=== PATIENT | female | born 1970 | race African-American/Black ===

== ENCOUNTER 2016-09-13 12:28 | Emergency (ER) | payer BC ==
[2016-09-13] MEDS ORDERED: ASPIRIN 81 MG TABLET, CHEWABLE PO ONE (12:34)
--- NOTE | 2016-09-13 12:34 | ER Document Report ---
ED Medical Screen (RME) - General Stated Complaint: NUMBNESS/CHEST PAIN Notes: 45 yo female c/o intermittant numbness both upper extremities x 3 days. hands feel cold. Also c/o sharp intermittant left sided chest pain x 2 days. pain under left breast. nonradiating. nonreproducable. no shortness of breath. hx/o TIA, HTN, fibromyalgia, migraines, asthma. nonsmoker. TRAVEL OUTSIDE OF THE [place] IN LAST 30 DAYS: No - Related Data Allergies/Adverse Reactions: prochlorperazine edisylate [From Compazine] Allergy (Severe, Verified 09/13/16 12:36) PANIC ATTACK doxycycline [Doxycycline] Allergy (Mild, Verified 09/13/16 12:36) RASH Past Medical History - Past Medical History Cardiac Medical History: Reports: Hx Hypertension Pulmonary Medical History: Reports: Hx Asthma Denies: Hx Tuberculosis Neurological Medical History: Reports: Hx Cerebrovascular Accident - TIA, Hx Migraine, Hx Seizures - x1 Musculoskeltal Medical History: Reports Hx Arthritis, Reports Hx Fibromyalgia, Reports Hx Musculoskeletal Trauma Past Surgical History: Reports: Hx Cholecystectomy, Hx Hysterectomy, Hx Orthopedic Surgery - left foot - Immunizations Immunizations up to date: No Hx Diphtheria, Pertussis, Tetanus Vaccination: No
[2016-09-13 13:22] LABS: ABSOLUTE BASOPHILS # (AUTO) 0.1 10^3/uL (0.0-0.2); ABSOLUTE EOSINOPHILS # (AUTO) 0.2 10^3/uL (0.0-0.6); ABSOLUTE LYMPHOCYTES (AUTO) 2.2 10^3/uL (0.5-4.7); ABSOLUTE MONOCYTES (AUTO) 0.3 10^3/uL (0.1-1.4); ABSOLUTE NEUT (AUTO) 3.3 10^3/uL (1.7-8.2); BASOPHILS % (AUTO) 0.8 % (0-2); EOSINOPHILS % (AUTO) 3.7 % (0-6); HEMATOCRIT 35.5 % (36.0-47.0); HEMOGLOBIN 12.1 g/dL (12.0-15.5); HGB HCT DIFFERENCE 0.8; LYMPHOCYTES % (AUTO) 35.9 % (13-45); MEAN CORPUSCULAR HEMOGLOBIN 27.3 pg (27.0-33.4); MEAN CORPUSCULAR HGB CONC 34.1 g/dL (32.0-36.0); MEAN CORPUSCULAR VOLUME 80 fl (80-97); MONOCYTES % (AUTO) 5.6 % (3-13); RED BLOOD COUNT 4.44 10^6/uL (3.72-5.28); RED CELL DISTRIBUTION WIDTH 14.8 % (11.5-14.0); WHITE BLOOD COUNT 6.2 10^3/uL (4.0-10.5)
[2016-09-13 13:30] LABS: APPEARANCE,URINE CLOUDY; BILIRUBIN,URINE NEGATIVE (NEGATIVE); GLUCOSE, URINE NEGATIVE (NEGATIVE); KETONES,URINE TRACE mg/dL (NEGATIVE); LEUKOCYTE ESTERASE,URINE NEGATIVE (NEGATIVE); NITRITE,URINE NEGATIVE (NEGATIVE); PROTEIN,URINE 30 mg/dL (NEGATIVE); URINE SPECIFIC GRAVITY 1.026
--- NOTE | 2016-09-13 13:38 | EKG REPORT ---
SEVERITY:- ABNORMAL ECG - SINUS RHYTHM LEFT VENTRICULAR HYPERTROPHY : Confirmed by: Ping Hester MD 13-Sep-2016 13:37:42
[2016-09-13 13:45] LABS: ALANINE AMINOTRANSFERASE 32 U/L (9-52); ALBUMIN 4.1 g/dL (3.5-5.0); ALKALINE PHOSPHATASE 71 U/L (38-126); ANION GAP 17 (5-19); ASPARTATE AMINO TRANSFERASE 39 U/L (14-36); BILIRUBIN,TOTAL 0.8 mg/dL (0.2-1.3); BLOOD UREA NITROGEN 15 mg/dL (7-20); CALCIUM 9.6 mg/dL (8.4-10.2); CARBON DIOXIDE 29 mmol/L (22-30); CHLORIDE 98 mmol/L (98-107); CREATINE KINASE 880 U/L (30-135); CREATININE RESULT 0.88 mg/dL (0.52-1.25); GLUCOSE 127 mg/dL (75-110); SODIUM 144.2 mmol/L (137-145); TOTAL PROTEIN 8.1 g/dL (6.3-8.2)
[2016-09-13 13:58] LABS: CREATINE KINASE MB 2.01 ng/mL (<4.55); POTASSIUM 2.8 mmol/L (3.6-5.0); TROPONIN I < 0.012 ng/mL
[2016-09-13] MEDS ORDERED: NORMAL SALINE 1000 ML 1,000 ML IV ONE (14:22)
[2016-09-13] MEDS ORDERED: POTASSI CL 20 MEQ/50 ML RIDER 50 ML IV ONE (14:23)
[2016-09-13] MEDS ORDERED: POTASSIUM CHLORIDE 10 MEQ TABLET.SA PO ONE (14:23)
[2016-09-13] MEDS: MAGNESIUM SULFATE/D5W 100 ML IV SCH ×2 (16:00→17:45)
--- NOTE | 2016-09-13 17:57 | ER Document Report ---
ED General - General Chief Complaint: Chest Pain Stated Complaint: NUMBNESS/CHEST PAIN Notes: Patient is a 45-year-old female with past medical history of chronic hypokalemia , morbid obesity, hypertension who presents with multiple complaints including chest pain, lightheadedness, and bilateral upper and lower extremities paresthesias. States these symptoms have been intermittent over the last 3 days. States the chest pain as a dull, sharp pain in the center of her chest. Nothing improves or worsens the pain. No associated nausea, shortness of breath or diaphoresis. States this feels very similar prior episodes of chest pain that she's had all with unremarkable workup. States she has similar feelings of paresthesias in the past that she's had hypokalemia. She is not seen her primary care physician regarding today's concerns. Nothing improves or worsens or paresthesias. Denies any headache, neck pain, fever, or altered mental status. No focal weakness or numbness. TRAVEL OUTSIDE OF THE [place] IN LAST 30 DAYS: No - Related Data Allergies/Adverse Reactions: prochlorperazine edisylate [From Compazine] Allergy (Severe, Verified 09/13/16 12:36) PANIC ATTACK doxycycline [Doxycycline] Allergy (Mild, Verified 09/13/16 12:36) RASH Past Medical History - General Information source: Patient - Social History Smoking Status: Never Smoker Frequency of alcohol use: None Drug Abuse: None Lives with: Spouse/Significant other Family History: Reviewed & Not Pertinent, DM Patient has suicidal ideation: No Patient has homicidal ideation: No - Past Medical History Cardiac Medical History: Reports: Hx Hypertension Pulmonary Medical History: Reports: Hx Asthma Denies: Hx Tuberculosis Neurological Medical History: Reports: Hx Cerebrovascular Accident - TIA, Hx Migraine, Hx Seizures - x1 Musculoskeltal Medical History: Reports Hx Arthritis, Reports Hx Fibromyalgia, Reports Hx Musculoskeletal Trauma Past Surgical History: Reports: Hx Cholecystectomy, Hx Hysterectomy, Hx Orthopedic Surgery - left foot - Immunizations Immunizations up to date: No Hx Diphtheria, Pertussis, Tetanus Vaccination: No Hx Pneumococcal Vaccination: 09/03/00 Review of Systems - Review of Systems Notes: Constitutional: Negative for fever. HENT: Negative for sore throat. Eyes: Negative for visual changes. Cardiovascular: Positive for chest pain. Respiratory: Negative for shortness of breath. Gastrointestinal: Negative for abdominal pain, vomiting or diarrhea. Genitourinary: Negative for dysuria. Musculoskeletal: Negative for back pain. Skin: Negative for rash. Neurological: Negative for headaches, weakness or numbness. Positive for bilateral upper and lower extremity paresthesias 10 point ROS negative except as marked above and in HPI. Physical Exam - Vital signs Vitals: Temp Pulse Resp BP Pulse Ox 97.3 F 62 16 139/80 H 99 09/13/16 12:39 09/13/16 12:39 09/13/16 12:39 09/13/16 12:39 09/13/16 12:39 Interpretation: Normal Notes: PHYSICAL EXAMINATION: GENERAL: Well-appearing, well-nourished and in no acute distress. HEAD: Atraumatic, normocephalic. EYES: Pupils equal round and reactive to light, extraocular movements intact, sclera anicteric, conjunctiva are normal. ENT: nares patent, oropharynx clear without exudates. Moist mucous membranes. NECK: Normal range of motion, supple without lymphadenopathy LUNGS: Breath sounds clear to auscultation bilaterally and equal. No wheezes rales or rhonchi. HEART: Regular rate and rhythm without murmurs ABDOMEN: Soft, nontender, normoactive bowel sounds. No guarding, no rebound. No masses appreciated. EXTREMITIES: Normal range of motion, no pitting or edema. No cyanosis. NEUROLOGICAL: Face symmetric. Tongue protrudes midline. Extraocular motions intact. Pupils are 2 mm and equally reactive. Normal speech, normal gait. 5 out of 5 strength in both the distal and proximal upper and lower extremities bilaterally. Sensation is grossly intact throughout. Finger to nose testing normal. Pronator drift normal. PSYCH: Normal mood, normal affect. SKIN: Warm, Dry, normal turgor, no rashes or lesions noted. Course - Re-evaluation Re-evalutation: 09/13/16 23:11 Presentation of chest pain in an otherwise well appearing patient. Low clinical suspicion for ACS given clinical history, exam, EKG without ST elevations or depressions, and negative initial troponin. HEART score less than or equal to 3. PE also seems unlikely given clinical history, absence of tachycardia or dyspnea. Patient is PERC criteria negative CXR without evidence of pneumothorax or pneumonia. No widened mediastinum. Aortic dissection also seems unlikely given history, symmetric pulses, CXR, and vitals. Regarding patient's complaints of upper show any paresthesias: Suspect this is likely related to her hypokalemia she has had similar symptoms in the past when she's had hypokalemia. Her potassium was repleted here both IV and with oral dosing in conjunction with IV magnesium replacement. I contacted patient's primary care physician Dr. Little to relate the findings from today's labs and the need for close outpatient follow-up.At this time will discharge with return precautions and follow-up recommendations. Verbal discharge instructions given a the bedside and opportunity for questions given. Medication warnings reviewed. Patient is in agreement with this plan and has verbalized understanding of return precautions and the need for primary care follow-up in the next 24-72 hours. - Vital Signs Vital signs: Temp Pulse Resp BP Pulse Ox 98.0 F 63 17 112/78 99 09/13/16 18:11 09/13/16 18:11 09/13/16 18:11 09/13/16 18:11 09/13/16 18:11 - Laboratory Result Diagrams: 09/13/16 12:50 09/13/16 12:50 Laboratory results interpreted by me: 09/13/16 09/13/16 09/13/16 12:50 12:50 12:50 Hct 35.5 L RDW 14.8 H Potassium 2.8 L* Glucose 127 H AST 39 H Creatine Kinase 880 H Urine Protein 30 H Urine Ketones TRACE H Urine Urobilinogen 2.0 H - Diagnostic Test Radiology reviewed: Image reviewed, Reports reviewed Radiology results interpreted by me: 09/13/16 23:11 Chest x-ray: No acute infiltrate or pneumothorax - EKG Interpretation by Me Additional EKG results interpreted by me: 09/13/16 23:11 Normal sinus rhythm. Rate 67.Elevations or depressions. QTC 465 Discharge - Discharge Clinical Impression: Hypokalemia, Paresthesias Chest pain Qualifiers: Chest pain type: unspecified Qualified Code(s): R07.9 - Chest pain, unspecified Condition: Good Disposition: HOME, SELF-CARE Additional Instructions: You were seen today for chest pain. The exact cause of your pain is unclear. However, based on your cardiac enzyme testing, chest x-ray, and EKG it does not appear that it is from an immediately life-threatening cause at this time. Although your testing here is normal is critical that you follow-up with your primary care physician for continued evaluation of this chest pain. Your labs also show that you had a low potassium which has been replaced here in the emergency department. You need to follow-up with your primary care doctor either tomorrow or the following day for recheck of this lab to ensure that your symptoms are improving. Please return to emergency department immediately if you have worsening of your chest pain, shortness of breath, vomiting, become unable to exert yourself due to pain or difficulty breathing, you pass out, or have any pain that radiates into your arms, jaw, or back. Please also return if you have any additional symptoms that are concerning to you. Referrals: JONAH LITTLE MD [Primary Care Provider] - Follow up tomorrow
[2016-09-13 18:09] VITALS: BP 112/78
== END 2016-09-13 18:05 | disposition home or self-care (01) ==
LOC: ER 12:28
DX: R07.9 Chest pain, unspecified (principal); E87.6 Hypokalemia; R20.0 Anesthesia of skin; E66.01 Morbid (severe) obesity due to excess calories; Z68.41 Body mass index [BMI] 40.0-44.9, adult; R42 Dizziness and giddiness; I10 Essential (primary) hypertension; J45.909 Unspecified asthma, uncomplicated; Z86.73 Personal history of transient ischemic attack (TIA), and cerebral infarction without residual deficits; Z88.8 Allergy status to other drugs, medicaments and biological substances; Z88.1 Allergy status to other antibiotic agents
CPT/HCPCS: 93005; 99285; 96365; 96368; 96366; 36415; 82553; 82550; 83690; 85025; 80053; 81001; 84484; 71020; 93010; J3475; J3480; J7030

== ENCOUNTER 2016-09-17 21:41 | Emergency (ER) | payer BC ==
[2016-09-17 22:54] LABS: ABSOLUTE BASOPHILS # (AUTO) 0.1 10^3/uL (0.0-0.2); ABSOLUTE EOSINOPHILS # (AUTO) 0.3 10^3/uL (0.0-0.6); ABSOLUTE LYMPHOCYTES (AUTO) 2.8 10^3/uL (0.5-4.7); ABSOLUTE MONOCYTES (AUTO) 0.7 10^3/uL (0.1-1.4); ABSOLUTE NEUT (AUTO) 5.2 10^3/uL (1.7-8.2); BASOPHILS % (AUTO) 1.3 % (0-2); EOSINOPHILS % (AUTO) 3.8 % (0-6); HEMATOCRIT 35.2 % (36.0-47.0); HEMOGLOBIN 11.8 g/dL (12.0-15.5); HGB HCT DIFFERENCE 0.2; LYMPHOCYTES % (AUTO) 30.7 % (13-45); MEAN CORPUSCULAR HEMOGLOBIN 27.1 pg (27.0-33.4); MEAN CORPUSCULAR HGB CONC 33.4 g/dL (32.0-36.0); MEAN CORPUSCULAR VOLUME 81 fl (80-97); MONOCYTES % (AUTO) 7.9 % (3-13); RED BLOOD COUNT 4.34 10^6/uL (3.72-5.28); RED CELL DISTRIBUTION WIDTH 14.3 % (11.5-14.0); SEGMENTED NEUTROPHILS % (AUTO) 56.3 % (42-78); WHITE BLOOD COUNT 9.2 10^3/uL (4.0-10.5)
--- NOTE | 2016-09-17 23:01 | ER Document Report ---
ED Cardiac - General Chief Complaint: Chest Pain Stated Complaint: CHEST PAIN Time seen by provider: 23:01 Mode of Arrival: Ambulatory Information source: Patient TRAVEL OUTSIDE OF THE [place] IN LAST 30 DAYS: No - HPI Patient complains to provider of: Chest pain Was the onset of pain: Sudden Is the pain a: New problem Chest pain location: Substernal Quality of pain: Sharp, Stabbing Severity now: None Chest pain precipitating factors: At Rest Cardiac risk factors: Hypertension Positive cardiac history: No Associated symptoms: Other - Tingling to distal extremities Exacerbated by: Denies Relieved by: Nothing Similar symptoms previously: Yes Recently seen / treated by doctor: Yes Notes: Patient is a 45-year-old female who presents to the emergency room complaining of sharp stabbing chest pain with tingling sensation to her toes and fingers it' s been going on for the past 2 days, in fact she's been having it intermittently throughout the week, she was seen in this emergency room on 09/13 and diagnosed with hypokalemia, she was given oral and IV potassium in the emergency room and discharged, she followed up with her primary care provider who did not change her medications are put her on any additional potassium wanted to order additional tests, she states this evening her symptoms got bad enough warranting her to come back to the emergency room for evaluation, she denies any shortness of breath, no cough, cold or congestion, no nausea, vomiting or diarrhea - Related Data Allergies/Adverse Reactions: prochlorperazine edisylate [From Compazine] Allergy (Severe, Verified 09/13/16 12:36) PANIC ATTACK doxycycline [Doxycycline] Allergy (Mild, Verified 09/13/16 12:36) RASH Past Medical History - General Information source: Patient - Social History Smoking Status: Never Smoker Family History: Reviewed & Not Pertinent, DM - Past Medical History Cardiac Medical History: Reports: Hx Hypertension Pulmonary Medical History: Reports: Hx Asthma Denies: Hx Tuberculosis Neurological Medical History: Reports: Hx Cerebrovascular Accident - TIA, Hx Migraine, Hx Seizures - x1 Musculoskeltal Medical History: Reports Hx Arthritis, Reports Hx Fibromyalgia, Reports Hx Musculoskeletal Trauma Past Surgical History: Reports: Hx Cholecystectomy, Hx Hysterectomy, Hx Orthopedic Surgery - left foot - Immunizations Immunizations up to date: No Hx Diphtheria, Pertussis, Tetanus Vaccination: No Hx Pneumococcal Vaccination: 09/03/00 Review of Systems - Review of Systems Constitutional: No symptoms reported EENT: No symptoms reported Cardiovascular: Chest pain Respiratory: No symptoms reported Gastrointestinal: No symptoms reported Genitourinary: No symptoms reported Female Genitourinary: No symptoms reported Musculoskeletal: No symptoms reported Skin: No symptoms reported Hematologic/Lymphatic: No symptoms reported Neurological/Psychological: Tingling -: Yes All other systems reviewed and negative Physical Exam - Vital signs Vitals: Temp Pulse Resp BP Pulse Ox 98.1 F 72 18 127/76 H 100 09/17/16 21:46 09/17/16 21:46 09/17/16 21:46 09/17/16 21:46 09/17/16 21:46 Interpretation: Normal - General General appearance: Appears well, Alert - HEENT Head: Normocephalic, Atraumatic Eyes: Normal Pupils: PERRL - Respiratory Respiratory status: No respiratory distress Chest status: Nontender Breath sounds: Normal Chest palpation: Normal - Cardiovascular Rhythm: Regular Heart sounds: Normal auscultation Murmur: No - Abdominal Inspection: Normal Distension: No distension Bowel sounds: Normal Tenderness: Nontender Organomegaly: No organomegaly - Back Back: Normal, Nontender - Extremities General upper extremity: Normal inspection, Nontender, Normal color, Normal ROM , Normal temperature General lower extremity: Normal inspection, Nontender, Normal color, Normal ROM , Normal temperature, Normal weight bearing. No: Maryanne's sign - Neurological Neuro grossly intact: Yes Cognition: Normal Orientation: AAOx4 [place] Coma Scale Eye Opening: Spontaneous [place] Coma Scale Verbal: Oriented [place] Coma Scale Motor: Obeys Commands [place] Coma Scale Total: 15 Speech: Normal Motor strength normal: LUE, RUE, LLE, RLE Sensory: Normal - Psychological Associated symptoms: Normal affect, Normal mood - Skin Skin Temperature: Warm Skin Moisture: Dry Skin Color: Normal Course - Re-evaluation Re-evalutation: 09/18/16 01:38 Patient's potassium noted to be 2.9, oral and IV potassium will be replaced and patient will be reevaluated 09/18/16 03:07 Patient has had oral potassium and one IV K rider, she reports that her symptoms are already feeling much better, second care provider is being hung at the present time, anticipate patient to be discharged with instructions to follow-up with her primary care provider in the next 2-3 days or return if symptoms worsen, patient acknowledges understanding and agreement with this plan - Vital Signs Vital signs: Temp Pulse Resp BP Pulse Ox 98.1 F 72 15 104/60 96 09/17/16 21:46 09/17/16 21:46 09/18/16 01:28 09/18/16 01:28 09/18/16 01:28 - Laboratory Result Diagrams: 09/17/16 22:33 09/17/16 23:50 Laboratory results interpreted by me: 09/17/16 09/17/16 09/17/16 22:33 22:50 23:50 Hgb 11.8 L Hct 35.2 L RDW 14.3 H Potassium 2.9 L* Chloride 97 L Glucose 114 H Creatine Kinase 363 H Urine Urobilinogen 2.0 H - Diagnostic Test Radiology reviewed: Image reviewed, Reports reviewed - EKG Interpretation by Me EKG shows normal: Sinus rhythm Rate: Normal Rhythm: NSR [place]/QRS: IVCD When compared to previous EKG there are: No significant change Discharge - Discharge Clinical Impression: Hypokalemia, Paresthesias Chest pain Qualifiers: Chest pain type: unspecified Qualified Code(s): R07.9 - Chest pain, unspecified Condition: Stable Disposition: HOME, SELF-CARE Instructions: Chest Pain of Unclear Cause ([facility]), Potassium ([facility]), Numbness or Paresthesia ([facility]) Additional Instructions: Follow up with your primary care provider in one to 2 days. Return to the emergency room immediately if symptoms worsen or any additional concerns. Prescriptions: Potassium Chloride 40 meq PO DAILY #10 [email or web address]
[2016-09-17 23:28] LABS: APPEARANCE,URINE CLEAR; BILIRUBIN,URINE NEGATIVE (NEGATIVE); GLUCOSE, URINE NEGATIVE (NEGATIVE); KETONES,URINE NEGATIVE (NEGATIVE); LEUKOCYTE ESTERASE,URINE NEGATIVE (NEGATIVE); NITRITE,URINE NEGATIVE (NEGATIVE); PROTEIN,URINE NEGATIVE (NEGATIVE); URINE SPECIFIC GRAVITY 1.021
[2016-09-17 23:42] LABS: URINE BARBITURATES SCREEN NEGATIVE; URINE METHADONE SCREEN NEGATIVE; URINE PHENCYCLIDINE SCREEN NEGATIVE
[2016-09-18 00:34] LABS: ALANINE AMINOTRANSFERASE 28 U/L (9-52); ALBUMIN 3.9 g/dL (3.5-5.0); ALKALINE PHOSPHATASE 70 U/L (38-126); ANION GAP 14 (5-19); ASPARTATE AMINO TRANSFERASE 24 U/L (14-36); BILIRUBIN,TOTAL 0.6 mg/dL (0.2-1.3); BLOOD UREA NITROGEN 16 mg/dL (7-20); CALCIUM 9.3 mg/dL (8.4-10.2); CARBON DIOXIDE 30 mmol/L (22-30); CHLORIDE 97 mmol/L (98-107); CREATINE KINASE 363 U/L (30-135); CREATININE RESULT 0.86 mg/dL (0.52-1.25); GLUCOSE 114 mg/dL (75-110); SODIUM 140.8 mmol/L (137-145); TOTAL PROTEIN 7.6 g/dL (6.3-8.2)
[2016-09-18 00:52] LABS: TROPONIN I < 0.012 ng/mL
[2016-09-18] MEDS ORDERED: POTASSIUM CHLORIDE 10 MEQ TABLET.SA PO ONE (00:56)
[2016-09-18 00:57] LABS: POTASSIUM 2.9 mmol/L (3.6-5.0)
[2016-09-18] MEDS ORDERED: POTASSI CL 20 MEQ/50 ML RIDER 50 ML IV SCH (01:00)
[2016-09-18 05:00] VITALS: BP 102/56
--- NOTE | 2016-09-18 08:20 | EKG REPORT ---
SEVERITY:- ABNORMAL ECG - SINUS RHYTHM NONSPECIFIC INTRAVENTRICULAR CONDUCTION DELAY LEFT VENTRICULAR HYPERTROPHY ANTERIOR Q WAVES, POSSIBLY DUE TO LVH : Confirmed by: Diego Woods MD 18-Sep-2016 08:19:00
== END 2016-09-18 05:13 | disposition home or self-care (01) ==
LOC: ER 21:41
DX: E87.6 Hypokalemia (principal); R20.9 Unspecified disturbances of skin sensation; R07.9 Chest pain, unspecified; I10 Essential (primary) hypertension; J45.909 Unspecified asthma, uncomplicated; Z90.49 Acquired absence of other specified parts of digestive tract; Z90.710 Acquired absence of both cervix and uterus; Z86.73 Personal history of transient ischemic attack (TIA), and cerebral infarction without residual deficits
CPT/HCPCS: 93005; 36415; 82553; 82550; 83735; 85025; 80053; 81001; 84484; 80307; 71020; 93010; J3480

== ENCOUNTER 2016-09-19 16:51 | Emergency (ER) | payer BC ==
[2016-09-19] MEDS ORDERED: ASPIRIN 81 MG TABLET, CHEWABLE PO ONE (17:20)
--- NOTE | 2016-09-19 17:23 | ER Document Report ---
ED Medical Screen (RME) - General Stated Complaint: CHEST PAIN Mode of Arrival: Ambulatory Information source: Patient Notes: Patient complains of left-sided chest pain that started yesterday around 7 PM. Patient reports being evaluated emergency department twice in the past week for hypokalemia. Patient states that she called her doctor who advised her to come here for concern about continued hypokalemia. Patient denies any shortness of breath. Patient denies any nausea vomiting hx: Fibromyalgia, hypertension, sleep apnea, migraines, TIA I have greeted and performed a rapid initial assessment of this patient. A comprehensive ED assessment and evaluation of the patient, analysis of test results and completion of the medical decision making process will be conducted by additional ED providers. TRAVEL OUTSIDE OF THE [place] IN LAST 30 DAYS: No - Related Data Allergies/Adverse Reactions: prochlorperazine edisylate [From Compazine] Allergy (Severe, Verified 09/19/16 17:20) PANIC ATTACK doxycycline [Doxycycline] Allergy (Mild, Verified 09/19/16 17:20) RASH Past Medical History - Past Medical History Cardiac Medical History: Reports: Hx Hypertension Pulmonary Medical History: Reports: Hx Asthma Denies: Hx Tuberculosis Neurological Medical History: Reports: Hx Cerebrovascular Accident - TIA, Hx Migraine, Hx Seizures - x1 Musculoskeltal Medical History: Reports Hx Arthritis, Reports Hx Fibromyalgia, Reports Hx Musculoskeletal Trauma Past Surgical History: Reports: Hx Cholecystectomy, Hx Hysterectomy, Hx Orthopedic Surgery - left foot - Immunizations Immunizations up to date: No Hx Diphtheria, Pertussis, Tetanus Vaccination: No Physical Exam - Vital signs Vitals: Temp Pulse Resp BP 98.3 F 71 20 115/65 09/19/16 17:13 09/19/16 17:13 09/19/16 17:13 09/19/16 17:13 - General General appearance: Appears well, Alert In distress: None - Respiratory Respiratory status: No respiratory distress Course - Vital Signs Vital signs: Temp Pulse Resp BP Pulse Ox 98.3 F 71 20 115/65 09/19/16 17:13 09/19/16 17:13 09/19/16 17:13 09/19/16 17:13
[2016-09-19 18:14] LABS: APPEARANCE,URINE CLEAR; BILIRUBIN,URINE NEGATIVE (NEGATIVE); GLUCOSE, URINE NEGATIVE (NEGATIVE); KETONES,URINE NEGATIVE (NEGATIVE); LEUKOCYTE ESTERASE,URINE NEGATIVE (NEGATIVE); NITRITE,URINE NEGATIVE (NEGATIVE); PROTEIN,URINE NEGATIVE (NEGATIVE); URINE SPECIFIC GRAVITY 1.014; UROBILINOGEN,URINE NEGATIVE mg/dL (<2.0)
[2016-09-19 18:25] LABS: ABSOLUTE BASOPHILS # (AUTO) 0.1 10^3/uL (0.0-0.2); ABSOLUTE EOSINOPHILS # (AUTO) 0.2 10^3/uL (0.0-0.6); ABSOLUTE LYMPHOCYTES (AUTO) 2.6 10^3/uL (0.5-4.7); ABSOLUTE MONOCYTES (AUTO) 0.6 10^3/uL (0.1-1.4); ABSOLUTE NEUT (AUTO) 4.6 10^3/uL (1.7-8.2); BASOPHILS % (AUTO) 0.6 % (0-2); EOSINOPHILS % (AUTO) 2.3 % (0-6); HEMATOCRIT 35.8 % (36.0-47.0); HEMOGLOBIN 11.6 g/dL (12.0-15.5); LYMPHOCYTES % (AUTO) 32.1 % (13-45); MEAN CORPUSCULAR HEMOGLOBIN 26.8 pg (27.0-33.4); MEAN CORPUSCULAR HGB CONC 32.3 g/dL (32.0-36.0); MEAN CORPUSCULAR VOLUME 83 fl (80-97); MONOCYTES % (AUTO) 7.6 % (3-13); RED BLOOD COUNT 4.31 10^6/uL (3.72-5.28); RED CELL DISTRIBUTION WIDTH 14.5 % (11.5-14.0); SEGMENTED NEUTROPHILS % (AUTO) 57.4 % (42-78)
--- NOTE | 2016-09-19 18:37 | EKG REPORT ---
SEVERITY:- ABNORMAL ECG - SINUS RHYTHM LEFT VENTRICULAR HYPERTROPHY : Confirmed by: Diego Woods MD 19-Sep-2016 18:36:55
[2016-09-19 18:47] LABS: ALANINE AMINOTRANSFERASE 24 U/L (9-52); ALBUMIN 3.8 g/dL (3.5-5.0); ALKALINE PHOSPHATASE 65 U/L (38-126); ANION GAP 13 (5-19); ASPARTATE AMINO TRANSFERASE 22 U/L (14-36); BILIRUBIN,TOTAL 0.3 mg/dL (0.2-1.3); BLOOD UREA NITROGEN 11 mg/dL (7-20); CALCIUM 9.3 mg/dL (8.4-10.2); CARBON DIOXIDE 30 mmol/L (22-30); CHLORIDE 98 mmol/L (98-107); CREATINE KINASE 317 U/L (30-135); CREATININE RESULT 0.93 mg/dL (0.52-1.25); GLUCOSE 85 mg/dL (75-110); LIPASE 113.8 U/L (23-300); MAGNESIUM 1.9 mg/dL (1.6-2.3); POTASSIUM 3.2 mmol/L (3.6-5.0); SODIUM 140.6 mmol/L (137-145); TOTAL PROTEIN 7.6 g/dL (6.3-8.2)
[2016-09-19 18:55] LABS: CREATINE KINASE MB 1.36 ng/mL (<4.55)
[2016-09-19 19:01] LABS: TROPONIN I < 0.012 ng/mL
[2016-09-19] MEDS ORDERED: POTASSIUM CHLORIDE 10 MEQ TABLET.SA PO ONE (19:19)
--- NOTE | 2016-09-19 19:22 | ER Document Report ---
ED General - General Chief Complaint: Chest Pain Stated Complaint: CHEST PAIN Time seen by provider: 19:21 Mode of Arrival: Ambulatory Notes: Is a 45-year-old female that comes emergency department for chief complaint of tingling in her hands and feet, tiredness, and intermittent sharp and heaviness discomforts in her chest mainly on the left side. Symptoms started yesterday at 7 PM. Patient has been to the emergency department twice this week for concerns of hyperkalemia, he states she has had problems with this in the past, she just began a potassium supplement. Patient denies any shortness of breath, nausea or vomiting, diarrhea, fevers, cough. Patient with no cardiovascular disease history, has had negative stress test in the past. TRAVEL OUTSIDE OF THE [place] IN LAST 30 DAYS: No - Related Data Allergies/Adverse Reactions: prochlorperazine edisylate [From Compazine] Allergy (Severe, Verified 09/19/16 17:20) PANIC ATTACK doxycycline [Doxycycline] Allergy (Mild, Verified 09/19/16 17:20) RASH Past Medical History - General Information source: Patient - Social History Smoking Status: Never Smoker Chew tobacco use (# tins/day): No Frequency of alcohol use: None Drug Abuse: None Lives with: Family Family History: Reviewed & Not Pertinent, DM Patient has suicidal ideation: No Patient has homicidal ideation: No - Past Medical History Cardiac Medical History: Reports: Hx Hypertension Pulmonary Medical History: Reports: Hx Asthma Denies: Hx Tuberculosis Neurological Medical History: Reports: Hx Cerebrovascular Accident - TIA, Hx Migraine, Hx Seizures - x1 Renal/ Medical History: Denies: Hx Peritoneal Dialysis Musculoskeltal Medical History: Reports Hx Arthritis, Reports Hx Fibromyalgia, Reports Hx Musculoskeletal Trauma Past Surgical History: Reports: Hx Section, Hx Cholecystectomy, Hx Hysterectomy, Hx Orthopedic Surgery - left foot - Immunizations Immunizations up to date: No Hx Diphtheria, Pertussis, Tetanus Vaccination: No Hx Pneumococcal Vaccination: 09/03/00 Review of Systems - Review of Systems Constitutional: No symptoms reported EENT: No symptoms reported Cardiovascular: See HPI Respiratory: No symptoms reported Gastrointestinal: No symptoms reported Genitourinary: No symptoms reported Female Genitourinary: No symptoms reported Musculoskeletal: See HPI Skin: No symptoms reported Hematologic/Lymphatic: No symptoms reported Neurological/Psychological: See HPI Physical Exam - Vital signs Vitals: Temp Pulse Resp BP 98.3 F 71 20 115/65 09/19/16 17:13 09/19/16 17:13 09/19/16 17:13 09/19/16 17:13 Interpretation: Normal - General General appearance: Appears well, Alert In distress: None - HEENT Head: Normocephalic, Atraumatic Eyes: Normal Conjunctiva: Normal Extraocular movements intact: Yes Eyelashes: Normal Pupils: PERRL Sinus: Normal Nasal: Normal Mouth/Lips: Normal Mucous membranes: Normal Pharynx: Normal Neck: Normal - Respiratory Respiratory status: No respiratory distress Chest status: Nontender Breath sounds: Normal. No: Decreased air movement, Wheezing Chest palpation: Normal - Cardiovascular Rhythm: Regular. No: Tachycardia Heart sounds: Normal auscultation, S1 appreciated, S2 appreciated Murmur: No - Abdominal Inspection: Normal Distension: No distension Bowel sounds: Normal Tenderness: Nontender. No: Tender, Guarding Organomegaly: No organomegaly - Back Back: Normal, Nontender - Extremities General upper extremity: Normal inspection, Nontender, Normal color, Normal ROM , Normal temperature General lower extremity: Normal inspection, Nontender, Normal color, Normal ROM , Normal temperature, Normal weight bearing. No: Maryanne's sign - Neurological Neuro grossly intact: Yes Cognition: Normal Orientation: AAOx4 [place] Coma Scale Eye Opening: Spontaneous [place] Coma Scale Verbal: Oriented [place] Coma Scale Motor: Obeys Commands [place] Coma Scale Total: 15 Speech: Normal Motor strength normal: LUE, RUE, LLE, RLE Sensory: Normal - Psychological Associated symptoms: Normal affect, Normal mood - Skin Skin Temperature: Warm Skin Moisture: Dry Skin Color: Normal Course - Re-evaluation Re-evalutation: Patient calm, relaxed, talkative, well-appearing. On initial evaluation patient is asymptomatic. Magnesium normal, potassium slightly low at 3.2 but significantly improved from prior. EKG shows normal sinus rhythm with left axis deviation, no ischemic T- wave inversions or ST segment changes. No other abnormalities noted. Chest x- ray unremarkable. Mild normocytic anemia. CK mildly elevated. Patient's reported chest pain is atypical, has been intermittent for over a week now, very low suspicion of acute cardiac abnormality. No shortness of breath, tachycardia, or concerning history suggesting pulmonary embolism. Called and discussed with patient's primary care provider who had referred her to the emergency department, Dr. Little. He states he does not want to change blood pressure medication at this time (includes HCTZ) and patient also does not want to change because her blood pressures have been so good and it is difficult to control her blood pressure. He recommends single dose of potassium now, continue daily supplement of potassium, and close follow-up within the next several days at his clinic. Discussed this with patient, patient states understanding and agreement with plan. - Vital Signs Vital signs: Temp Pulse Resp BP Pulse Ox 98.3 F 72 16 116/79 99 09/19/16 17:13 09/19/16 19:04 09/19/16 20:01 09/19/16 20:01 09/19/16 20:01 - Laboratory Result Diagrams: 09/19/16 18:13 09/19/16 18:13 Laboratory results interpreted by me: 09/19/16 09/19/16 18:13 18:13 Hgb 11.6 L Hct 35.8 L MCH 26.8 L RDW 14.5 H Potassium 3.2 L Creatine Kinase 317 H Discharge - Discharge Clinical Impression: Hypokalemia, Paresthesias Chest pain Qualifiers: Chest pain type: unspecified Qualified Code(s): R07.9 - Chest pain, unspecified Condition: Stable Disposition: HOME, SELF-CARE Additional Instructions: You have been given an extra potassium supplement tonight, continue a daily potassium supplement, follow-up with her primary care provider for additional management of your potassium and blood pressure medications within the next several days (i.e. Sunday). Please return to the emergency department for any concerning or worsening symptoms. Referrals: JONAH LITTLE MD [Primary Care Provider] - 09/22/16
[2016-09-19 20:05] VITALS: BP 116/79
== END 2016-09-19 20:05 | disposition home or self-care (01) ==
LOC: ER 16:51
DX: R07.9 Chest pain, unspecified (principal); R20.0 Anesthesia of skin
CPT/HCPCS: 36415; 71020; 80053; 81001; 82550; 82553; 83690; 83735; 84484; 85025; 93005; 93010; 99285

== ENCOUNTER 2016-10-02 07:29 | Emergency (ER) | payer BC ==
--- NOTE | 2016-10-02 08:28 | EKG REPORT ---
SEVERITY:- ABNORMAL ECG - SINUS RHYTHM LEFT VENTRICULAR HYPERTROPHY : Confirmed by: Catherine Turner 02-Oct-2016 08:27:36
[2016-10-02 08:42] LABS: ABSOLUTE EOSINOPHILS # (AUTO) 0.2 10^3/uL (0.0-0.6); ABSOLUTE LYMPHOCYTES (AUTO) 2.5 10^3/uL (0.5-4.7); ABSOLUTE MONOCYTES (AUTO) 0.6 10^3/uL (0.1-1.4); ABSOLUTE NEUT (AUTO) 4.7 10^3/uL (1.7-8.2); BASOPHILS % (AUTO) 0.4 % (0-2); EOSINOPHILS % (AUTO) 2.9 % (0-6); HEMATOCRIT 34.2 % (36.0-47.0); HEMOGLOBIN 11.8 g/dL (12.0-15.5); HGB HCT DIFFERENCE 1.2; LYMPHOCYTES % (AUTO) 31.3 % (13-45); MEAN CORPUSCULAR HEMOGLOBIN 27.7 pg (27.0-33.4); MEAN CORPUSCULAR HGB CONC 34.4 g/dL (32.0-36.0); MEAN CORPUSCULAR VOLUME 81 fl (80-97); MONOCYTES % (AUTO) 7.1 % (3-13); RED BLOOD COUNT 4.24 10^6/uL (3.72-5.28); RED CELL DISTRIBUTION WIDTH 14.2 % (11.5-14.0); SEGMENTED NEUTROPHILS % (AUTO) 58.3 % (42-78)
[2016-10-02 08:56] LABS: ALANINE AMINOTRANSFERASE 29 U/L (9-52); ALBUMIN 3.9 g/dL (3.5-5.0); ALKALINE PHOSPHATASE 83 U/L (38-126); ANION GAP 15 (5-19); ASPARTATE AMINO TRANSFERASE 21 U/L (14-36); BILIRUBIN,TOTAL 0.7 mg/dL (0.2-1.3); BLOOD UREA NITROGEN 14 mg/dL (7-20); CALCIUM 9.6 mg/dL (8.4-10.2); CARBON DIOXIDE 29 mmol/L (22-30); CHLORIDE 98 mmol/L (98-107); CREATINE KINASE 342 U/L (30-135); CREATININE RESULT 1.01 mg/dL (0.52-1.25); GLUCOSE 110 mg/dL (75-110); MAGNESIUM 2.1 mg/dL (1.6-2.3); POTASSIUM 3.3 mmol/L (3.6-5.0); SODIUM 141.5 mmol/L (137-145); TOTAL PROTEIN 8.4 g/dL (6.3-8.2)
[2016-10-02 09:08] LABS: CREATINE KINASE MB 1.23 ng/mL (<4.55); TROPONIN I < 0.012 ng/mL
[2016-10-02] MEDS ORDERED: NORMAL SALINE 1000 ML 500 ML IV ONE (09:32)
[2016-10-02] MEDS ORDERED: POTASSIUM CHLORIDE 10 MEQ TABLET.SA PO ONE (10:43)
[2016-10-02 11:42] VITALS: BP 91/55
--- NOTE | 2016-10-02 11:45 | ER Document Report ---
ED General - General Chief Complaint: Chest Pain Stated Complaint: FOOT PAIN TRAVEL OUTSIDE OF THE [place] IN LAST 30 DAYS: No - HPI Patient complains to provider of: chest wall pain myalgias lower extremity pain Notes: Patient coming in for evaluation chest wall pain generalized weakness generalized myalgias lower extremity cramping. Patient has had multiple visits to the ER recently due to fill her symptoms. Patient states no change her symptoms today. Patient states she is also followed up with her primary care physician due to thymus for symptoms are related to her chronic hypokalemia. Patient states she has been compliant with her medications including her potassium replacement. Denies any recent nausea vomiting diarrhea fevers chills. Patient upon evaluation other than diffuse myalgias has no other complaints - Related Data Allergies/Adverse Reactions: prochlorperazine edisylate [From Compazine] Allergy (Severe, Verified 10/02/16 07:42) PANIC ATTACK doxycycline [Doxycycline] Allergy (Mild, Verified 10/02/16 07:42) RASH Past Medical History - Social History Smoking Status: Never Smoker Chew tobacco use (# tins/day): No Frequency of alcohol use: None Drug Abuse: None Family History: Reviewed & Not Pertinent, DM Patient has suicidal ideation: No Patient has homicidal ideation: No - Past Medical History Cardiac Medical History: Reports: Hx Hypertension Pulmonary Medical History: Reports: Hx Asthma Denies: Hx Tuberculosis Neurological Medical History: Reports: Hx Cerebrovascular Accident - TIA, Hx Migraine, Hx Seizures - x1 Renal/ Medical History: Denies: Hx Peritoneal Dialysis Musculoskeltal Medical History: Reports Hx Arthritis, Reports Hx Fibromyalgia, Reports Hx Musculoskeletal Trauma Past Surgical History: Reports: Hx Section, Hx Cholecystectomy, Hx Hysterectomy, Hx Orthopedic Surgery - left foot - Immunizations Immunizations up to date: No Hx Diphtheria, Pertussis, Tetanus Vaccination: No Hx Pneumococcal Vaccination: 09/03/00 Review of Systems - Review of Systems Constitutional: No symptoms reported EENT: No symptoms reported Cardiovascular: Chest pain - Chest wall pain Respiratory: No symptoms reported Gastrointestinal: No symptoms reported Genitourinary: No symptoms reported Female Genitourinary: No symptoms reported Musculoskeletal: Muscle pain - Muscle cramps Skin: No symptoms reported Hematologic/Lymphatic: No symptoms reported Neurological/Psychological: No symptoms reported Physical Exam - Vital signs Vitals: Temp Pulse Resp BP Pulse Ox 97.2 F 62 18 122/77 99 10/02/16 07:45 10/02/16 07:45 10/02/16 07:45 10/02/16 07:45 10/02/16 07:45 Interpretation: Normal - General General appearance: Appears well, Alert - HEENT Head: Normocephalic, Atraumatic Eyes: Normal Pupils: PERRL - Respiratory Respiratory status: No respiratory distress Chest status: Tender - Tender to palpation reproduces patient's pain Breath sounds: Normal Chest palpation: Normal - Cardiovascular Rhythm: Regular Heart sounds: Normal auscultation Murmur: No - Abdominal Inspection: Normal Distension: No distension Bowel sounds: Normal Tenderness: Nontender Organomegaly: No organomegaly - Back Back: Normal, Nontender - Extremities General upper extremity: Normal inspection, Nontender, Normal color, Normal ROM , Normal temperature General lower extremity: Normal inspection, Nontender, Normal color, Normal ROM , Normal temperature, Normal weight bearing. No: Maryanne's sign - Neurological Neuro grossly intact: Yes Cognition: Normal Orientation: AAOx4 [place] Coma Scale Eye Opening: Spontaneous [place] Coma Scale Verbal: Oriented [place] Coma Scale Motor: Obeys Commands [place] Coma Scale Total: 15 Speech: Normal Motor strength normal: LUE, RUE, LLE, RLE Sensory: Normal - Psychological Associated symptoms: Normal affect, Normal mood - Skin Skin Temperature: Warm Skin Moisture: Dry Skin Color: Normal Course - Re-evaluation Re-evalutation: 10/02/16 14:42 Patient's lab work again shows hyperkalemia and magnesium within normal limits. Patient was replaced orally. Discussed with patient's PCP. Patient will be discharged home to follow-up with PCP. Patient agrees with this plan. - Vital Signs Vital signs: Temp Pulse Resp BP Pulse Ox 97.2 F 62 17 91/55 L 98 10/02/16 07:45 10/02/16 07:45 10/02/16 11:03 10/02/16 11:03 10/02/16 11:00 - Laboratory Result Diagrams: 10/02/16 08:30 10/02/16 08:30 Laboratory results interpreted by me: 10/02/16 10/02/16 08:30 08:30 Hgb 11.8 L Hct 34.2 L RDW 14.2 H Potassium 3.3 L Est GFR (Non-Af Amer) 59 L Creatine Kinase 342 H Total Protein 8.4 H Discharge - Discharge Clinical Impression: Hypokalemia, Myalgia Condition: Good Disposition: HOME, SELF-CARE Instructions: Hypokalemia ([facility]), Myalagia (Muscle Pain) ([facility]) Additional Instructions: Please continue your medications as PCP prescribed. Please follow-up with your primary care physician. Referrals: JONAH LITTLE MD [Primary Care Provider] - Follow up in 1 week
== END 2016-10-02 12:26 | disposition home or self-care (01) ==
LOC: ER 07:29
DX: E87.6 Hypokalemia (principal); M79.1 Myalgia; R07.9 Chest pain, unspecified; M79.606 Pain in leg, unspecified; I10 Essential (primary) hypertension; Z86.73 Personal history of transient ischemic attack (TIA), and cerebral infarction without residual deficits; Z90.49 Acquired absence of other specified parts of digestive tract; Z90.710 Acquired absence of both cervix and uterus
CPT/HCPCS: 93005; 99285; 96360; 36415; 82553; 82550; 83690; 83735; 85025; 80053; 84484; 71010; 93010; J7030

== ENCOUNTER 2016-11-23 08:53 | Emergency (ER) | payer BC ==
--- NOTE | 2016-11-23 12:08 | ER Document Report ---
ED Cardiac - General Chief Complaint: Chest Pain > 30 Stated Complaint: CHEST PAIN Notes: She is a 46 her old female, past medical history hypokalemia, presents with 5 days of nausea, vomiting and body aches. Today she started noticing right- sided chest pain that is constant now. She is also having a dry cough and intermittent paresthesias of all 4 extremities, which is chronic for her. She did not get her flu shot this year. She was seen in a [facility] emergency room 5 days ago and given Zofran for her nausea. Denies abdominal pain, diarrhea, fevers, shortness of breath, rash, weakness, headache, neck stiffness or blurry vision. TRAVEL OUTSIDE OF THE [place] IN LAST 30 DAYS: No - Related Data Allergies/Adverse Reactions: prochlorperazine edisylate [From Compazine] Allergy (Severe, Verified 10/02/16 07:42) PANIC ATTACK doxycycline [Doxycycline] Allergy (Mild, Verified 10/02/16 07:42) RASH Past Medical History - General Information source: Patient - Social History Smoking Status: Never Smoker Chew tobacco use (# tins/day): No Frequency of alcohol use: None Drug Abuse: None Family History: Reviewed & Not Pertinent, DM Patient has suicidal ideation: No Patient has homicidal ideation: No - Past Medical History Cardiac Medical History: Reports: Hx Hypertension Pulmonary Medical History: Reports: Hx Asthma Denies: Hx Tuberculosis Neurological Medical History: Reports: Hx Cerebrovascular Accident - TIA, Hx Migraine, Hx Seizures - x1 Renal/ Medical History: Denies: Hx Peritoneal Dialysis Musculoskeltal Medical History: Reports Hx Arthritis, Reports Hx Fibromyalgia, Reports Hx Musculoskeletal Trauma Past Surgical History: Reports: Hx Section, Hx Cholecystectomy, Hx Hysterectomy, Hx Orthopedic Surgery - left foot - Immunizations Immunizations up to date: No Hx Diphtheria, Pertussis, Tetanus Vaccination: No Hx Pneumococcal Vaccination: 09/03/00 Review of Systems - Review of Systems Notes: REVIEW OF SYSTEMS: CONSTITUTIONAL: -fevers, -chills EENT: -eye pain, -difficulty swallowing, -nasal congestion CARDIOVASCULAR: +chest pain, -syncope. RESPIRATORY: +cough, -SOB GASTROINTESTINAL: -abdominal pain, +nausea, -vomiting, -diarrhea GENITOURINARY: -dysuria, -hematuria MUSCULOSKELETAL: -back pain, -neck pain SKIN: -rash or skin lesions. HEMATOLOGIC: -easy bruising or bleeding. LYMPHATIC: -swollen, enlarged glands. NEUROLOGICAL: -altered mental status or loss of consciousness, -headache, - neurologic symptoms PSYCHIATRIC: -anxiety, -depression. ALL OTHER SYSTEMS REVIEWED AND NEGATIVE. Physical Exam - Vital signs Vitals: Temp Pulse Resp BP Pulse Ox 98.8 F 77 14 118/73 97 11/23/16 08:58 11/23/16 08:58 11/23/16 08:58 11/23/16 08:58 11/23/16 08:58 - Notes Notes: PHYSICAL EXAMINATION: GENERAL: Well-appearing, well-nourished and in no acute distress. HEAD: Atraumatic, normocephalic. EYES: Pupils equal round and reactive to light, extraocular movements intact, sclera anicteric, conjunctiva are normal. ENT: nares patent, oropharynx clear without exudates. Moist mucous membranes. NECK: Normal range of motion, supple without lymphadenopathy LUNGS: Breath sounds clear to auscultation bilaterally and equal. No wheezes rales or rhonchi. HEART: Regular rate and rhythm without murmurs ABDOMEN: Soft, nontender, normoactive bowel sounds. No guarding, no rebound. No masses appreciated. EXTREMITIES: Normal range of motion, no pitting or edema. No cyanosis. NEUROLOGICAL: Cranial nerves grossly intact. Normal speech, normal gait. Normal sensory, motor, and reflex exams. PSYCH: Normal mood, normal affect. SKIN: Warm, Dry, normal turgor, no rashes or lesions noted. Course - Re-evaluation Re-evalutation: Patient's HEART score is 2. EKG and troponin do not show any signs of active ischemia or ACS at this time. Considered aortic dissection and PE, but unlikely at this time. Labs are unremarkable, other than slight hypokalemia, which is common for her. Gave her 40 mEq KCl. Patient appears well and she is tolerating fluids. She has Zofran at home. Instructed her to continue stay hydrated follow-up at her primary care physician. Given strict return precautions and she understands. - Vital Signs Vital signs: Temp Pulse Resp BP Pulse Ox 98.2 F 77 19 93/59 L 96 11/23/16 15:44 11/23/16 08:58 11/23/16 15:01 11/23/16 15:02 11/23/16 15:02 - Laboratory Result Diagrams: 11/23/16 10:20 11/23/16 10:20 Laboratory results interpreted by me: 11/23/16 11/23/16 10:20 10:20 Hgb 11.3 L Hct 34.0 L MCH 26.7 L Potassium 3.3 L Est GFR (Non-Af Amer) 51 L Creatine Kinase 336 H Discharge - Discharge Clinical Impression: Body aches, Hypokalemia, Nausea Chest pain Qualifiers: Chest pain type: unspecified Qualified Code(s): R07.9 - Chest pain, unspecified Condition: Good Disposition: HOME, SELF-CARE Additional Instructions: CHEST PAIN OF UNCLEAR CAUSE: The exact cause of your chest pain isn't clear. Fortunately, there is no evidence of a dangerous medical condition. Further testing may be required to find the source of the pain. Most often, we find that this pain is coming from the chest wall -- the muscles or rib joints in the chest. But chest pain can come from the lung and lung lining, the esophagus, the heart valves or heart lining, and even the stomach or gallbladder. Rest. Eat lightly until the pain is gone. We may prescribe medicine for pain and inflammation. You should call the physician immediately if the pain radiates to the shoulder, jaw or arms; if you start to run a fever or develop a cough; or if you develop shortness of breath, or other new or alarming symptoms. NORMAL EXAM AND WORKUP: At this time, your examination and workup show no significant abnormality. No significant abnormal physical findings were noted. All laboratory, EKG, and imaging (x-ray, CT scans, ultrasound) studies that were ordered show no significant abnormality. Although your examination and all studies that were ordered showed no significant abnormal finding, there are no examinations and no studies that are 100% accurate. There is always the possibility that some abnormality could exist and not be detected with physical examination or within the limits and capabilities of laboratory and other studies. You should return or follow up as you were instructed on your visit today for further evaluation if your symptoms do not resolve. CHEST WALL PAIN: Your chest pain may be coming from the chest wall. This is often caused by straining the muscles or joints in the chest during physical activity, direct trauma, coughing, or vigorous vomiting. Persons with arthritis are especially prone to this type of pain, due to inflammation of the cartilage joints near the breast bone. Occasionally, no cause can be found. Rest from strenuous physical activity. This kind of chest pain is usually made worse by movement of the chest. Depending on the symptoms, we may prescribe medicine for pain, muscle relaxation, and antiinflammatory effects. If the pain is new, and seems to be due to muscle strain, cold packs can help. Otherwise, apply gentle warmth to the painful area for 15 minutes every hour or two. You should call contact the doctor immediately if things change. Further evaluation is needed if you develop a fever or cough, if the nature of the pain changes, or if you become short of breath. ANGINA EPISODE: Your physician has diagnosed the pain you experienced as an episode of angina. Angina occurs when a portion of the heart muscle temporarily lacks oxygen. It does not cause any permanent heart damage, but serves as a warning. Hospitalization is not necessary now. Evaluation of your cardiac condition , and medical therapy for angina will be necessary. It's important you be sure to keep all appointments and take medication exactly as prescribed. Angina is usually treated with a type of "nitrate" medication. This is available as ointment, pills, or sublingual (under the tongue) tablets. Depending on your clinical situation, other medications may be added to help control angina. These may include beta blockers or calcium blockers. If episodes of angina are occurring with increased frequency, or if chest pain lasts longer than 15 minutes or does not respond to nitroglycerin, you must seek emergency medical care immediately. ACID REFLUX DISEASE (GERD): Gastro-Esophageal Reflux Disease (GERD) is caused by stomach acid refluxing back up into the esophagus. The valve at the end of the esophagus may be weak. This is common in persons with a hiatal hernia. GERD symptoms can include indigestion, chest pain, heartburn, or food "sticking." Certain foods, alcohol, and aspirin can make GERD worse. Treatment depends on the severity. Usually, antacids or acid-suppressing medicines are used. When the esophagus is acutely inflamed, the physician will often prescribe membrane-protective drugs such as Carafate. Some patients benefit from medication such as Reglan that tightens the valve at the top of the stomach. Avoid those foods that bring on your symptoms. For many people, these foods are coffee, chocolate, onions, garlic, and carbonated drinks. Don't use alcohol, aspirin, caffeine, or tobacco. Don't eat late at night -- within 4 hours of bedtime. Don't over-eat. If necessary, elevate the head of your bed about 4 inches so that stomach acid will not roll up into your esophagus. Call the doctor if you develop severe chest pain, inability to swallow fluids, fever, or worsening symptoms. ASPIRIN: Aspirin has been shown to have a beneficial effect on blood circulation by reducing the clotting effect of platelets in the blood. These beneficial effects can be achieved by taking just a single baby (81 mg) aspirin a day. It is recommended that any person over the age of forty take a single baby aspirin every day for heart and brain circulation, unless you are allergic to aspirin or have some significant bleeding disorder. It is strongly recommended that people who have proven cardiac or blood circulation disturbances should take a baby aspirin every day. NITRATES: Nitroglycerin and related longer-acting nitrate medications are used to prevent or treat attacks of angina. These medicines dilate blood vessels, decreasing the work of the heart, and improving its supply of oxygen. Many different forms are available, including sublingual tablets (used under the tongue), sprays, skin patches, and long-acting pills. If the particular form of medication you have been given is not working well for you, contact your doctor. Long-acting forms: Take exactly as prescribed. Sudden stopping of medication can provoke increased attacks. Sublingual tabs or spray: A headache will usually occur with use. Sit or lie while waiting for the pain to go away. If angina doesn't respond to three doses (five minutes apart), call for emergency assistance. ANTACID THERAPY: You have been instructed to start antacid therapy. Antacids directly neutralize stomach acid. This is useful for acid irritation of the esophagus, gastritis, and ulcers. You should take two tablespoons of antacid one hour after each meal and three hours after each meal. If you are not eating, take the antacid every two hours. If you are using a concentrate (such as Maalox TC), use only one tablespoon. Many antacids affect the bowels. The most common problem is diarrhea. In this case, a pure aluminum hydroxide antacid (such as AlternaGel) can be substituted for some or all doses. If the problem is constipation, add a teaspoon of Milk of Magnesia to each dose. Call the doctor if you experience continued diarrhea or constipation, or if you develop lightheadedness, bloody stool or vomitus, severe abdominal pain, or black stool. PRILOSEC (ACID PUMP INHIBITOR): Prilosec (omeprazole) is an acid-pump inhibitor. It blocks the secretion of hydrogen ions in the acid-producing cells of the stomach. Prilosec keeps your stomach from making acid. Take all medication as prescribed, even after the pain is gone. Regular antacids may be added as needed if you have symptoms while taking this medicine. There are usually no side effects from this medication. Contact your doctor if there is fever, rash, yellow skin color, increasing abdominal pain, weakness, or unusual bruising. Return at once if you develop lightheadedness, black or bloody stool, or bloody vomitus. FOLLOW-UP CARE: If you have been referred to a physician for follow-up care, call the physician s office for an appointment as you were instructed or within the next two days. If you experience worsening or a significant change in your symptoms, notify the physician immediately or return to the Emergency Department at any time for re-evaluation. INFLUENZA: The physician feels that you have influenza -- the "flu". Influenza is an infection caused by a virus. Symptoms include generalized aching, fever, headache, dry cough, and fatigue. Some patients with the flu also have nausea, vomiting, and diarrhea. The fever and aches usually last two to four days, with the cough persisting another one to two weeks. Treatment of the flu, for the most part, is simply treatment of symptoms. Rest, drink plenty of fluids, and use acetaminophen for fever and aches. Do not take aspirin. There is an anti-viral medication, called Tamiflu, which may help in "type A" flu, but it's not helpful in every case of flu, and only works if started within the first 24 - 48 hours of the start of symptoms. The physician will determine whether this medication can help you. To prevent spread of the virus, use good handwashing. Shared toys should be cleaned with disinfectant. Clean the toilets, sinks, and counter surfaces in bathrooms. Launder clothing in hot water. What are conditions that should receive medical attention? The development of difficulty breathing. Lip color changes to blue or purple. Persistent vomiting and unable to keep liquids down with signs of dehydration such as: dizziness when standing, unable to urinate, or if child/ is crying no tears are noticed. Is less responsive than normal or becomes confused. How do I decrease the spread of flu in my home? Taking care of the sick patient at home: Keep the sick person in a room separate from the common areas of the house. Keep the "sickroom" door closed. If the person with the flu needs to leave the home, they should cover their nose/mouth when coughing or sneezing and wear a disposable (surgical) mask if available. These masks may be available at your local pharmacy, medical supply and hardware store. If the sick person is in common areas of the house, have them wear a surgical mask. If possible, have the sick person use a separate bathroom that should be cleaned daily with a household disinfectant. If you are the caregiver: Avoid being face to face with the sick adult person as much as possible. Try to stay at least 6 feet away and wear a disposable surgical mask when possible. When holding small children who are sick, place their chin on your shoulder so that they will not cough in your face. Wash your hands after you touch the sick person or handle their tissues and laundry. Wear a mask if you leave home, as you may be infected from taking care of someone and not know it yet. Watch yourself and others in the home for flu symptoms and contact your doctor if symptoms occur. NOTE: Antiviral medication used to reduce the symptoms of the flu works only if taken within 48 hours, and best within 24 hours of symptom onset. Household Cleaning, laundry and waste disposal: Tissues and other disposable items used by the sick person should be thrown away in the trash. Wash your hands after touching these used items. No special waste disposal is required. Keep surfaces (especially bedside tables, bathroom surfaces, and toys for children) clean by wiping them down with a safe household disinfectant according to the directions on the product label. Per Center for Disease Control advice, most people will not receive testing to confirm flu. Also based on the person's health history and onset of symptoms, not all patients will receive prescriptions for antiviral medications. If you have questions related to this, please ask your healthcare provider. For more information, you can call the Centers for Disease Control and Prevention (CDC) Hotline at 1-319-PFR-INFO This line is available in [place]i and Kiswahili, 24 hours a day, 7 days a week. Or www.[employer] or www.cdc.gov Flu-Like Illness Home Instructions: The influenza virus infection can cause a wide rage of symptoms, including: Fever, cough, sore throat, body aches, headaches, chills, fatigue, with some patients reporting diarrhea and vomiting Like seasonal influenza A, H1N1 ("swine flu")in humans can vary in severity from mild to severe Severe illness with pneumonia, respiratory failure and even is possible Certain groups might be more likely to develop a severe illness from H1N1 infection. Sometimes bacterial infections may occur at the same time as or after infection with influenza viruses and lead to pneumonias, ear infections, or sinus infections. How Flu Spreads The main way that influenza viruses spread is through respiratory droplets of coughs and sneezes. This can happen when someone with the infection coughs or sneezes and the particles fly through the air and land on other people and surfaces. If the person covers their mouth and nose with their hand but does not wash their hands immediately, then these germs are passed onto the next object that they touch. People with Influenza A or suspected H1N1 (swine flu) who are cared for at home should: Check with their doctor about any special care that they might need if they are or have a health condition such as diabetes, heart disease, asthma or emphysema. Also, limit caregiver to one (if possible). women or those with chronic health conditions should not take care of the flu patient unless necessary. Check with their doctor about whether or not medications are needed that may lessen the symptoms of the flu. Stay at home until 24 hours fever free without the use of fever reducing medication. Get plenty of rest and avoid other healthy people in your home. Drink plenty of clear liquids to keep from getting dehydrated. Take medications like Tylenol (Acetaminophen), Advil/Motrin/Nuprin ( Ibuprofen) or Aleve (Naproxen) for fevers and aches. All children under the age of 18 years of age should not take aspirin or products containing aspirin (e.g. Pepto Bismol), as this can cause a rare serious illness called Yesy Syndrome. Over the counter medications for flu and colds may help, but it is very important to follow the package directions. Remember that the medicine may help the symptoms, but it will not help prevent others from getting sick if they are around you. Cover coughs and sneezes using your bent arm. Clean hands with soap and water or an alcohol-based hand rub often, especially after using tissues to cough or sneeze. Encourage hand washing frequently for all people living in the home! The sick person should not have visitors other than caregivers. Encourage concerned loved ones to call instead of visit. Avoid close contact with others-do not go to work or school while sick. USE OF ACETAMINOPHEN (Tylenol): Acetaminophen may be taken for pain relief or fever control. It's much safer than aspirin, offering a wider range of "safe" dosages. It is safe during . Some brand names are Tylenol, Panadol, Datril, Anacin 3, Tempra, and Liquiprin. Acetaminophen can be repeated every four hours. The following are maximum recommended dosages: WEIGHT Dose Drops Elixir Chewable( 80mg) (LBS.) drprs=droppers tsp=teaspoon 6 40 mg 0.4 ml (1/2) 6-11 80 mg 0.8 ml (full) tsp 1 tab 12-16 120 mg 1 1/2 drprs 3/4 tsp 1 1/2 tabs 17-23 160 mg 2 drprs 1 tsp 2 tabs 24-30 240 mg 3 drprs 1 1/2 tsp 3 tabs 30-35 320 mg 2 tsp 4 tabs 36-41 360 mg 2 1/4 tsp 4 1/2 tabs 42-47 400 mg 2 1/2 tsp 5 tabs 48-53 480 mg 3 tsp 6 tabs 54-59 520 mg 3 1/4 tsp 6 1/2 tabs 60-64 560 mg 3 1/2 tsp 7 tabs 65-70 600 mg 3 3/4 tsp 7 1/2 tabs 71-76 640 mg 4 tsp 8 tabs 77-82 720 mg 4 1/2 tsp 9 tabs 83-88 800 mg 5 tsp 10 tabs >89 pounds or adults 650 mg to 900 mg Acetaminophen can be repeated every four hours. Maximum dose not to exceed 4000 mg a day. These maximum recommended dosages are slightly higher than the dosages written on the product container, but these dosages are very safe and below the toxic dosage for acetaminophen. ORAL NARCOTIC MEDICATION: You have been given a prescription for pain control. This medication is a narcotic. It's best taken with food, as nausea can result if taken on an empty stomach. Don't operate machinery or drive within six hours of taking this medication. Do not combine this medicine with alcohol, or with any medication which can cause sedation (such as cold tablets or sleeping pills) unless you get permission from the physician. Narcotics tend to cause constipation. If possible, drink plenty of fluids and eat a diet high in fiber and fruits. Please be aware that prescription narcotics also have the potential for abuse. People become addicted to these medications because of the general sense of wellbeing that they induce. This feeling along with a significant reduction in tension, anxiety, and aggression provides a stimulating seductive quality to these drugs. Once your pain is under control, we encourage you to discard your unused narcotics. FOLLOW-UP CARE: If you have been referred to a physician for follow-up care, call the physician s office for an appointment as you were instructed or within the next two days. If you experience worsening or a significant change in your symptoms, notify the physician immediately or return to the Emergency Department at any time for re-evaluation. Prescriptions: Metoclopramide HCl [Reglan 10 mg Tablet] 1 - 2 tab PO ASDIR PRN #12 tablet PRN Reason: Referrals: JONAH LITTLE MD [Primary Care Provider] - Follow up as needed
[2016-11-23] MEDS ORDERED: IBUPROFEN 600 MG TABLET PO ONE (12:14)
[2016-11-23] MEDS ORDERED: NORMAL SALINE 1000 ML 1,000 ML IV ONE (12:14)
[2016-11-23 12:19] LABS: ABSOLUTE EOSINOPHILS # (AUTO) 0.2 10^3/uL (0.0-0.6); ABSOLUTE LYMPHOCYTES (AUTO) 0.9 10^3/uL (0.5-4.7); ABSOLUTE MONOCYTES (AUTO) 0.6 10^3/uL (0.1-1.4); ABSOLUTE NEUT (AUTO) 4.8 10^3/uL (1.7-8.2); BASOPHILS % (AUTO) 0.6 % (0-2); EOSINOPHILS % (AUTO) 2.8 % (0-6); HEMOGLOBIN 11.3 g/dL (12.0-15.5); HGB HCT DIFFERENCE -0.1; LYMPHOCYTES % (AUTO) 13.8 % (13-45); MEAN CORPUSCULAR HEMOGLOBIN 26.7 pg (27.0-33.4); MEAN CORPUSCULAR HGB CONC 33.1 g/dL (32.0-36.0); MEAN CORPUSCULAR VOLUME 81 fl (80-97); MONOCYTES % (AUTO) 9.7 % (3-13); RED BLOOD COUNT 4.21 10^6/uL (3.72-5.28); RED CELL DISTRIBUTION WIDTH 13.8 % (11.5-14.0); SEGMENTED NEUTROPHILS % (AUTO) 73.1 % (42-78); WHITE BLOOD COUNT 6.5 10^3/uL (4.0-10.5)
[2016-11-23 12:24] LABS: ANION GAP 13 (5-19); BLOOD UREA NITROGEN 10 mg/dL (7-20); CALCIUM 9.6 mg/dL (8.4-10.2); CARBON DIOXIDE 27 mmol/L (22-30); CHLORIDE 102 mmol/L (98-107); CREATINE KINASE 336 U/L (30-135); CREATININE RESULT 1.15 mg/dL (0.52-1.25); GLUCOSE 99 mg/dL (75-110); POTASSIUM 3.3 mmol/L (3.6-5.0); SODIUM 141.5 mmol/L (137-145)
[2016-11-23] MEDS ORDERED: POTASSIUM CHLORIDE 10 MEQ TABLET.SA PO ONE (12:55)
--- NOTE | 2016-11-23 13:14 | EKG REPORT ---
SEVERITY:- ABNORMAL ECG - SINUS RHYTHM LEFT VENTRICULAR HYPERTROPHY : Confirmed by: Diego Woods MD 23-Nov-2016 13:13:45
[2016-11-23 15:44] VITALS: BP 93/59
== END 2016-11-23 15:44 | disposition home or self-care (01) ==
LOC: ER 08:53
DX: R07.9 Chest pain, unspecified (principal); E87.6 Hypokalemia; R11.2 Nausea with vomiting, unspecified; R05 Cough; R20.2 Paresthesia of skin; J45.909 Unspecified asthma, uncomplicated; I10 Essential (primary) hypertension; Z88.1 Allergy status to other antibiotic agents; Z88.8 Allergy status to other drugs, medicaments and biological substances; Z86.73 Personal history of transient ischemic attack (TIA), and cerebral infarction without residual deficits
CPT/HCPCS: 93005; 99285; 96360; 36415; 82550; 85025; 80048; 84484; 71020; 93010; J7030

== ENCOUNTER 2016-11-29 14:32 | Emergency (ER) | payer BC ==
--- NOTE | 2016-11-29 14:50 | ER Document Report ---
ED Medical Screen (RME) - General TRAVEL OUTSIDE OF THE [place] IN LAST 30 DAYS: No <CINDI NEELY - Last Filed: 11/29/16 14:50> <KRISTOPHER MILES - Last Filed: 12/01/16 05:42> - General Stated Complaint: DIZZY/NAUSEA Notes: 46 yo female c/o n/v/d, dizziness x 2 weeks. not tolerating po. feels very weak pt was seen in ED 11/23 for chest pain, discharged home. pt is hypotensive 84/54 charge nurse notified (CINID NEELY) - Related Data Allergies/Adverse Reactions: prochlorperazine edisylate [From Compazine] Allergy (Severe, Verified 11/29/16 14:48) PANIC ATTACK doxycycline [Doxycycline] Allergy (Mild, Verified 11/29/16 14:48) RASH Past Medical History - Past Medical History Cardiac Medical History: Reports: Hx Hypertension Pulmonary Medical History: Reports: Hx Asthma Denies: Hx Tuberculosis Neurological Medical History: Reports: Hx Cerebrovascular Accident - TIA, Hx Migraine, Hx Seizures - x1 Renal/ Medical History: Denies: Hx Peritoneal Dialysis Musculoskeltal Medical History: Reports Hx Arthritis, Reports Hx Fibromyalgia, Reports Hx Musculoskeletal Trauma Past Surgical History: Reports: Hx Section, Hx Cholecystectomy, Hx Hysterectomy, Hx Orthopedic Surgery - left foot - Immunizations Immunizations up to date: No Hx Diphtheria, Pertussis, Tetanus Vaccination: No <CINDI NEELY - Last Filed: 11/29/16 14:50> Course - Laboratory Result Diagrams: 11/29/16 14:55 11/29/16 14:55 <KRISTOPHER MILES - Last Filed: 12/01/16 05:42> - Vital Signs Vital signs: Temp Pulse Resp BP Pulse Ox 97.4 F 56 L 9 L 101/77 99 11/29/16 22:01 11/29/16 14:45 11/30/16 03:01 11/30/16 03:01 11/30/16 03:01 - Laboratory Laboratory results interpreted by me: 11/29/16 11/29/16 11/30/16 14:55 14:55 00:30 MCH 26.7 L Potassium 3.1 L Creatinine 1.38 H Est GFR ( Amer) 50 L Est GFR (Non-Af Amer) 41 L Glucose 127 H Creatine Kinase 494 H Total Protein 8.6 H Urine Urobilinogen 4.0 H Doctor's Discharge <CINDI NEELY - Last Filed: 11/29/16 14:50> <KRISTOPHER MILES - Last Filed: 12/01/16 05:42> - Discharge Clinical Impression: Nausea, vomiting and diarrhea, Abdominal cramps, Hypokalemia, hypotension resolved Condition: Stable Disposition: HOME, SELF-CARE Additional Instructions: Vomiting Vomiting can be part of many illnesses. Most cases of vomiting are due to gastroenteritis, usually a viral infection in the intestinal tract. There is no specific treatment. The disease will end by itself. For now, the main danger to your child is dehydration. During the first few hours of the illness, give clear liquids, such as Pedialyte. Try to give small quantities frequently, such as a teaspoon of liquid every minute or about an ounce of fluids every five to ten minutes. Medications may be prescribed by the physician for special cases. After an hour or two of fluids without vomiting, add rice cereal, toast, applesauce, or bananas and other more solid foods to the clear liquids. Call the physician or go to the hospital if vomiting increases or blood appears in the bowel movement or vomitus; if your child fails to improve, or if signs of dehydration occur (no wet diapers for eight to twelve hours, tongue and mouth become dry, not acting as alert as usual).Dehydration Dehydration can result from vomiting or diarrhea, fever, or decreased intake of fluids. If severe, hospitalization and intravenous fluids may be required. Most cases are treated at home with fluids by mouth. For the next 24 hours, drink lots of clear fluids. In mild cases, this can be soda pop or sports drinks. For more severe dehydration, the doctor may recommend special fluids such as Pedialyte or Lytren. Try to get three liters ( 3 quarts) of fluid per day. If vomiting occurs, continue to drink the fluids frequently (every 15 to 20 minutes), but in small amounts (one or two ounces). Depending on the type of dehydration, the doctor may prescribe antinausea medicine or potassium replacements. Call the doctor or return for re-examination if you become progressively weak, vomit repeatedly, or have other new symptoms. Hypokalemia You have an abnormally decreased level of serum potassium. Hypokalemia may cause weakness, fatigue, or heart rhythm abnormalities. Sometimes there are no symptoms at all. Usually, low serum potassium is due to taking diuretics ( water pills). It can also be due to excessive vomiting or diarrhea. If no obvious cause is evident, further evaluation will be necessary. Treatment is usually oral potassium supplements. Take these exactly as prescribed. You may also want to select foods which are naturally high in potassium -- fruits (such as bananas, cantaloupe, grapes, oranges, prunes, tomatoes), fresh vegetables (potatoes, spinach, beans, peas), orange or tomato juice, tomato pasta sauce, milk, fish (halibut, tuna, salmon, selwyn) A follow-up blood test is usually performed to assure that the potassium is returning to normal. Call the physician if you suffer severe weakness, muscle twitching or cramping, palpitations (pounding or irregular heartbeat), or any other new or alarming symptoms. Diarrhea Diarrhea means frequent, watery stools. There are many causes. Any problem that keeps the intestinal tract from absorbing water from the stool can lead to diarrhea. A sudden new diarrhea problem is usually caused by a virus, food sensitivity, toxic bacteria, or drugs. In this case, we expect the problem to go away soon. Testing is done only if you seem seriously ill from the diarrhea. If you have chronic diarrhea, or diarrhea that keeps coming back, we need to find out why. Chronic diarrhea can be due to inflammation of the bowels such as Crohn's disease or ulcerative colitis, food sensitivity such as intolerance to lactose or wheat protein, irritable bowel syndrome, and other problems. If your diarrhea is a significant problem but it's not clear why you have it, we' ll refer you to a specialist for further testing. During an episode of diarrhea, drink small amounts (two to six ounces) of clear liquids (soft drinks, sport drinks, herb teas, broth, etc). Take fluids frequently to prevent dehydration. It's usually not a problem to take mild anti- diarrhea medication such as Kaopectate or Pepto-Bismol. As the diarrhea eases, advance to small amounts of bland food (mashed potato, toast) for 24 hours. Call the physician if blood appears in your vomit or stool, if vomiting lasts longer than 24 hours, if the abdominal pain worsens or becomes localized to one area, if you develop high fever, or if you become lightheaded and weak. Prescriptions: Metoclopramide HCl [Reglan 10 mg Tablet] 1 - 2 tab PO ASDIR PRN #12 tablet PRN Reason: Ondansetron [Zofran Odt 4 mg Tablet] 1 - 2 tab PO Q4H PRN #15 tab.rapdis PRN Reason: For Nausea/Vomiting Potassium Bicarbonate/Cit AC [Potassium 25 Meq Tab Eff] 25 meq PO DAILY #7 tablet.eff Referrals: JONAH LITTLE MD [Primary Care Provider] - Follow up in 3-5 days (In 2-3 days return for increasing worsening or new symptoms)
--- NOTE | 2016-11-29 15:06 | EKG REPORT ---
SEVERITY:- ABNORMAL ECG - SINUS RHYTHM LEFT VENTRICULAR HYPERTROPHY : Confirmed by: Catherine Turner 29-Nov-2016 15:05:35
[2016-11-29 15:23] LABS: ABSOLUTE MONOCYTES (AUTO) 0.4 10^3/uL (0.1-1.4); ABSOLUTE NEUT (AUTO) 3.6 10^3/uL (1.7-8.2); BASOPHILS % (AUTO) 0.3 % (0-2); EOSINOPHILS % (AUTO) 0.3 % (0-6); HEMATOCRIT 36.6 % (36.0-47.0); HEMOGLOBIN 12.3 g/dL (12.0-15.5); HGB HCT DIFFERENCE 0.3; LYMPHOCYTES % (AUTO) 42.1 % (13-45); MEAN CORPUSCULAR HEMOGLOBIN 26.7 pg (27.0-33.4); MEAN CORPUSCULAR HGB CONC 33.6 g/dL (32.0-36.0); MEAN CORPUSCULAR VOLUME 80 fl (80-97); MONOCYTES % (AUTO) 6.1 % (3-13); RED CELL DISTRIBUTION WIDTH 13.5 % (11.5-14.0); SEGMENTED NEUTROPHILS % (AUTO) 51.2 % (42-78)
--- NOTE | 2016-11-29 15:23 | ER Document Report ---
ED General - General Mode of Arrival: Ambulatory Information source: Patient TRAVEL OUTSIDE OF THE [place] IN LAST 30 DAYS: No - HPI Patient complains to provider of: Diarrhea Onset: This afternoon Onset/Duration: Sudden, Persistent Quality of pain: Cramping Associated symptoms: Diarrhea, Nausea, Sweating. denies: Vomiting <AMY HODGSON - Last Filed: 11/29/16 15:31> <CALOS GONCALVES - Last Filed: 11/29/16 23:50> <KRISTOPHER MILES - Last Filed: 11/30/16 02:46> - General Chief Complaint: Diarrhea Stated Complaint: DIZZY/NAUSEA Notes: Patient is a 46-year-old female presenting to the emergency department chief complaint diarrhea onset at noon today. Patient states that she has felt sweaty , dizzy, confused, lightheaded, nauseous, and has been experiencing some cramping. Patient denies any vomiting. Patient states, "I and having all of the diarrhea." Patient initially stated that she was taking some pills for her cramping, and then subsequently denied taking any medication for the cramping after family member began searching for the medication. Patient has a history of hypokalemia, and her primary care physician is Dr. Little. (AMY HODGSON) - Related Data Allergies/Adverse Reactions: prochlorperazine edisylate [From Compazine] Allergy (Severe, Verified 11/29/16 14:48) PANIC ATTACK doxycycline [Doxycycline] Allergy (Mild, Verified 11/29/16 14:48) RASH Past Medical History - General Information source: Patient - Social History Smoking Status: Unknown if Ever Smoked Chew tobacco use (# tins/day): No Frequency of alcohol use: None Drug Abuse: None Family History: Reviewed & Not Pertinent, DM Patient has suicidal ideation: No Patient has homicidal ideation: No - Past Medical History Cardiac Medical History: Reports: Hx Hypercholesterolemia, Hx Hypertension, Other - Hypokalemia Pulmonary Medical History: Reports: Hx Asthma Denies: Hx Tuberculosis Neurological Medical History: Reports: Hx Cerebrovascular Accident - TIA, Hx Migraine, Hx Seizures - x1 Renal/ Medical History: Denies: Hx Peritoneal Dialysis Musculoskeltal Medical History: Reports Hx Arthritis, Reports Hx Fibromyalgia, Reports Hx Musculoskeletal Trauma Past Surgical History: Reports: Hx Section, Hx Cholecystectomy, Hx Hysterectomy, Hx Orthopedic Surgery - left foot - Immunizations Immunizations up to date: No Hx Diphtheria, Pertussis, Tetanus Vaccination: No Hx Pneumococcal Vaccination: 09/03/00 <AMY HODGSON - Last Filed: 11/29/16 15:31> Review of Systems - Review of Systems Constitutional: See HPI, Diaphoresis EENT: No symptoms reported Cardiovascular: See HPI, Dizziness, Lightheaded Respiratory: No symptoms reported Gastrointestinal: See HPI, Abdominal pain - Cramping, Diarrhea, Nausea. denies : Vomiting Genitourinary: No symptoms reported Female Genitourinary: No symptoms reported Musculoskeletal: No symptoms reported Skin: No symptoms reported Hematologic/Lymphatic: No symptoms reported Neurological/Psychological: See HPI, Confusion <JOSE HODGSONICA - Last Filed: 11/29/16 15:31> Physical Exam - General General appearance: Alert, Anxious - dramatic - HEENT Head: Normocephalic, Atraumatic Eyes: Normal Pupils: PERRL - Respiratory Respiratory status: No respiratory distress Chest status: Nontender Breath sounds: Normal Chest palpation: Normal - Cardiovascular Rhythm: Regular Heart sounds: Normal auscultation Murmur: No - Abdominal Inspection: Obese Distension: No distension Bowel sounds: Normal Tenderness: Nontender - Soft - Back Back: Normal, Nontender - Extremities General upper extremity: Normal inspection, Nontender General lower extremity: Normal inspection, Nontender - Neurological Neuro grossly intact: Yes Cognition: Normal [place] Coma Scale Eye Opening: Spontaneous [place] Coma Scale Verbal: Oriented [place] Coma Scale Motor: Obeys Commands [place] Coma Scale Total: 15 - Psychological Associated symptoms: Normal affect, Normal mood - Skin Skin Temperature: Warm Skin Moisture: Dry Skin Color: Normal <GOKULAMY - Last Filed: 11/29/16 15:31> Course - Laboratory Result Diagrams: 11/29/16 14:55 11/29/16 14:55 <GOKULAMY - Last Filed: 11/29/16 15:31> - Laboratory Result Diagrams: 11/29/16 14:55 11/29/16 14:55 - EKG Interpretation by Ne EKG shows normal: Sinus rhythm, [place], Intervals, ST-T Waves. abnormal: QRS Complexes Rate: Normal - 53 Rhythm: NSR Voltage: Consistant with LVH When compared to previous EKG there are: No significant change - Transfer of Care Care transferred to following provider: Dr. Miles <CALOS GONCALVES - Last Filed: 11/29/16 23:50> - Laboratory Result Diagrams: 11/29/16 14:55 11/29/16 14:55 <KRISTOPHER MILES - Last Filed: 11/30/16 02:46> - Re-evaluation Re-evalutation: 11/29/16 23:50 The patient is resting comfortably at this time. She was awakened for repeat exam. She reports the Reglan and Benadryl worked much better for her nausea than the Zofran did. She is now receiving her third liter of IV fluid. She has not the need to urinate yet. I informed her that we were going to keep her on IV fluids until she was hydrated well enough to need to urinate on her own. She has not had any diarrhea since arriving here over 11 hours ago. (CALOS GONCALVES) - Vital Signs Vital signs: Temp Pulse Resp BP Pulse Ox 97.4 F 56 L 10 L 113/74 96 11/29/16 22:01 11/29/16 14:45 11/29/16 22:01 11/29/16 22:01 11/29/16 22:01 - Laboratory Laboratory results interpreted by me: 11/29/16 11/29/16 11/30/16 14:55 14:55 00:30 MCH 26.7 L Potassium 3.1 L Creatinine 1.38 H Est GFR ( Amer) 50 L Est GFR (Non-Af Amer) 41 L Glucose 127 H Creatine Kinase 494 H Total Protein 8.6 H Urine Urobilinogen 4.0 H - Transfer of Care Notes: 11/29/16 23:53 The patient will continue on IV fluids until she has hydrated well enough to start making urine. At that time it would be reasonable to let her try oral fluids, and if tolerated , discharge with Reglan and Benadryl for nausea. (CALOS GONCALVES) Discharge <AMY HODGSON - Last Filed: 11/29/16 15:31> <CALOS GONCALVES - Last Filed: 11/29/16 23:50> <KRISTOPHER MILES - Last Filed: 11/30/16 02:46> - Discharge Clinical Impression: Nausea, vomiting and diarrhea, Abdominal cramps, Hypokalemia, hypotension resolved Condition: Stable Disposition: HOME, SELF-CARE Additional Instructions: Vomiting Vomiting can be part of many illnesses. Most cases of vomiting are due to gastroenteritis, usually a viral infection in the intestinal tract. There is no specific treatment. The disease will end by itself. For now, the main danger to your child is dehydration. During the first few hours of the illness, give clear liquids, such as Pedialyte. Try to give small quantities frequently, such as a teaspoon of liquid every minute or about an ounce of fluids every five to ten minutes. Medications may be prescribed by the physician for special cases. After an hour or two of fluids without vomiting, add rice cereal, toast, applesauce, or bananas and other more solid foods to the clear liquids. Call the physician or go to the hospital if vomiting increases or blood appears in the bowel movement or vomitus; if your child fails to improve, or if signs of dehydration occur (no wet diapers for eight to twelve hours, tongue and mouth become dry, not acting as alert as usual).Dehydration Dehydration can result from vomiting or diarrhea, fever, or decreased intake of fluids. If severe, hospitalization and intravenous fluids may be required. Most cases are treated at home with fluids by mouth. For the next 24 hours, drink lots of clear fluids. In mild cases, this can be soda pop or sports drinks. For more severe dehydration, the doctor may recommend special fluids such as Pedialyte or Lytren. Try to get three liters ( 3 quarts) of fluid per day. If vomiting occurs, continue to drink the fluids frequently (every 15 to 20 minutes), but in small amounts (one or two ounces). Depending on the type of dehydration, the doctor may prescribe antinausea medicine or potassium replacements. Call the doctor or return for re-examination if you become progressively weak, vomit repeatedly, or have other new symptoms. Hypokalemia You have an abnormally decreased level of serum potassium. Hypokalemia may cause weakness, fatigue, or heart rhythm abnormalities. Sometimes there are no symptoms at all. Usually, low serum potassium is due to taking diuretics ( water pills). It can also be due to excessive vomiting or diarrhea. If no obvious cause is evident, further evaluation will be necessary. Treatment is usually oral potassium supplements. Take these exactly as prescribed. You may also want to select foods which are naturally high in potassium -- fruits (such as bananas, cantaloupe, grapes, oranges, prunes, tomatoes), fresh vegetables (potatoes, spinach, beans, peas), orange or tomato juice, tomato pasta sauce, milk, fish (halibut, tuna, salmon, selwyn) A follow-up blood test is usually performed to assure that the potassium is returning to normal. Call the physician if you suffer severe weakness, muscle twitching or cramping, palpitations (pounding or irregular heartbeat), or any other new or alarming symptoms. Diarrhea Diarrhea means frequent, watery stools. There are many causes. Any problem that keeps the intestinal tract from absorbing water from the stool can lead to diarrhea. A sudden new diarrhea problem is usually caused by a virus, food sensitivity, toxic bacteria, or drugs. In this case, we expect the problem to go away soon. Testing is done only if you seem seriously ill from the diarrhea. If you have chronic diarrhea, or diarrhea that keeps coming back, we need to find out why. Chronic diarrhea can be due to inflammation of the bowels such as Crohn's disease or ulcerative colitis, food sensitivity such as intolerance to lactose or wheat protein, irritable bowel syndrome, and other problems. If your diarrhea is a significant problem but it's not clear why you have it, we' ll refer you to a specialist for further testing. During an episode of diarrhea, drink small amounts (two to six ounces) of clear liquids (soft drinks, sport drinks, herb teas, broth, etc). Take fluids frequently to prevent dehydration. It's usually not a problem to take mild anti- diarrhea medication such as Kaopectate or Pepto-Bismol. As the diarrhea eases, advance to small amounts of bland food (mashed potato, toast) for 24 hours. Call the physician if blood appears in your vomit or stool, if vomiting lasts longer than 24 hours, if the abdominal pain worsens or becomes localized to one area, if you develop high fever, or if you become lightheaded and weak. Prescriptions: Metoclopramide HCl [Reglan 10 mg Tablet] 1 - 2 tab PO ASDIR PRN #12 tablet PRN Reason: Ondansetron [Zofran Odt 4 mg Tablet] 1 - 2 tab PO Q4H PRN #15 tab.rapdis PRN Reason: For Nausea/Vomiting Potassium Bicarbonate/Cit AC [Potassium 25 Meq Tab Eff] 25 meq PO DAILY #7 tablet.eff Referrals: JONAH LITTLE MD [Primary Care Provider] - Follow up in 3-5 days (In 2-3 days return for increasing worsening or new symptoms) Scribe Documentation - Scribe Written by Scribe:: Amy Hodgson 11/29/2016 1523 acting as scribe for :: Kenyatta <AMY HODGSON - Last Filed: 11/29/16 15:31>
[2016-11-29] MEDS ORDERED: RINGERS SOLUTION,LACTATED 1,000 ML IV ONE (15:32)
[2016-11-29 15:38] LABS: ALANINE AMINOTRANSFERASE 30 U/L (9-52); ALBUMIN 4.4 g/dL (3.5-5.0); ALKALINE PHOSPHATASE 82 U/L (38-126); ANION GAP 19 (5-19); ASPARTATE AMINO TRANSFERASE 34 U/L (14-36); BILIRUBIN,DIRECT 0.3 mg/dL (0.0-0.4); BILIRUBIN,TOTAL 0.8 mg/dL (0.2-1.3); BLOOD UREA NITROGEN 16 mg/dL (7-20); CALCIUM 9.5 mg/dL (8.4-10.2); CARBON DIOXIDE 25 mmol/L (22-30); CHLORIDE 99 mmol/L (98-107); CREATINE KINASE 494 U/L (30-135); CREATININE RESULT 1.38 mg/dL (0.52-1.25); GLUCOSE 127 mg/dL (75-110); LIPASE 94.3 U/L (23-300); POTASSIUM 3.1 mmol/L (3.6-5.0); SODIUM 142.8 mmol/L (137-145); TOTAL PROTEIN 8.6 g/dL (6.3-8.2)
[2016-11-29 15:52] LABS: CREATINE KINASE MB 1.18 ng/mL (<4.55)
[2016-11-29 15:53] LABS: TROPONIN I < 0.012 ng/mL
[2016-11-29] MEDS ORDERED: NORMAL SALINE 1000 ML 1,000 ML IV ONE (16:13)
[2016-11-29] MEDS ORDERED: POTASSI CL 20 MEQ/50 ML RIDER 50 ML IV ONE (16:13)
[2016-11-29] MEDS ORDERED: ONDANSETRON HCL INJ/PF 4 MG/2 ML SDV IV ONE ×2 (17:36→19:08)
[2016-11-29] MEDS ORDERED: MORPHINE SULFATE 10 MG/ML INJ IV ONE ×2 (17:36→19:08)
[2016-11-29] MEDS ORDERED: METOCLOPRAMIDE HCL INJ/PF 10 MG/2 ML SDV IV ONE (21:27)
[2016-11-29] MEDS ORDERED: DIPHENHYDRAMINE HCL 50 MG/ML VIAL IV ONE (21:27)
[2016-11-29] MEDS ORDERED: DEXTROSE 5%-LACTATED RINGERS 1,000 ML IV ONE (22:32)
[2016-11-30] MEDS ORDERED: DEXTROSE 5%-LACTATED RINGERS 1,000 ML IV ONE (00:06)
[2016-11-30 01:32] LABS: APPEARANCE,URINE CLEAR; BILIRUBIN,URINE NEGATIVE (NEGATIVE); GLUCOSE, URINE NEGATIVE (NEGATIVE); KETONES,URINE NEGATIVE (NEGATIVE); LEUKOCYTE ESTERASE,URINE NEGATIVE (NEGATIVE); NITRITE,URINE NEGATIVE (NEGATIVE); PROTEIN,URINE NEGATIVE (NEGATIVE); URINE SPECIFIC GRAVITY 1.018
[2016-11-30 03:42] VITALS: BP 101/77
== END 2016-11-30 03:46 | disposition home or self-care (01) ==
LOC: ER 14:32
DX: R19.7 Diarrhea, unspecified (principal); E87.6 Hypokalemia; I95.9 Hypotension, unspecified; R11.0 Nausea; R61 Generalized hyperhidrosis; R42 Dizziness and giddiness; R41.0 Disorientation, unspecified; R10.9 Unspecified abdominal pain; I10 Essential (primary) hypertension; J45.909 Unspecified asthma, uncomplicated; Z86.73 Personal history of transient ischemic attack (TIA), and cerebral infarction without residual deficits; Z88.8 Allergy status to other drugs, medicaments and biological substances; Z88.1 Allergy status to other antibiotic agents
CPT/HCPCS: 93005; 96376; 99284; 96361; 96375; 96365; 96366; 96367; 36415; 82553; 82550; 83690; 85025; 80053; 81001; 84484; 71020; 93010; J1200; J2765; J2270; J2405; J3480; J7030; J7120

== ENCOUNTER 2016-12-06 23:31 | Emergency (ER) | payer BC ==
[2016-12-06] MEDS ORDERED: ASPIRIN 81 MG TABLET, CHEWABLE PO ONE (23:34)
[2016-12-07 03:04] LABS: ABSOLUTE BASOPHILS # (AUTO) 0.1 10^3/uL (0.0-0.2); ABSOLUTE EOSINOPHILS # (AUTO) 0.2 10^3/uL (0.0-0.6); ABSOLUTE LYMPHOCYTES (AUTO) 3.2 10^3/uL (0.5-4.7); ABSOLUTE MONOCYTES (AUTO) 0.8 10^3/uL (0.1-1.4); ABSOLUTE NEUT (AUTO) 3.2 10^3/uL (1.7-8.2); BASOPHILS % (AUTO) 1.3 % (0-2); EOSINOPHILS % (AUTO) 2.5 % (0-6); HEMATOCRIT 32.8 % (36.0-47.0); HGB HCT DIFFERENCE 0.2; LYMPHOCYTES % (AUTO) 42.8 % (13-45); MEAN CORPUSCULAR HEMOGLOBIN 26.8 pg (27.0-33.4); MEAN CORPUSCULAR HGB CONC 33.4 g/dL (32.0-36.0); MEAN CORPUSCULAR VOLUME 80 fl (80-97); MONOCYTES % (AUTO) 10.5 % (3-13); RED CELL DISTRIBUTION WIDTH 13.6 % (11.5-14.0); SEGMENTED NEUTROPHILS % (AUTO) 42.9 % (42-78); WHITE BLOOD COUNT 7.5 10^3/uL (4.0-10.5)
[2016-12-07 03:19] LABS: ALANINE AMINOTRANSFERASE 32 U/L (9-52); ALBUMIN 4.2 g/dL (3.5-5.0); ALKALINE PHOSPHATASE 74 U/L (38-126); ANION GAP 16 (5-19); ASPARTATE AMINO TRANSFERASE 32 U/L (14-36); BILIRUBIN,DIRECT 0.3 mg/dL (0.0-0.4); BILIRUBIN,TOTAL 0.8 mg/dL (0.2-1.3); BLOOD UREA NITROGEN 14 mg/dL (7-20); CALCIUM 9.3 mg/dL (8.4-10.2); CARBON DIOXIDE 28 mmol/L (22-30); CHLORIDE 100 mmol/L (98-107); CREATINE KINASE 634 U/L (30-135); CREATININE RESULT 0.98 mg/dL (0.52-1.25); GLUCOSE 99 mg/dL (75-110); POTASSIUM 3.1 mmol/L (3.6-5.0); SODIUM 143.7 mmol/L (137-145); TOTAL PROTEIN 8.1 g/dL (6.3-8.2)
[2016-12-07 03:29] LABS: CREATINE KINASE MB 1.61 ng/mL (<4.55)
[2016-12-07 03:37] LABS: TROPONIN I < 0.012 ng/mL
[2016-12-07] MEDS ORDERED: ONDANSETRON HCL INJ/PF 4 MG/2 ML SDV IV ONE (05:30)
[2016-12-07] MEDS ORDERED: POTASSIUM CHLORIDE 10 MEQ TABLET.SA PO ONE (06:25)
[2016-12-07] MEDS ORDERED: METOCLOPRAMIDE HCL 10 MG TABLET PO ONE (06:26)
[2016-12-07 06:27] VITALS: BP 117/84
--- NOTE | 2016-12-07 06:28 | ER Document Report ---
ED General - General Chief Complaint: Chest Pain Stated Complaint: CHEST PAIN,ITCHING,CONFUSION Mode of Arrival: Ambulatory Information source: Patient Notes: 36-year-old female history of hypokalemia presents with complaints of nausea vomiting diarrhea over the past 2 weeks. Patient notes diarrhea which resolved yesterday. Patient notes a history of hypokalemia, was told by her primary care physician that her potassium was 2.8, she took her on oral potassium at home yesterday and presented today with concerns for low potassium. Patient notes when she has low potassium she gets itchy feels that she is confused has generalized body aches and chest pain. Patient notes however since her arrival all these symptoms have since resolved once she found that her potassium was actually 3.1 TRAVEL OUTSIDE OF THE [place] IN LAST 30 DAYS: No - HPI Onset: Just prior to arrival Onset/Duration: Sudden Quality of pain: No pain Severity: Mild Pain Level: 1 Associated symptoms: Chest pain, Weakness, Other Exacerbated by: Denies Relieved by: Denies Similar symptoms previously: Yes Recently seen / treated by doctor: Yes - Related Data Allergies/Adverse Reactions: prochlorperazine edisylate [From Compazine] Allergy (Severe, Verified 12/07/16 00:07) PANIC ATTACK doxycycline [Doxycycline] Allergy (Mild, Verified 12/07/16 00:07) RASH Past Medical History - Social History Smoking Status: Never Smoker Cigarette use (# per day): No Chew tobacco use (# tins/day): No Smoking Education Provided: No Frequency of alcohol use: None Drug Abuse: None Family History: Reviewed & Not Pertinent, DM Patient has suicidal ideation: No Patient has homicidal ideation: No - Past Medical History Cardiac Medical History: Reports: Hx Hypercholesterolemia, Hx Hypertension Pulmonary Medical History: Reports: Hx Asthma Denies: Hx Tuberculosis Neurological Medical History: Reports: Hx Cerebrovascular Accident - TIA, Hx Migraine, Hx Seizures - x1 Renal/ Medical History: Denies: Hx Peritoneal Dialysis Musculoskeltal Medical History: Reports Hx Arthritis, Reports Hx Fibromyalgia, Reports Hx Musculoskeletal Trauma Past Surgical History: Reports: Hx Section, Hx Cholecystectomy, Hx Hysterectomy, Hx Orthopedic Surgery - left foot - Immunizations Immunizations up to date: No Hx Diphtheria, Pertussis, Tetanus Vaccination: No Hx Pneumococcal Vaccination: 09/03/00 Review of Systems - Review of Systems Notes: REVIEW OF SYSTEMS: CONSTITUTIONAL : Denies fever, chills, or sweats. Denies recent illness. EENT: Denies eye, ear, throat, or mouth pain or symptoms. Denies nasal or sinus congestion or discharge. Denies throat, tongue, or mouth swelling or difficulty swallowing. CARDIOVASCULAR: Admits to chest pain RESPIRATORY: Denies cough, cold, or chest congestion. Denies shortness of breath, difficulty breathing, or wheezing. GASTROINTESTINAL: Admits to diarrhea GENITOURINARY: Denies difficulty urinating, painful urination, burning, frequency, blood in urine, or discharge. FEMALE GENITOURINARY: Denies vaginal bleeding, heavy or abnormal periods, irregular periods. Denies vaginal discharge or odor. MUSCULOSKELETAL: Denies back or neck pain or stiffness. Denies joint pain or swelling. SKIN: Denies rash, lesions or sores. HEMATOLOGIC : Denies easy bruising or bleeding. LYMPHATIC: Denies swollen, enlarged glands. NEUROLOGICAL: Admits confusion PSYCHIATRIC: Denies anxiety or stress. Denies depression, suicidal ideation, or homicidal ideation. ALL OTHER SYSTEMS REVIEWED AND NEGATIVE. Dictation was performed using [employer] voice recognition software PHYSICAL EXAMINATION: GENERAL: Well-appearing, well-nourished and in no acute distress. HEAD: Atraumatic, normocephalic. EYES: Pupils equal round and reactive to light, extraocular movements intact, conjunctiva are normal. ENT: Nares patent, oropharynx clear without exudates. Moist mucous membranes. NECK: Normal range of motion, supple without lymphadenopathy LUNGS: Breath sounds clear to auscultation bilaterally and equal. No wheezes rales or rhonchi. HEART: Regular rate and rhythm without murmurs ABDOMEN: Soft, nontender, nondistended abdomen. No guarding, no rebound. No masses appreciated. Female : deferred Musculoskeletal: Normal range of motion, no pitting or edema. No cyanosis. NEUROLOGICAL: Cranial nerves grossly intact. Normal speech, normal gait. Normal sensory, motor exams PSYCH: Normal mood, normal affect. SKIN: Warm, Dry, normal turgor, no rashes or lesions noted. Physical Exam - Vital signs Vitals: Temp Pulse Resp BP Pulse Ox 98.1 F 68 18 119/70 98 12/07/16 00:07 12/07/16 00:07 12/07/16 00:07 12/07/16 00:07 12/07/16 00:07 Course - Re-evaluation Re-evalutation: 12/07/16 08:55 On my arrival patient admits that every time her potassium is low she feels this way, once her potassium goes up her symptoms resolved. I do not believe this is chest pain that is cardiac in nature. Patient looks well lab work was negative, potassium was noted to be 3.1. Patient was given potassium and encouraged to take oral potassium at home. Patient has follow-up with her primary care physician Patient notes the diarrhea has since resolved and I do not expect any further issues 12/07/16 08:56 After performing a Medical Screening Examination, I estimate there is LOW risk for RUPTURED ESOPHAGUS, PNEUMOTHORAX, PULMONARY EMBOLISM, ACUTE CORONARY SYNDROME, OR THORACIC AORTIC DISSECTION, thus I consider the discharge disposition reasonable. The patient and I have discussed the diagnosis and risks , and we agree with discharging home with close follow-up. We also discussed returning to the Emergency Department immediately if new or worsening symptoms occur. We have discussed the symptoms which are most concerning (e.g., bloody sputum, worsening pain or shortness of breath) that necessitate immediate return. - Vital Signs Vital signs: Temp Pulse Resp BP Pulse Ox 98.1 F 68 18 117/84 100 12/07/16 00:07 12/07/16 00:07 12/07/16 00:07 12/07/16 06:01 12/07/16 06:01 - Laboratory Result Diagrams: 12/07/16 02:50 12/07/16 02:50 Laboratory results interpreted by me: 12/07/16 12/07/16 02:50 02:50 Hgb 11.0 L Hct 32.8 L MCH 26.8 L Potassium 3.1 L Creatine Kinase 634 H - Diagnostic Test Radiology reviewed: Image reviewed, Reports reviewed - EKG Interpretation by Ga EKG shows normal: Sinus rhythm, [place], Intervals, QRS Complexes Discharge - Discharge Clinical Impression: Abdominal cramps, Hypokalemia, Nausea, vomiting and diarrhea Condition: Stable Disposition: HOME, SELF-CARE Instructions: Chest Pain of Unclear Cause ([facility]) Prescriptions: Metoclopramide HCl [Reglan 10 mg Tablet] 1 - 2 tab PO ASDIR PRN #25 tablet PRN Reason: Referrals: JONAH LITTLE MD [Primary Care Provider] - Follow up tomorrow
--- NOTE | 2016-12-07 15:33 | EKG REPORT ---
SEVERITY:- ABNORMAL ECG - SINUS RHYTHM LEFT VENTRICULAR HYPERTROPHY ANTERIOR Q WAVES, POSSIBLY DUE TO LVH BORDERLINE T ABNORMALITIES, INFERIOR LEADS : Confirmed by: Ping Hester MD 07-Dec-2016 15:32:45
== END 2016-12-07 06:40 | disposition home or self-care (01) ==
LOC: ER 23:31
DX: R10.84 Generalized abdominal pain (principal); E87.6 Hypokalemia; R11.2 Nausea with vomiting, unspecified; R19.7 Diarrhea, unspecified; E78.00 Pure hypercholesterolemia, unspecified; I10 Essential (primary) hypertension; Z86.73 Personal history of transient ischemic attack (TIA), and cerebral infarction without residual deficits; Z90.49 Acquired absence of other specified parts of digestive tract; Z90.710 Acquired absence of both cervix and uterus
CPT/HCPCS: 93005; 99285; 96374; 36415; 82553; 82550; 85025; 80053; 84484; 71010; 93010; J2405

== ENCOUNTER 2016-12-22 19:58 | Emergency (ER) | payer BC ==
[2016-12-22 20:49] VITALS: BP 121/74
[2016-12-22] MEDS ORDERED: ASPIRIN 81 MG TABLET, CHEWABLE PO ONE (20:50)
--- NOTE | 2016-12-22 21:49 | EKG REPORT ---
SEVERITY:- ABNORMAL ECG - SINUS RHYTHM ABNRM R PROG, CONSIDER ASMI OR LEAD PLACEMENT : Confirmed by: Ping Hester MD 22-Dec-2016 21:48:18
[2016-12-22 21:54] LABS: ABSOLUTE EOSINOPHILS # (AUTO) 0.3 10^3/uL (0.0-0.6); ABSOLUTE LYMPHOCYTES (AUTO) 2.7 10^3/uL (0.5-4.7); ABSOLUTE MONOCYTES (AUTO) 0.6 10^3/uL (0.1-1.4); ABSOLUTE NEUT (AUTO) 5.9 10^3/uL (1.7-8.2); BASOPHILS % (AUTO) 0.5 % (0-2); EOSINOPHILS % (AUTO) 3.1 % (0-6); HEMATOCRIT 32.8 % (36.0-47.0); HGB HCT DIFFERENCE 0.2; LYMPHOCYTES % (AUTO) 28.3 % (13-45); MEAN CORPUSCULAR HEMOGLOBIN 27.2 pg (27.0-33.4); MEAN CORPUSCULAR HGB CONC 33.6 g/dL (32.0-36.0); MEAN CORPUSCULAR VOLUME 81 fl (80-97); MONOCYTES % (AUTO) 6.4 % (3-13); RED BLOOD COUNT 4.07 10^6/uL (3.72-5.28); RED CELL DISTRIBUTION WIDTH 14.3 % (11.5-14.0); SEGMENTED NEUTROPHILS % (AUTO) 61.7 % (42-78); WHITE BLOOD COUNT 9.6 10^3/uL (4.0-10.5)
[2016-12-22 22:11] LABS: ALANINE AMINOTRANSFERASE 28 U/L (9-52); ALBUMIN 4.1 g/dL (3.5-5.0); ALKALINE PHOSPHATASE 70 U/L (38-126); ANION GAP 13 (5-19); ASPARTATE AMINO TRANSFERASE 26 U/L (14-36); BILIRUBIN,DIRECT 0.1 mg/dL (0.0-0.4); BILIRUBIN,TOTAL 0.4 mg/dL (0.2-1.3); BLOOD UREA NITROGEN 13 mg/dL (7-20); CALCIUM 9.5 mg/dL (8.4-10.2); CARBON DIOXIDE 27 mmol/L (22-30); CHLORIDE 102 mmol/L (98-107); CREATINE KINASE 524 U/L (30-135); CREATININE RESULT 0.96 mg/dL (0.52-1.25); GLUCOSE 107 mg/dL (75-110); POTASSIUM 3.1 mmol/L (3.6-5.0); SODIUM 142.4 mmol/L (137-145); TOTAL PROTEIN 7.3 g/dL (6.3-8.2)
[2016-12-22 22:29] LABS: CREATINE KINASE MB 1.85 ng/mL (<4.55)
[2016-12-22 22:33] LABS: TROPONIN I < 0.012 ng/mL
== END 2016-12-23 02:20 | disposition left against medical advice (07) ==
LOC: ER 19:58
DX: Z53.21 Procedure and treatment not carried out due to patient leaving prior to being seen by health care provider (principal)
CPT/HCPCS: 36415; 71010; 80053; 82550; 82553; 84484; 85025; 93005; 93010

== ENCOUNTER 2016-12-25 08:31 | Emergency (ER) | payer BC ==
[2016-12-25] MEDS ORDERED: ASPIRIN 81 MG TABLET, CHEWABLE PO ONE (09:36)
--- NOTE | 2016-12-25 09:44 | ER Document Report ---
ED Medical Screen (RME) - General Chief Complaint: chest sharp pain Stated Complaint: HEADACHE/CHEST PAIN Mode of Arrival: Medic Information source: Patient Notes: 46-year-old female history of low potassium presents with complaints of generalized body aches chest pain abdominal pain nausea and decreased appetite. Patient denies any fevers chills, symptoms have been ongoing for over [address]Ojeboubo Sanches have greeted and performed a rapid initial assessment of this patient. A comprehensive ED assessment and evaluation of the patient, analysis of test results and completion of the medical decision making process will be conducted by additional ED providers. PHYSICAL EXAMINATION: GENERAL: Well-appearing, well-nourished and in no acute distress. HEAD: Atraumatic, normocephalic. EYES: Pupils equal round extraocular movements intact, conjunctiva are normal. ENT: Nares patent NECK: Normal range of motion LUNGS: No respiratory distress Musculoskeletal: Normal range of motion NEUROLOGICAL: Normal speech, normal gait. PSYCH: Normal mood, normal affect. SKIN: Warm, Dry, normal turgor, no rashes or lesions noted. TRAVEL OUTSIDE OF THE [place] IN LAST 30 DAYS: No - Related Data Allergies/Adverse Reactions: prochlorperazine edisylate [From Compazine] Allergy (Severe, Verified 12/07/16 00:07) PANIC ATTACK doxycycline [Doxycycline] Allergy (Mild, Verified 12/07/16 00:07) RASH Past Medical History - Past Medical History Cardiac Medical History: Reports: Hx Hypercholesterolemia, Hx Hypertension Pulmonary Medical History: Reports: Hx Asthma Denies: Hx Tuberculosis Neurological Medical History: Reports: Hx Cerebrovascular Accident - TIA, Hx Migraine, Hx Seizures - x1 Renal/ Medical History: Denies: Hx Peritoneal Dialysis Musculoskeltal Medical History: Reports Hx Arthritis, Reports Hx Fibromyalgia, Reports Hx Musculoskeletal Trauma Past Surgical History: Reports: Hx Section, Hx Cholecystectomy, Hx Hysterectomy, Hx Orthopedic Surgery - left foot - Immunizations Immunizations up to date: No Hx Diphtheria, Pertussis, Tetanus Vaccination: No
--- NOTE | 2016-12-25 09:56 | ER Document Report ---
ED General - General Mode of Arrival: Medic Information source: Patient TRAVEL OUTSIDE OF THE [place] IN LAST 30 DAYS: No - HPI Patient complains to provider of: Possible Low Potassium Onset: Other - 2 months ago Onset/Duration: Gradual, Persistent Associated symptoms: Body/muscle aches, Chest pain, Nausea, Sweating. denies: Chills, Fever Recently seen / treated by doctor: Yes - [facility] ED <AMY HODGSON - Last Filed: 12/25/16 09:51> <CALOS GONCALVES - Last Filed: 12/25/16 10:58> - General Chief Complaint: chest sharp pain Stated Complaint: HEADACHE/CHEST PAIN Notes: Patient is a 46-year-old female, with history of low potassium, presenting to the emergency department with complaints of body aches, chest pain, abdominal pain, nausea, decreased appetite, and diaphoresis. Patient states she has been experiencing these symptoms for the past 2 months. Patient called her primary care physician, Dr. Little, 3 days ago who told her to come to the emergency department to get her potassium levels checked. Patient states she came, but left because she was waiting for 8 hours. Patient denies any fever, chills, or any other symptoms at this time. Patient states she takes 20 mg of potassium supplement per day. This is the patient's fifth ED visit in the past month. (AMY HODGSON) - Related Data Allergies/Adverse Reactions: prochlorperazine edisylate [From Compazine] Allergy (Severe, Verified 12/07/16 00:07) PANIC ATTACK doxycycline [Doxycycline] Allergy (Mild, Verified 12/07/16 00:07) RASH Past Medical History - General Information source: Patient, [facility] Records - Social History Smoking Status: Unknown if Ever Smoked Family History: Reviewed & Not Pertinent, DM Patient has suicidal ideation: No Patient has homicidal ideation: No - Past Medical History Cardiac Medical History: Reports: Hx Hypercholesterolemia, Hx Hypertension Pulmonary Medical History: Reports: Hx Asthma Neurological Medical History: Reports: Hx Cerebrovascular Accident - TIA, Hx Migraine, Hx Seizures - x1 Musculoskeltal Medical History: Reports Hx Arthritis, Reports Hx Fibromyalgia, Reports Hx Musculoskeletal Trauma Past Surgical History: Reports: Hx Section, Hx Cholecystectomy, Hx Hysterectomy, Hx Orthopedic Surgery - left foot - Immunizations Immunizations up to date: No Hx Diphtheria, Pertussis, Tetanus Vaccination: No Hx Pneumococcal Vaccination: 09/03/00 <JOSE HODGSONICA - Last Filed: 12/25/16 09:51> Review of Systems - Review of Systems Constitutional: See HPI, Diaphoresis, Other - Body aches. denies: Chills, Fever EENT: No symptoms reported Cardiovascular: No symptoms reported Respiratory: No symptoms reported Gastrointestinal: See HPI, Abdominal pain, Nausea, Poor appetite Genitourinary: No symptoms reported Female Genitourinary: No symptoms reported Musculoskeletal: No symptoms reported Skin: No symptoms reported Hematologic/Lymphatic: No symptoms reported Neurological/Psychological: No symptoms reported -: Yes All other systems reviewed and negative <GOKULAMY - Last Filed: 12/25/16 09:51> Physical Exam - General General appearance: Appears well, Alert - HEENT Head: Normocephalic, Atraumatic Eyes: Normal Pupils: PERRL - Respiratory Respiratory status: No respiratory distress Chest status: Nontender Breath sounds: Normal Chest palpation: Normal - Cardiovascular Rhythm: Regular Heart sounds: Normal auscultation Murmur: No - Abdominal Inspection: Obese Tenderness: Nontender - Back Back: Normal, Nontender - Extremities General upper extremity: Normal inspection, Nontender General lower extremity: Normal inspection, Nontender - Neurological Neuro grossly intact: Yes Cognition: Normal Orientation: AAOx4 Kingsley Coma Scale Eye Opening: Spontaneous [place] Coma Scale Verbal: Oriented Kings[place] Coma Scale Motor: Obeys Commands [place] Coma Scale Total: 15 Speech: Normal - Psychological Associated symptoms: Normal affect, Normal mood - Skin Skin Temperature: Warm Skin Moisture: Dry Skin Color: Normal <AMY HODGSON - Last Filed: 12/25/16 09:51> Course - Laboratory Result Diagrams: 12/25/16 09:40 12/25/16 09:40 <GOKULAMY - Last Filed: 12/25/16 09:51> - Laboratory Result Diagrams: 12/25/16 09:40 12/25/16 09:40 - EKG Interpretation by Ct EKG shows normal: Sinus rhythm, [place], Intervals, ST-T Waves. abnormal: QRS Complexes - Abnormal R progression Rate: Normal - 61 Rhythm: NSR When compared to previous EKG there are: No significant change <CALOS GONCALVES - Last Filed: 12/25/16 10:58> - Vital Signs Vital signs: Temp Pulse Resp BP Pulse Ox 98.3 F 14 100 12/25/16 09:33 12/25/16 09:33 12/25/16 10:00 - Laboratory Laboratory results interpreted by me: 12/25/16 12/25/16 09:40 09:40 Hgb 11.3 L Hct 33.1 L RDW 14.6 H Sodium 145.5 H Potassium 2.9 L* Glucose 116 H Creatine Kinase 301 H Discharge <AMY HODGSON - Last Filed: 12/25/16 09:51> <CALOS GONCALVES - Last Filed: 12/25/16 10:58> - Discharge Clinical Impression: Hypokalemia Condition: Stable Disposition: HOME, SELF-CARE Additional Instructions: Increase your potassium intake to 20 mEq twice daily. Follow-up with Dr. Little tomorrow in the office to discuss your new potassium dosage. RETURN TO THE EMERGENCY ROOM IF ANY NEW OR WORSENING SYMPTOMS. Referrals: JONAH LITTLE MD [Primary Care Provider] - Follow up tomorrow Scribe Attestation: 12/25/16 10:57 I personally performed the services described in the documentation, reviewed and edited the documentation which was dictated to the scribe in my presence, and it accurately records my words and actions. (CALOS GONCALVES) Scribe Documentation - Scribe Written by Scribe:: Amy Hodgson 12/25/2016 [id number] acting as scribe for :: Kenyatta <AMY HODGSON - Last Filed: 12/25/16 09:51>
[2016-12-25 10:03] LABS: ABSOLUTE BASOPHILS # (AUTO) 0.1 10^3/uL (0.0-0.2); ABSOLUTE EOSINOPHILS # (AUTO) 0.1 10^3/uL (0.0-0.6); ABSOLUTE MONOCYTES (AUTO) 0.5 10^3/uL (0.1-1.4); ABSOLUTE NEUT (AUTO) 4.7 10^3/uL (1.7-8.2); BASOPHILS % (AUTO) 0.8 % (0-2); HEMATOCRIT 33.1 % (36.0-47.0); HEMOGLOBIN 11.3 g/dL (12.0-15.5); HGB HCT DIFFERENCE 0.8; LYMPHOCYTES % (AUTO) 26.8 % (13-45); MEAN CORPUSCULAR HEMOGLOBIN 27.5 pg (27.0-33.4); MEAN CORPUSCULAR HGB CONC 34.2 g/dL (32.0-36.0); MEAN CORPUSCULAR VOLUME 80 fl (80-97); MONOCYTES % (AUTO) 6.4 % (3-13); RED BLOOD COUNT 4.12 10^6/uL (3.72-5.28); RED CELL DISTRIBUTION WIDTH 14.6 % (11.5-14.0); WHITE BLOOD COUNT 7.4 10^3/uL (4.0-10.5)
[2016-12-25 10:19] LABS: ALANINE AMINOTRANSFERASE 25 U/L (9-52); ALBUMIN 4.1 g/dL (3.5-5.0); ALKALINE PHOSPHATASE 75 U/L (38-126); ANION GAP 17 (5-19); ASPARTATE AMINO TRANSFERASE 27 U/L (14-36); BILIRUBIN,DIRECT 0.3 mg/dL (0.0-0.4); BILIRUBIN,TOTAL 0.8 mg/dL (0.2-1.3); BLOOD UREA NITROGEN 10 mg/dL (7-20); CALCIUM 9.3 mg/dL (8.4-10.2); CARBON DIOXIDE 26 mmol/L (22-30); CHLORIDE 103 mmol/L (98-107); CREATINE KINASE 301 U/L (30-135); GLUCOSE 116 mg/dL (75-110); SODIUM 145.5 mmol/L (137-145); TOTAL PROTEIN 7.9 g/dL (6.3-8.2)
[2016-12-25 10:21] LABS: POTASSIUM 2.9 mmol/L (3.6-5.0)
--- NOTE | 2016-12-25 10:23 | EKG REPORT ---
SEVERITY:- ABNORMAL ECG - SINUS RHYTHM ABNRM R PROG, CONSIDER ASMI OR LEAD PLACEMENT : Confirmed by: Catherine Turner 25-Dec-2016 10:22:57
[2016-12-25] MEDS ORDERED: POTASSIUM CHLORIDE 10 MEQ TABLET.SA PO ONE (10:28)
[2016-12-25 10:32] LABS: CREATINE KINASE MB 1.17 ng/mL (<4.55)
[2016-12-25 10:33] LABS: TROPONIN I < 0.012 ng/mL
[2016-12-25 11:05] VITALS: BP 102/56
== END 2016-12-25 11:22 | disposition home or self-care (01) ==
LOC: ER 08:31
DX: E87.6 Hypokalemia (principal); R07.9 Chest pain, unspecified; R51 Headache; R52 Pain, unspecified; R11.0 Nausea; R10.9 Unspecified abdominal pain; R63.0 Anorexia
CPT/HCPCS: 36415; 71010; 80053; 82550; 82553; 83735; 84484; 85025; 93005; 93010; 99285

== ENCOUNTER 2017-01-07 03:56 | Emergency (ER) | payer BC ==
--- NOTE | 2017-01-07 05:12 | ER Document Report ---
ED Medical Screen (RME) - General Chief Complaint: Dizziness Stated Complaint: DIZZY NAUSEA HEADACHE Mode of Arrival: Ambulatory Information source: Patient Notes: pt presents with multiple c/o of dizzy,jenkins, cramps,nausea, reports hx of low potassium since September. TRAVEL OUTSIDE OF THE [place] IN LAST 30 DAYS: No - Related Data Allergies/Adverse Reactions: prochlorperazine edisylate [From Compazine] Allergy (Severe, Verified 01/07/17 03:58) PANIC ATTACK doxycycline [Doxycycline] Allergy (Mild, Verified 01/07/17 03:58) RASH Past Medical History - Past Medical History Cardiac Medical History: Reports: Hx Hypercholesterolemia, Hx Hypertension Pulmonary Medical History: Reports: Hx Asthma Denies: Hx Tuberculosis Neurological Medical History: Reports: Hx Cerebrovascular Accident - TIA, Hx Migraine, Hx Seizures - x1 Renal/ Medical History: Denies: Hx Peritoneal Dialysis Musculoskeltal Medical History: Reports Hx Arthritis, Reports Hx Fibromyalgia, Reports Hx Musculoskeletal Trauma Past Surgical History: Reports: Hx Section, Hx Cholecystectomy, Hx Hysterectomy, Hx Orthopedic Surgery - left foot - Immunizations Immunizations up to date: No Hx Diphtheria, Pertussis, Tetanus Vaccination: No Physical Exam - Vital signs Vitals: Temp Pulse Resp BP Pulse Ox 97.3 F 61 16 104/62 98 01/07/17 03:58 01/07/17 03:58 01/07/17 03:58 01/07/17 03:58 01/07/17 03:58 Course - Vital Signs Vital signs: Temp Pulse Resp BP Pulse Ox 97.3 F 61 16 104/62 98 01/07/17 03:58 01/07/17 03:58 01/07/17 03:58 01/07/17 03:58 01/07/17 03:58
[2017-01-07 06:05] LABS: APPEARANCE,URINE CLEAR; BILIRUBIN,URINE NEGATIVE (NEGATIVE); GLUCOSE, URINE NEGATIVE (NEGATIVE); KETONES,URINE NEGATIVE (NEGATIVE); LEUKOCYTE ESTERASE,URINE NEGATIVE (NEGATIVE); NITRITE,URINE NEGATIVE (NEGATIVE); PROTEIN,URINE NEGATIVE (NEGATIVE); URINE SPECIFIC GRAVITY 1.016; UROBILINOGEN,URINE NEGATIVE mg/dL (<2.0)
[2017-01-07 08:09] LABS: ABSOLUTE EOSINOPHILS # (AUTO) 0.1 10^3/uL (0.0-0.6); ABSOLUTE LYMPHOCYTES (AUTO) 2.6 10^3/uL (0.5-4.7); ABSOLUTE MONOCYTES (AUTO) 0.5 10^3/uL (0.1-1.4); ABSOLUTE NEUT (AUTO) 4.2 10^3/uL (1.7-8.2); BASOPHILS % (AUTO) 0.2 % (0-2); EOSINOPHILS % (AUTO) 1.2 % (0-6); HEMATOCRIT 32.6 % (36.0-47.0); HEMOGLOBIN 10.9 g/dL (12.0-15.5); HGB HCT DIFFERENCE 0.1; LYMPHOCYTES % (AUTO) 34.7 % (13-45); MEAN CORPUSCULAR HEMOGLOBIN 27.1 pg (27.0-33.4); MEAN CORPUSCULAR HGB CONC 33.5 g/dL (32.0-36.0); MEAN CORPUSCULAR VOLUME 81 fl (80-97); RED BLOOD COUNT 4.02 10^6/uL (3.72-5.28); RED CELL DISTRIBUTION WIDTH 14.5 % (11.5-14.0); SEGMENTED NEUTROPHILS % (AUTO) 56.9 % (42-78); WHITE BLOOD COUNT 7.5 10^3/uL (4.0-10.5)
[2017-01-07 08:32] LABS: ALANINE AMINOTRANSFERASE 27 U/L (9-52); ALBUMIN 3.9 g/dL (3.5-5.0); ALKALINE PHOSPHATASE 83 U/L (38-126); ANION GAP 13 (5-19); ASPARTATE AMINO TRANSFERASE 25 U/L (14-36); BILIRUBIN,DIRECT 0.4 mg/dL (0.0-0.4); BILIRUBIN,TOTAL 0.8 mg/dL (0.2-1.3); BLOOD UREA NITROGEN 16 mg/dL (7-20); CALCIUM 9.5 mg/dL (8.4-10.2); CARBON DIOXIDE 27 mmol/L (22-30); CHLORIDE 99 mmol/L (98-107); CREATININE RESULT 0.91 mg/dL (0.52-1.25); GLUCOSE 107 mg/dL (75-110); POTASSIUM 3.2 mmol/L (3.6-5.0); SODIUM 139.1 mmol/L (137-145); TOTAL PROTEIN 7.8 g/dL (6.3-8.2)
[2017-01-07] MEDS ORDERED: POTASSIUM CHLORIDE 10 MEQ TABLET.SA PO ONE (08:35)
--- NOTE | 2017-01-07 08:42 | ER Document Report ---
ED Dizziness/Weakness - General Chief Complaint: Dizziness Stated Complaint: DIZZY NAUSEA HEADACHE Mode of Arrival: Ambulatory Notes: Patient is a 46-year-old female who presents emergency Department complaining of itching, headache, dizziness, cramps and nausea. She states that the symptoms have always been consistent with her hypokalemia which she was recently diagnosed with September. Aches whenever she has the symptoms comes emergency department to have her labs checked. Most recently she was here December 25 and had a potassium of 2.9 treated with by mouth potassium and was sent to follow up with her primary care physician Dr. Little. She is currently taking 20 Meq's by mouth daily. She has been discouraged from doubling up her doses and she has the symptoms at home due to the risk for hyperkalemia. Otherwise she has a history of fibromyalgia, hypertension, migraines. TRAVEL OUTSIDE OF THE [place] IN LAST 30 DAYS: No - Related Data Allergies/Adverse Reactions: prochlorperazine edisylate [From Compazine] Allergy (Severe, Verified 01/07/17 03:58) PANIC ATTACK doxycycline [Doxycycline] Allergy (Mild, Verified 01/07/17 03:58) RASH Past Medical History - General Information source: Patient - Social History Smoking Status: Unknown if Ever Smoked Frequency of alcohol use: None Drug Abuse: None Family History: Reviewed & Not Pertinent, DM - Past Medical History Cardiac Medical History: Reports: Hx Hypercholesterolemia, Hx Hypertension Pulmonary Medical History: Reports: Hx Asthma Denies: Hx Tuberculosis Neurological Medical History: Reports: Hx Cerebrovascular Accident - TIA, Hx Migraine, Hx Seizures - x1 Renal/ Medical History: Denies: Hx Peritoneal Dialysis Musculoskeltal Medical History: Reports Hx Arthritis, Reports Hx Fibromyalgia, Reports Hx Musculoskeletal Trauma Past Surgical History: Reports: Hx Section, Hx Cholecystectomy, Hx Hysterectomy, Hx Orthopedic Surgery - left foot - Immunizations Immunizations up to date: No Hx Diphtheria, Pertussis, Tetanus Vaccination: No Hx Pneumococcal Vaccination: 09/03/00 Review of Systems - Review of Systems Constitutional: See HPI EENT: No symptoms reported Cardiovascular: No symptoms reported Respiratory: No symptoms reported Gastrointestinal: See HPI -: Yes All other systems reviewed and negative Physical Exam - Vital signs Vitals: Temp Pulse Resp BP Pulse Ox 97.3 F 61 16 104/62 98 01/07/17 03:58 01/07/17 03:58 01/07/17 03:58 01/07/17 03:58 01/07/17 03:58 - Notes Notes: PHYSICAL EXAM GENERAL: Alert, interacts well. HEAD: Normocephalic, atraumatic. EYES: Pupils equal, round, and reactive to light. Extraocular movements intact. ENT: Oral mucosa moist, tongue midline. NECK: Full range of motion. Supple. Trachea midline. LUNGS: Clear to auscultation bilaterally, no wheezes, rales, or rhonchi. No respiratory distress. HEART: Regular rate and rhythm. No murmurs, gallops, or rubs. ABDOMEN: Soft, nondistended, nontender. No guarding, rebound, or rigidity.. Bowel sounds present in all 4 quadrants. EXTREMITIES: Moves all 4 extremities spontaneously. No edema, radial and dorsalis pedis pulses 2/4 bilaterally. No cyanosis. NEUROLOGICAL: Alert and oriented x4. Normal speech. PSYCH: Normal affect, normal mood. SKIN: Warm, dry, normal turgor. No rashes or lesions noted. Course - Re-evaluation Re-evalutation: 01/07/17 10:41 Patient is a 46 old female who is hemodynamically stable, no acute distress and afebrile. Serum potassium was 3.2. Given 40 meq by mouth and told her to follow up with Dr. Little this week. - Vital Signs Vital signs: Temp Pulse Resp BP Pulse Ox 97.5 F 61 18 101/79 100 01/07/17 08:46 01/07/17 03:58 01/07/17 08:46 01/07/17 08:46 01/07/17 08:46 - Laboratory Result Diagrams: 01/07/17 07:50 01/07/17 07:50 Laboratory results interpreted by me: 01/07/17 01/07/17 07:50 07:50 Hgb 10.9 L Hct 32.6 L RDW 14.5 H Potassium 3.2 L - EKG Interpretation by Tn EKG shows normal: Sinus rhythm Rate: Normal Rhythm: NSR, Other - Abnormal R-wave progression consistent with patient's previous EKGs When compared to previous EKG there are: No significant change Discharge - Discharge Clinical Impression: Hypokalemia Condition: Good Disposition: HOME, SELF-CARE Instructions: Hypokalemia ([facility]) Additional Instructions: Please continue taking your medications as prescribed. Follow-up with Dr. Little on Sunday. Referrals: JONAH LITTLE MD [Primary Care Provider] - Follow up tomorrow
[2017-01-07 08:52] VITALS: BP 101/79
--- NOTE | 2017-01-07 09:00 | EKG REPORT ---
SEVERITY:- ABNORMAL ECG - SINUS RHYTHM LEFT VENTRICULAR HYPERTROPHY ANTERIOR Q WAVES, POSSIBLY DUE TO LVH : Confirmed by: Diego Woods MD 07-Jan-2017 08:59:43
== END 2017-01-07 08:52 | disposition home or self-care (01) ==
LOC: ER 03:56
DX: E87.6 Hypokalemia (principal); R94.31 Abnormal electrocardiogram [ECG] [EKG]; R51 Headache; R42 Dizziness and giddiness; R11.0 Nausea; R25.2 Cramp and spasm; L29.9 Pruritus, unspecified; I10 Essential (primary) hypertension; J45.909 Unspecified asthma, uncomplicated; Z79.899 Other long term (current) drug therapy; Z88.8 Allergy status to other drugs, medicaments and biological substances; Z88.1 Allergy status to other antibiotic agents; Z86.73 Personal history of transient ischemic attack (TIA), and cerebral infarction without residual deficits
CPT/HCPCS: 36415; 80053; 81001; 83735; 85025; 93005; 93010; 99284

== ENCOUNTER → 2017-03-08 | Outpatient (CLI) | payer BC ==
[2017-03-08 11:23] LABS: ABSOLUTE EOSINOPHILS # (AUTO) 0.1 10^3/uL (0.0-0.6); ABSOLUTE LYMPHOCYTES (AUTO) 2.3 10^3/uL (0.5-4.7); ABSOLUTE MONOCYTES (AUTO) 0.6 10^3/uL (0.1-1.4); ABSOLUTE NEUT (AUTO) 4.5 10^3/uL (1.7-8.2); BASOPHILS % (AUTO) 0.3 % (0-2); EOSINOPHILS % (AUTO) 1.5 % (0-6); HEMATOCRIT 34.6 % (36.0-47.0); HEMOGLOBIN 11.2 g/dL (12.0-15.5); LYMPHOCYTES % (AUTO) 30.9 % (13-45); MEAN CORPUSCULAR HEMOGLOBIN 26.6 pg (27.0-33.4); MEAN CORPUSCULAR HGB CONC 32.4 g/dL (32.0-36.0); MEAN CORPUSCULAR VOLUME 82 fl (80-97); MONOCYTES % (AUTO) 7.8 % (3-13); RED BLOOD COUNT 4.22 10^6/uL (3.72-5.28); RED CELL DISTRIBUTION WIDTH 14.3 % (11.5-14.0); SEGMENTED NEUTROPHILS % (AUTO) 59.5 % (42-78); WHITE BLOOD COUNT 7.6 10^3/uL (4.0-10.5)
[2017-03-08 11:32] LABS: APPEARANCE,URINE CLEAR; BILIRUBIN,URINE NEGATIVE (NEGATIVE); GLUCOSE, URINE NEGATIVE (NEGATIVE); KETONES,URINE NEGATIVE (NEGATIVE); LEUKOCYTE ESTERASE,URINE NEGATIVE (NEGATIVE); NITRITE,URINE NEGATIVE (NEGATIVE); PROTEIN,URINE 30 mg/dL (NEGATIVE)
[2017-03-08 11:33] LABS: URINE SPECIFIC GRAVITY 1.021
[2017-03-08 11:53] LABS: ANION GAP 13 (5-19); BLOOD UREA NITROGEN 12 mg/dL (7-20); CALCIUM 9.2 mg/dL (8.4-10.2); CARBON DIOXIDE 27 mmol/L (22-30)
[2017-03-08 12:39] LABS: CHLORIDE 101 mmol/L (98-107); CREATININE RESULT 0.81 mg/dL (0.52-1.25); GLUCOSE 103 mg/dL (75-110); SODIUM 140.7 mmol/L (137-145)
--- NOTE | 2017-03-08 12:54 | EKG REPORT ---
SEVERITY:- ABNORMAL ECG - SINUS RHYTHM LEFT VENTRICULAR HYPERTROPHY : Confirmed by: Diego Woods MD 08-Mar-2017 12:53:23
--- NOTE | 2017-03-08 14:03 | RADIOLOGY REPORT (SQ) ---
EXAM DESCRIPTION: CHEST PA/LATERAL COMPLETED DATE/TIME: 03/08/2017 11:20 am REASON FOR STUDY: PRE OP COMPARISON: 12/25/2016, 11/29/2016 chest films EXAM PARAMETERS: NUMBER OF VIEWS: two views TECHNIQUE: Digital Frontal and Lateral radiographic views of the chest acquired. RADIATION DOSE: NA LIMITATIONS: none FINDINGS: LUNGS AND PLEURA: No opacities, masses or pneumothorax. No pleural effusion. MEDIASTINUM AND HILAR STRUCTURES: No masses or contour abnormalities. HEART AND VASCULAR STRUCTURES: Heart normal size. No evidence for failure. BONES: No acute findings. HARDWARE: None in the chest. OTHER: No other significant finding. IMPRESSION: NO SIGNIFICANT RADIOGRAPHIC FINDING IN THE CHEST. TECHNICAL DOCUMENTATION: JOB ID: [id number] [employer]- All Rights Reserved
== END ==
LOC: OD 10:28
PROVIDERS: ATTEND Orthopaedic Surgery
DX: Z01.810 Encounter for preprocedural cardiovascular examination (principal); Z01.812 Encounter for preprocedural laboratory examination; Z01.818 Encounter for other preprocedural examination
CPT/HCPCS: 36415; 71020; 80048; 81001; 85025; 93005; 93010

== ENCOUNTER 2017-03-28 06:57 | Inpatient (IN) | payer BC ==
[~2017-03-28 06:57] MED LIST: BUPIVACAINE INJ/PF LIPOSOME/PF 266 MG/20 ML SDV INJ PRN; CEFAZOLIN INJ 1 GM VIAL IV PRN; IBUPROFEN 800 MG in NORMAL SALINE 250 ML IV PRN; LACTATED RINGERS 1000 ML IV PRN; LANSOPRAZOLE 15 MG TAB.RAP.DR PO PRN; LIDOCAINE 0.5% INJ-PF (5 MG/ML) 50 ML SDV SUBCUT PRN; LORAZEPAM INJ 2 MG/1 ML VIAL IV PRN; OXYCODONE HCL SR 10 MG TABLET PO PRN; VANCOMYCIN HCL 1,000 MG in DEXTROSE 5%-WATER 250 ML IV PRN
[2017-03-28] MEDS ORDERED: FENTANYL CITRATE INJ/PF 100 MCG/2 ML AMPUL ONE (07:16)
[2017-03-28] MEDS ORDERED: MIDAZOLAM 2 MG/2 ML INJ ONE (07:16)
[2017-03-28] MEDS ORDERED: TRANEXAMIC ACID INJ/PF 1,000 MG/10 ML SDV IV ONE (07:16)
[2017-03-28] MEDS ORDERED: PROPOFOL INJ 200 MG/20 ML VIAL IV ONE (07:16)
[2017-03-28] MEDS ORDERED: MORPHINE SULFATE 10 MG/ML INJ ONE (07:17)
[2017-03-28] MEDS ORDERED: THROMBIN (BOVINE) TOPICAL 20000 UNIT VIAL ONE (07:18)
[2017-03-28] MEDS ORDERED: THROMBIN (BOVINE) 5000 UNIT EPITAXIS KIT ONE (07:18)
[2017-03-28] MEDS ORDERED: BUPIVACAINE INJ/PF LIPOSOME/PF 266 MG/20 ML SDV ONE (07:18)
[2017-03-28] MEDS ORDERED: FENTANYL CITRATE INJ/PF 100 MCG/2 ML AMPUL IV PRN ×3 (09:30)
[2017-03-28] MEDS ORDERED: DIPHENHYDRAMINE HCL 50 MG/ML VIAL IV PRN (09:30)
[2017-03-28] MEDS ORDERED: MEPERIDINE HCL/PF INJ 25 MG/1 ML DISP.SYRIN IV PRN (09:30)
[2017-03-28] MEDS ORDERED: MORPHINE SULFATE 10 MG/ML INJ IV PRN ×3 (09:30→10:05)
[2017-03-28] MEDS ORDERED: MAG HYDROX/AL HYDROX/SIMETH SUSP 30 ML UDCUP PO PRN (10:05)
[2017-03-28] MEDS ORDERED: MORPHINE SULFATE 10 MG/ML INJ IM PRN (10:05)
[2017-03-28] MEDS ORDERED: OXYCODONE HCL IR 5 MG TABLET PO PRN (10:05)
[2017-03-28] MEDS ORDERED: ONDANSETRON 4 MG TAB.RAPDIS PO PRN (10:05)
[2017-03-28] MEDS ORDERED: ACETAMINOPHEN 325 MG TABLET PO PRN (10:05)
[2017-03-28] MEDS ORDERED: RINGERS SOLUTION,LACTATED 1,000 ML IV PRN (10:05)
--- NOTE | 2017-03-28 10:10 | Operative Report ---
Operative Report DATE OF SURGERY: 03/28/17 PREOPERATIVE DIAGNOSIS: Right knee arthritis OPERATION: Right knee arthroplasty SURGEON: MK MAHER ANESTHESIA: Spinal TISSUE REMOVED OR ALTERED: Bone to pathology ESTIMATED BLOOD LOSS: 100 PROCEDURE: Implants used: Femur: Triathlon #6 CR femur Tibia: #5 tibia Tibial liner: 9 mm CS insert Patella: 35 mm oval patella Procedure with the patient supine on the operating table the right the limb is prepped and draped in a sterile fashion. The limb was elevated for exsanguination and the tourniquet inflated to 280 torr. A standard midline median parapatellar approach the knee is taken. Access is gained to the femoral canal through the intercondylar notch. Intramedullary alignment instrumentation used to resect 10 mm of distal femur in 5 of valgus. Sizing guide indicated a size 6 femur. Appropriate cutting jig is then used to fashion anterior posterior and chamfer cuts. A trial reduction femurs performed and this is judged to be adequate. Attention was next turned to the tibia. Using an extra medullary alignment system 9 millimeters was resected off the lateral tibial plateau. This is sized to a size 5 tibia. A trial reduction was now performed with a 6 femur and a 5 tibia using a 9 millimeters spacer. It is full extension and central patellofemoral tracking. The articular surface the patella was next resected using an oscillating saw. All trial implants were removed. Polymethylmethacrylate is mixed and used to cement the above implants in place. On adequate curing the cement excess cement was removed the tourniquet was deflated hemostasis obtained the wound is then closed in layers using interrupted Vicryl followed by aris. A sterile compressive dressing was applied and the patient returned to recovery room in satisfactory condition.
[2017-03-28] MEDS ORDERED: (PENDING PHARMACY ID) (Olmesartan/Amlodipin/Hcthiazid [Tribenzor 40-10-25 Mg Tablet] 1 EAC PO SCH (10:15)
--- NOTE | 2017-03-28 10:53 | RADIOLOGY REPORT (SQ) ---
EXAM DESCRIPTION: KNEE RIGHT 2 VIEWS COMPLETED DATE/TIME: 03/28/2017 10:34 am REASON FOR STUDY: Post OP -Long Cassette in PACU M17.11 UNILATERAL PRIMARY OSTEOARTHRITIS, RIGHT KN EE COMPARISON: 05/22/2015. NUMBER OF VIEWS: Two view(s). TECHNIQUE: Digital radiographic images of the right knee post-procedure. LIMITATIONS: None. FINDINGS: BONES: No worrisome or unexpected findings post-procedure. DEVICE: Total knee arthroplasty SOFT TISSUES: No worrisome findings. Expected postoperative soft tissue changes. IMPRESSION: SATISFACTORY POSTOPERATIVE RIGHT KNEE. TECHNICAL DOCUMENTATION: JOB ID: [id number] [employer]- All Rights Reserved
[2017-03-28] MEDS ORDERED: PHENYLEPHRINE HCL INJ/PF 10 MG/1 ML SDV ONE (11:50)
[2017-03-28] MEDS ORDERED: ONDANSETRON HCL INJ/PF 4 MG/2 ML SDV ONE (11:50)
[2017-03-28] MEDS ORDERED: DEXAMETHASONE SOD PHOSPHATE INJ 4 MG/1 ML VIAL ONE (11:50)
[2017-03-28] MEDS: GABAPENTIN 300 MG CAPSULE PO SCH ×2 (13:39→14:31)
[2017-03-28] MEDS: IBUPROFEN 800 MG in NORMAL SALINE 250 ML IV SCH (18:16)
[2017-03-28] MEDS: PREGABALIN 75 MG CAPSULE PO SCH (18:35)
[2017-03-28] MEDS: SENNOSIDES/DOCUSATE 8.6-50 MG 1 EACH TABLET PO SCH (18:35)
[2017-03-28] MEDS: ONDANSETRON HCL INJ/PF 4 MG/2 ML SDV IV PRN (18:35)
[2017-03-28] MEDS: MORPHINE SULFATE 10 MG/ML INJ IV PRN (20:57)
[2017-03-28] MEDS ORDERED: VANCOMYCIN HCL 1,000 MG in DEXTROSE 5%-WATER 250 ML IV ONE (22:05)
[2017-03-28] MEDS: OXYCODONE HCL SR 10 MG TABLET PO SCH (22:36)
[2017-03-28] MEDS: LABETALOL HCL 200 MG TABLET PO SCH (22:36)
[2017-03-28] MEDS: ZOLPIDEM TARTRATE 5 MG TABLET PO PRN ×2 (22:37→22:52)
[2017-03-28] MEDS: ATORVASTATIN CALCIUM 40 MG TABLET PO SCH (22:51)
[2017-03-28] MEDS: RIVAROXABAN 10 MG TABLET PO SCH (22:52)
[2017-03-28] MEDS: BUDESONIDE/FORMOTEROL 160-4.5 MCG 60 PUFF/6 GM MDI IH SCH (22:53)
[2017-03-28] MEDS ORDERED: METOCLOPRAMIDE HCL 10 MG TABLET PO ONE (23:45)
[2017-03-28] MEDS: DIPHENHYDRAMINE HCL 50 MG/ML VIAL IV PRN (23:56)
[2017-03-29] MEDS: IBUPROFEN 800 MG in NORMAL SALINE 250 ML IV SCH ×3 (02:33→17:47)
[2017-03-29] MEDS: MORPHINE SULFATE 10 MG/ML INJ IV PRN (02:33)
[2017-03-29] MEDS: ONDANSETRON HCL INJ/PF 4 MG/2 ML SDV IV PRN (02:40)
[2017-03-29 04:54] LABS: HEMATOCRIT 27.6 % (36.0-47.0); HEMOGLOBIN 9.5 g/dL (12.0-15.5); HGB HCT DIFFERENCE 0.9; MEAN CORPUSCULAR HEMOGLOBIN 27.8 pg (27.0-33.4); MEAN CORPUSCULAR HGB CONC 34.5 g/dL (32.0-36.0); MEAN CORPUSCULAR VOLUME 81 fl (80-97); RED BLOOD COUNT 3.42 10^6/uL (3.72-5.28); RED CELL DISTRIBUTION WIDTH 14.1 % (11.5-14.0); WHITE BLOOD COUNT 12.7 10^3/uL (4.0-10.5)
[2017-03-29 05:11] LABS: ANION GAP 11 (5-19); BLOOD UREA NITROGEN 16 mg/dL (7-20); CALCIUM 8.6 mg/dL (8.4-10.2); CARBON DIOXIDE 25 mmol/L (22-30); CHLORIDE 102 mmol/L (98-107); CREATININE RESULT 1.12 mg/dL (0.52-1.25); GLUCOSE 150 mg/dL (75-110); POTASSIUM 3.3 mmol/L (3.6-5.0); SODIUM 137.8 mmol/L (137-145)
[2017-03-29] MEDS: GABAPENTIN 300 MG CAPSULE PO SCH ×3 (06:25→21:51)
[2017-03-29] MEDS: LANSOPRAZOLE 30 MG TAB.RAP.DR PO SCH (06:25)
[2017-03-29] MEDS ORDERED: TOPIRAMATE 150 MG PO SCH (10:00)
[2017-03-29] MEDS ORDERED: POTASSIUM BICARBONATE PO SCH (10:00)
[2017-03-29] MEDS ORDERED: CIT AC PO SCH (10:00)
[2017-03-29] MEDS: PRENATAL VITAMIN W-O CA NO5/FE FUMARATE/FA CAPSULE PO SCH (10:03)
[2017-03-29] MEDS: CETIRIZINE 10 MG TABLET PO SCH (10:03)
[2017-03-29] MEDS: POTASSIUM CHLORIDE 10 MEQ TABLET.SA PO SCH (10:04)
[2017-03-29] MEDS: SENNOSIDES/DOCUSATE 8.6-50 MG 1 EACH TABLET PO SCH ×2 (10:05→17:42)
[2017-03-29] MEDS: FLUTICASONE NASAL SPRAY 50 MCG/SPRY 120 SPRAY/16 GM NASL SCH (10:08)
[2017-03-29] MEDS: LABETALOL HCL 200 MG TABLET PO SCH ×2 (10:09→21:51)
[2017-03-29] MEDS: LOSARTAN POTASSIUM 50 MG TABLET PO SCH (10:09)
[2017-03-29] MEDS: HYDROCHLOROTHIAZIDE 25 MG TABLET PO SCH (10:09)
[2017-03-29] MEDS: BUDESONIDE/FORMOTEROL 160-4.5 MCG 60 PUFF/6 GM MDI IH SCH ×2 (10:09→21:51)
[2017-03-29] MEDS: AMLODIPINE BESYLATE 10 MG TABLET PO SCH (10:09)
[2017-03-29] MEDS ORDERED: ZOLPIDEM TARTRATE 5 MG TABLET PO PRN (10:43)
[2017-03-29] MEDS ORDERED: MAG HYDROX/AL HYDROX/SIMETH SUSP 30 ML UDCUP PO PRN (10:45)
[2017-03-29] MEDS ORDERED: MORPHINE SULFATE 10 MG/ML INJ IM PRN (10:47)
[2017-03-29] MEDS ORDERED: ONDANSETRON HCL INJ/PF 4 MG/2 ML SDV IV PRN (10:48)
[2017-03-29] MEDS ORDERED: ONDANSETRON 4 MG TAB.RAPDIS PO PRN (10:48)
[2017-03-29] MEDS: OXYCODONE HCL SR 10 MG TABLET PO SCH ×2 (13:07→21:51)
[2017-03-29] MEDS: PREGABALIN 75 MG CAPSULE PO SCH ×2 (13:07→17:43)
[2017-03-29] MEDS: DIPHENHYDRAMINE HCL 50 MG/ML VIAL IV PRN (21:51)
[2017-03-29] MEDS: METOCLOPRAMIDE HCL 10 MG TABLET PO SCH (21:51)
[2017-03-29] MEDS: ATORVASTATIN CALCIUM 40 MG TABLET PO SCH (21:51)
[2017-03-29] MEDS: RIVAROXABAN 10 MG TABLET PO SCH (21:51)
[2017-03-30] MEDS: MORPHINE SULFATE 10 MG/ML INJ IV PRN ×4 (00:13→22:16)
[2017-03-30] MEDS: IBUPROFEN 800 MG in NORMAL SALINE 250 ML IV SCH ×2 (03:14→10:27)
[2017-03-30 04:39] LABS: HEMATOCRIT 24.3 % (36.0-47.0); HEMOGLOBIN 8.3 g/dL (12.0-15.5); HGB HCT DIFFERENCE 0.6; MEAN CORPUSCULAR HEMOGLOBIN 27.7 pg (27.0-33.4); MEAN CORPUSCULAR VOLUME 82 fl (80-97); RED BLOOD COUNT 2.98 10^6/uL (3.72-5.28); RED CELL DISTRIBUTION WIDTH 14.1 % (11.5-14.0); WHITE BLOOD COUNT 9.2 10^3/uL (4.0-10.5)
[2017-03-30] MEDS: LANSOPRAZOLE 30 MG TAB.RAP.DR PO SCH (06:35)
[2017-03-30] MEDS: OXYCODONE HCL IR 5 MG TABLET PO PRN ×2 (06:35→23:05)
[2017-03-30] MEDS: GABAPENTIN 300 MG CAPSULE PO SCH ×3 (06:37→22:05)
--- NOTE | 2017-03-30 07:25 | PDOC PROGRESS REPORT ---
Subjective Progress Note for:: 03/30/17 Subjective:: Complains of ongoing unrelenting pain Physical Exam Vital Signs: Temp Pulse Resp BP Pulse Ox 37.0 C 81 18 116/57 L 100 03/30/17 03:43 03/30/17 03:43 03/30/17 03:43 03/30/17 03:43 03/30/17 03:43 Intake & Output 03/29/17 03/30/17 03/31/17 06:59 06:59 06:59 Intake Total 5300 1860 Output Total 1900 1600 Balance 3400 260 Weight 77 kg 77 kg General appearance: PRESENT: mild distress, obese Head exam: PRESENT: normocephalic Eye exam: PRESENT: EOMI Respiratory exam: PRESENT: unlabored Cardiovascular exam: PRESENT: RRR Pulses: PRESENT: +1 pedal pulses bilateral Vascular exam: PRESENT: normal capillary refill GI/Abdominal exam: PRESENT: soft Rectal exam: PRESENT: deferred Extremities exam: PRESENT: other - Right lower extremity wrapped removed. The underlying picot dressing has considerable amount of drainage. The picot dressing is changed. The wound is well approximated with out erythema. Is a mild amount of pedal edema. Distal neurovascular examination is intact. Neurological exam: PRESENT: alert, awake, oriented to person, oriented to place , oriented to time, oriented to situation. ABSENT: motor sensory deficit Psychiatric exam: PRESENT: appropriate affect, normal mood. ABSENT: homicidal ideation, suicidal ideation Skin exam: PRESENT: dry, intact, warm. ABSENT: cyanosis, rash Results Laboratory Results: 03/30/17 04:13 03/29/17 04:44 03/30/17 04:13 WBC 9.2 RBC 2.98 L Hgb 8.3 L Hct 24.3 L MCV 82 MCH 27.7 MCHC 34.0 RDW 14.1 H Plt Count 233 Impressions: Knee X-Ray 03/28/17 10:06 IMPRESSION: SATISFACTORY POSTOPERATIVE RIGHT KNEE. Status: Imported from PACS Assessment & Plan - Diagnosis (1) Arthritis of knee, right Is this a current diagnosis for this admission?: YesPlan: 46-year-old black female status post right knee arthroplasty postop day 2 with an acceptable postop course. Hematocrit has dipped to 24.3%. Patient is angling 40 feet with physical therapy. Anticipate discharge home tomorrow with home health nursing, home health physical therapy. - Time Time Spent with patient: 15-24 minutes Anticipated discharge: Home with Homehealth Within: within 24 hours
[2017-03-30] MEDS: OXYCODONE HCL SR 10 MG TABLET PO SCH (10:12)
[2017-03-30] MEDS: AMLODIPINE BESYLATE 10 MG TABLET PO SCH (10:13)
[2017-03-30] MEDS: SENNOSIDES/DOCUSATE 8.6-50 MG 1 EACH TABLET PO SCH ×2 (10:13→18:06)
[2017-03-30] MEDS: PRENATAL VITAMIN W-O CA NO5/FE FUMARATE/FA CAPSULE PO SCH (10:13)
[2017-03-30] MEDS: CETIRIZINE 10 MG TABLET PO SCH (10:13)
[2017-03-30] MEDS: LOSARTAN POTASSIUM 50 MG TABLET PO SCH (10:14)
[2017-03-30] MEDS: HYDROCHLOROTHIAZIDE 25 MG TABLET PO SCH (10:15)
[2017-03-30] MEDS: POTASSIUM CHLORIDE 10 MEQ TABLET.SA PO SCH (10:15)
[2017-03-30] MEDS: LABETALOL HCL 200 MG TABLET PO SCH ×2 (10:15→22:05)
[2017-03-30] MEDS: PREGABALIN 75 MG CAPSULE PO SCH ×2 (10:16→18:06)
[2017-03-30] MEDS: FLUTICASONE NASAL SPRAY 50 MCG/SPRY 120 SPRAY/16 GM NASL SCH (10:26)
[2017-03-30] MEDS: BUDESONIDE/FORMOTEROL 160-4.5 MCG 60 PUFF/6 GM MDI IH SCH ×2 (10:26→22:05)
[2017-03-30] MEDS: RIVAROXABAN 10 MG TABLET PO SCH (22:05)
[2017-03-30] MEDS: DIPHENHYDRAMINE HCL 50 MG/ML VIAL IV PRN (22:05)
[2017-03-30] MEDS: METOCLOPRAMIDE HCL 10 MG TABLET PO SCH (22:05)
[2017-03-30] MEDS: ATORVASTATIN CALCIUM 40 MG TABLET PO SCH (22:05)
[2017-03-31] MEDS: MORPHINE SULFATE 10 MG/ML INJ IV PRN ×3 (04:11→09:54)
[2017-03-31 05:16] LABS: HEMATOCRIT 24.6 % (36.0-47.0); HEMOGLOBIN 8.4 g/dL (12.0-15.5); HGB HCT DIFFERENCE 0.6; MEAN CORPUSCULAR HEMOGLOBIN 27.6 pg (27.0-33.4); MEAN CORPUSCULAR VOLUME 81 fl (80-97); RED BLOOD COUNT 3.03 10^6/uL (3.72-5.28); RED CELL DISTRIBUTION WIDTH 14.1 % (11.5-14.0); WHITE BLOOD COUNT 11.4 10^3/uL (4.0-10.5)
[2017-03-31] MEDS: LANSOPRAZOLE 30 MG TAB.RAP.DR PO SCH (05:25)
[2017-03-31] MEDS: GABAPENTIN 300 MG CAPSULE PO SCH (05:25)
--- NOTE | 2017-03-31 06:53 | PDOC DISCHARGE SUMMARY ---
General - Admit/Disc Date/PCP Admission Date/Primary Care Provider: 03/28/17 06:57 JONAH LITTLE MD Discharge Date: 03/31/17 - Discharge Diagnosis (1) Arthritis of knee, right Is this a current diagnosis for this admission?: Yes - Additional Information Resuscitation Status: Full Code Discharge Diet: As Tolerated, Regular Discharge Activity: Balance Activity w/Rest, No Driving, No tub bath Home Medications: Aspirin [Aspirin 81 mg Chewable Tablet] 81 mg PO DAILY 08/17/11 Gabapentin 600 mg PO TID 08/11/13 Budesonide/Formoterol Fumarate [Symbicort HFA 160-4.5 mcg Inhaler 6 gm] 2 puff IH BID 06/14/14 Butalb/Acetaminophen/Caffeine [Fioricet (50-325-40 mg) Tablet] 1 tab PO Q4HP PRN 06/14/14 Cetirizine HCl [Allergy] 10 mg PO DAILY 06/14/14 Diclofenac Sodium [Voltaren] 100 gm TOP PRN PRN 06/14/14 Fluticasone Propionate [Flonase Nasal [place] 50 Mcg/[place] 16 gm] 1 spr NASL DAILY 06/14/14 Labetalol HCl [Trandate] 200 mg PO BID 11/15/15 Atorvastatin Calcium [Lipitor 40 mg Tablet] 40 mg PO QHS #30 tablet 11/18/15 Cyclobenzaprine HCl [Flexeril 10 mg Tablet] 10 mg PO TID PRN 12/02/15 Olmesartan/Amlodipin/Hcthiazid [Tribenzor 40-10-25 mg Tablet] 1 each PO DAILYP 01/02/16 Metoclopramide HCl [Reglan 10 mg Tablet] 1 - 2 tab PO ASDIR PRN #12 tablet 11/23 Ondansetron [Zofran Odt 4 mg Tablet] 1 - 2 tab PO Q4H PRN #15 tab.rapdis Potassium Bicarbonate/Cit AC [Potassium 25 Meq Tab Eff] 25 meq PO DAILY #7 tablet.eff 11/30/16 Topiramate [Qudexy Xr] 150 mg PO DAILY 03/28/17 Oxycodone HCl [Oxy-Ir 5 mg Tablet] 5 mg PO Q6HP PRN #0 tablet 03/31/17 Rivaroxaban [Xarelto 10 mg Tablet] 10 mg PO QHS #0 tablet 03/31/17 History of Present Illness History of Present Illness: SARAVANAN ESCALANTE is a 46 year old female progressive bilateral knee pain and functional disability secondary to osteoarthritis. The patient is admitted for elective right knee arthroplasty. Hospital Course Hospital Course: Admitted through the operating where she undergoes an uncomplicated right knee arthroplasty. She is returned to the floor in satisfactory condition seen by physical therapist begin weightbearing as tolerated with her program. Postoperative. Is notable for difficulty with appropriate analgesia. Reassured that the analgesic medication is not meant to take away all the pain but really to make it bearable. Changed on postop day 2. Wound remains clean dry and intact. Subsequently for discharge to home with home health nursing, home health physical therapy, wheeled walker, bedside commode. Physical Exam Vital Signs: Temp Pulse Resp BP Pulse Ox 36.9 C 71 17 120/62 100 03/30/17 20:34 03/30/17 20:34 03/30/17 20:34 03/30/17 20:34 03/30/17 20:34 Intake & Output 03/29/17 03/30/17 03/31/17 06:59 06:59 06:59 Intake Total 5300 1860 2391 Output Total 1900 1600 1850 Balance 3400 260 541 Weight 77 kg 77 kg 77.4 kg General appearance: PRESENT: mild distress, obese Head exam: PRESENT: normocephalic Eye exam: PRESENT: EOMI Respiratory exam: PRESENT: unlabored Cardiovascular exam: PRESENT: RRR Pulses: PRESENT: +1 pedal pulses bilateral Vascular exam: PRESENT: normal capillary refill GI/Abdominal exam: PRESENT: soft Rectal exam: PRESENT: deferred Extremities exam: PRESENT: other - Lower extremity picot dressing is clean dry and intact. There is minor pedal edema. Distal neurovascular examination is intact. Neurological exam: PRESENT: alert, awake, oriented to person, oriented to place , oriented to time, oriented to situation. ABSENT: motor sensory deficit Psychiatric exam: PRESENT: appropriate affect, normal mood. ABSENT: homicidal ideation, suicidal ideation Skin exam: PRESENT: dry, intact, warm. ABSENT: cyanosis, rash Results Laboratory Results: 03/31/17 04:52 03/29/17 04:44 03/31/17 04:52 WBC 11.4 H RBC 3.03 L Hgb 8.4 L Hct 24.6 L MCV 81 MCH 27.6 MCHC 34.0 RDW 14.1 H Plt Count 242 Impressions: Knee X-Ray 03/28/17 10:06 IMPRESSION: SATISFACTORY POSTOPERATIVE RIGHT KNEE. Status: Imported from PACS Plan Discharge Plan: Discharge home with home health nursing, home health physical therapy, wheeled walker, bedside commode. Visiting nurse service to change the right knee picot dressing on postop day #7 and replaced with an OpSite. Follow-up will be with Dr. Champion in the [facility] for surgery for staple removal in 2 weeks.
[2017-03-31 07:41] VITALS: BP 119/64
[2017-03-31] MEDS: SENNOSIDES/DOCUSATE 8.6-50 MG 1 EACH TABLET PO SCH (09:54)
[2017-03-31] MEDS: LABETALOL HCL 200 MG TABLET PO SCH (09:54)
[2017-03-31] MEDS: HYDROCHLOROTHIAZIDE 25 MG TABLET PO SCH (09:54)
[2017-03-31] MEDS: CETIRIZINE 10 MG TABLET PO SCH (09:54)
[2017-03-31] MEDS: PREGABALIN 75 MG CAPSULE PO SCH (09:54)
[2017-03-31] MEDS: AMLODIPINE BESYLATE 10 MG TABLET PO SCH (09:54)
[2017-03-31] MEDS: POTASSIUM CHLORIDE 10 MEQ TABLET.SA PO SCH (09:54)
[2017-03-31] MEDS: LOSARTAN POTASSIUM 50 MG TABLET PO SCH (09:55)
[2017-03-31] MEDS: FLUTICASONE NASAL SPRAY 50 MCG/SPRY 120 SPRAY/16 GM NASL SCH (10:00)
[2017-03-31] MEDS: PRENATAL VITAMIN W-O CA NO5/FE FUMARATE/FA CAPSULE PO SCH (10:00)
[2017-03-31] MEDS: BUDESONIDE/FORMOTEROL 160-4.5 MCG 60 PUFF/6 GM MDI IH SCH (10:00)
== END 2017-03-31 11:42 | disposition home health service (06) | DRG 470 ==
LOC: INOR 06:57 → 4S 11:46
PROVIDERS: ADMIT Orthopaedic Surgery; ATTEND Orthopaedic Surgery
PROC: 0SRC0J9 Replacement of Right Knee Joint with Synthetic Substitute, Cemented, Open Approach (ICD-10-PCS; principal; 2017-03-28 09:00)
DX: M17.11 Unilateral primary osteoarthritis, right knee (principal); Z90.49 Acquired absence of other specified parts of digestive tract
CPT/HCPCS: 01402; 36415; 80048; 84132; 85027; 88305; 94799; C1877; C2625; C9290; J0690; J1100; J1200; J1741; J2060; J2250; J2270; J2370; J2405; J2704; J3010; J3370; J3490; J7050; J7060

== ENCOUNTER 2017-09-30 18:00 | Emergency (ER) | payer BC ==
[2017-09-30] MEDS ORDERED: IPRATROPIUM/ALBUTEROL 0.5-2.5 MG/3 ML AMPUL NEB ONE ×2 (18:32→18:33)
[2017-09-30] MEDS ORDERED: PREDNISONE 20 MG TABLET PO ONE (18:33)
--- NOTE | 2017-09-30 18:33 | ER Document Report ---
ED General - General Chief Complaint: Breathing Difficulty Stated Complaint: DIFFICULTY BREATHING,WEAKNESS Time Seen by Provider: 09/30/17 18:25 Mode of Arrival: Ambulatory Information source: Patient Notes: 46-year-old female presents with complaints of continued cough nonproductive with body aches and chills. Patient denies any fevers. She was seen by her primary care physician who placed her on 5 mg of prednisone for 21 days. TRAVEL OUTSIDE OF THE [place] IN LAST 30 DAYS: No - HPI Onset: Last week Onset/Duration: Persistent Quality of pain: Achy Severity: Mild Pain Level: 1 Associated symptoms: Nonproductive cough Exacerbated by: Denies Relieved by: Denies Similar symptoms previously: Yes Recently seen / treated by doctor: Yes - Related Data Allergies/Adverse Reactions: prochlorperazine edisylate [From Compazine] Allergy (Severe, Verified 09/30/17 18:01) PANIC ATTACK doxycycline [Doxycycline] Allergy (Mild, Verified 09/30/17 18:01) RASH hydrocodone [From Vicodin] Allergy (Verified 09/30/17 18:01) Nausea, Vomiting oxycodone [From Percocet] Allergy (Verified 09/30/17 18:01) Nausea, Vomiting Past Medical History - Social History Smoking Status: Never Smoker Cigarette use (# per day): No Chew tobacco use (# tins/day): No Smoking Education Provided: No Frequency of alcohol use: None Drug Abuse: None Family History: Reviewed & Not Pertinent, DM Patient has suicidal ideation: No Patient has homicidal ideation: No - Past Medical History Cardiac Medical History: Reports: Hx Hypercholesterolemia, Hx Hypertension Denies: Hx Atrial Fibrillation, Hx Congestive Heart Failure, Hx Coronary Artery Disease, Hx Heart Attack, Hx Peripheral Vascular Disease, Hx Pulmonary Embolism, Hx Heart Murmur Pulmonary Medical History: Reports: Hx Asthma Denies: Hx Bronchitis, Hx COPD, Hx Pneumonia, Hx Respiratory Failure, Hx Sleep Apnea, Hx Tuberculosis Neurological Medical History: Reports: Hx Migraine, Hx Seizures - x1. Denies: Hx Cerebrovascular Accident Renal/ Medical History: Denies: Hx Ovarian Cysts, Hx Peritoneal Dialysis, Hx Pelvic Inflammatory Disease Malignancy Medical History: Denies: Hx Breast Cancer, Hx Cervical Cancer, Hx Leukemia, Hx Lung Cancer, Hx Ovarian Cancer Musculoskeltal Medical History: Reports Hx Arthritis, Reports Hx Fibromyalgia, Denies Hx Multiple Sclerosis, Denies Hx Muscular Dystrophy, Reports Hx Musculoskeletal Trauma Psychiatric Medical History: Denies: Hx Dementia Traumatic Medical History: Denies: Hx Fractures Infectious Medical History: Denies: Hx HIV Past Surgical History: Reports: Hx Section, Hx Cholecystectomy, Hx Hysterectomy, Hx Orthopedic Surgery - RTK replacement. Denies: Hx Appendectomy , Hx Bowel Surgery, Hx Coronary Artery Bypass Graft, Hx Gastric Bypass Surgery, Hx Herniorrhaphy, Hx Mastectomy, Hx Pacemaker, Hx Tonsillectomy, Hx Tubal Ligation - Immunizations Immunizations up to date: No Hx Diphtheria, Pertussis, Tetanus Vaccination: No Hx Pneumococcal Vaccination: 09/03/00 Review of Systems - Review of Systems Notes: REVIEW OF SYSTEMS: CONSTITUTIONAL : Denies fever, chills, or sweats. Denies recent illness. EENT: Denies eye, ear, throat, or mouth pain or symptoms. Denies nasal or sinus congestion or discharge. Denies throat, tongue, or mouth swelling or difficulty swallowing. CARDIOVASCULAR: Denies chest pain. Denies palpitations or racing or irregular heart beat. Denies ankle edema. RESPIRATORY: Admits to cough shortness of breath GASTROINTESTINAL: Denies abdominal pain or distention. Denies nausea, vomiting , or diarrhea. Denies blood in vomitus, stools, or per rectum. Denies black, tarry stools. Denies constipation. GENITOURINARY: Denies difficulty urinating, painful urination, burning, frequency, blood in urine, or discharge. FEMALE GENITOURINARY: Denies vaginal bleeding, heavy or abnormal periods, irregular periods. Denies vaginal discharge or odor. MUSCULOSKELETAL: Denies back or neck pain or stiffness. Denies joint pain or swelling. SKIN: Denies rash, lesions or sores. HEMATOLOGIC : Denies easy bruising or bleeding. LYMPHATIC: Denies swollen, enlarged glands. NEUROLOGICAL: Denies confusion or altered mental status. Denies passing out or loss of consciousness. Denies dizziness or lightheadedness. Denies headache. Denies weakness or paralysis or loss of use of either side. Denies problems with gait or speech. Denies sensory loss, numbness, or tingling. Denies seizures. PSYCHIATRIC: Denies anxiety or stress. Denies depression, suicidal ideation, or homicidal ideation. ALL OTHER SYSTEMS REVIEWED AND NEGATIVE. PHYSICAL EXAMINATION: GENERAL: Well-appearing, well-nourished and in no acute distress. HEAD: Atraumatic, normocephalic. EYES: Pupils equal round and reactive to light, extraocular movements intact, conjunctiva are normal. ENT: Nares patent, oropharynx clear without exudates. Moist mucous membranes. NECK: Normal range of motion, supple without lymphadenopathy LUNGS: Coarse breath sounds all throughout HEART: Regular rate and rhythm without murmurs ABDOMEN: Soft, nontender, nondistended abdomen. No guarding, no rebound. No masses appreciated. Female : deferred Musculoskeletal: Normal range of motion, no pitting or edema. No cyanosis. NEUROLOGICAL: Cranial nerves grossly intact. Normal speech, normal gait. Normal sensory, motor exams PSYCH: Normal mood, normal affect. SKIN: Warm, Dry, normal turgor, no rashes or lesions noted. Dictation was performed using [employer] voice recognition software Physical Exam - Vital signs Vitals: Temp Pulse Resp BP Pulse Ox 97.8 F 75 20 139/82 H 99 09/30/17 18:06 09/30/17 18:06 09/30/17 18:06 09/30/17 18:06 09/30/17 18:06 Course - Re-evaluation Re-evalutation: 09/30/17 19:13 Patient was given breathing treatments, continues to cough but after ambulation O2 sat was still 100% 09/30/17 19:44 Patient notes significant improvement after breathing treatments, x-ray was negative influenza was negative as well After performing a Medical Screening Examination, I estimate there is LOW risk for ACUTE CORONARY SYNDROME, PULMONARY EMBOLI, RESPIRATORY FAILURE, SEPSIS OR MENINGITIS, thus I consider the discharge disposition reasonable. I have reevaluated this patient multiple times and no significant life threatening changes are noted. The patient and I have discussed the diagnosis and risks, and we agree with discharging home with close follow-up. We also discussed returning to the Emergency Department immediately if new or worsening symptoms occur. We have discussed the symptoms which are most concerning (e.g., changing or worsening pain, trouble swallowing or breathing, neck stiffness, fever) that necessitate immediate return. - Vital Signs Vital signs: Temp Pulse Resp BP Pulse Ox 97.8 F 75 20 139/82 H 99 09/30/17 18:06 09/30/17 18:06 09/30/17 18:06 09/30/17 18:06 09/30/17 18:06 - Diagnostic Test Radiology reviewed: Image reviewed, Reports reviewed Discharge - Discharge Clinical Impression: Bronchitis, SOB (shortness of breath) Condition: Stable Disposition: HOME, SELF-CARE Instructions: Bronchitis With Bronchospasm (Wheezing) ([facility]) Additional Instructions: Follow up with your physician tomorrow for further care or return to the ED IMMEDIATELY if symptoms worsen or new concerns occur. If you cannot afford to follow up with your primary care physician a list of low cost clinics have been provided at the end of your discharge papers as well. Prescriptions: Benzonatate [Tessalon Perles 100 mg Capsule] 100 mg PO ASDIR PRN #40 capsule PRN Reason: Prednisone [Deltasone 20 mg Tablet] 3 tab PO DAILY 5 Days tablet
[2017-09-30] MEDS ORDERED: BENZONATATE 100 MG CAPSULE PO ONE (19:08)
[2017-09-30 19:32] LABS: A TYPE INFLUENZA AG NEGATIVE (NEGATIVE)
[2017-09-30 19:33] LABS: B INFLUENZA AG NEGATIVE (NEGATIVE)
--- NOTE | 2017-09-30 19:40 | RADIOLOGY REPORT (SQ) ---
EXAM DESCRIPTION: CHEST PA/LAT COMPLETED DATE/TIME: 09/30/2017 7:13 pm REASON FOR STUDY: cough congestion COMPARISON: 2017. TECHNIQUE: Frontal and lateral radiographic views of the chest acquired. NUMBER OF VIEWS: Two view. LIMITATIONS: None. FINDINGS: LUNGS AND PLEURA: No opacities, masses or pneumothorax. No pleural effusion. MEDIASTINUM AND HILAR STRUCTURES: No masses or contour abnormalities. HEART AND VASCULAR STRUCTURES: Heart normal size. No evidence for failure. BONES: No acute findings. HARDWARE: None in the chest. OTHER: No other significant finding. IMPRESSION: NO SIGNIFICANT RADIOGRAPHIC FINDING IN THE CHEST. TECHNICAL DOCUMENTATION: JOB ID: [id number] [employer]- All Rights Reserved
[2017-09-30 19:53] VITALS: BP 117/65
== END 2017-09-30 19:51 | disposition home or self-care (01) ==
LOC: ER 18:00
DX: J40 Bronchitis, not specified as acute or chronic (principal); R06.02 Shortness of breath; R07.9 Chest pain, unspecified; R53.1 Weakness; M79.1 Myalgia; Z88.6 Allergy status to analgesic agent
CPT/HCPCS: 94640; 99284; 87804; 71046; J7512; J7620

== ENCOUNTER 2017-10-09 16:25 | Observation (INO) | payer BC ==
--- NOTE | 2017-10-09 17:07 | ER Document Report ---
ED Medical Screen (RME) - General Chief Complaint: Chest Pain Stated Complaint: DIZZINESS Time Seen by Provider: 10/09/17 17:05 Mode of Arrival: Wheelchair Information source: Patient TRAVEL OUTSIDE OF THE [place] IN LAST 30 DAYS: No - HPI Patient complains to provider of: cp Onset: Other - pt with 3 day h/o CP and dizziness and body aches -- was checked here for flu recently and found to be neg. Took ASA today - Related Data Allergies/Adverse Reactions: prochlorperazine edisylate [From Compazine] Allergy (Severe, Verified 10/09/17 16:25) PANIC ATTACK doxycycline [Doxycycline] Allergy (Mild, Verified 10/09/17 16:25) RASH hydrocodone [From Vicodin] Allergy (Verified 10/09/17 16:25) Nausea, Vomiting oxycodone [From Percocet] Allergy (Verified 10/09/17 16:25) Nausea, Vomiting Past Medical History - Past Medical History Cardiac Medical History: Reports: Hx Hypercholesterolemia, Hx Hypertension Denies: Hx Atrial Fibrillation, Hx Congestive Heart Failure, Hx Coronary Artery Disease, Hx Heart Attack, Hx Peripheral Vascular Disease, Hx Pulmonary Embolism, Hx Heart Murmur Pulmonary Medical History: Reports: Hx Asthma Denies: Hx Bronchitis, Hx COPD, Hx Pneumonia, Hx Respiratory Failure, Hx Sleep Apnea, Hx Tuberculosis Neurological Medical History: Reports: Hx Migraine, Hx Seizures - x1. Denies: Hx Cerebrovascular Accident Renal/ Medical History: Denies: Hx Ovarian Cysts, Hx Peritoneal Dialysis, Hx Pelvic Inflammatory Disease Malignancy Medical History: Denies: Hx Breast Cancer, Hx Cervical Cancer, Hx Leukemia, Hx Lung Cancer, Hx Ovarian Cancer Musculoskeltal Medical History: Reports Hx Arthritis, Reports Hx Fibromyalgia, Denies Hx Multiple Sclerosis, Denies Hx Muscular Dystrophy, Reports Hx Musculoskeletal Trauma Psychiatric Medical History: Denies: Hx Dementia Traumatic Medical History: Denies: Hx Fractures Infectious Medical History: Denies: Hx HIV Past Surgical History: Reports: Hx Section, Hx Cholecystectomy, Hx Hysterectomy, Hx Orthopedic Surgery - RTK replacement. Denies: Hx Appendectomy , Hx Bowel Surgery, Hx Coronary Artery Bypass Graft, Hx Gastric Bypass Surgery, Hx Herniorrhaphy, Hx Mastectomy, Hx Pacemaker, Hx Tonsillectomy, Hx Tubal Ligation - Immunizations Immunizations up to date: No Hx Diphtheria, Pertussis, Tetanus Vaccination: No Physical Exam - Vital signs Vitals: Temp Pulse Resp BP Pulse Ox 98.6 F 60 16 115/72 97 10/09/17 17:01 10/09/17 17:01 10/09/17 17:01 10/09/17 17:01 10/09/17 17:01 Course - Vital Signs Vital signs: Temp Pulse Resp BP Pulse Ox 98.6 F 60 16 115/72 97 10/09/17 17:01 10/09/17 17:01 10/09/17 17:01 10/09/17 17:01 10/09/17 17:01
--- NOTE | 2017-10-09 17:26 | RADIOLOGY REPORT (SQ) ---
EXAM DESCRIPTION: CHEST PA/LAT COMPLETED DATE/TIME: 10/09/2017 5:18 pm REASON FOR STUDY: cp COMPARISON: 09/30/2017 EXAM PARAMETERS: NUMBER OF VIEWS: two views TECHNIQUE: Digital Frontal and Lateral radiographic views of the chest acquired. RADIATION DOSE: NA LIMITATIONS: none FINDINGS: LUNGS AND PLEURA: No opacities, masses or pneumothorax. No pleural effusion. MEDIASTINUM AND HILAR STRUCTURES: No masses or contour abnormalities. HEART AND VASCULAR STRUCTURES: Heart normal size. No evidence for failure. BONES: No acute findings. HARDWARE: None in the chest. OTHER: No other significant finding. IMPRESSION: NO SIGNIFICANT RADIOGRAPHIC FINDING IN THE CHEST. TECHNICAL DOCUMENTATION: JOB ID: [id number] [employer]- All Rights Reserved
[2017-10-09 17:55] LABS: ABSOLUTE BASOPHILS # (AUTO) 0.1 10^3/uL (0.0-0.2); ABSOLUTE EOSINOPHILS # (AUTO) 0.4 10^3/uL (0.0-0.6); ABSOLUTE LYMPHOCYTES (AUTO) 2.7 10^3/uL (0.5-4.7); ABSOLUTE MONOCYTES (AUTO) 0.8 10^3/uL (0.1-1.4); ABSOLUTE NEUT (AUTO) 4.4 10^3/uL (1.7-8.2); BASOPHILS % (AUTO) 0.8 % (0-2); EOSINOPHILS % (AUTO) 4.3 % (0-6); HEMATOCRIT 36.5 % (36.0-47.0); HEMOGLOBIN 12.3 g/dL (12.0-15.5); LYMPHOCYTES % (AUTO) 32.8 % (13-45); MEAN CORPUSCULAR HEMOGLOBIN 28.6 pg (27.0-33.4); MEAN CORPUSCULAR HGB CONC 33.7 g/dL (32.0-36.0); MEAN CORPUSCULAR VOLUME 85 fl (80-97); MONOCYTES % (AUTO) 9.2 % (3-13); PLATELET COUNT 356 10^3/uL (150-450); RED BLOOD COUNT 4.31 10^6/uL (3.72-5.28); RED CELL DISTRIBUTION WIDTH 13.8 % (11.5-14.0); SEGMENTED NEUTROPHILS % (AUTO) 52.9 % (42-78); TOTAL CELLS COUNTED % (AUTO) 100 %; WHITE BLOOD COUNT 8.3 10^3/uL (4.0-10.5)
[2017-10-09 18:20] LABS: ALANINE AMINOTRANSFERASE 29 U/L (9-52); ALBUMIN 4.2 g/dL (3.5-5.0); ALKALINE PHOSPHATASE 58 U/L (38-126); ANION GAP 10 (5-19); ASPARTATE AMINO TRANSFERASE 25 U/L (14-36); BILIRUBIN,DIRECT 0.4 mg/dL (0.0-0.4); BILIRUBIN,TOTAL 0.5 mg/dL (0.2-1.3); BLOOD UREA NITROGEN 17 mg/dL (7-20); CALCIUM 9.8 mg/dL (8.4-10.2); CARBON DIOXIDE 35 mmol/L (22-30); CHLORIDE 95 mmol/L (98-107); CREATINE KINASE 392 U/L (30-135); GLUCOSE 79 mg/dL (75-110); SODIUM 139.5 mmol/L (137-145); TOTAL PROTEIN 7.8 g/dL (6.3-8.2)
[2017-10-09 18:31] LABS: CREATINE KINASE MB 0.93 ng/mL (<4.55)
[2017-10-09 18:32] LABS: TROPONIN I < 0.012 ng/mL
[2017-10-09 18:47] LABS: POTASSIUM 2.8 mmol/L (3.6-5.0)
[2017-10-09] MEDS ORDERED: POTASSIUM CHLORIDE 10 MEQ TABLET.SA PO ONE (18:49)
--- NOTE | 2017-10-09 19:28 | ER Document Report ---
ED General - General Chief Complaint: Chest Pain Stated Complaint: DIZZINESS Time Seen by Provider: 10/09/17 17:05 Mode of Arrival: Wheelchair TRAVEL OUTSIDE OF THE [place] IN LAST 30 DAYS: No - Related Data Allergies/Adverse Reactions: prochlorperazine edisylate [From Compazine] Allergy (Severe, Verified 10/09/17 16:25) PANIC ATTACK doxycycline [Doxycycline] Allergy (Mild, Verified 10/09/17 16:25) RASH hydrocodone [From Vicodin] Allergy (Verified 10/09/17 16:25) Nausea, Vomiting oxycodone [From Percocet] Allergy (Verified 10/09/17 16:25) Nausea, Vomiting Past Medical History - General Information source: Patient - Social History Smoking Status: Never Smoker Chew tobacco use (# tins/day): No Frequency of alcohol use: None Drug Abuse: None Family History: Reviewed & Not Pertinent, DM Patient has suicidal ideation: No Patient has homicidal ideation: No - Past Medical History Cardiac Medical History: Reports: Hx Hypercholesterolemia, Hx Hypertension Denies: Hx Atrial Fibrillation, Hx Congestive Heart Failure, Hx Coronary Artery Disease, Hx Heart Attack, Hx Peripheral Vascular Disease, Hx Pulmonary Embolism, Hx Heart Murmur Pulmonary Medical History: Reports: Hx Asthma Denies: Hx Bronchitis, Hx COPD, Hx Pneumonia, Hx Respiratory Failure, Hx Sleep Apnea, Hx Tuberculosis Neurological Medical History: Reports: Hx Migraine, Hx Seizures - x1. Denies: Hx Cerebrovascular Accident Renal/ Medical History: Denies: Hx Ovarian Cysts, Hx Peritoneal Dialysis, Hx Pelvic Inflammatory Disease Malignancy Medical History: Denies: Hx Breast Cancer, Hx Cervical Cancer, Hx Leukemia, Hx Lung Cancer, Hx Ovarian Cancer Musculoskeltal Medical History: Reports Hx Arthritis, Reports Hx Fibromyalgia, Denies Hx Multiple Sclerosis, Denies Hx Muscular Dystrophy, Reports Hx Musculoskeletal Trauma Psychiatric Medical History: Denies: Hx Dementia Traumatic Medical History: Denies: Hx Fractures Infectious Medical History: Denies: Hx HIV Past Surgical History: Reports: Hx Section, Hx Cholecystectomy, Hx Hysterectomy, Hx Orthopedic Surgery - RTK replacement. Denies: Hx Appendectomy , Hx Bowel Surgery, Hx Coronary Artery Bypass Graft, Hx Gastric Bypass Surgery, Hx Herniorrhaphy, Hx Mastectomy, Hx Pacemaker, Hx Tonsillectomy, Hx Tubal Ligation - Immunizations Immunizations up to date: No Hx Diphtheria, Pertussis, Tetanus Vaccination: No Hx Pneumococcal Vaccination: 09/03/00 Physical Exam - Vital signs Vitals: Temp Pulse Resp BP Pulse Ox 98.6 F 60 16 115/72 97 10/09/17 17:01 10/09/17 17:01 10/09/17 17:01 10/09/17 17:01 10/09/17 17:01 Course - Re-evaluation Re-evalutation: 10/09/17 19:44 Presents with respiratory symptoms body aches and cramping with a history of hypokalemia. She also has chest pressure for 3 days. Multiple risk factors for coronary artery disease and no stress test for more than 5 or 6 years, not available in the system. EKG shows nonspecific T-wave changes in V2 V3 which could be due to her hypokalemia to 2.8 but also could be ischemic in nature. We will treat her aggressively orally and IV including IV magnesium supplementation. 10/09/17 20:24 Chago with a [facility] who will admit. Will monitor carefully for EKG or monitor changes. - Vital Signs Vital signs: Temp Pulse Resp BP Pulse Ox 98.6 F 60 17 115/79 99 10/09/17 17:01 10/09/17 17:01 10/09/17 19:16 10/09/17 19:15 10/09/17 19:16 - Laboratory Result Diagrams: 10/09/17 17:30 10/09/17 17:30 Laboratory results interpreted by me: 10/09/17 17:30 Potassium 2.8 L* Chloride 95 L Carbon Dioxide 35 H Creatine Kinase 392 H - Diagnostic Test Radiology reviewed: Image reviewed, Reports reviewed - EKG Interpretation by Me Rate: Normal Rhythm: NSR When compared to previous EKG there are: Changes noted Additional EKG results interpreted by me: 10/09/17 19:28 New upright T waves in V2 and V3 when they were biphasic/inverted prior Critical Care Note - Critical Care Note Total time excluding time spent on procedures (mins): 32 Comments: The above patient is critically ill. Not including procedures, but including direct re-evaluations, speaking with patient and/or consultants, interpreting results, and documenting, I spent the total amount of minute listed listed above on critical care time Discharge - Discharge Clinical Impression: Hypokalemia Condition: Critical Disposition: ADMITTED INPATIENT Admitting Provider: [facility] Unit Admitted: Telemetry
[2017-10-09] MEDS ORDERED: MAGNESIUM SULFATE/D5W 1 GM/100 ML RTUPB IV ONE (19:31)
[2017-10-09] MEDS: POTASSI CL 20 MEQ/50 ML RIDER 20 MEQ/50 ML RTUPB IV SCH ×2 (20:43→23:15)
[2017-10-09] MEDS ORDERED: ALBUTEROL SULFATE HFA (90 MCG/PUFF) 200 PUFF/8.5 GM MDI IH PRN (21:19)
[2017-10-09] MEDS ORDERED: ALBUTEROL SULFATE 0.042% NEB (1.25 MG/3 ML) AMPUL NEB PRN (21:19)
[2017-10-09] MEDS ORDERED: TOPIRAMATE 150 MG PO SCH (21:30)
[2017-10-09] MEDS ORDERED: (PENDING PHARMACY ID) (Potassium Chloride [Klor-Con M20] 20 MEQ) PO SCH (21:30)
[2017-10-09] MEDS ORDERED: (PENDING PHARMACY ID) (Acetaminophen [Tylenol Extra Strength 500 Mg Tablet] 500 MG) PO SCH (21:30)
[2017-10-09] MEDS: ATORVASTATIN CALCIUM 40 MG TABLET PO SCH (21:48)
[2017-10-09] MEDS: LABETALOL HCL 200 MG TABLET PO SCH (21:48)
[2017-10-09] MEDS: GABAPENTIN 300 MG CAPSULE PO SCH (21:49)
[2017-10-09] MEDS: ACETAMINOPHEN 325 MG TABLET PO SCH (21:50)
--- NOTE | 2017-10-09 22:34 | EKG REPORT ---
SEVERITY:- ABNORMAL ECG - SINUS RHYTHM PROBABLE LEFT VENTRICULAR HYPERTROPHY : Confirmed by: Catherine Turner 09-Oct-2017 22:34:37
[2017-10-09 22:59] LABS: URINE CREATININE 115.8 mg/dL (15-278); URINE POTASSIUM 11.1 mmol/L (22-164); URINE PROTEIN 11.4 mg/dL (<12)
[2017-10-09] MEDS: BUDESONIDE/FORMOTEROL 160-4.5 MCG 60 PUFF/6 GM MDI IH SCH (23:12)
[2017-10-10 02:00] LABS: CREATINE KINASE MB 0.75 ng/mL (<4.55)
[2017-10-10 02:01] LABS: TROPONIN I < 0.012 ng/mL
[2017-10-10] MEDS: ACETAMINOPHEN 325 MG TABLET PO SCH ×3 (07:36→22:36)
[2017-10-10] MEDS: GABAPENTIN 300 MG CAPSULE PO SCH ×3 (07:37→22:36)
[2017-10-10 11:54] LABS: ALANINE AMINOTRANSFERASE 20 U/L (9-52); ALBUMIN 3.6 g/dL (3.5-5.0); ALKALINE PHOSPHATASE 56 U/L (38-126); ANION GAP 10 (5-19); ASPARTATE AMINO TRANSFERASE 19 U/L (14-36); BILIRUBIN,TOTAL 0.6 mg/dL (0.2-1.3); BLOOD UREA NITROGEN 15 mg/dL (7-20); CALCIUM 9.3 mg/dL (8.4-10.2); CARBON DIOXIDE 29 mmol/L (22-30); CHLORIDE 101 mmol/L (98-107); GLUCOSE 133 mg/dL (75-110); SODIUM 140.4 mmol/L (137-145); TOTAL PROTEIN 6.5 g/dL (6.3-8.2)
[2017-10-10 12:04] LABS: CREATINE KINASE MB 0.91 ng/mL (<4.55)
[2017-10-10 12:12] LABS: TROPONIN I < 0.012 ng/mL
[2017-10-10] MEDS: ASPIRIN 81 MG TABLET, ENT COATED PO SCH (12:14)
[2017-10-10] MEDS: POTASSIUM CHLORIDE 10 MEQ TABLET.SA PO SCH (12:14)
[2017-10-10] MEDS: LABETALOL HCL 200 MG TABLET PO SCH ×2 (12:15→23:46)
[2017-10-10] MEDS: BENZONATATE 100 MG CAPSULE PO SCH ×3 (12:15→18:15)
[2017-10-10] MEDS: BUDESONIDE/FORMOTEROL 160-4.5 MCG 60 PUFF/6 GM MDI IH SCH ×2 (12:16→22:38)
--- NOTE | 2017-10-10 13:57 | Physician Advisory Note ---
Physician Advisor ProgressNote .: Pursuant to the plan for [facility], I have reviewed the medical record for this patient. Physician Advisor Statement: Please consider documenting, if you agree: 1. "CP, suspect due to " Thanks! CK
[2017-10-10] MEDS: POTASSI CL 20 MEQ/50 ML RIDER 20 MEQ/50 ML RTUPB IV SCH ×2 (15:15→20:25)
--- NOTE | 2017-10-10 18:49 | PDOC H&P ---
History of Present Illness Admission Date/PCP: 10/09/17 19:56 History of Present Illness: SARAVANAN ESCALANTE is a 46 year old female she has history of hypertension, she came to the emergency room for evaluation of unspecified chest pain and dizziness, she was found to have hypokalemia on evaluation. She admitted to history of diarrhea, most likely the cause of the hypokalemia. The chest pain she described is atypical in character, the chest pain is not provoked by exertion nor relieved by rest. She has risk factors for ischemic heart disease, hypertension, sedentary lifestyle, the EKG showed nonspecific T-wave changes probably due to the hypokalemia, she is admitted to rule out acute coronary syndrome and probably get a cardiac stress test before discharge. Past Medical History Cardiac Medical History: Reports: Hyperlipidema, Hypertension Pulmonary Medical History: Reports: Asthma Neurological Medical History: Reports: Migraine, Seizures - x1 Musculoskeltal Medical History: Reports: Arthritis, Fibromyalgia Hematology: Reports: Anemia Past Surgical History Past Surgical History: Reports: Section, Cholecystectomy, Hysterectomy , Orthopedic Surgery - RTK replacement Social History Smoking Status: Never Smoker Frequency of Alcohol Use: None Hx Recreational Drug Use: No Drugs: None Hx Prescription Drug Abuse: No - Advance Directive Resuscitation Status: Full Code Family History Family History: Reviewed & Not Pertinent, DM Parental Family History Reviewed: Yes Children Family History Reviewed: Yes Sibling(s) Family History Reviewed.: Yes Medication/Allergy Home Medications: Acetaminophen [Tylenol Extra Strength 500 mg Tablet] 500 mg PO TID 10/09/17 Albuterol Sulfate [Proair Hfa Inhalation Aerosol 8.5 gm Mdi] 2 puff IH TIDP PRN 10/09/17 Albuterol Sulfate [Ventolin 0.042% Neb 1.25 mg/3 ml Ampul] 1 vial NEB Q6HP PRN 10/09/17 Aspirin [Ecotrin 81 mg EC Tablet] 81 mg PO DAILY 10/09/17 Atorvastatin Calcium [Lipitor 40 mg Tablet] 40 mg PO QHS 10/09/17 Benzonatate [Tessalon Perles 100 mg Capsule] 100 mg PO TID 10/09/17 Budesonide/Formoterol Fumarate [Symbicort HFA 160-4.5 mcg Inhaler 6 gm] 2 puff IH BID 10/09/17 Diphenhydramine HCl [Benadryl] 25 mg PO QHS 10/09/17 Gabapentin [Neurontin] 600 mg PO TID 10/09/17 Ibuprofen [Motrin 800 mg Tablet] 800 mg PO TID 10/09/17 Labetalol HCl [Trandate] 200 mg PO BID 10/09/17 Metoclopramide HCl [Reglan 10 mg Tablet] 10 mg PO QHS 10/09/17 Potassium Chloride [Klor-Con M20] 20 meq PO DAILY 10/09/17 Topiramate [Qudexy Xr] 150 mg PO DAILY 10/09/17 Allergies/Adverse Reactions: prochlorperazine edisylate [From Compazine] Allergy (Severe, Verified 10/09/17 16:25) PANIC ATTACK doxycycline [Doxycycline] Allergy (Mild, Verified 10/09/17 16:25) RASH hydrocodone [From Vicodin] Allergy (Verified 10/09/17 16:25) Nausea, Vomiting oxycodone [From Percocet] Allergy (Verified 10/09/17 16:25) Nausea, Vomiting Review of Systems Constitutional: ABSENT: chills, fever(s), headache(s), weight gain, weight loss Eyes: ABSENT: visual disturbances Ears: ABSENT: hearing changes Cardiovascular: PRESENT: chest pain Respiratory: ABSENT: cough, hemoptysis Gastrointestinal: ABSENT: abdominal pain, constipation, diarrhea, hematemesis, hematochezia, nausea, vomiting Genitourinary: ABSENT: dysuria, hematuria Musculoskeletal: ABSENT: joint swelling Integumentary: ABSENT: rash, wounds Neurological: ABSENT: abnormal gait, abnormal speech, confusion, dizziness, focal weakness, syncope Psychiatric: ABSENT: anxiety, depression, homidical ideation, suicidal ideation Endocrine: ABSENT: cold intolerance, heat intolerance, menstrual abnormalities, polydipsia, polyuria Hematologic/Lymphatic: ABSENT: easy bleeding, easy bruising, lymphadenopathy Physical Exam Vital Signs: Temp Pulse Resp BP Pulse Ox 98.3 F 63 18 109/70 98 10/10/17 14:45 10/10/17 14:45 10/10/17 14:45 10/10/17 14:45 10/10/17 14:45 Intake & Output 10/09/17 10/10/17 10/11/17 06:59 06:59 06:59 Weight 118.1 kg General appearance: PRESENT: no acute distress, well-developed, well-nourished Head exam: PRESENT: atraumatic, normocephalic Eye exam: PRESENT: conjunctiva pink, EOMI, PERRLA Ear exam: PRESENT: normal external ear exam Mouth exam: PRESENT: moist, tongue midline Neck exam: PRESENT: full ROM Respiratory exam: PRESENT: clear to auscultation mini Cardiovascular exam: PRESENT: RRR, +S1, +S2 Pulses: PRESENT: normal dorsalis pedis pul, +2 pedal pulses bilateral Vascular exam: PRESENT: normal capillary refill GI/Abdominal exam: PRESENT: normal bowel sounds, soft Rectal exam: PRESENT: deferred Neurological exam: PRESENT: alert, awake, oriented to person, oriented to place , oriented to time, oriented to situation, CN II-XII grossly intact Psychiatric exam: PRESENT: appropriate affect, normal mood Skin exam: PRESENT: dry, intact, warm Results Laboratory Results: 10/10/17 11:20 10/10/17 11:20 Sodium 140.4 Potassium 3.0 L* Chloride 101 Carbon Dioxide 29 Anion Gap 10 BUN 15 Creatinine 0.92 Est GFR ( Amer) > 60 Est GFR (Non-Af Amer) > 60 Glucose 133 H Calcium 9.3 Total Bilirubin 0.6 AST 19 ALT 20 Alkaline Phosphatase 56 Total Protein 6.5 Albumin 3.6 10/10/17 10/10/17 10/10/17 01:15 01:15 11:20 Creatine Kinase 295 H 291 H CK-MB (CK-2) 0.75 Troponin I < 0.012 10/10/17 11:20 Creatine Kinase CK-MB (CK-2) 0.91 Troponin I < 0.012 Impressions: Chest X-Ray 10/09/17 17:05 IMPRESSION: NO SIGNIFICANT RADIOGRAPHIC FINDING IN THE CHEST. Assessment & Plan - Diagnosis (1) Chest pain Qualifiers: Chest pain type: unspecified Qualified Code(s): R07.9 - Chest pain, unspecified Is this a current diagnosis for this admission?: Yes Plan: Chest pain is atypical probably a noncardiac chest pain (2) Hypokalemia Is this a current diagnosis for this admission?: Yes Plan: The urine K is low suggesting nonrenal loss of potassium.
[2017-10-10] MEDS ORDERED: ENOXAPARIN SODIUM INJ 40 MG/0.4 ML DISP.SYRIN SUBCUT ONE ×2 (19:30→23:15)
[2017-10-10 20:11] LABS: CREATINE KINASE MB 0.98 ng/mL (<4.55)
[2017-10-10 20:12] LABS: TROPONIN I < 0.012 ng/mL
[2017-10-10] MEDS: ATORVASTATIN CALCIUM 40 MG TABLET PO SCH (22:36)
[2017-10-10 22:57] LABS: ALANINE AMINOTRANSFERASE 18 U/L (9-52); ALBUMIN 3.8 g/dL (3.5-5.0); ALKALINE PHOSPHATASE 58 U/L (38-126); ANION GAP 8 (5-19); ASPARTATE AMINO TRANSFERASE 17 U/L (14-36); BILIRUBIN,DIRECT 0.1 mg/dL (0.0-0.4); BILIRUBIN,TOTAL 0.3 mg/dL (0.2-1.3); BLOOD UREA NITROGEN 14 mg/dL (7-20); CALCIUM 9.1 mg/dL (8.4-10.2); CARBON DIOXIDE 28 mmol/L (22-30); CHLORIDE 104 mmol/L (98-107); GLUCOSE 115 mg/dL (75-110); POTASSIUM 3.5 mmol/L (3.6-5.0); SODIUM 139.8 mmol/L (137-145); TOTAL PROTEIN 6.6 g/dL (6.3-8.2)
[2017-10-10] MEDS: ALBUTEROL SULFATE 0.042% NEB (1.25 MG/3 ML) AMPUL NEB PRN (23:22)
[2017-10-11 05:53] LABS: ABSOLUTE BASOPHILS # (AUTO) 0.1 10^3/uL (0.0-0.2); ABSOLUTE EOSINOPHILS # (AUTO) 0.2 10^3/uL (0.0-0.6); ABSOLUTE LYMPHOCYTES (AUTO) 2.7 10^3/uL (0.5-4.7); ABSOLUTE MONOCYTES (AUTO) 0.7 10^3/uL (0.1-1.4); ABSOLUTE NEUT (AUTO) 7.1 10^3/uL (1.7-8.2); BASOPHILS % (AUTO) 0.5 % (0-2); EOSINOPHILS % (AUTO) 1.9 % (0-6); HEMATOCRIT 31.7 % (36.0-47.0); HEMOGLOBIN 10.7 g/dL (12.0-15.5); LYMPHOCYTES % (AUTO) 25.2 % (13-45); MEAN CORPUSCULAR HEMOGLOBIN 28.5 pg (27.0-33.4); MEAN CORPUSCULAR HGB CONC 33.6 g/dL (32.0-36.0); MEAN CORPUSCULAR VOLUME 85 fl (80-97); MONOCYTES % (AUTO) 6.3 % (3-13); PLATELET COUNT 276 10^3/uL (150-450); RED BLOOD COUNT 3.73 10^6/uL (3.72-5.28); RED CELL DISTRIBUTION WIDTH 13.7 % (11.5-14.0); SEGMENTED NEUTROPHILS % (AUTO) 66.1 % (42-78); TOTAL CELLS COUNTED % (AUTO) 100 %; WHITE BLOOD COUNT 10.7 10^3/uL (4.0-10.5)
[2017-10-11 06:08] LABS: ANION GAP 8 (5-19); BLOOD UREA NITROGEN 15 mg/dL (7-20); CALCIUM 8.9 mg/dL (8.4-10.2); CARBON DIOXIDE 25 mmol/L (22-30); CHLORIDE 108 mmol/L (98-107); CHOLESTEROL 134.13 mg/dL (0-200); GLUCOSE 112 mg/dL (75-110); POTASSIUM 3.5 mmol/L (3.6-5.0); SODIUM 141.2 mmol/L (137-145); TRIGLYCERIDES 111 mg/dL (<150)
[2017-10-11 06:19] LABS: DIRECT LDL 51 mg/dL (<100)
[2017-10-11] MEDS: GABAPENTIN 300 MG CAPSULE PO SCH ×3 (06:47→21:22)
[2017-10-11] MEDS: ACETAMINOPHEN 325 MG TABLET PO SCH ×3 (06:47→21:22)
[2017-10-11] MEDS ORDERED: ENOXAPARIN SODIUM INJ 40 MG/0.4 ML DISP.SYRIN SUBCUT SCH (10:00)
[2017-10-11] MEDS: ASPIRIN 81 MG TABLET, ENT COATED PO SCH (10:09)
[2017-10-11] MEDS: POTASSIUM CHLORIDE 10 MEQ TABLET.SA PO SCH (10:09)
[2017-10-11] MEDS: BUDESONIDE/FORMOTEROL 160-4.5 MCG 60 PUFF/6 GM MDI IH SCH ×2 (10:10→21:22)
[2017-10-11] MEDS: BENZONATATE 100 MG CAPSULE PO SCH ×3 (10:10→17:00)
[2017-10-11] MEDS: LABETALOL HCL 200 MG TABLET PO SCH ×2 (10:10→21:22)
--- NOTE | 2017-10-11 12:18 | DRAGON STRESS TEST REPORT ---
INTRAVENOUS LEXISCAN CARDIOLITE STRESS TEST USING SINGLE PHOTON EMMISION COMPUTERIZED TOMOGRAPHIC. DATE OF PROCEDURE: October 11, 2017, INDICATION : Chest pain CARDIAC RISK FACTORS: Hypertension, dyslipidemia RESTING EKG: Sinus rhythm, minor nonspecific ST-T wave changes noted STRESS EKG: No significant changes noted with LexiScan bolus REASON FOR TERMINATION: Protocol. PROCEDURE REPORT: Baseline heart rate 69 beats per minute with blood pressure of 124/84. Patient had no significant complaints. Heart rate at 2 minutes post bolus 93 with a blood pressure of 129/73. 3 minutes post bolus heart rate 78 with blood pressure of 124/74. No significant EKG changes were noted. Patient had no significant complaints during the procedure or postprocedure. Patient injected with Aminophyllin 75 mg at 3 minutes or later after Lexiscan bolus. CONCLUSIONS: Normal EKG and hemodynamic response to IV LexiScan. NUCLEAR DATA: At rest the patient was given 16.07 millicuries of technetium 99 sestamibi injected intravenously. As per protocol rest gated SPECT images were obtained. On day of stress test, the patient was given intravenous LexiScan at a dose of 0.4 mg in 5 mL intravenously, followed by flush with normal saline. Subsequently the stress dose of 48.0 millicuries of technetium 99 sestamibi was injected intravenously. As per protocol stress gated images were obtained. NUCLEAR INTERPRETATION: Both raw and processed data were used for interpretation. Visual, qualitative, computer-generated quantitative data was used. There was good myocardial uptake of technetium compound. Motion artifact and soft tissue attenuations were noted. Increased visceral uptake was noted. Significant breast attenuation was noted in this patient. This caused some difficulty with perfusion determination of the anterior wall. Decreased uptake was noted in the mid and basal anterior wall but is felt to be related to attenuation artifact. No corresponding wall motion abnormalities were noted. Mild ischemia however cannot be entirely ruled out. No definitive areas of transient perfusion defect noted, No definitive areas of fixed perfusion defect or scars noted. EKG gated imaging showed LV EF at 57 %, rest and stress gated EF similar visually. T. I D. ratio was 1.03. Lung heart ratio noted to be within normal limits 0.27. No significant extracardiac and abnormal radiotracer activities were noted. RV free wall uptake was noted to be increased.. IMPRESSION: Also refer to comments under nuclear interpretation. Also test results needs to be interpreted in the context of pretest probability. 1. No definitive areas of transient perfusion defect noted. Please also refer to comments under nuclear interpretation. May consider a stress echo/stress MRI if patient continues with significant symptoms. 2. There is no definitive scintigraphic evidence of myocardial infarction/scar. 3. EKG gated imaging shows left ventricular ejection fraction of approx. 57 %. 4. RV free wall uptake noted to be increased consistent with possible RVH 5. Clinical correlation requested as occasionally single vessel disease or balanced ischemia could be missed. In approximately 10% of the cases Lexiscan may not cause adequate vasodilatory stress. RECOMMENDATIONS: Aggressive risk factor modification and medical management. Further evaluation may be needed if continued symptoms or other high risk indicators are noted on clinical evaluation. Close cardiology follow-up is also recommended. Clinical correlation with echocardiogram derived ejection fraction. Inability to exercise by itself can lead to increased cardiovascular event risks. Consider cardiology consultation and or follow-up if clinically indicated. I am available for cardiology evaluation and consultation if requested by the meal attendant, unless patient already has a health/safety job titles. LUBNA
[2017-10-11] MEDS ORDERED: REGADENOSON INJ 0.4 MG/5 ML DISP.SYRIN IV ONE (14:33)
[2017-10-11] MEDS ORDERED: AMINOPHYLLINE INJ/PF 250 MG/10 ML SDV IV ONE (14:33)
[2017-10-11] MEDS: ATORVASTATIN CALCIUM 40 MG TABLET PO SCH (21:22)
--- NOTE | 2017-10-11 22:05 | PDOC PROGRESS REPORT ---
Subjective Progress Note for:: 10/11/17 Subjective:: She had a stress test today it was negative for any reversibility to suggest acute ischemia still have a low potassium Reason For Visit: CHEST PAIN,HYPOKALEMIA Physical Exam Vital Signs: Temp Pulse Resp BP Pulse Ox 98.4 F 61 20 121/65 99 10/11/17 19:13 10/11/17 19:13 10/11/17 19:13 10/11/17 19:13 10/11/17 19:13 Intake & Output 10/10/17 10/11/17 10/12/17 06:59 06:59 06:59 Intake Total 470 720 Output Total 900 360 Balance -430 360 Weight 127.5 kg General appearance: PRESENT: no acute distress, well-developed, well-nourished Head exam: PRESENT: atraumatic, normocephalic Eye exam: PRESENT: conjunctiva pink, EOMI, PERRLA Ear exam: PRESENT: normal external ear exam Mouth exam: PRESENT: moist, tongue midline Neck exam: PRESENT: full ROM. ABSENT: carotid bruit, JVD, lymphadenopathy, thyromegaly Respiratory exam: PRESENT: clear to auscultation mini Cardiovascular exam: PRESENT: RRR, +S1, +S2 Pulses: PRESENT: normal dorsalis pedis pul, +2 pedal pulses bilateral Vascular exam: PRESENT: normal capillary refill GI/Abdominal exam: PRESENT: normal bowel sounds, soft Rectal exam: PRESENT: deferred Neurological exam: PRESENT: alert, awake, oriented to person, oriented to place , oriented to time, oriented to situation, CN II-XII grossly intact. ABSENT: motor sensory deficit Psychiatric exam: PRESENT: appropriate affect, normal mood Skin exam: PRESENT: dry, intact, warm Results Laboratory Results: 10/11/17 05:07 10/11/17 05:07 10/10/17 10/11/17 10/11/17 22:11 05:07 05:07 WBC 10.7 H RBC 3.73 Hgb 10.7 L Hct 31.7 L MCV 85 MCH 28.5 MCHC 33.6 RDW 13.7 Plt Count 276 Seg Neutrophils % 66.1 Lymphocytes % 25.2 Monocytes % 6.3 Eosinophils % 1.9 Basophils % 0.5 Absolute Neutrophils 7.1 Absolute Lymphocytes 2.7 Absolute Monocytes 0.7 Absolute Eosinophils 0.2 Absolute Basophils 0.1 Sodium 139.8 141.2 Potassium 3.5 L 3.5 L Chloride 104 108 H Carbon Dioxide 28 25 Anion Gap 8 8 BUN 14 15 Creatinine 0.86 0.82 Est GFR ( Amer) > 60 > 60 Est GFR (Non-Af Amer) > 60 > 60 Glucose 115 H 112 H Calcium 9.1 8.9 Total Bilirubin 0.3 AST 17 ALT 18 Alkaline Phosphatase 58 Total Protein 6.6 Albumin 3.8 Triglycerides 111 Cholesterol 134.13 LDL Cholesterol Direct 51 VLDL Cholesterol 22.0 HDL Cholesterol 54 10/10/17 10/10/17 10/10/17 01:15 01:15 11:20 Creatine Kinase 295 H 291 H CK-MB (CK-2) 0.75 Troponin I < 0.012 10/10/17 10/10/17 10/10/17 11:20 19:18 19:18 Creatine Kinase 260 H CK-MB (CK-2) 0.91 0.98 Troponin I < 0.012 < 0.012 Impressions: Chest X-Ray 10/09/17 17:05 IMPRESSION: NO SIGNIFICANT RADIOGRAPHIC FINDING IN THE CHEST. Assessment & Plan - Diagnosis (1) Chest pain Qualifiers: Chest pain type: unspecified Qualified Code(s): R07.9 - Chest pain, unspecified Is this a current diagnosis for this admission?: Yes (2) Hypokalemia Is this a current diagnosis for this admission?: Yes Plan: Replace potassium
[2017-10-11] MEDS: POTASSIUM CHLORIDE 20 MEQ/50 ML RTU IV SCH ×2 (22:59→23:31)
[2017-10-12] MEDS: ACETAMINOPHEN 325 MG TABLET PO SCH (05:38)
[2017-10-12] MEDS: GABAPENTIN 300 MG CAPSULE PO SCH (05:38)
[2017-10-12 05:49] LABS: ABSOLUTE EOSINOPHILS # (AUTO) 0.2 10^3/uL (0.0-0.6); ABSOLUTE LYMPHOCYTES (AUTO) 2.5 10^3/uL (0.5-4.7); ABSOLUTE MONOCYTES (AUTO) 0.6 10^3/uL (0.1-1.4); ABSOLUTE NEUT (AUTO) 3.9 10^3/uL (1.7-8.2); BASOPHILS % (AUTO) 0.5 % (0-2); HEMATOCRIT 30.7 % (36.0-47.0); HEMOGLOBIN 10.3 g/dL (12.0-15.5); LYMPHOCYTES % (AUTO) 34.2 % (13-45); MEAN CORPUSCULAR HEMOGLOBIN 28.8 pg (27.0-33.4); MEAN CORPUSCULAR HGB CONC 33.5 g/dL (32.0-36.0); MEAN CORPUSCULAR VOLUME 86 fl (80-97); MONOCYTES % (AUTO) 8.4 % (3-13); PLATELET COUNT 278 10^3/uL (150-450); RED BLOOD COUNT 3.58 10^6/uL (3.72-5.28); RED CELL DISTRIBUTION WIDTH 13.8 % (11.5-14.0); SEGMENTED NEUTROPHILS % (AUTO) 53.9 % (42-78); TOTAL CELLS COUNTED % (AUTO) 100 %; WHITE BLOOD COUNT 7.2 10^3/uL (4.0-10.5)
[2017-10-12] MEDS: ALBUTEROL SULFATE 0.042% NEB (1.25 MG/3 ML) AMPUL NEB PRN (05:55)
[2017-10-12 05:56] LABS: ANION GAP 6 (5-19); BLOOD UREA NITROGEN 19 mg/dL (7-20); CALCIUM 8.9 mg/dL (8.4-10.2); CARBON DIOXIDE 25 mmol/L (22-30); CHLORIDE 113 mmol/L (98-107); GLUCOSE 114 mg/dL (75-110); SODIUM 143.6 mmol/L (137-145)
[2017-10-12 08:41] VITALS: BP 116/71
--- NOTE | 2017-10-12 21:29 | PDOC DISCHARGE SUMMARY ---
General - Admit/Disc Date/PCP Admission Date/Primary Care Provider: 10/09/17 19:56 Discharge Date: 10/12/17 - Discharge Diagnosis (1) Chest pain Is this a current diagnosis for this admission?: Yes (2) Hypokalemia Is this a current diagnosis for this admission?: Yes (3) Essential (primary) hypertension Is this a current diagnosis for this admission?: Yes - Additional Information Resuscitation Status: Full Code Discharge Diet: Cardiac Discharge Activity: Activity As Tolerated Home Medications: Acetaminophen [Tylenol Extra Strength 500 mg Tablet] 500 mg PO TID 10/09/17 Albuterol Sulfate [Proair HFA Inhalation Aerosol 8.5 gm MDI] 2 puff IH TIDP PRN 10/09/17 Albuterol Sulfate [Ventolin 0.042% Neb 1.25 mg/3 mL Ampul] 1 vial NEB Q6HP PRN 10/09/17 Aspirin [Ecotrin 81 mg EC Tablet] 81 mg PO DAILY 10/09/17 Atorvastatin Calcium [Lipitor 40 mg Tablet] 40 mg PO QHS 10/09/17 Benzonatate [Tessalon Perles 100 mg Capsule] 100 mg PO TID 10/09/17 Budesonide/Formoterol Fumarate [Symbicort HFA 160-4.5 mcg Inhaler 6 gm] 2 puff IH BID 10/09/17 Gabapentin [Neurontin] 600 mg PO TID 10/09/17 Labetalol HCl [Trandate] 200 mg PO BID 10/09/17 Potassium Chloride [Klor-Con M20] 20 meq PO DAILY 10/09/17 Topiramate [Qudexy Xr] 150 mg PO DAILY 10/09/17 History of Present Illness History of Present Illness: SARAVANAN ESCALANTE is a 46 year old female she has history of hypertension, she came to the emergency room for evaluation of unspecified chest pain and dizziness, she was found to have hypokalemia on evaluation. She admitted to history of diarrhea, most likely the cause of the hypokalemia. The chest pain she described is atypical in character, the chest pain is not provoked by exertion nor relieved by rest. She has risk factors for ischemic heart disease, hypertension, sedentary lifestyle, the EKG showed nonspecific T-wave changes probably due to the hypokalemia, she is admitted to rule out acute coronary syndrome and probably get a cardiac stress test before discharge. Hospital Course Hospital Course: She was admitted for the management of chest pain hypokalemia secondary to GI losses. She underwent a Cardiolite Lexiscan stress test that was negative for any acute reversibility to suggest acute ischemia. The potassium was replaced with IV treatment Physical Exam Vital Signs: Temp Pulse Resp BP Pulse Ox 98.2 F 58 L 16 109/70 98 10/12/17 08:04 10/12/17 08:04 10/12/17 08:04 10/12/17 08:04 10/12/17 08:04 Intake & Output 10/11/17 10/12/17 10/13/17 06:59 06:59 06:59 Intake Total 470 2420 Output Total 900 860 Balance -430 1560 Weight 127.5 kg 128.2 kg General appearance: PRESENT: no acute distress, well-developed, well-nourished Head exam: PRESENT: atraumatic, normocephalic Eye exam: PRESENT: conjunctiva pink, EOMI, PERRLA Ear exam: PRESENT: normal external ear exam Mouth exam: PRESENT: moist, tongue midline Neck exam: PRESENT: full ROM. ABSENT: carotid bruit, JVD, lymphadenopathy, thyromegaly Respiratory exam: PRESENT: clear to auscultation mini Cardiovascular exam: PRESENT: RRR, +S1, +S2 Pulses: PRESENT: normal dorsalis pedis pul, +2 pedal pulses bilateral Vascular exam: PRESENT: normal capillary refill GI/Abdominal exam: PRESENT: normal bowel sounds, soft Rectal exam: PRESENT: deferred Neurological exam: PRESENT: alert, awake, oriented to person, oriented to place , oriented to time, oriented to situation, CN II-XII grossly intact. ABSENT: motor sensory deficit Psychiatric exam: PRESENT: appropriate affect, normal mood Skin exam: PRESENT: dry, intact, warm Results Laboratory Results: 10/12/17 05:21 10/12/17 05:21 10/12/17 10/12/17 05:21 05:21 WBC 7.2 RBC 3.58 L Hgb 10.3 L Hct 30.7 L MCV 86 MCH 28.8 MCHC 33.5 RDW 13.8 Plt Count 278 Seg Neutrophils % 53.9 Lymphocytes % 34.2 Monocytes % 8.4 Eosinophils % 3.0 Basophils % 0.5 Absolute Neutrophils 3.9 Absolute Lymphocytes 2.5 Absolute Monocytes 0.6 Absolute Eosinophils 0.2 Absolute Basophils 0.0 Sodium 143.6 Potassium 4.0 Chloride 113 H Carbon Dioxide 25 Anion Gap 6 BUN 19 Creatinine 0.85 Est GFR ( Amer) > 60 Est GFR (Non-Af Amer) > 60 Glucose 114 H Calcium 8.9 10/10/17 10/10/17 10/10/17 01:15 01:15 11:20 Creatine Kinase 295 H 291 H CK-MB (CK-2) 0.75 Troponin I < 0.012 10/10/17 10/10/17 10/10/17 11:20 19:18 19:18 Creatine Kinase 260 H CK-MB (CK-2) 0.91 0.98 Troponin I < 0.012 < 0.012 Impressions: Chest X-Ray 10/09/17 17:05 IMPRESSION: NO SIGNIFICANT RADIOGRAPHIC FINDING IN THE CHEST.
== END 2017-10-12 09:55 | disposition home or self-care (01) ==
LOC: ER 16:25 → INTOOBSV 19:56 → EH 19:56 → 4W 10-10 14:38
PROVIDERS: ADMIT Internal Medicine; ATTEND Internal Medicine
DX: R07.89 Other chest pain (principal); E87.6 Hypokalemia; I10 Essential (primary) hypertension; R42 Dizziness and giddiness; E78.5 Hyperlipidemia, unspecified; J45.909 Unspecified asthma, uncomplicated; M79.7 Fibromyalgia; M19.90 Unspecified osteoarthritis, unspecified site; Z79.899 Other long term (current) drug therapy; Z79.82 Long term (current) use of aspirin; Z90.49 Acquired absence of other specified parts of digestive tract; Z96.651 Presence of right artificial knee joint; Z90.710 Acquired absence of both cervix and uterus
CPT/HCPCS: 93005; 99291; 36415 ×4; 82553 ×2; 82550 ×2; 84156; 82570; 84133; 84300; 85025 ×3; 80048 ×2; 80053 ×2; 84484 ×2; 83036; 80061; 93017; 71046; 78452; 93010; 94640 ×2; A9500; J2785; J3490 ×3; J3475; J3480 ×3; J0280; Q9969

== ENCOUNTER 2018-01-06 15:34 | Emergency (ER) | payer BC ==
--- NOTE | 2018-01-06 16:00 | ER Document Report ---
ED Medical Screen (RME) - General TRAVEL OUTSIDE OF THE [place] IN LAST 30 DAYS: No <CALOS GONCALVES - Last Filed: 01/06/18 15:59> <YAZAN NELSON - Last Filed: 01/06/18 18:40> - General Chief Complaint: Dizziness Stated Complaint: DIZZINESS Time Seen by Provider: 01/06/18 15:52 Notes: 47-year-old female patient reports a history of multiple TIAs, hypokalemia reports onset 01/01/2018 of developed again dizziness, confusion, mild headache, driving home from work. She was unable to concentrate, trouble driving, states before honking horns at her. Since then she has been having difficulty following conversations, states she cannot sleep and feeling anxious. I have greeted and performed a rapid initial assessment of this patient. A comprehensive ED assessment and evaluation of the patient, analysis of test results and completion of the medical decision making process will be conducted by additional ED providers. (CALOS GONCALVES) - Related Data Allergies/Adverse Reactions: prochlorperazine edisylate [From Compazine] Allergy (Severe, Verified 01/06/18 15:37) PANIC ATTACK doxycycline [Doxycycline] Allergy (Mild, Verified 01/06/18 15:37) RASH hydrocodone [From Vicodin] Allergy (Verified 01/06/18 15:37) Nausea, Vomiting oxycodone [From Percocet] Allergy (Verified 01/06/18 15:37) Nausea, Vomiting Past Medical History - Social History Frequency of alcohol use: None Drug Abuse: None - Past Medical History Cardiac Medical History: Reports: Hx Hypercholesterolemia, Hx Hypertension Denies: Hx Atrial Fibrillation, Hx Congestive Heart Failure, Hx Coronary Artery Disease, Hx Heart Attack, Hx Peripheral Vascular Disease, Hx Pulmonary Embolism, Hx Heart Murmur Pulmonary Medical History: Reports: Hx Asthma Denies: Hx Bronchitis, Hx COPD, Hx Pneumonia, Hx Respiratory Failure, Hx Sleep Apnea, Hx Tuberculosis Neurological Medical History: Reports: Hx Migraine, Hx Seizures - x1. Denies: Hx Cerebrovascular Accident Renal/ Medical History: Denies: Hx Ovarian Cysts, Hx Peritoneal Dialysis, Hx Pelvic Inflammatory Disease Malignancy Medical History: Denies: Hx Breast Cancer, Hx Cervical Cancer, Hx Leukemia, Hx Lung Cancer, Hx Ovarian Cancer Musculoskeltal Medical History: Reports Hx Arthritis, Reports Hx Fibromyalgia, Denies Hx Multiple Sclerosis, Denies Hx Muscular Dystrophy, Reports Hx Musculoskeletal Trauma Psychiatric Medical History: Denies: Hx Dementia Traumatic Medical History: Denies: Hx Fractures Infectious Medical History: Denies: Hx HIV Past Surgical History: Reports: Hx Section, Hx Cholecystectomy, Hx Hysterectomy, Hx Orthopedic Surgery - RTK replacement. Denies: Hx Appendectomy , Hx Bowel Surgery, Hx Coronary Artery Bypass Graft, Hx Gastric Bypass Surgery, Hx Herniorrhaphy, Hx Mastectomy, Hx Pacemaker, Hx Tonsillectomy, Hx Tubal Ligation - Immunizations Immunizations up to date: No Hx Diphtheria, Pertussis, Tetanus Vaccination: No History of Influenza Vaccine for 06/2017 - 11/2017 Season: Refused <CALOS GONCALVES - Last Filed: 01/06/18 15:59> - Vital signs Vitals: Temp Pulse Resp BP Pulse Ox 98.7 F 63 18 130/72 H 98 01/06/18 15:44 01/06/18 15:44 01/06/18 15:44 01/06/18 15:44 01/06/18 15:44 Course - Laboratory Result Diagrams: 01/06/18 16:44 01/06/18 17:35 <YAZAN NELSON - Last Filed: 01/06/18 18:40> - Vital Signs Vital signs: Temp Pulse Resp BP Pulse Ox 98.7 F 63 18 130/72 H 98 01/06/18 15:44 01/06/18 15:44 01/06/18 15:44 01/06/18 15:44 01/06/18 15:44 - Laboratory Laboratory results interpreted by me: 01/06/18 01/06/18 16:44 17:35 Hct 34.7 L Potassium 2.9 L* Chloride 97 L Carbon Dioxide 34 H Glucose 128 H Doctor's Discharge <CALOS GONCALVES - Last Filed: 01/06/18 15:59> <YAZAN NELSON - Last Filed: 01/06/18 18:40> - Discharge Clinical Impression: Hypokalemia Condition: Stable Disposition: HOME, SELF-CARE Additional Instructions: Hypokalemia You have an abnormally decreased level of serum potassium. Hypokalemia may cause weakness, fatigue, or heart rhythm abnormalities. Sometimes there are no symptoms at all. Usually, low serum potassium is due to taking diuretics ( water pills). It can also be due to excessive vomiting or diarrhea. If no obvious cause is evident, further evaluation will be necessary. Treatment is usually oral potassium supplements. Take these exactly as prescribed. You may also want to select foods which are naturally high in potassium -- fruits (such as bananas, cantaloupe, grapes, oranges, prunes, tomatoes), fresh vegetables (potatoes, spinach, beans, peas), orange or tomato juice, tomato pasta sauce, milk, fish (halibut, tuna, salmon, selwyn) A follow-up blood test is usually performed to assure that the potassium is returning to normal. Call the physician if you suffer severe weakness, muscle twitching or cramping, palpitations (pounding or irregular heartbeat), or any other new or alarming symptoms. Take your own potassium pills, one at bedtime tonight and another in the morning. Call Dr. Little's office tomorrow to let them know you were here and seen in the emergency department and for him to follow-up with your care. Referrals: JONAH LITTLE MD [ACTIVE STAFF] - Follow up tomorrow
--- NOTE | 2018-01-06 17:04 | RADIOLOGY REPORT (SQ) ---
EXAM DESCRIPTION: CT HEAD WITHOUT COMPLETED DATE/TIME: 01/06/2018 4:53 pm REASON FOR STUDY: Dizzy, confused, difficulty concentrating 6 days COMPARISON: 01/02/2016 TECHNIQUE: Axial images acquired through the brain without intravenous contrast. Images reviewed wi th bone, brain and subdural windows. Additional sagittal and coronal reconstructions were generated. Images stored on PACS. All CT scanners at this facility use dose modulation, iterative reconstruction, and/or weight based d osing when appropriate to reduce radiation dose to as low as reasonably achievable (ALARA). [facility]: Dose Right [facility]: CareDose [facility]: Dose Right [facility]: Teradose 4D [facility]: Smart tenXer RADIATION DOSE: CT Rad equipment meets quality standard of care and radiation dose reduction techniq ues were employed. CTDIvol: 53.2 mGy. DLP: 1017 mGy-cm. mGy. LIMITATIONS: None. FINDINGS: VENTRICLES: Normal size and contour. CEREBRUM: No masses. No hemorrhage. No midline shift. No evidence for acute infarction. Normal gra y/white matter differentiation. No areas of low density in the white matter. CEREBELLUM: No masses. No hemorrhage. No alteration of density. No evidence for acute infarction. EXTRAAXIAL SPACES: No fluid collections. No masses. ORBITS AND GLOBE: No intra- or extraconal masses. Normal contour of globe without masses. CALVARIUM: No fracture. PARANASAL SINUSES: No fluid or mucosal thickening. SOFT TISSUES: No mass or hematoma. OTHER: No other significant finding. IMPRESSION: NORMAL BRAIN CT WITHOUT CONTRAST. EVIDENCE OF ACUTE STROKE: NO. COMMENT: Quality ID # [id number]: Final reports with documentation of one or more dose reduction techniques (e.g., Automated exposure control, adjustment of the mA and/or kV according to patient size, use of iterative reconstruction technique) TECHNICAL DOCUMENTATION: JOB ID: [id number] [employer]- All Rights Reserved Reading location - IP/workstation name: [email or web address]
[2018-01-06 17:10] LABS: ABSOLUTE BASOPHILS # (AUTO) 0.1 10^3/uL (0.0-0.2); ABSOLUTE EOSINOPHILS # (AUTO) 0.2 10^3/uL (0.0-0.6); ABSOLUTE LYMPHOCYTES (AUTO) 2.8 10^3/uL (0.5-4.7); ABSOLUTE MONOCYTES (AUTO) 0.6 10^3/uL (0.1-1.4); ABSOLUTE NEUT (AUTO) 4.1 10^3/uL (1.7-8.2); BASOPHILS % (AUTO) 1.1 % (0-2); EOSINOPHILS % (AUTO) 2.1 % (0-6); HEMATOCRIT 34.7 % (36.0-47.0); HEMOGLOBIN 12.1 g/dL (12.0-15.5); LYMPHOCYTES % (AUTO) 35.9 % (13-45); MEAN CORPUSCULAR HEMOGLOBIN 28.9 pg (27.0-33.4); MEAN CORPUSCULAR HGB CONC 34.8 g/dL (32.0-36.0); MEAN CORPUSCULAR VOLUME 83 fl (80-97); MONOCYTES % (AUTO) 8.2 % (3-13); PLATELET COUNT 368 10^3/uL (150-450); RED BLOOD COUNT 4.18 10^6/uL (3.72-5.28); RED CELL DISTRIBUTION WIDTH 13.9 % (11.5-14.0); SEGMENTED NEUTROPHILS % (AUTO) 52.7 % (42-78); TOTAL CELLS COUNTED % (AUTO) 100 %; WHITE BLOOD COUNT 7.8 10^3/uL (4.0-10.5)
[2018-01-06 18:15] LABS: ALANINE AMINOTRANSFERASE 30 U/L (9-52); ALBUMIN 4.1 g/dL (3.5-5.0); ALKALINE PHOSPHATASE 62 U/L (38-126); ANION GAP 13 (5-19); ASPARTATE AMINO TRANSFERASE 25 U/L (14-36); BILIRUBIN,DIRECT 0.3 mg/dL (0.0-0.4); BILIRUBIN,TOTAL 0.4 mg/dL (0.2-1.3); BLOOD UREA NITROGEN 16 mg/dL (7-20); CALCIUM 9.4 mg/dL (8.4-10.2); CARBON DIOXIDE 34 mmol/L (22-30); CHLORIDE 97 mmol/L (98-107); GLUCOSE 128 mg/dL (75-110); SODIUM 144.4 mmol/L (137-145); TOTAL PROTEIN 8.1 g/dL (6.3-8.2)
[2018-01-06 18:21] LABS: POTASSIUM 2.9 mmol/L (3.6-5.0)
[2018-01-06] MEDS ORDERED: POTASSIUM CHLORIDE 10 MEQ TABLET.SA PO ONE (18:24)
[2018-01-06 19:04] VITALS: BP 124/85
--- NOTE | 2018-01-06 20:07 | ER Document Report ---
ED General - General Chief Complaint: Dizziness Stated Complaint: DIZZINESS Time Seen by Provider: 01/06/18 15:52 Notes: Patient says that she has been experiencing dizziness and confusion off and on for the past couple of days. Unable to sleep at night. Says that she started this episode around Sunday while driving her car. She has not lost consciousness and has not had any change in her vision. Has been nauseated but not vomiting. Eating normally. Has had a slight headache. Patient has a history of a couple of TIAs and says this feels somewhat similar to that. Takes a baby aspirin every day. PMH: Hypertension, migraine headaches, fibromyalgia. TRAVEL OUTSIDE OF THE [place] IN LAST 30 DAYS: No - Related Data Allergies/Adverse Reactions: prochlorperazine edisylate [From Compazine] Allergy (Severe, Verified 01/06/18 15:37) PANIC ATTACK doxycycline [Doxycycline] Allergy (Mild, Verified 01/06/18 15:37) RASH hydrocodone [From Vicodin] Allergy (Verified 01/06/18 15:37) Nausea, Vomiting oxycodone [From Percocet] Allergy (Verified 01/06/18 15:37) Nausea, Vomiting Past Medical History - Social History Smoking Status: Never Smoker Frequency of alcohol use: None Drug Abuse: None Family History: Reviewed & Not Pertinent, DM Patient has suicidal ideation: No Patient has homicidal ideation: No - Past Medical History Cardiac Medical History: Reports: Hx Hypercholesterolemia, Hx Hypertension Pulmonary Medical History: Reports: Hx Asthma Neurological Medical History: Reports: Hx Migraine, Hx Seizures - x1, Other - TIAs, at least 2 previous Endocrine Medical History: Denies: Hx Diabetes Mellitus Type 1, Hx Diabetes Mellitus Type 2 Musculoskeltal Medical History: Reports Hx Arthritis, Reports Hx Fibromyalgia, Reports Hx Musculoskeletal Trauma Past Surgical History: Reports: Hx Section, Hx Cholecystectomy, Hx Hysterectomy, Hx Orthopedic Surgery - RTK replacement - Immunizations Immunizations up to date: No Hx Diphtheria, Pertussis, Tetanus Vaccination: No Hx Pneumococcal Vaccination: 09/03/00 Review of Systems - Review of Systems Notes: REVIEW OF SYSTEMS: CONSTITUTIONAL : Denies fever. Vital signs are all essentially normal. EENT: Denies eye, ear, nose or mouth or throat pain or other symptoms. CARDIOVASCULAR: Denies chest pain. RESPIRATORY: Denies cough, chest congestion, or shortness of breath. GASTROINTESTINAL: Denies abdominal pain or nausea, vomiting, or diarrhea. GENITOURINARY: Denies difficulty or painful urinating, urinary frequency, blood in urine. MUSCULOSKELETAL: Denies back or neck pain. Denies joint pain or swelling. SKIN: Denies rash or skin lesions. NEUROLOGICAL: Denies LOC but confused with altered mental status. Slight headache. Denies sensory loss or motor deficits. ALL OTHER SYSTEMS REVIEWED AND NEGATIVE. Physical Exam - Vital signs Vitals: Temp Pulse Resp BP Pulse Ox 98.7 F 63 18 130/72 H 98 01/06/18 15:44 01/06/18 15:44 01/06/18 15:44 01/06/18 15:44 01/06/18 15:44 Interpretation: Normal - Notes Notes: PHYSICAL EXAMINATION: GENERAL: Well-appearing, in no acute distress. Vital signs essentially normal. HEAD: Atraumatic, normocephalic. EYES: Pupils equal round and reactive to light, extraocular movements intact. ENT: oropharynx clear without exudates. Moist mucous membranes. NECK: Normal range of motion, supple. No carotid bruits heard. LUNGS: Breath sounds clear and equal bilaterally. HEART: Regular rate and rhythm without murmurs. ABDOMEN: Soft, nontender. No guarding or rebound. No masses. BACK: No tenderness throughout entire back. EXTREMITIES: Normal range of motion without pain. NEUROLOGICAL: Normal speech, normal gait. Normal sensory, motor, and reflex exams. Awake, alert, and oriented x3. Cranial nerves normal. SKIN: Warm, dry, no rashes. Course - Re-evaluation Re-evalutation: 01/06/18 20:07 Patient's potassium was 2.9. She was given 40 mEq to take p.o. She is on potassium at home so this is not a new problem. Does not remember for sure whether her pills are 10 or 20 mEq, but she supposed to take 1 a day. I advised her to take another one when she gets home at bedtime tonight and then another one tomorrow morning and contact Dr. Acevedo for further care. - Vital Signs Vital signs: Temp Pulse Resp BP Pulse Ox 98 F 65 18 124/85 100 01/06/18 19:02 01/06/18 19:02 01/06/18 19:02 01/06/18 19:02 01/06/18 19:02 - Laboratory Result Diagrams: 01/06/18 16:44 01/06/18 17:35 Laboratory results interpreted by me: 01/06/18 01/06/18 16:44 17:35 Hct 34.7 L Potassium 2.9 L* Chloride 97 L Carbon Dioxide 34 H Glucose 128 H Discharge - Discharge Clinical Impression: Hypokalemia Condition: Stable Disposition: HOME, SELF-CARE Additional Instructions: Hypokalemia You have an abnormally decreased level of serum potassium. Hypokalemia may cause weakness, fatigue, or heart rhythm abnormalities. Sometimes there are no symptoms at all. Usually, low serum potassium is due to taking diuretics ( water pills). It can also be due to excessive vomiting or diarrhea. If no obvious cause is evident, further evaluation will be necessary. Treatment is usually oral potassium supplements. Take these exactly as prescribed. You may also want to select foods which are naturally high in potassium -- fruits (such as bananas, cantaloupe, grapes, oranges, prunes, tomatoes), fresh vegetables (potatoes, spinach, beans, peas), orange or tomato juice, tomato pasta sauce, milk, fish (halibut, tuna, salmon, selwyn) A follow-up blood test is usually performed to assure that the potassium is returning to normal. Call the physician if you suffer severe weakness, muscle twitching or cramping, palpitations (pounding or irregular heartbeat), or any other new or alarming symptoms. Take your own potassium pills, one at bedtime tonight and another in the morning. Call Dr. Mckeon's office tomorrow to let them know you were here and seen in the emergency department and for him to follow-up with your care. Referrals: JONAH MCKEON MD [Primary Care Provider] - Follow up tomorrow
== END 2018-01-06 19:02 | disposition home or self-care (01) ==
LOC: ER 15:34
DX: E87.6 Hypokalemia (principal); R42 Dizziness and giddiness; R41.0 Disorientation, unspecified; E78.00 Pure hypercholesterolemia, unspecified; I10 Essential (primary) hypertension; Z90.49 Acquired absence of other specified parts of digestive tract; Z90.710 Acquired absence of both cervix and uterus; Z96.651 Presence of right artificial knee joint
CPT/HCPCS: 36415; 70450; 80053; 83735; 84443; 85025; 99284

== ENCOUNTER 2018-01-11 18:07 | Observation (INO) | payer BC ==
[2018-01-11] MEDS ORDERED: RIFAXIMIN 550 MG TABLET PO ONE (19:15)
[2018-01-11 19:54] LABS: ANION GAP 13 (5-19); BLOOD UREA NITROGEN 19 mg/dL (7-20); CALCIUM 9.6 mg/dL (8.4-10.2); CARBON DIOXIDE 32 mmol/L (22-30); CHLORIDE 97 mmol/L (98-107); GLUCOSE 113 mg/dL (75-110); SODIUM 141.5 mmol/L (137-145)
[2018-01-11 19:58] LABS: POTASSIUM 2.8 mmol/L (3.6-5.0)
--- NOTE | 2018-01-11 20:39 | PDOC H&P ---
History of Present Illness Admission Date/PCP: 01/11/18 18:07 JONAH LITTLE MD History of Present Illness: SARAVANAN ESCALANTE is a 47 year old female, She has a history of irritable bowel syndrome with diarrhea predominance this is associated with persistent hypokalemia, symptomatic with myalgia, fatigue and other manifestation of hypokalemia, she has had multiple ED visits for hypokalemia related conditions, she is also on p.o. potassium with multiple oral replacement therapy despite all these she remained hypokalemic because of the persistent diarrhea. She could not take viberzi a medication recommended for IBS -D because she has no gallbladder. She was also prescribed Xifaxan but the insurance did not cover the medication and she cannot afford it. I was just able to get some samples for her, she was admitted essentially for IV potassium replacement and then discharge home she was brought in for observation Past Medical History Cardiac Medical History: Reports: Hyperlipidema, Hypertension Pulmonary Medical History: Reports: Asthma Neurological Medical History: Reports: Migraine, Seizures - x1 Musculoskeltal Medical History: Reports: Arthritis, Fibromyalgia Hematology: Reports: Anemia Past Surgical History Past Surgical History: Reports: Section, Cholecystectomy, Hysterectomy , Orthopedic Surgery - RTK replacement Social History Smoking Status: Never Smoker Frequency of Alcohol Use: None Hx Recreational Drug Use: No Drugs: None Hx Prescription Drug Abuse: No Family History Family History: Reviewed & Not Pertinent, DM Parental Family History Reviewed: Yes Children Family History Reviewed: Yes Sibling(s) Family History Reviewed.: Yes Medication/Allergy Home Medications: Albuterol Sulfate [Proair HFA Inhalation Aerosol 8.5 gm MDI] 2 puff IH TIDP PRN 10/09/17 Albuterol Sulfate [Ventolin 0.042% Neb 1.25 mg/3 mL Ampul] 1 vial NEB Q6HP PRN 10/09/17 Aspirin [Ecotrin 81 mg EC Tablet] 81 mg PO DAILY 10/09/17 Atorvastatin Calcium [Lipitor 40 mg Tablet] 40 mg PO QHS 10/09/17 Budesonide/Formoterol Fumarate [Symbicort HFA 160-4.5 mcg Inhaler 6 gm] 2 puff IH BID 10/09/17 Labetalol HCl [Trandate] 200 mg PO DAILY 10/09/17 Potassium Chloride [Klor-Con M20] 40 meq PO DAILY 10/09/17 Topiramate [Qudexy Xr] 150 mg PO DAILY 10/09/17 Gabapentin [Neurontin] 600 mg PO TID 01/11/18 Ibuprofen [Motrin 800 mg Tablet] 800 mg PO PRN PRN 01/11/18 Olmesartan/Amlodipin/Hcthiazid [Tribenzor 40-10-25 mg Tablet] 1 tab PO DAILY 07/21 Omeprazole Magnesium [Prilosec Otc] 20 mg PO DAILY 01/11/18 Rifaximin [Xifaxan 550 Mg Tablet] 550 mg PO TID 01/11/18 Allergies/Adverse Reactions: prochlorperazine edisylate [From Compazine] Allergy (Severe, Verified 01/06/18 15:37) PANIC ATTACK doxycycline [Doxycycline] Allergy (Mild, Verified 01/06/18 15:37) RASH hydrocodone [From Vicodin] Allergy (Verified 01/06/18 15:37) Nausea, Vomiting oxycodone [From Percocet] Allergy (Verified 01/06/18 15:37) Nausea, Vomiting prochlorperazine [From Compazine] Allergy (Verified 01/11/18 18:35) Anxiety Review of Systems Constitutional: PRESENT: weakness Eyes: ABSENT: visual disturbances Ears: ABSENT: hearing changes Cardiovascular: ABSENT: chest pain, dyspnea on exertion, edema, orthropnea, palpitations Respiratory: ABSENT: cough, hemoptysis Gastrointestinal: PRESENT: diarrhea. ABSENT: abdominal pain, constipation, hematemesis, hematochezia, nausea, vomiting Genitourinary: ABSENT: dysuria, hematuria Musculoskeletal: ABSENT: joint swelling Integumentary: ABSENT: rash, wounds Neurological: ABSENT: abnormal gait, abnormal speech, confusion, dizziness, focal weakness, syncope Psychiatric: ABSENT: anxiety, depression, homidical ideation, suicidal ideation Endocrine: ABSENT: cold intolerance, heat intolerance, menstrual abnormalities, polydipsia, polyuria Hematologic/Lymphatic: ABSENT: easy bleeding, easy bruising, lymphadenopathy Physical Exam Vital Signs: Temp Pulse Resp BP Pulse Ox 98.7 F 67 20 100 01/11/18 18:26 01/11/18 18:26 01/11/18 18:26 01/11/18 18:26 Intake & Output 05/10/18 05/11/18 05/12/18 06:59 06:59 06:59 Weight 124.2 kg General appearance: PRESENT: no acute distress, well-developed, well-nourished Head exam: PRESENT: atraumatic, normocephalic Eye exam: PRESENT: conjunctiva pink, EOMI, PERRLA Ear exam: PRESENT: normal external ear exam Mouth exam: PRESENT: moist, tongue midline Neck exam: PRESENT: full ROM Respiratory exam: PRESENT: clear to auscultation mini Cardiovascular exam: PRESENT: RRR, +S1, +S2 Pulses: PRESENT: normal dorsalis pedis pul, +2 pedal pulses bilateral Vascular exam: PRESENT: normal capillary refill GI/Abdominal exam: PRESENT: normal bowel sounds, soft Rectal exam: PRESENT: deferred Neurological exam: PRESENT: alert, awake, oriented to person, oriented to place , oriented to time, oriented to situation, CN II-XII grossly intact Psychiatric exam: PRESENT: appropriate affect, normal mood Skin exam: PRESENT: dry, intact, warm Results Laboratory Results: 01/11/18 19:20 01/11/18 19:20 Sodium 141.5 Potassium 2.8 L* Chloride 97 L Carbon Dioxide 32 H Anion Gap 13 BUN 19 Creatinine 0.92 Est GFR ( Amer) > 60 Est GFR (Non-Af Amer) > 60 Glucose 113 H Calcium 9.6 Assessment & Plan - Diagnosis (1) Hypokalemia Is this a current diagnosis for this admission?: Yes Plan: She is admitted for potassium replacement therapy because she failed outpatient p.o. replacement therapy (2) Irritable bowel syndrome with diarrhea Is this a current diagnosis for this admission?: Yes
[2018-01-11] MEDS ORDERED: ALBUTEROL SULFATE HFA (90 MCG/PUFF) 200 PUFF/8.5 GM MDI IH PRN (20:40)
[2018-01-11] MEDS ORDERED: ALBUTEROL SULFATE 0.042% NEB (1.25 MG/3 ML) AMPUL NEB PRN (20:40)
[2018-01-11] MEDS ORDERED: RIFAXIMIN 550 MG TABLET PO SCH (20:45)
[2018-01-11] MEDS ORDERED: AMLODIPIN PO SCH (20:45)
[2018-01-11] MEDS ORDERED: (PENDING PHARMACY ID) (Potassium Chloride [Klor-Con M20] 40 MEQ) PO SCH (20:45)
[2018-01-11] MEDS ORDERED: HCTHIAZID PO SCH (20:45)
[2018-01-11] MEDS ORDERED: TOPIRAMATE 150 MG PO SCH (20:45)
[2018-01-11] MEDS ORDERED: OLMESARTAN PO SCH (20:45)
[2018-01-11] MEDS ORDERED: [UNRECOGNIZED DRUG - OTHER] PO SCH (20:45)
[2018-01-11] MEDS ORDERED: ENOXAPARIN SODIUM INJ 40 MG/0.4 ML DISP.SYRIN SUBCUT ONE (21:00)
[2018-01-11] MEDS ORDERED: LANSOPRAZOLE 15 MG TAB.RAP.DR PO ONE (21:15)
[2018-01-11] MEDS ORDERED: POTASSIUM CHLORIDE 10 MEQ TABLET.SA PO ONE (21:15)
[2018-01-11] MEDS ORDERED: LOSARTAN POTASSIUM 50 MG TABLET PO ONE (22:00)
[2018-01-11] MEDS ORDERED: ATORVASTATIN CALCIUM 40 MG TABLET PO SCH (22:00)
[2018-01-11] MEDS ORDERED: LABETALOL HCL 200 MG TABLET PO SCH (22:00)
[2018-01-11] MEDS ORDERED: AMLODIPINE BESYLATE 10 MG TABLET PO ONE (22:00)
[2018-01-11] MEDS ORDERED: LOSARTAN POTASSIUM 25 MG TABLET PO ONE (22:00)
[2018-01-11] MEDS ORDERED: HYDROCHLOROTHIAZIDE 25 MG TABLET PO ONE (22:00)
[2018-01-11] MEDS: POTASSI CL 40 MEQ/D5-1/2NS 1L 1000 ML IV PRN (22:12)
[2018-01-11] MEDS: GABAPENTIN 300 MG CAPSULE PO SCH (22:30)
[2018-01-11] MEDS: RIFAXIMIN 550 MG TABLET PO SCH (22:37)
[2018-01-11] MEDS: BUDESONIDE/FORMOTEROL 160-4.5 MCG 60 PUFF/6 GM MDI IH SCH (22:42)
[2018-01-12] MEDS: RIFAXIMIN 550 MG TABLET PO SCH ×2 (05:20→13:13)
[2018-01-12] MEDS: GABAPENTIN 300 MG CAPSULE PO SCH ×2 (05:20→13:13)
[2018-01-12] MEDS ORDERED: LANSOPRAZOLE 15 MG TAB.RAP.DR PO SCH (06:00)
[2018-01-12] MEDS: POTASSI CL 40 MEQ/D5-1/2NS 1L 1000 ML IV PRN (08:11)
[2018-01-12 08:35] LABS: ANION GAP 10 (5-19); BLOOD UREA NITROGEN 15 mg/dL (7-20); CALCIUM 9.2 mg/dL (8.4-10.2); CARBON DIOXIDE 32 mmol/L (22-30); CHLORIDE 99 mmol/L (98-107); GLUCOSE 132 mg/dL (75-110); POTASSIUM 3.1 mmol/L (3.6-5.0)
[2018-01-12] MEDS ORDERED: LOSARTAN POTASSIUM 50 MG TABLET PO SCH (10:00)
[2018-01-12] MEDS ORDERED: POTASSIUM CHLORIDE 10 MEQ TABLET.SA PO SCH ×2 (10:00→14:00)
[2018-01-12] MEDS ORDERED: LOSARTAN POTASSIUM 25 MG TABLET PO SCH ×2 (10:00)
[2018-01-12] MEDS ORDERED: POTASSIUM CHLORIDE 10 MEQ TABLET.SA PO ONE (10:00)
[2018-01-12] MEDS ORDERED: HYDROCHLOROTHIAZIDE 25 MG TABLET PO SCH ×2 (10:00)
[2018-01-12] MEDS ORDERED: AMLODIPINE BESYLATE 10 MG TABLET PO SCH (10:00)
[2018-01-12] MEDS ORDERED: ENOXAPARIN SODIUM INJ 40 MG/0.4 ML DISP.SYRIN SUBCUT SCH (10:00)
[2018-01-12] MEDS: BUDESONIDE/FORMOTEROL 160-4.5 MCG 60 PUFF/6 GM MDI IH SCH (10:21)
[2018-01-12 10:47] LABS: HEMATOCRIT 31.4 % (36.0-47.0); HEMOGLOBIN 10.6 g/dL (12.0-15.5); MEAN CORPUSCULAR HEMOGLOBIN 28.2 pg (27.0-33.4); MEAN CORPUSCULAR HGB CONC 33.9 g/dL (32.0-36.0); MEAN CORPUSCULAR VOLUME 83 fl (80-97); PLATELET COUNT 311 10^3/uL (150-450); RED BLOOD COUNT 3.78 10^6/uL (3.72-5.28); RED CELL DISTRIBUTION WIDTH 13.5 % (11.5-14.0); WHITE BLOOD COUNT 7.5 10^3/uL (4.0-10.5)
--- NOTE | 2018-01-12 16:27 | PDOC DISCHARGE SUMMARY ---
General - Admit/Disc Date/PCP Admission Date/Primary Care Provider: 01/11/18 18:07 JONAH LITTLE MD Discharge Date: 01/12/18 - Discharge Diagnosis (1) Hypokalemia Is this a current diagnosis for this admission?: Yes (2) Irritable bowel syndrome with diarrhea Is this a current diagnosis for this admission?: Yes - Additional Information Home Medications: Albuterol Sulfate [Proair HFA Inhalation Aerosol 8.5 gm MDI] 2 puff IH TIDP PRN 10/09/17 Albuterol Sulfate [Ventolin 0.042% Neb 1.25 mg/3 mL Ampul] 1 vial NEB Q6HP PRN 10/09/17 Atorvastatin Calcium [Lipitor 40 mg Tablet] 40 mg PO QHS 10/09/17 Budesonide/Formoterol Fumarate [Symbicort HFA 160-4.5 mcg Inhaler 6 gm] 2 puff IH BID 10/09/17 Labetalol HCl [Trandate] 200 mg PO DAILY 10/09/17 Potassium Chloride [Klor-Con M20] 40 meq PO DAILY 10/09/17 Topiramate [Qudexy Xr] 150 mg PO DAILY 10/09/17 Gabapentin [Neurontin] 600 mg PO TID 01/11/18 Olmesartan/Amlodipin/Hcthiazid [Tribenzor 40-10-25 mg Tablet] 1 tab PO DAILY 07/21 Omeprazole Magnesium [Prilosec Otc] 20 mg PO DAILY 01/11/18 Rifaximin [Xifaxan 550 mg Tablet] 550 mg PO TID 01/11/18 History of Present Illness History of Present Illness: SARAVANAN ESCALANTE is a 47 year old female, She has a history of irritable bowel syndrome with diarrhea predominance this is associated with persistent hypokalemia, symptomatic with myalgia, fatigue and other manifestation of hypokalemia, she has had multiple ED visits for hypokalemia related conditions, she is also on p.o. potassium with multiple oral replacement therapy despite all these she remained hypokalemic because of the persistent diarrhea. She could not take viberzi a medication recommended for IBS -D because she has no gallbladder. She was also prescribed Xifaxan but the insurance did not cover the medication and she cannot afford it. I was just able to get some samples for her, she was admitted essentially for IV potassium replacement and then discharge home she was brought in for observation Hospital Course Hospital Course: Patient was admitted for observation for potassium replenishment intravenously. She has persistent hypokalemia due to diarrhea from irritable bowel syndrome. She received oral potassium replacement therapy outpatient without success she was brought to the hospital to be treated intravenously with potassium chloride Physical Exam Vital Signs: Temp Pulse Resp BP Pulse Ox 98.6 F 62 18 113/70 99 01/12/18 15:50 01/12/18 15:50 01/12/18 15:50 01/12/18 15:50 01/12/18 15:50 Intake & Output 01/11/18 01/12/18 01/13/18 06:59 06:59 06:59 Intake Total 266 Balance 266 Weight 125.1 kg General appearance: PRESENT: no acute distress, well-developed, well-nourished Head exam: PRESENT: atraumatic, normocephalic Eye exam: PRESENT: conjunctiva pink, EOMI, PERRLA Ear exam: PRESENT: normal external ear exam Mouth exam: PRESENT: moist, tongue midline Neck exam: PRESENT: full ROM Respiratory exam: PRESENT: clear to auscultation mini Cardiovascular exam: PRESENT: RRR, +S1, +S2 Pulses: PRESENT: normal dorsalis pedis pul, +2 pedal pulses bilateral Vascular exam: PRESENT: normal capillary refill GI/Abdominal exam: PRESENT: normal bowel sounds, soft Rectal exam: PRESENT: deferred Neurological exam: PRESENT: alert, awake, oriented to person, oriented to place , oriented to time, oriented to situation, CN II-XII grossly intact Psychiatric exam: PRESENT: appropriate affect, normal mood Skin exam: PRESENT: dry, intact, warm Results Laboratory Results: 01/12/18 08:06 01/11/18 01/12/18 01/12/18 19:20 08:06 08:06 WBC 7.5 RBC 3.78 Hgb 10.6 L Hct 31.4 L MCV 83 MCH 28.2 MCHC 33.9 RDW 13.5 Plt Count 311 Sodium 141.5 141.0 Potassium 2.8 L* 3.1 L Chloride 97 L 99 Carbon Dioxide 32 H 32 H Anion Gap 13 10 BUN 19 15 Creatinine 0.92 0.88 Est GFR ( Amer) > 60 > 60 Est GFR (Non-Af Amer) > 60 > 60 Glucose 113 H 132 H Calcium 9.6 9.2 Qualifiers - * PATIENT BEING DISCHARGED WITH ANY OF THE FOLLOWING DIAGNOSIS: No VTE patient discharged on overlapping Therapy?: Yes
[2018-01-12 16:51] LABS: ANION GAP 12 (5-19); BLOOD UREA NITROGEN 14 mg/dL (7-20); CALCIUM 9.2 mg/dL (8.4-10.2); CARBON DIOXIDE 29 mmol/L (22-30); CHLORIDE 102 mmol/L (98-107); GLUCOSE 140 mg/dL (75-110); POTASSIUM 3.5 mmol/L (3.6-5.0)
[2018-01-12 17:01] VITALS: BP 101/60
== END 2018-01-12 17:45 | disposition home or self-care (01) ==
LOC: 4N 18:07
PROVIDERS: ADMIT Internal Medicine; ATTEND Internal Medicine
DX: E87.6 Hypokalemia (principal); K58.0 Irritable bowel syndrome with diarrhea; M19.90 Unspecified osteoarthritis, unspecified site; I10 Essential (primary) hypertension; E78.5 Hyperlipidemia, unspecified; Z79.899 Other long term (current) drug therapy; Z90.49 Acquired absence of other specified parts of digestive tract; Z59.8 Other problems related to housing and economic circumstances; Z96.651 Presence of right artificial knee joint; Z79.82 Long term (current) use of aspirin
CPT/HCPCS: 36415 ×2; 85027; 80048 ×2; G0378 ×2; J3480 ×2; J3490 ×2; J1650; A9270 ×2

== ENCOUNTER 2018-04-05 06:46 | Emergency (ER) | payer BC ==
--- NOTE | 2018-04-05 07:27 | ER Document Report ---
ED General - General Chief Complaint: Dizziness Stated Complaint: DIZZINESS Time Seen by Provider: 04/05/18 07:08 TRAVEL OUTSIDE OF THE [place] IN LAST 30 DAYS: No - HPI Patient complains to provider of: Cramping and some fatigue Onset: Last week - This 47-year-old female presents for evaluation of weakness and fatigue over the last several days which she associates with previously low levels of potassium. She notes that she has had episodes in the past of hypokalemia and she is followed by her physician for this, she has also had a lot of stressors in her life recently having to move on exert herself. She is concerned that this may be part of her problem at this time as she does suffer from fibromyalgia and occasionally her nerves seem to flareup. She denies any fevers or chills, chest pain, shortness of breath, she does suffer from IBS and has had some diarrhea, she denies any dysuria or constipation, she denies any episodes of emesis. She denies any loss of consciousness but does endorse some modest lightheadedness. Nothing seemed to make it any better other than rest, exertion seems to make it worse. - Related Data Allergies/Adverse Reactions: prochlorperazine edisylate [From Compazine] Allergy (Severe, Verified 01/06/18 15:37) PANIC ATTACK doxycycline [Doxycycline] Allergy (Mild, Verified 01/06/18 15:37) RASH hydrocodone [From Vicodin] Allergy (Verified 01/06/18 15:37) Nausea, Vomiting oxycodone [From Percocet] Allergy (Verified 01/06/18 15:37) Nausea, Vomiting prochlorperazine [From Compazine] Allergy (Verified 01/11/18 18:35) Anxiety Past Medical History - General Information source: Patient - Social History Smoking Status: Never Smoker Cigarette use (# per day): No Frequency of alcohol use: None Drug Abuse: None Occupation: Past or Lives with: Family Family History: Reviewed & Not Pertinent, DM - Past Medical History Cardiac Medical History: Reports: Hx Hypercholesterolemia, Hx Hypertension Denies: Hx Atrial Fibrillation, Hx Congestive Heart Failure, Hx Coronary Artery Disease, Hx Heart Attack, Hx Peripheral Vascular Disease, Hx Pulmonary Embolism, Hx Heart Murmur Pulmonary Medical History: Reports: Hx Asthma Denies: Hx Bronchitis, Hx COPD, Hx Pneumonia, Hx Respiratory Failure, Hx Sleep Apnea, Hx Tuberculosis Neurological Medical History: Reports: Hx Migraine, Hx Seizures - x1. Denies: Hx Cerebrovascular Accident Endocrine Medical History: Denies: Hx Diabetes Mellitus Type 1, Hx Diabetes Mellitus Type 2 Renal/ Medical History: Denies: Hx Ovarian Cysts, Hx Peritoneal Dialysis, Hx Pelvic Inflammatory Disease Malignancy Medical History: Denies: Hx Breast Cancer, Hx Cervical Cancer, Hx Leukemia, Hx Lung Cancer, Hx Ovarian Cancer Musculoskeletal Medical History: Reports Hx Arthritis, Reports Hx Fibromyalgia, Denies Hx Multiple Sclerosis, Denies Hx Muscular Dystrophy, Reports Hx Musculoskeletal Trauma Psychiatric Medical History: Denies: Hx Dementia Traumatic Medical History: Denies: Hx Fractures Infectious Medical History: Denies: Hx HIV Past Surgical History: Reports: Hx Section, Hx Cholecystectomy, Hx Hysterectomy, Hx Orthopedic Surgery - RTK replacement. Denies: Hx Appendectomy , Hx Bowel Surgery, Hx Coronary Artery Bypass Graft, Hx Gastric Bypass Surgery, Hx Herniorrhaphy, Hx Mastectomy, Hx Pacemaker, Hx Tonsillectomy, Hx Tubal Ligation - Immunizations Immunizations up to date: No Hx Diphtheria, Pertussis, Tetanus Vaccination: No Hx Pneumococcal Vaccination: 09/03/00 Review of Systems - Review of Systems Musculoskeletal: See HPI Neurological/Psychological: See HPI -: Yes All other systems reviewed and negative Physical Exam - Vital signs Vitals: Temp Pulse Resp BP Pulse Ox 97.9 F 57 L 18 119/70 99 04/05/18 06:52 04/05/18 06:52 04/05/18 06:52 04/05/18 06:52 04/05/18 06:52 - General General appearance: Appears well In distress: None - HEENT Head: Normocephalic Eyes: Normal Conjunctiva: Normal - Respiratory Respiratory status: No respiratory distress Chest status: Nontender Breath sounds: Normal Chest palpation: Normal - Cardiovascular Rhythm: Regular Heart sounds: Normal auscultation - Abdominal Inspection: Normal Distension: No distension Bowel sounds: Normal - Back Back: Normal - Extremities General upper extremity: Normal inspection General lower extremity: Normal inspection - Neurological Neuro grossly intact: Yes Cognition: Normal Orientation: AAOx4 Kingsley Coma Scale Eye Opening: Spontaneous Kingsley Coma Scale Verbal: Oriented Speech: Normal Cranial nerves: Normal Cerebellar coordination: Normal Motor strength normal: LUE, RUE, LLE, RLE - Psychological Associated symptoms: Normal affect Course - Re-evaluation Re-evalutation: 04/05/18 07:27 This 47-year-old female has a nonspecific constellation of symptoms including fatigue and cramps which she is associated with hypokalemia in the past, she is currently on oral potassium supplementation because of a diuretic which she takes for her blood pressure. She is followed by her outpatient physician for this and has previously had episodes similar. She endorses generalized fatigue and some cramping in the muscles. Given that she is overall well-appearing hemodynamically stable ambulatory will plan for obtaining potassium level as well as an EKG here. We will reassess patient following laboratory evaluation. Chemistry demonstrates relatively normal potassium. Given her reassuring evaluation improvement in symptoms on emergency department without intervention normal potassium and unchanged EKG have discussed with the patient the importance of follow-up and continued monitoring of her potassium. She is in agreement with this plan at this time says she is relieved that it does not appear to be related to anything else is okay going home at this time. 04/05/18 16:19 - Vital Signs Vital signs: Temp Pulse Resp BP Pulse Ox 98.4 F 53 L 16 121/59 L 99 04/05/18 10:53 04/05/18 10:53 04/05/18 10:53 04/05/18 10:53 04/05/18 10:53 - Laboratory Result Diagrams: 04/05/18 07:30 04/05/18 08:30 Laboratory results interpreted by me: 04/05/18 04/05/18 07:30 08:30 Hgb 11.5 L Hct 33.3 L Potassium 3.4 L - EKG Interpretation by [place] EKG shows normal: Sinus rhythm - Sinus bradycardia, 55 beats per minute, normal axis, poor R-wave progression, minimal change from previous EKG 10-09-2017 Discharge - Discharge Clinical Impression: Fatigue Condition: Stable Disposition: HOME, SELF-CARE Instructions: Hypokalemia ([facility]) Additional Instructions: You were seen today in the emergency room for your fatigue and weakness, you had an evaluation including a physical exam, EKG, and blood tests. You should continue to use her potassium supplement as you have been, you may add spinach or banana daily to try and help. You should contact your primary physician about your visit today and schedule a follow-up appointment. Return for any worsening fatigue chest pain shortness of breath or other symptoms.
[2018-04-05 07:43] LABS: ABSOLUTE BASOPHILS # (AUTO) 0.1 10^3/uL (0.0-0.2); ABSOLUTE EOSINOPHILS # (AUTO) 0.1 10^3/uL (0.0-0.6); ABSOLUTE LYMPHOCYTES (AUTO) 2.7 10^3/uL (0.5-4.7); ABSOLUTE MONOCYTES (AUTO) 0.7 10^3/uL (0.1-1.4); ABSOLUTE NEUT (AUTO) 5.1 10^3/uL (1.7-8.2); BASOPHILS % (AUTO) 1.2 % (0-2); EOSINOPHILS % (AUTO) 1.3 % (0-6); HEMATOCRIT 33.3 % (36.0-47.0); HEMOGLOBIN 11.5 g/dL (12.0-15.5); LYMPHOCYTES % (AUTO) 30.8 % (13-45); MEAN CORPUSCULAR HEMOGLOBIN 28.4 pg (27.0-33.4); MEAN CORPUSCULAR HGB CONC 34.4 g/dL (32.0-36.0); MEAN CORPUSCULAR VOLUME 83 fl (80-97); MONOCYTES % (AUTO) 7.8 % (3-13); PLATELET COUNT 380 10^3/uL (150-450); RED BLOOD COUNT 4.03 10^6/uL (3.72-5.28); RED CELL DISTRIBUTION WIDTH 13.5 % (11.5-14.0); SEGMENTED NEUTROPHILS % (AUTO) 58.9 % (42-78); TOTAL CELLS COUNTED % (AUTO) 100 %; WHITE BLOOD COUNT 8.7 10^3/uL (4.0-10.5)
[2018-04-05 09:19] LABS: ANION GAP 14 (5-19); BLOOD UREA NITROGEN 18 mg/dL (7-20); CALCIUM 9.2 mg/dL (8.4-10.2); CARBON DIOXIDE 24 mmol/L (22-30); CHLORIDE 104 mmol/L (98-107); GLUCOSE 103 mg/dL (75-110); POTASSIUM 3.4 mmol/L (3.6-5.0); SODIUM 141.7 mmol/L (137-145)
[2018-04-05 10:55] VITALS: BP 121/59
--- NOTE | 2018-04-05 18:17 | EKG REPORT ---
SEVERITY:- ABNORMAL ECG - SINUS RHYTHM LEFT VENTRICULAR HYPERTROPHY : Confirmed by: Catherine Turner 05-Apr-2018 18:16:19
== END 2018-04-05 10:57 | disposition home or self-care (01) ==
LOC: ER 06:46
DX: R53.83 Other fatigue (principal); R42 Dizziness and giddiness; E78.00 Pure hypercholesterolemia, unspecified; I10 Essential (primary) hypertension; Z88.6 Allergy status to analgesic agent; Z90.49 Acquired absence of other specified parts of digestive tract; Z90.710 Acquired absence of both cervix and uterus; Z96.651 Presence of right artificial knee joint
CPT/HCPCS: 36415; 80048; 85025; 93005; 93010; 99284

== ENCOUNTER 2018-04-29 19:35 | Observation (INO) | payer BC ==
[2018-04-29] MEDS ORDERED: ASPIRIN 81 MG TABLET, CHEWABLE PO ONE ×2 (20:38→22:32)
--- NOTE | 2018-04-29 21:23 | RADIOLOGY REPORT (SQ) ---
EXAM DESCRIPTION: CHEST SINGLE VIEW COMPLETED DATE/TIME: 04/29/2018 9:09 pm REASON FOR STUDY: cp COMPARISON: 10/09/2017 EXAM PARAMETERS: NUMBER OF VIEWS: One view. TECHNIQUE: Single frontal radiographic view of the chest acquired. RADIATION DOSE: NA LIMITATIONS: None. FINDINGS: LUNGS AND PLEURA: No opacities, masses or pneumothorax. No pleural effusion. MEDIASTINUM AND HILAR STRUCTURES: No masses. Contour normal. HEART AND VASCULAR STRUCTURES: Heart normal in size. Normal vasculature. BONES: No acute findings. HARDWARE: None in the chest. OTHER: No other significant finding. IMPRESSION: NO ACUTE RADIOGRAPHIC FINDING IN THE CHEST. TECHNICAL DOCUMENTATION: JOB ID: [id number] [id number] 2010 [employer]- All Rights Reserved Reading location - IP/workstation name: [email or web address]
[2018-04-29] MEDS ORDERED: ONDANSETRON 4 MG TAB.RAPDIS PO ONE (22:33)
--- NOTE | 2018-04-29 22:34 | ER Document Report ---
ED Medical Screen (RME) - General Chief Complaint: Chest Pain Stated Complaint: CHEST PAIN LEFT SIDE Time Seen by Provider: 04/29/18 22:32 Notes: 47-year-old female with chief complaint of chest pain on her left side since yesterday, constant, states earlier she felt nauseated as well. Denies current nausea, does report current pain. No cough, fever, shortness of breath. PMH HTN , HLD. TRAVEL OUTSIDE OF THE [place] IN LAST 30 DAYS: No - Related Data Allergies/Adverse Reactions: prochlorperazine edisylate [From Compazine] Allergy (Severe, Verified 01/06/18 15:37) PANIC ATTACK doxycycline [Doxycycline] Allergy (Mild, Verified 01/06/18 15:37) RASH hydrocodone [From Vicodin] Allergy (Verified 01/06/18 15:37) Nausea, Vomiting oxycodone [From Percocet] Allergy (Verified 01/06/18 15:37) Nausea, Vomiting prochlorperazine [From Compazine] Allergy (Verified 01/11/18 18:35) Anxiety Past Medical History - Past Medical History Cardiac Medical History: Reports: Hx Hypercholesterolemia, Hx Hypertension Denies: Hx Atrial Fibrillation, Hx Congestive Heart Failure, Hx Coronary Artery Disease, Hx Heart Attack, Hx Peripheral Vascular Disease, Hx Pulmonary Embolism, Hx Heart Murmur Pulmonary Medical History: Reports: Hx Asthma Denies: Hx Bronchitis, Hx COPD, Hx Pneumonia, Hx Respiratory Failure, Hx Sleep Apnea, Hx Tuberculosis Neurological Medical History: Reports: Hx Migraine, Hx Seizures - x1. Denies: Hx Cerebrovascular Accident Endocrine Medical History: Denies: Hx Diabetes Mellitus Type 1, Hx Diabetes Mellitus Type 2 Renal/ Medical History: Denies: Hx Ovarian Cysts, Hx Peritoneal Dialysis, Hx Pelvic Inflammatory Disease Malignancy Medical History: Denies: Hx Breast Cancer, Hx Cervical Cancer, Hx Leukemia, Hx Lung Cancer, Hx Ovarian Cancer Musculoskeltal Medical History: Reports Hx Arthritis, Reports Hx Fibromyalgia, Denies Hx Multiple Sclerosis, Denies Hx Muscular Dystrophy, Reports Hx Musculoskeletal Trauma Psychiatric Medical History: Denies: Hx Dementia Traumatic Medical History: Denies: Hx Fractures Infectious Medical History: Denies: Hx HIV Past Surgical History: Reports: Hx Section, Hx Cholecystectomy, Hx Hysterectomy, Hx Orthopedic Surgery - RTK replacement. Denies: Hx Appendectomy , Hx Bowel Surgery, Hx Coronary Artery Bypass Graft, Hx Gastric Bypass Surgery, Hx Herniorrhaphy, Hx Mastectomy, Hx Pacemaker, Hx Tonsillectomy, Hx Tubal Ligation - Immunizations Immunizations up to date: No Hx Diphtheria, Pertussis, Tetanus Vaccination: No History of Influenza Vaccine for 06/2017 - 11/2017 Season: Refused Physical Exam - Vital signs Vitals: Temp Pulse Resp BP Pulse Ox 98.7 F 58 L 20 108/76 98 04/29/18 20:11 04/29/18 20:11 04/29/18 20:11 04/29/18 20:11 04/29/18 20:11 - Respiratory Chest status: Tender - Specific area of pain over the left chest wall Breath sounds: Normal. No: Decreased air movement - Cardiovascular Rhythm: Regular. No: Tachycardia Heart sounds: Normal auscultation, S1 appreciated, S2 appreciated Course - Vital Signs Vital signs: Temp Pulse Resp BP Pulse Ox 98.7 F 58 L 20 108/76 98 04/29/18 20:11 04/29/18 20:11 04/29/18 20:11 04/29/18 20:11 04/29/18 20:11 Doctor's Discharge - Discharge Referrals: JONAH LITTLE MD [Primary Care Provider] - Follow up as needed
[2018-04-30] MEDS ORDERED: MORPHINE SULFATE 10 MG/ML INJ IV ONE (00:17)
--- NOTE | 2018-04-30 00:35 | ER Document Report ---
ED General - General Chief Complaint: Chest Pain Stated Complaint: CHEST PAIN LEFT SIDE Time Seen by Provider: 04/29/18 22:32 TRAVEL OUTSIDE OF THE [place] IN LAST 30 DAYS: No - HPI Notes: 47-year-old female, morbidly obese presents with chest pain. Woke up yesterday morning with left substernal chest pain, pressure-like, nonradiating. No associated dyspnea. No pleuritic component. Ongoing and constant since yesterday and into today. No fever, chills or sweats. No use of exogenous estrogens. No lower extremity pain or swelling. No personal or family history of VT E. No other modifying factors, no other associated symptoms, no other provocative or palliative factors. Gradual onset, nonradiating. - Related Data Allergies/Adverse Reactions: prochlorperazine edisylate [From Compazine] Allergy (Severe, Verified 01/06/18 15:37) PANIC ATTACK doxycycline [Doxycycline] Allergy (Mild, Verified 01/06/18 15:37) RASH hydrocodone [From Vicodin] Allergy (Verified 01/06/18 15:37) Nausea, Vomiting oxycodone [From Percocet] Allergy (Verified 01/06/18 15:37) Nausea, Vomiting prochlorperazine [From Compazine] Allergy (Verified 01/11/18 18:35) Anxiety Past Medical History - Social History Smoking Status: Never Smoker Family History: Reviewed & Not Pertinent, DM - Past Medical History Cardiac Medical History: Reports: Hx Hypercholesterolemia, Hx Hypertension Denies: Hx Atrial Fibrillation, Hx Congestive Heart Failure, Hx Coronary Artery Disease, Hx Heart Attack, Hx Peripheral Vascular Disease, Hx Pulmonary Embolism, Hx Heart Murmur Pulmonary Medical History: Reports: Hx Asthma Denies: Hx Bronchitis, Hx COPD, Hx Pneumonia, Hx Respiratory Failure, Hx Sleep Apnea, Hx Tuberculosis Neurological Medical History: Reports: Hx Migraine, Hx Seizures - x1. Denies: Hx Cerebrovascular Accident Endocrine Medical History: Denies: Hx Diabetes Mellitus Type 1, Hx Diabetes Mellitus Type 2 Renal/ Medical History: Denies: Hx Ovarian Cysts, Hx Peritoneal Dialysis, Hx Pelvic Inflammatory Disease Malignancy Medical History: Denies: Hx Breast Cancer, Hx Cervical Cancer, Hx Leukemia, Hx Lung Cancer, Hx Ovarian Cancer Musculoskeletal Medical History: Reports Hx Arthritis, Reports Hx Fibromyalgia, Denies Hx Multiple Sclerosis, Denies Hx Muscular Dystrophy, Reports Hx Musculoskeletal Trauma Psychiatric Medical History: Denies: Hx Dementia Traumatic Medical History: Denies: Hx Fractures Infectious Medical History: Denies: Hx HIV Past Surgical History: Reports: Hx Section, Hx Cholecystectomy, Hx Hysterectomy, Hx Orthopedic Surgery - RTK replacement. Denies: Hx Appendectomy , Hx Bowel Surgery, Hx Coronary Artery Bypass Graft, Hx Gastric Bypass Surgery, Hx Herniorrhaphy, Hx Mastectomy, Hx Pacemaker, Hx Tonsillectomy, Hx Tubal Ligation - Immunizations Immunizations up to date: No Hx Diphtheria, Pertussis, Tetanus Vaccination: No Hx Pneumococcal Vaccination: 09/03/00 Review of Systems - Review of Systems Notes: Review of systems as in the history of present illness, otherwise negative x 10 systems. Physical Exam - Vital signs Vitals: Temp Pulse Resp BP Pulse Ox 98.7 F 58 L 20 108/76 98 04/29/18 20:11 04/29/18 20:11 04/29/18 20:11 04/29/18 20:11 04/29/18 20:11 - Notes Notes: General: Well developed . HEENT: Normocephalic, atraumatic. Pupils equal round reactive to light. No JVD. Chest: No trauma. Respiratory: Good air exchange, normal excursion. Cardiac: Regular rhythm. No murmurs or gallops. Abdomen: Soft, benign. Nondistended. Nontender. Back: No asymmetry or gross abnormality. Motor: Grossly normal power and tone. Neurologic: Alert, nonfocal. Cranial nerves II-12 are intact. Sensation intact. Vascular: Well perfused. Normal peripheral pulses. Skin: No petechiae or purpura. Course - Re-evaluation Re-evalutation: 04/30/18 00:34 47-year-old female the after mentioned symptoms. Somewhat atypical chest pain. She does have a history of previous strokes with resolved symptoms. . Consider Esophageal spasm or reflux. Atypical chest pain, pneumonia or other etiology. Labs and studies ordered by physician in triage. Currently pending. Will treat with additional analgesia, reevaluate. 12 Lead ECG Analysis A 12 lead ECG is obtained and shows a sinus rhythm, normal QRS, normal QTC. There are nonspecific ST-T changes, no evidence of acute ischemic changes. Accounting for variations in lead placement, unchanged when compared from April 05, 2018 04/30/18 01:50 Patient has had persistent pain despite administration of morphine. Blood pressures been somewhat lower, precluding use of nitrates. Labs reviewed, CBC normal, chemistries normal with the exception of a depressed potassium 2.8. She has been given oral potassium supplementation. She has a chronic history of hypokalemia due to her IBS and diarrhea. Of note, patient was noted to be in atrial flutter with variable block and controlled rate. This is a new finding. However, when we attempted to obtain her follow-up ECG, she converted back into sinus rhythm. She does have a higher chads 2 VASC score, would benefit from anticoagulation. I spoke with her primary care doctor who is agreed to place her in the IMCU for rule out and further workup. She is given Lovenox in the ED. - Vital Signs Vital signs: Temp Pulse Resp BP Pulse Ox 98.2 F 58 L 13 99/59 L 99 04/30/18 00:25 04/29/18 20:11 04/30/18 01:01 04/30/18 01:01 04/30/18 01:01 - Laboratory Result Diagrams: 04/30/18 00:30 04/30/18 00:30 Laboratory results interpreted by me: 04/30/18 04/30/18 00:30 00:30 Hgb 11.4 L Hct 33.3 L Potassium 2.8 L* Est GFR (Non-Af Amer) 59 L Creatine Kinase 278 H Total Protein 8.3 H Discharge - Discharge Clinical Impression: Chest pain Qualifiers: Chest pain type: unspecified Qualified Code(s): R07.9 - Chest pain, unspecified Atrial flutter Qualifiers: Atrial flutter type: unspecified Qualified Code(s): I48.92 - Unspecified atrial flutter Condition: Serious Disposition: ADMITTED OBSERVATION Admitting Provider: Mike Unit Admitted: [facility] Referrals: JONAH LITTLE MD [Primary Care Provider] - Follow up as needed
[2018-04-30 00:43] LABS: ABSOLUTE BASOPHILS # (AUTO) 0.1 10^3/uL (0.0-0.2); ABSOLUTE EOSINOPHILS # (AUTO) 0.1 10^3/uL (0.0-0.6); ABSOLUTE LYMPHOCYTES (AUTO) 2.9 10^3/uL (0.5-4.7); ABSOLUTE MONOCYTES (AUTO) 0.5 10^3/uL (0.1-1.4); ABSOLUTE NEUT (AUTO) 3.5 10^3/uL (1.7-8.2); BASOPHILS % (AUTO) 1.2 % (0-2); EOSINOPHILS % (AUTO) 1.5 % (0-6); HEMATOCRIT 33.3 % (36.0-47.0); HEMOGLOBIN 11.4 g/dL (12.0-15.5); LYMPHOCYTES % (AUTO) 41.2 % (13-45); MEAN CORPUSCULAR HEMOGLOBIN 28.1 pg (27.0-33.4); MEAN CORPUSCULAR HGB CONC 34.2 g/dL (32.0-36.0); MEAN CORPUSCULAR VOLUME 82 fl (80-97); MONOCYTES % (AUTO) 6.9 % (3-13); PLATELET COUNT 347 10^3/uL (150-450); RED BLOOD COUNT 4.07 10^6/uL (3.72-5.28); RED CELL DISTRIBUTION WIDTH 13.6 % (11.5-14.0); SEGMENTED NEUTROPHILS % (AUTO) 49.2 % (42-78); TOTAL CELLS COUNTED % (AUTO) 100 %; WHITE BLOOD COUNT 7.1 10^3/uL (4.0-10.5)
[2018-04-30 01:11] LABS: ALANINE AMINOTRANSFERASE 15 U/L (9-52); ALBUMIN 4.1 g/dL (3.5-5.0); ALKALINE PHOSPHATASE 66 U/L (38-126); ANION GAP 13 (5-19); ASPARTATE AMINO TRANSFERASE 32 U/L (14-36); BILIRUBIN,DIRECT 0.3 mg/dL (0.0-0.4); BILIRUBIN,TOTAL 0.5 mg/dL (0.2-1.3); BLOOD UREA NITROGEN 15 mg/dL (7-20); CALCIUM 9.2 mg/dL (8.4-10.2); CARBON DIOXIDE 28 mmol/L (22-30); CHLORIDE 102 mmol/L (98-107); CREATINE KINASE 278 U/L (30-135); GLUCOSE 96 mg/dL (75-110); SODIUM 143.2 mmol/L (137-145); TOTAL PROTEIN 8.3 g/dL (6.3-8.2)
[2018-04-30 01:16] LABS: POTASSIUM 2.8 mmol/L (3.6-5.0)
[2018-04-30 01:22] LABS: CREATINE KINASE MB 0.68 ng/mL (<4.55)
[2018-04-30] MEDS ORDERED: POTASSIUM CHLORIDE 10 MEQ CAPSULE.ER PO ONE ×2 (01:23→23:00)
[2018-04-30 01:25] LABS: TROPONIN I < 0.012 ng/mL
[2018-04-30] MEDS ORDERED: ENOXAPARIN SODIUM INJ 120 MG/0.8 ML DISP.SYRIN SUBCUT ONE (02:00)
[2018-04-30] MEDS ORDERED: POTASSI CL 40 MEQ/NS 1L 1,000 ML IV PRN (02:06)
[2018-04-30] MEDS ORDERED: ASPIRIN 81 MG TABLET, CHEWABLE PO ONE (02:35)
[2018-04-30 02:39] LABS: INTERNATIONAL RATION (INR) 1.02; PROTHROMBIN TIME 13.9 SEC (11.4-15.4)
[2018-04-30] MEDS ORDERED: POTASSI CL 20 MEQ/NS 1L 1,000 ML IV ONE (02:45)
[2018-04-30 02:51] LABS: PHOSPHORUS 3.6 mg/dL (2.5-4.5)
[2018-04-30 03:09] LABS: FREE T4 (FREE THYROXINE) 0.91 ng/dL (0.78-2.19)
[2018-04-30] MEDS: POTASSI CL 20 MEQ/NS 1L 1,000 ML IV PRN ×2 (03:22→18:55)
[2018-04-30 03:23] LABS: THYROID STIMULATING HORMONE 2.42 uIU/mL (0.47-4.68)
[2018-04-30] MEDS ORDERED: HYDROMORPHONE HCL INJ/PF 2 MG/ML AMPULE IV ONE (03:37)
--- NOTE | 2018-04-30 07:40 | EKG REPORT ---
SEVERITY:- ABNORMAL ECG - SINUS RHYTHM NONSPECIFIC INTRAVENTRICULAR CONDUCTION DELAY LEFT VENTRICULAR HYPERTROPHY : Confirmed by: Diego Woods MD 30-Apr-2018 07:40:15
--- NOTE | 2018-04-30 07:42 | EKG REPORT ---
SEVERITY:- ABNORMAL ECG - SINUS RHYTHM LEFT VENTRICULAR HYPERTROPHY NEW T INVERSION IN ANTERIOR LEADS COMPARED WITH 04/05/18 EKG : Confirmed by: Diego Woods MD 30-Apr-2018 07:41:38
[2018-04-30] MEDS ORDERED: ONDANSETRON HCL 8 MG TABLET PO PRN (08:21)
[2018-04-30 09:15] LABS: CREATINE KINASE MB 0.61 ng/mL (<4.55)
[2018-04-30 09:20] LABS: TROPONIN I < 0.012 ng/mL
[2018-04-30] MEDS: ENOXAPARIN SODIUM INJ 30 MG/0.3 ML DISP.SYRIN SUBCUT SCH (09:57)
--- NOTE | 2018-04-30 10:38 | Physician Advisory Note ---
Physician Advisor ProgressNote .: Pursuant to the plan for Erin Reeder, I have reviewed the medical record for this patient. Physician Advisor Statement: 47yo w/atypical CP, persistent hypokalemia presumably related to IBS-D, showed evidence of paroxysmal Aflutter w/variable block in ED. Please consider documenting, if you agree: 1. "CP, suspect likely due to " 2. type of Aflutter/fib - paroxysmal, or persistent, or ... 3. Medical necessity: if pt doesn't respond to tx's as expected, not safe for d/c 05/01, please document the continued clinical issues/concerns (" not back to baseline", "recurrent ", "I AM CONCERNED about ", ...), & then may be appropriate for change to Inpatient status. Thanks! CK
[2018-04-30 15:14] LABS: TROPONIN I < 0.012 ng/mL
--- NOTE | 2018-04-30 18:49 | XCELERA REPORT ---
[address] [address] Transthoracic Echocardiogram Report Name: SARAVANAN ESCALANTE Age: 47 yrs Gender: Female : 1970 [facility]: 04/30/2018 10:05 AM Height: 69 in Weight: 268 lb BSA: 2.3 m2 Procedure: A complete two-dimensional transthoracic echocardiogram was performed (2D, M-mode, spectral and color flow Doppler). The study was technically difficult with many images being suboptimal in quality. Reason For Study: paroxysmal a-fib/a-flutter Ordering Physician: JONAH LITTLE Performed By: Amy Gray Interpretation Summary The left ventricular ejection fraction is normal. There is mild concentric left ventricular hypertrophy. The left ventricle is grossly normal size. Doppler measurements suggest pseudonormalized left ventricular relaxation, which is associated with grade II/IV or mild to moderate diastolic dysfunction Wall motion cannot be accurately commented on, but no definite regional wall motion abnormalities noted. The right ventricular systolic function is normal. Borderline left atrial enlargement. The right atrium is normal in size There is a trace to mild amount of mitral regurgitation There is no mitral valve stenosis. No aortic regurgitation is present. There is no aortic valve stenosis There is no tricuspid stenosis. No tricuspid regurgitation. The aortic root is not well visualized but is probably normal size. The inferior vena cava was not well visualized There is no pericardial effusion. MMode/2D Measurements & Calculations RVDd: 3.1 cm LVIDd: 5.1 cm FS: 31.0 % Ao root diam: 2.9 cm IVSd: 1.0 cm LVIDs: 3.5 cm EDV(Teich): 124.4 ml Ao root area: 6.6 cm2 LVPWd: 1.0 cm ESV(Teich): 51.9 ml LA dimension: 3.4 cm EF(Teich): 58.3 % Doppler Measurements & Calculations MV E max lore: MV P1/2t max lore: Ao V2 max: LV V1 max P.9 cm/sec 87.9 cm/sec 146.2 cm/sec 4.6 mmHg MV A max lore: MV P1/2t: 67.8 msec Ao max PG: LV V1 max: 71.6 cm/sec MVA(P1/2t): 3.2 cm2 8.6 mmHg 107.6 cm/sec MV E/A: 1.2 MV dec slope: 379.6 cm/sec2 MV dec time: 0.20 sec PA V2 max: PI end-d lore: TR max lore: MV P1/2t-pr_phl: 99.2 cm/sec 57.6 cm/sec 248.7 cm/sec 67.8 msec PA max PG: TR max P.9 mmHg 24.7 mmHg Left Ventricle The left ventricle is grossly normal size. There is mild concentric left ventricular hypertrophy. The left ventricular ejection fraction is normal. Doppler measurements suggest pseudonormalized left ventricular relaxation, which is associated with grade II/IV or mild to moderate diastolic dysfunction. Wall motion cannot be accurately commented on, but no definite regional wall motion abnormalities noted. Right Ventricle The right ventricle is grossly normal size. There is normal right ventricular wall thickness. The right ventricular systolic function is normal. Atria The right atrium is normal in size. Borderline left atrial enlargement. Mitral Valve The mitral valve is grossly normal. There is no mitral valve stenosis. There is a trace to mild amount of mitral regurgitation. Aortic Valve The aortic valve is grossly normal. There is no aortic valve stenosis. No aortic regurgitation is present. Tricuspid Valve The tricuspid valve is not well visualized, but is grossly normal. There is no tricuspid stenosis. No tricuspid regurgitation. Pulmonic Valve The pulmonic valve is not well seen, but is grossly normal. There is no pulmonic valvular stenosis. There is a trace or physiologic amount of pulmonic regurgitation. Great Vessels The aortic root is not well visualized but is probably normal size. The inferior vena cava was not well visualized. Effusions There is no pericardial effusion. : JONAH LITTLE > Catherine Turner
[2018-04-30 18:53] LABS: ALANINE AMINOTRANSFERASE 55 U/L (9-52); ALBUMIN 3.3 g/dL (3.5-5.0); ALKALINE PHOSPHATASE 83 U/L (38-126); ANION GAP 12 (5-19); ASPARTATE AMINO TRANSFERASE 75 U/L (14-36); BILIRUBIN,DIRECT 0.3 mg/dL (0.0-0.4); BILIRUBIN,TOTAL 0.8 mg/dL (0.2-1.3); BLOOD UREA NITROGEN 13 mg/dL (7-20); CALCIUM 8.8 mg/dL (8.4-10.2); CARBON DIOXIDE 25 mmol/L (22-30); CHLORIDE 105 mmol/L (98-107); GLUCOSE 97 mg/dL (75-110); POTASSIUM 3.4 mmol/L (3.6-5.0); SODIUM 141.6 mmol/L (137-145); TOTAL PROTEIN 7.1 g/dL (6.3-8.2)
[2018-04-30 19:35] LABS: CREATINE KINASE MB 0.64 ng/mL (<4.55)
[2018-04-30 19:38] LABS: TROPONIN I < 0.012 ng/mL
--- NOTE | 2018-04-30 21:06 | PDOC H&P ---
History of Present Illness Admission Date/PCP: 04/30/18 02:12 JONAH LITTLE MD History of Present Illness: SARAVANAN ESCALANTE is a 47 year old female, She has a history of irritable bowel syndromediarrhea predominance associated with recurrent hypokalemia. She came to the emergency room for evaluation of chest pain. In the emergency room she stated that the chest pain was substernal but it was not provoked by exertion or emotion, she had a Cardiolite/Lexiscan stress test on 10/21/2017 that was negative. In the emergency room she was found to have episode of paroxysmal atrial flutter, this was non. sustained. 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 She was found to have a low potassium, it was 2.8, the ED physician is recommending inpatient care for this patient because of the paroxysmal atrial flutter,She does not meet the criteria for chronic anticoagulation the ONEYDA-S2 score is 1. 3 sets of cardiac enzymes were negative Past Medical History Cardiac Medical History: Reports: Hyperlipidema, Hypertension Pulmonary Medical History: Reports: Asthma Neurological Medical History: Reports: Migraine GI Medical History: Reports: Other - Irritable bowel syndrome Musculoskeltal Medical History: Reports: Arthritis, Fibromyalgia Hematology: Reports: Anemia Infectious Medical History: Denies: HIV Past Surgical History Past Surgical History: Reports: Section, Cholecystectomy, Hysterectomy , Orthopedic Surgery - RTK replacement Social History Smoking Status: Never Smoker Frequency of Alcohol Use: None Hx Recreational Drug Use: No Drugs: None Hx Prescription Drug Abuse: No - Advance Directive Resuscitation Status: Full Code Family History Family History: Reviewed & Not Pertinent, DM Parental Family History Reviewed: Yes Children Family History Reviewed: Yes Sibling(s) Family History Reviewed.: Yes Medication/Allergy Home Medications: Albuterol Sulfate [Proair Hfa Inhalation Aerosol 8.5 gm Mdi] 2 puff IH TIDP PRN 04/30/18 Atorvastatin Calcium [Lipitor 40 mg Tablet] 40 mg PO QHS 04/30/18 Budesonide/Formoterol Fumarate [Symbicort 160-4.5 Mcg Inhaler] 2 puff IH DAILY 04/30/18 Gabapentin [Neurontin] 600 mg PO Q8 04/30/18 Ibuprofen [Motrin 800 mg Tablet] 800 mg PO TIDP PRN 04/30/18 Labetalol HCl [Normodyne 200 mg Tablet] 200 mg PO Q12 04/30/18 Metoclopramide HCl [Reglan 10 mg Tablet] 10 mg PO DAILYP PRN 04/30/18 Olmesartan/Amlodipin/Hcthiazid [Tribenzor 40-10-25 mg Tablet] 1 each PO DAILY Omeprazole 20 mg PO DAILY 04/30/18 Potassium Chloride [Klor-Con M20] 40 meq PO DAILY 04/30/18 Rifaximin [Xifaxan 550 Mg Tablet] 550 mg PO TID 04/30/18 Topiramate [Qudexy Xr] 150 mg PO QHS 04/30/18 Zolpidem Tartrate [Ambien] 10 mg PO QHS 04/30/18 Allergies/Adverse Reactions: prochlorperazine edisylate [From Compazine] Allergy (Severe, Verified 04/30/18 02:00) PANIC ATTACK doxycycline [Doxycycline] Allergy (Mild, Verified 04/30/18 02:00) RASH hydrocodone [From Vicodin] Allergy (Verified 04/30/18 02:00) Nausea, Vomiting oxycodone [From Percocet] Allergy (Verified 04/30/18 02:00) Nausea, Vomiting prochlorperazine [From Compazine] Allergy (Verified 04/30/18 02:00) Anxiety Review of Systems Eyes: ABSENT: visual disturbances Ears: ABSENT: hearing changes Cardiovascular: PRESENT: chest pain Respiratory: ABSENT: cough, hemoptysis Gastrointestinal: PRESENT: abdominal pain, diarrhea Genitourinary: ABSENT: dysuria, hematuria Musculoskeletal: ABSENT: joint swelling Integumentary: ABSENT: rash, wounds Neurological: ABSENT: abnormal gait, abnormal speech, confusion, dizziness, focal weakness, syncope Psychiatric: ABSENT: anxiety, depression, homidical ideation, suicidal ideation Endocrine: ABSENT: cold intolerance, heat intolerance, menstrual abnormalities, polydipsia, polyuria Hematologic/Lymphatic: ABSENT: easy bleeding, easy bruising, lymphadenopathy Physical Exam Vital Signs: Temp Pulse Resp BP Pulse Ox 98.5 F 62 14 120/64 98 04/30/18 20:00 04/30/18 20:00 04/30/18 20:00 04/30/18 20:00 04/30/18 20:00 Intake & Output 04/29/18 04/30/18 05/01/18 06:59 06:59 06:59 Intake Total 1000 Balance 1000 Weight 113.4 kg General appearance: PRESENT: no acute distress, well-developed, well-nourished Head exam: PRESENT: atraumatic, normocephalic Eye exam: PRESENT: conjunctiva pink, EOMI, PERRLA Ear exam: PRESENT: normal external ear exam Mouth exam: PRESENT: moist, tongue midline Neck exam: PRESENT: full ROM Respiratory exam: PRESENT: clear to auscultation mini Cardiovascular exam: PRESENT: RRR, +S1, +S2 Pulses: PRESENT: normal dorsalis pedis pul, +2 pedal pulses bilateral Vascular exam: PRESENT: normal capillary refill GI/Abdominal exam: PRESENT: normal bowel sounds, soft Rectal exam: PRESENT: deferred Neurological exam: PRESENT: alert, CN II-XII grossly intact Psychiatric exam: PRESENT: appropriate affect, normal mood Skin exam: PRESENT: dry, intact, warm Results Laboratory Results: 04/30/18 14:17 04/30/18 14:17 Sodium 141.6 Potassium 3.4 L Chloride 105 Carbon Dioxide 25 Anion Gap 12 BUN 13 Creatinine 0.96 Est GFR ( Amer) > 60 Est GFR (Non-Af Amer) > 60 Glucose 97 Calcium 8.8 Total Bilirubin 0.8 AST 75 H ALT 55 H Alkaline Phosphatase 83 Total Protein 7.1 Albumin 3.3 L 04/30/18 04/30/18 04/30/18 08:35 08:35 14:17 Creatine Kinase 229 H 230 H CK-MB (CK-2) 0.61 Troponin I < 0.012 04/30/18 04/30/18 04/30/18 14:17 19:00 19:00 Creatine Kinase 232 H CK-MB (CK-2) 0.60 0.64 Troponin I < 0.012 < 0.012 Impressions: Chest X-Ray 04/29/18 20:38 IMPRESSION: NO ACUTE RADIOGRAPHIC FINDING IN THE CHEST. Assessment & Plan - Diagnosis (1) Chest pain Qualifiers: Chest pain type: unspecified Qualified Code(s): R07.9 - Chest pain, unspecified Is this a current diagnosis for this admission?: Yes Plan: The chest pain is noncardiac in character, CPK elevated suggesting the chest pain is most likely from musculoskeletal system. The troponin is negative (2) Paroxysmal atrial flutter Is this a current diagnosis for this admission?: Yes (3) Hypokalemia Is this a current diagnosis for this admission?: Yes Plan: She has hypokalemia due to diarrhea this will be replaced (4) Irritable bowel syndrome with diarrhea Is this a current diagnosis for this admission?: Yes
[2018-04-30] MEDS ORDERED: ALBUTEROL SULFATE HFA (90 MCG/PUFF) 200 PUFF/8.5 GM MDI IH PRN (21:07)
[2018-04-30] MEDS ORDERED: (PENDING PHARMACY ID) (Olmesartan/Amlodipin/Hcthiazid [Tribenzor 40-10-25 Mg Tablet] 1 EAC PO SCH (21:15)
[2018-04-30] MEDS ORDERED: (PENDING PHARMACY ID) (Potassium Chloride [Klor-Con M20] 40 MEQ) PO SCH (21:15)
[2018-04-30] MEDS ORDERED: LOSARTAN POTASSIUM 50 MG TABLET PO SCH (21:45)
[2018-04-30] MEDS ORDERED: HYDROCHLOROTHIAZIDE 25 MG TABLET PO SCH ×2 (21:45)
[2018-04-30] MEDS ORDERED: GABAPENTIN 300 MG CAPSULE PO SCH (22:00)
[2018-04-30] MEDS ORDERED: TOPIRAMATE 150 MG PO SCH ×2 (22:00)
[2018-04-30] MEDS ORDERED: AMLODIPINE BESYLATE 10 MG TABLET PO SCH (22:00)
[2018-04-30] MEDS ORDERED: ATORVASTATIN CALCIUM 40 MG TABLET PO SCH (22:00)
[2018-04-30] MEDS ORDERED: (PENDING PHARMACY ID) (Zolpidem Tartrate [Ambien] 10 MG) PO SCH (22:00)
[2018-04-30] MEDS ORDERED: LABETALOL HCL 200 MG TABLET PO SCH (22:00)
[2018-04-30] MEDS ORDERED: ZOLPIDEM TARTRATE 5 MG TABLET PO SCH (22:00)
[2018-04-30] MEDS ORDERED: POTASSIUM CHLORIDE 10 MEQ CAPSULE.ER PO SCH (22:00)
[2018-04-30] MEDS ORDERED: LABETALOL HCL 200 MG TABLET PO ONE (22:45)
[2018-04-30] MEDS ORDERED: LOSARTAN POTASSIUM 50 MG TABLET PO ONE (22:45)
[2018-04-30] MEDS ORDERED: GABAPENTIN 300 MG CAPSULE PO ONE (22:45)
[2018-04-30] MEDS ORDERED: HYDROCHLOROTHIAZIDE 25 MG TABLET PO ONE ×2 (22:45)
[2018-04-30] MEDS ORDERED: AMLODIPINE BESYLATE 10 MG TABLET PO ONE (23:00)
[2018-04-30] MEDS: BUDESONIDE/FORMOTEROL 160-4.5 MCG 60 PUFF/6 GM MDI IH SCH (23:18)
[2018-05-01 05:11] LABS: HEMATOCRIT 30.9 % (36.0-47.0); HEMOGLOBIN 10.6 g/dL (12.0-15.5); MEAN CORPUSCULAR HEMOGLOBIN 28.1 pg (27.0-33.4); MEAN CORPUSCULAR HGB CONC 34.2 g/dL (32.0-36.0); MEAN CORPUSCULAR VOLUME 82 fl (80-97); PLATELET COUNT 271 10^3/uL (150-450); RED BLOOD COUNT 3.76 10^6/uL (3.72-5.28); RED CELL DISTRIBUTION WIDTH 13.4 % (11.5-14.0); WHITE BLOOD COUNT 5.2 10^3/uL (4.0-10.5)
[2018-05-01 05:39] LABS: ALANINE AMINOTRANSFERASE 48 U/L (9-52); ALBUMIN 3.4 g/dL (3.5-5.0); ALKALINE PHOSPHATASE 76 U/L (38-126); ANION GAP 13 (5-19); ASPARTATE AMINO TRANSFERASE 42 U/L (14-36); BILIRUBIN,DIRECT 0.2 mg/dL (0.0-0.4); BILIRUBIN,TOTAL 0.5 mg/dL (0.2-1.3); BLOOD UREA NITROGEN 12 mg/dL (7-20); CALCIUM 8.9 mg/dL (8.4-10.2); CARBON DIOXIDE 23 mmol/L (22-30); CHLORIDE 109 mmol/L (98-107); GLUCOSE 98 mg/dL (75-110); POTASSIUM 3.6 mmol/L (3.6-5.0); SODIUM 144.8 mmol/L (137-145); TOTAL PROTEIN 6.9 g/dL (6.3-8.2)
[2018-05-01] MEDS ORDERED: LANSOPRAZOLE 15 MG TAB.RAP.DR PO SCH (06:00)
[2018-05-01] MEDS: GABAPENTIN 300 MG CAPSULE PO SCH ×2 (06:35→13:40)
--- NOTE | 2018-05-01 07:47 | EKG REPORT ---
SEVERITY:- BORDERLINE ECG - SINUS RHYTHM NONSPECIFIC ST-T CHANGES- INFERIOR LEADS UNCHANGED : Confirmed by: Diego Woods MD 01-May-2018 07:47:03
[2018-05-01 07:56] LABS: APPEARANCE,URINE CLEAR; BILIRUBIN,URINE NEGATIVE (NEGATIVE); COLOR,URINE YELLOW; GLUCOSE, URINE NEGATIVE (NEGATIVE); KETONES,URINE NEGATIVE (NEGATIVE); LEUKOCYTE ESTERASE,URINE NEGATIVE (NEGATIVE); NITRITE,URINE NEGATIVE (NEGATIVE); PROTEIN,URINE NEGATIVE (NEGATIVE); URINE SPECIFIC GRAVITY 1.012
[2018-05-01] MEDS: ENOXAPARIN SODIUM INJ 30 MG/0.3 ML DISP.SYRIN SUBCUT SCH (09:49)
[2018-05-01] MEDS: BUDESONIDE/FORMOTEROL 160-4.5 MCG 60 PUFF/6 GM MDI IH SCH (09:51)
[2018-05-01] MEDS ORDERED: LABETALOL HCL 200 MG TABLET PO SCH (10:00)
[2018-05-01] MEDS: POTASSI CL 20 MEQ/NS 1L 1,000 ML IV PRN (11:13)
[2018-05-01] MEDS ORDERED: KETOROLAC TROMETHAMINE INJ/PF 30 MG/1 ML SDV ONE (13:35)
[2018-05-01 16:17] VITALS: BP 103/53
--- NOTE | 2018-05-01 16:48 | PDOC DISCHARGE SUMMARY ---
General - Admit/Disc Date/PCP Admission Date/Primary Care Provider: 04/30/18 02:12 JONAH LITTLE MD Discharge Date: 05/01/18 - Discharge Diagnosis (1) Chest pain Is this a current diagnosis for this admission?: Yes (2) Paroxysmal atrial flutter Is this a current diagnosis for this admission?: Yes (3) Hypokalemia Is this a current diagnosis for this admission?: Yes (4) Irritable bowel syndrome with diarrhea Is this a current diagnosis for this admission?: Yes - Additional Information Resuscitation Status: Full Code Prescriptions: Potassium Chloride 40 meq PO DAILY #450 liquid Home Medications: Albuterol Sulfate [Proair HFA Inhalation Aerosol 8.5 gm MDI] 2 puff IH TIDP PRN 04/30/18 Atorvastatin Calcium [Lipitor 40 mg Tablet] 40 mg PO QHS 04/30/18 Budesonide/Formoterol Fumarate [Symbicort 160-4.5 Mcg Inhaler] 2 puff IH DAILY 04/30/18 Gabapentin [Neurontin] 600 mg PO Q8 04/30/18 Labetalol HCl [Normodyne 200 mg Tablet] 200 mg PO Q12 04/30/18 Olmesartan/Amlodipin/Hcthiazid [Tribenzor 40-10-25 mg Tablet] 1 each PO DAILY Omeprazole 20 mg PO DAILY 04/30/18 Topiramate [Qudexy Xr] 150 mg PO QHS 04/30/18 Potassium Chloride 40 meq PO DAILY #450 liquid 05/01/18 History of Present Illness History of Present Illness: SARAVANAN ESCALANTE is a 47 year old female, She has a history of irritable bowel syndromediarrhea predominance associated with recurrent hypokalemia. She came to the emergency room for evaluation of chest pain. In the emergency room she stated that the chest pain was substernal but it was not provoked by exertion or emotion, she had a Cardiolite/Lexiscan stress test on 10/21/2017 that was negative. In the emergency room she was found to have episode of paroxysmal atrial flutter, this was non. sustained. 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 She was found to have a low potassium, it was 2.8, the ED physician is recommending inpatient care for this patient because of the paroxysmal atrial flutter,She does not meet the criteria for chronic anticoagulation the ONEYDA-S2 score is 1. 3 sets of cardiac enzymes were negative Hospital Course Hospital Course: She was admitted for the management of chest pain due to musculoskeletal system. The chest pain was relieved with a dose of IV Toradol. She had hypokalemia this was replaced, the hyperkalemia is due to IBS-D Physical Exam Vital Signs: Temp Pulse Resp BP Pulse Ox 97.9 F 57 L 16 103/53 L 100 05/01/18 16:00 05/01/18 16:00 05/01/18 16:00 05/01/18 16:00 05/01/18 16:00 Intake & Output 04/30/18 05/01/18 05/02/18 06:59 06:59 06:59 Intake Total 1444 1000 Balance 1444 1000 Weight 112.5 kg General appearance: PRESENT: no acute distress Head exam: PRESENT: atraumatic, normocephalic Eye exam: PRESENT: conjunctiva pink, EOMI, PERRLA. ABSENT: scleral icterus Ear exam: PRESENT: normal external ear exam Mouth exam: PRESENT: moist, tongue midline Neck exam: PRESENT: full ROM Respiratory exam: PRESENT: clear to auscultation mini Cardiovascular exam: PRESENT: RRR, +S1, +S2 Pulses: PRESENT: normal dorsalis pedis pul, +2 pedal pulses bilateral Vascular exam: PRESENT: normal capillary refill GI/Abdominal exam: PRESENT: normal bowel sounds, soft Rectal exam: PRESENT: deferred Neurological exam: PRESENT: alert Psychiatric exam: PRESENT: appropriate affect, normal mood Skin exam: PRESENT: dry, intact, warm Results Laboratory Results: 05/01/18 04:06 05/01/18 04:06 04/30/18 05/01/18 05/01/18 14:17 04:06 04:06 WBC 5.2 RBC 3.76 Hgb 10.6 L Hct 30.9 L MCV 82 MCH 28.1 MCHC 34.2 RDW 13.4 Plt Count 271 Sodium 141.6 144.8 Potassium 3.4 L 3.6 Chloride 105 109 H Carbon Dioxide 25 23 Anion Gap 12 13 BUN 13 12 Creatinine 0.96 1.02 Est GFR ( Amer) > 60 > 60 Est GFR (Non-Af Amer) > 60 58 L Glucose 97 98 Calcium 8.8 8.9 Total Bilirubin 0.8 0.5 AST 75 H 42 H ALT 55 H 48 Alkaline Phosphatase 83 76 Total Protein 7.1 6.9 Albumin 3.3 L 3.4 L Urine Color Urine Appearance Urine pH Ur Specific [place] Urine Protein Urine Glucose (UA) Urine Ketones Urine Blood Urine Nitrite Ur Leukocyte Esterase Urine WBC (Auto) Urine RBC (Auto) 05/01/18 06:54 WBC RBC Hgb Hct MCV MCH MCHC RDW Plt Count Sodium Potassium Chloride Carbon Dioxide Anion Gap BUN Creatinine Est GFR ( Amer) Est GFR (Non-Af Amer) Glucose Calcium Total Bilirubin AST ALT Alkaline Phosphatase Total Protein Albumin Urine Color YELLOW Urine Appearance CLEAR Urine pH 6.0 Ur Specific [place] 1.012 Urine Protein NEGATIVE Urine Glucose (UA) NEGATIVE Urine Ketones NEGATIVE Urine Blood NEGATIVE Urine Nitrite NEGATIVE Ur Leukocyte Esterase NEGATIVE Urine WBC (Auto) 1 Urine RBC (Auto) 0 04/30/18 04/30/18 04/30/18 08:35 08:35 14:17 Creatine Kinase 229 H 230 H CK-MB (CK-2) 0.61 Troponin I < 0.012 04/30/18 04/30/18 04/30/18 14:17 19:00 19:00 Creatine Kinase 232 H CK-MB (CK-2) 0.60 0.64 Troponin I < 0.012 < 0.012 Impressions: Chest X-Ray 04/29/18 20:38 IMPRESSION: NO ACUTE RADIOGRAPHIC FINDING IN THE CHEST. Qualifiers - * PATIENT BEING DISCHARGED WITH ANY OF THE FOLLOWING DIAGNOSIS: No
[2018-05-01] MEDS ORDERED: POTASSIUM CHLORIDE 10 MEQ CAPSULE.ER PO SCH (22:00)
[2018-05-01] MEDS ORDERED: LOSARTAN POTASSIUM 50 MG TABLET PO SCH (22:00)
[2018-05-01] MEDS ORDERED: HYDROCHLOROTHIAZIDE 25 MG TABLET PO SCH (22:00)
[2018-05-01] MEDS ORDERED: AMLODIPINE BESYLATE 10 MG TABLET PO SCH (22:00)
[2018-05-02] MEDS ORDERED: ENOXAPARIN SODIUM INJ 40 MG/0.4 ML DISP.SYRIN SUBCUT SCH (10:00)
== END 2018-05-01 17:49 | disposition home or self-care (01) ==
LOC: ER 19:35 → EH 04-30 02:12 → 5 04-30 12:11
PROVIDERS: ADMIT Internal Medicine; ATTEND Internal Medicine
DX: R07.2 Precordial pain (principal); I48.92 Unspecified atrial flutter; E87.6 Hypokalemia; K58.0 Irritable bowel syndrome with diarrhea; E87.5 Hyperkalemia; I10 Essential (primary) hypertension; J45.909 Unspecified asthma, uncomplicated; E78.5 Hyperlipidemia, unspecified; E66.01 Morbid (severe) obesity due to excess calories; Z68.36 Body mass index [BMI] 36.0-36.9, adult; Z79.899 Other long term (current) drug therapy; Z90.49 Acquired absence of other specified parts of digestive tract; Z90.710 Acquired absence of both cervix and uterus; Z86.73 Personal history of transient ischemic attack (TIA), and cerebral infarction without residual deficits
CPT/HCPCS: 93005 ×3; 99285; 96374; 36415 ×2; 84439; 82553; 82550; 83735; 84100; 84443; 84703; 85025; 85027; 85610; 85730; 80076; 80048; 80053; 81001; 84484; 83880; 93306; 71045; 93010 ×3; G0378 ×3; S0119 ×2; J3490; J1650 ×3; J1885; J2270; J1170; J3480 ×2

== ENCOUNTER 2018-05-06 18:47 | Emergency (ER) | payer BC ==
[2018-05-06] MEDS ORDERED: KETOROLAC TROMETHAMINE 60 MG/2 ML SDV IM ONE (19:15)
[2018-05-06] MEDS ORDERED: ONDANSETRON 4 MG TAB.RAPDIS PO ONE (19:15)
--- NOTE | 2018-05-06 19:17 | ER Document Report ---
ED Medical Screen (RME) - General Chief Complaint: Pain All Over Stated Complaint: NAUSEA,BODY PAIN,HEADACHE Time Seen by Provider: 05/06/18 19:15 Mode of Arrival: Ambulatory Information source: Patient Notes: This is a 47-year-old female with a recent admission for hypokalemia and the presents to the emergency room with weakness, fatigue, nausea, body cramping and muscle pain. TRAVEL OUTSIDE OF THE [place] IN LAST 30 DAYS: No - Related Data Allergies/Adverse Reactions: prochlorperazine edisylate [From Compazine] Allergy (Severe, Verified 05/06/18 18:55) PANIC ATTACK doxycycline [Doxycycline] Allergy (Mild, Verified 05/06/18 18:55) RASH hydrocodone [From Vicodin] Allergy (Verified 05/06/18 18:55) Nausea, Vomiting oxycodone [From Percocet] Allergy (Verified 05/06/18 18:55) Nausea, Vomiting prochlorperazine [From Compazine] Allergy (Verified 05/06/18 18:55) Anxiety Past Medical History - Social History Chew tobacco use (# tins/day): No Drug Abuse: None - Past Medical History Cardiac Medical History: Reports: Hx Hypercholesterolemia, Hx Hypertension Denies: Hx Atrial Fibrillation, Hx Congestive Heart Failure, Hx Coronary Artery Disease, Hx Heart Attack, Hx Peripheral Vascular Disease, Hx Pulmonary Embolism, Hx Heart Murmur Pulmonary Medical History: Reports: Hx Asthma Denies: Hx Bronchitis, Hx COPD, Hx Pneumonia, Hx Respiratory Failure, Hx Sleep Apnea, Hx Tuberculosis Neurological Medical History: Reports: Hx Migraine, Hx Seizures - x1. Denies: Hx Cerebrovascular Accident Endocrine Medical History: Denies: Hx Diabetes Mellitus Type 1, Hx Diabetes Mellitus Type 2 Renal/ Medical History: Denies: Hx Ovarian Cysts, Hx Peritoneal Dialysis, Hx Pelvic Inflammatory Disease Malignancy Medical History: Denies: Hx Breast Cancer, Hx Cervical Cancer, Hx Leukemia, Hx Lung Cancer, Hx Ovarian Cancer Musculoskeltal Medical History: Reports Hx Arthritis, Reports Hx Fibromyalgia, Denies Hx Multiple Sclerosis, Denies Hx Muscular Dystrophy, Reports Hx Musculoskeletal Trauma Psychiatric Medical History: Denies: Hx Dementia Traumatic Medical History: Denies: Hx Fractures Infectious Medical History: Denies: Hx HIV Past Surgical History: Reports: Hx Section, Hx Cholecystectomy, Hx Hysterectomy, Hx Orthopedic Surgery - RTK replacement. Denies: Hx Appendectomy , Hx Bowel Surgery, Hx Coronary Artery Bypass Graft, Hx Gastric Bypass Surgery, Hx Herniorrhaphy, Hx Mastectomy, Hx Pacemaker, Hx Tonsillectomy, Hx Tubal Ligation - Immunizations Immunizations up to date: No Hx Diphtheria, Pertussis, Tetanus Vaccination: No History of Influenza Vaccine for 06/2017 - 11/2017 Season: Refused Physical Exam - Vital signs Vitals: Temp Pulse Resp BP Pulse Ox 97.8 F 65 17 101/66 98 05/06/18 18:55 05/06/18 18:55 05/06/18 18:55 05/06/18 18:55 05/06/18 18:55 Course - Vital Signs Vital signs: Temp Pulse Resp BP Pulse Ox 97.8 F 65 17 101/66 98 05/06/18 18:55 05/06/18 18:55 05/06/18 18:55 05/06/18 18:55 05/06/18 18:55 Doctor's Discharge - Discharge Referrals: JONAH LITTLE MD [Primary Care Provider] - Follow up as needed
[2018-05-06 20:02] LABS: ABSOLUTE BASOPHILS # (AUTO) 0.1 10^3/uL (0.0-0.2); ABSOLUTE EOSINOPHILS # (AUTO) 0.1 10^3/uL (0.0-0.6); ABSOLUTE LYMPHOCYTES (AUTO) 3.2 10^3/uL (0.5-4.7); ABSOLUTE MONOCYTES (AUTO) 0.7 10^3/uL (0.1-1.4); ABSOLUTE NEUT (AUTO) 4.3 10^3/uL (1.7-8.2); BASOPHILS % (AUTO) 0.7 % (0-2); EOSINOPHILS % (AUTO) 0.8 % (0-6); HEMATOCRIT 35.1 % (36.0-47.0); HEMOGLOBIN 11.9 g/dL (12.0-15.5); LYMPHOCYTES % (AUTO) 38.3 % (13-45); MEAN CORPUSCULAR HEMOGLOBIN 28.3 pg (27.0-33.4); MEAN CORPUSCULAR VOLUME 83 fl (80-97); MONOCYTES % (AUTO) 8.8 % (3-13); PLATELET COUNT 346 10^3/uL (150-450); RED BLOOD COUNT 4.23 10^6/uL (3.72-5.28); RED CELL DISTRIBUTION WIDTH 13.6 % (11.5-14.0); SEGMENTED NEUTROPHILS % (AUTO) 51.4 % (42-78); TOTAL CELLS COUNTED % (AUTO) 100 %; WHITE BLOOD COUNT 8.3 10^3/uL (4.0-10.5)
--- NOTE | 2018-05-06 20:03 | ER Document Report ---
ED General - General Chief Complaint: Pain All Over Stated Complaint: NAUSEA,BODY PAIN,HEADACHE Time Seen by Provider: 05/06/18 19:15 Mode of Arrival: Ambulatory Notes: Patient is a 47-year-old female that comes to the emergency department for chief complaint of weakness, intermittent lightheadedness, and generalized body aches. She states she has felt worse over the past 3 days. She was discharged from the hospital 5 days ago after she had been admitted for hypokalemia secondary to IBS-D. Patient denies fever or chills, shortness of breath, chest pain, passing out, or increase in diarrhea from her norm (she usually has 3 episodes of loose stools daily). She denies bloody stools. Past medical history also includes hypertension, hyperlipidemia, asthma, fibromyalgia, cholecystectomy, hysterectomy. TRAVEL OUTSIDE OF THE [place] IN LAST 30 DAYS: No - Related Data Allergies/Adverse Reactions: prochlorperazine edisylate [From Compazine] Allergy (Severe, Verified 05/06/18 18:55) PANIC ATTACK doxycycline [Doxycycline] Allergy (Mild, Verified 05/06/18 18:55) RASH hydrocodone [From Vicodin] Allergy (Verified 05/06/18 18:55) Nausea, Vomiting oxycodone [From Percocet] Allergy (Verified 05/06/18 18:55) Nausea, Vomiting prochlorperazine [From Compazine] Allergy (Verified 05/06/18 18:55) Anxiety Past Medical History - General Information source: Patient - Social History Smoking Status: Never Smoker Chew tobacco use (# tins/day): No Drug Abuse: None Family History: Reviewed & Not Pertinent, DM Patient has suicidal ideation: No Patient has homicidal ideation: No - Past Medical History Cardiac Medical History: Reports: Hx Hypercholesterolemia, Hx Hypertension Denies: Hx Atrial Fibrillation, Hx Congestive Heart Failure, Hx Coronary Artery Disease, Hx Heart Attack, Hx Peripheral Vascular Disease, Hx Pulmonary Embolism, Hx Heart Murmur Pulmonary Medical History: Reports: Hx Asthma Denies: Hx Bronchitis, Hx COPD, Hx Pneumonia, Hx Respiratory Failure, Hx Sleep Apnea, Hx Tuberculosis Neurological Medical History: Reports: Hx Migraine, Hx Seizures - x1. Denies: Hx Cerebrovascular Accident Endocrine Medical History: Denies: Hx Diabetes Mellitus Type 1, Hx Diabetes Mellitus Type 2 Renal/ Medical History: Denies: Hx Ovarian Cysts, Hx Peritoneal Dialysis, Hx Pelvic Inflammatory Disease Malignancy Medical History: Denies: Hx Breast Cancer, Hx Cervical Cancer, Hx Leukemia, Hx Lung Cancer, Hx Ovarian Cancer Musculoskeletal Medical History: Reports Hx Arthritis, Reports Hx Fibromyalgia, Denies Hx Multiple Sclerosis, Denies Hx Muscular Dystrophy, Reports Hx Musculoskeletal Trauma Psychiatric Medical History: Denies: Hx Dementia Traumatic Medical History: Denies: Hx Fractures Infectious Medical History: Denies: Hx HIV Past Surgical History: Reports: Hx Section, Hx Cholecystectomy, Hx Hysterectomy, Hx Orthopedic Surgery - RTK replacement. Denies: Hx Appendectomy , Hx Bowel Surgery, Hx Coronary Artery Bypass Graft, Hx Gastric Bypass Surgery, Hx Herniorrhaphy, Hx Mastectomy, Hx Pacemaker, Hx Tonsillectomy, Hx Tubal Ligation - Immunizations Immunizations up to date: No Hx Diphtheria, Pertussis, Tetanus Vaccination: No Hx Pneumococcal Vaccination: 09/03/00 Review of Systems - Review of Systems Constitutional: See HPI EENT: No symptoms reported Cardiovascular: No symptoms reported Respiratory: No symptoms reported Gastrointestinal: See HPI Genitourinary: No symptoms reported Female Genitourinary: No symptoms reported Musculoskeletal: See HPI Skin: No symptoms reported Hematologic/Lymphatic: No symptoms reported Neurological/Psychological: No symptoms reported Physical Exam - Vital signs Vitals: Temp Pulse Resp BP Pulse Ox 97.8 F 65 17 101/66 98 05/06/18 18:55 05/06/18 18:55 05/06/18 18:55 05/06/18 18:55 05/06/18 18:55 - Notes Notes: GENERAL: Alert, interacts well. No acute distress. HEAD: Normocephalic, atraumatic. EYES: Pupils equal, round, and reactive to light. Extraocular movements intact. ENT: Oral mucosa moist, tongue midline. Normal oropharyngeal exam. NECK: Full range of motion. Supple. Trachea midline. LUNGS: Clear to auscultation bilaterally, no wheezes, rales, or rhonchi. No respiratory distress. HEART: Regular rate and rhythm. No murmur ABDOMEN: Soft, non-tender. Non-distended. Bowel sounds present in all 4 quadrants. EXTREMITIES: Moves all 4 extremities spontaneously. No edema, normal radial and dorsalis pedis pulses bilaterally. No cyanosis. BACK: no cervical, thoracic, lumbar midline tenderness. No saddle anesthesia, normal distal neurovascular exam. NEUROLOGICAL: Alert and oriented x3. Normal speech. [cranial nerves II through XII grossly intact]. PSYCH: Normal affect, normal mood. SKIN: Warm, dry, normal turgor. No rashes or lesions noted. Course - Re-evaluation Re-evalutation: Patient is well-appearing, normal physical exam with no current complaints on my evaluation. Vital signs unremarkable. CBC unremarkable, chemistry shows mildly elevated BUN and creatinine compared to patient's prior with creatinine of 1.3. Her main chemistry is unremarkable. Magnesium and potassium are both unremarkable. Urinalysis shows elevated specific gravity but is otherwise unremarkable. Patient was given IV fluids. Patient with no additional complaints on reevaluation. She did not have chest pain, shortness of breath, syncope, headache, or fever. Discussed results with patient. Patient states she is ready to leave. Patient will follow closely with her provider for additional evaluation of her renal functioning and additional management. Patient is currently at her baseline for diarrhea and IBS symptoms. Patient states understanding and agreement with plan. - Vital Signs Vital signs: Temp Pulse Resp BP Pulse Ox 98.6 F 65 16 113/77 96 05/07/18 00:01 05/06/18 18:55 05/07/18 00:01 05/07/18 00:01 05/07/18 00:01 - Laboratory Result Diagrams: 05/06/18 19:34 05/06/18 21:58 Laboratory results interpreted by me: 05/06/18 05/06/18 05/06/18 19:34 21:41 21:58 Hgb 11.9 L Hct 35.1 L BUN 21 H Creatinine 1.30 H Est GFR ( Amer) 53 L Est GFR (Non-Af Amer) 44 L Creatine Kinase 199 H Urine Urobilinogen 4.0 H Discharge - Discharge Clinical Impression: Body aches, Lightheadedness, Dehydration Condition: Stable Disposition: HOME, SELF-CARE Additional Instructions: You have been rehydrated. Your kidney functioning will need to be rechecked by her primary care provider, today her creatinine was 1.3. Remaining evaluation and workup does not show concerning abnormality at this time. Return if you worsen including passing out, vomiting, fever, chest pain, shortness of breath, abdominal pain, bloody stools, or any other concerning or worsening symptoms. Referrals: JONAH LITTLE MD [Primary Care Provider] - Follow up as needed
[2018-05-06 22:13] LABS: AMORPHOUS SEDIMENT,URINE TRACE /HPF; APPEARANCE,URINE SLIGHTLY-CLOUDY; BILIRUBIN,URINE NEGATIVE (NEGATIVE); COLOR,URINE YELLOW; GLUCOSE, URINE NEGATIVE (NEGATIVE); KETONES,URINE NEGATIVE (NEGATIVE); LEUKOCYTE ESTERASE,URINE NEGATIVE (NEGATIVE); NITRITE,URINE NEGATIVE (NEGATIVE); PROTEIN,URINE NEGATIVE (NEGATIVE)
[2018-05-06 22:29] LABS: ALANINE AMINOTRANSFERASE 33 U/L (9-52); ALBUMIN 3.9 g/dL (3.5-5.0); ALKALINE PHOSPHATASE 71 U/L (38-126); ANION GAP 10 (5-19); ASPARTATE AMINO TRANSFERASE 18 U/L (14-36); BILIRUBIN,DIRECT 0.3 mg/dL (0.0-0.4); BILIRUBIN,TOTAL 0.8 mg/dL (0.2-1.3); BLOOD UREA NITROGEN 21 mg/dL (7-20); CALCIUM 9.1 mg/dL (8.4-10.2); CARBON DIOXIDE 27 mmol/L (22-30); CHLORIDE 102 mmol/L (98-107); CREATINE KINASE 199 U/L (30-135); GLUCOSE 90 mg/dL (75-110); POTASSIUM 3.6 mmol/L (3.6-5.0); SODIUM 138.6 mmol/L (137-145); TOTAL PROTEIN 7.7 g/dL (6.3-8.2)
[2018-05-06] MEDS ORDERED: NORMAL SALINE 1000 ML 1,000 ML IV ONE (22:39)
[2018-05-07 00:06] VITALS: BP 113/77
--- NOTE | 2018-05-07 07:23 | EKG REPORT ---
SEVERITY:- ABNORMAL ECG - SINUS RHYTHM LEFT VENTRICULAR HYPERTROPHY : Confirmed by: Diego Woods MD 07-May-2018 07:22:49
== END 2018-05-07 00:16 | disposition home or self-care (01) ==
LOC: ER 18:47
DX: M79.1 Myalgia (principal); E86.0 Dehydration; R42 Dizziness and giddiness; R11.0 Nausea; R51 Headache; R53.1 Weakness; E87.6 Hypokalemia; I10 Essential (primary) hypertension; E78.5 Hyperlipidemia, unspecified; J45.909 Unspecified asthma, uncomplicated; Z90.49 Acquired absence of other specified parts of digestive tract; Z90.710 Acquired absence of both cervix and uterus
CPT/HCPCS: 93005; 99284; 96372; 96360; 36415; 82550; 83735; 85025; 80053; 81001; 93010; J1885; S0119; J7030

== ENCOUNTER 2018-07-04 18:29 | Emergency (ER) | payer BC ==
[2018-07-04] MEDS ORDERED: ASPIRIN 81 MG TABLET, CHEWABLE PO ONE (19:09)
--- NOTE | 2018-07-04 19:13 | ER Document Report ---
ED Medical Screen (RME) - General Chief Complaint: Abnormal Lab Results Stated Complaint: ABNORMAL LABS Time Seen by Provider: 07/04/18 19:04 Notes: 47-year-old female presents emergency department with complaints of chest pain, hand pain, possibly low potassium. Patient states that she has a history of hypokalemia. She followed up with her primary care physician on Sunday and had her blood drawn. Patient was contacted by her primary care physician's office and told that the blood hemolyzed. Patient states that she is still continuing to have the same symptoms and was told to go to the emergency department for evaluation. Patient describes her chest pain is her pressure sensation in the left chest. She denies any radiation of the pain. She denies any alleviating or exacerbating factors. Patient states that it is intermittent in nature. She is not currently having chest pain at this moment. She denies any shortness of breath. She states that she is having intermittent hand pain. She states that this is what happens when her potassium gets low. I have greeted and performed a rapid initial assessment of this patient. A comprehensive ED assessment and evaluation of the patient, analysis of test results and completion of the medical decision making process will be conducted by additional ED providers. PHYSICAL EXAMINATION: GENERAL: Well-appearing, well-nourished and in no acute distress. HEAD: Atraumatic, normocephalic. EYES: Pupils equal round extraocular movements intact, conjunctiva are normal. ENT: Nares patent NECK: Normal range of motion LUNGS: No respiratory distress Musculoskeletal: Normal range of motion NEUROLOGICAL: Normal speech, normal gait. PSYCH: Normal mood, normal affect. SKIN: Warm, Dry, normal turgor, no rashes or lesions noted. TRAVEL OUTSIDE OF THE [place] IN LAST 30 DAYS: No - Related Data Allergies/Adverse Reactions: prochlorperazine edisylate [From Compazine] Allergy (Severe, Verified 05/06/18 18:55) PANIC ATTACK doxycycline [Doxycycline] Allergy (Mild, Verified 05/06/18 18:55) RASH hydrocodone [From Vicodin] Allergy (Verified 05/06/18 18:55) Nausea, Vomiting oxycodone [From Percocet] Allergy (Verified 05/06/18 18:55) Nausea, Vomiting prochlorperazine [From Compazine] Allergy (Verified 05/06/18 18:55) Anxiety Past Medical History - Past Medical History Cardiac Medical History: Reports: Hx Hypercholesterolemia, Hx Hypertension Denies: Hx Atrial Fibrillation, Hx Congestive Heart Failure, Hx Coronary Artery Disease, Hx Heart Attack, Hx Peripheral Vascular Disease, Hx Pulmonary Embolism, Hx Heart Murmur Pulmonary Medical History: Reports: Hx Asthma Denies: Hx Bronchitis, Hx COPD, Hx Pneumonia, Hx Respiratory Failure, Hx Sleep Apnea, Hx Tuberculosis Neurological Medical History: Reports: Hx Migraine, Hx Seizures - x1. Denies: Hx Cerebrovascular Accident Endocrine Medical History: Denies: Hx Diabetes Mellitus Type 1, Hx Diabetes Mellitus Type 2 Renal/ Medical History: Denies: Hx Ovarian Cysts, Hx Peritoneal Dialysis, Hx Pelvic Inflammatory Disease Malignancy Medical History: Denies: Hx Breast Cancer, Hx Cervical Cancer, Hx Leukemia, Hx Lung Cancer, Hx Ovarian Cancer Musculoskeltal Medical History: Reports Hx Arthritis, Reports Hx Fibromyalgia, Denies Hx Multiple Sclerosis, Denies Hx Muscular Dystrophy, Reports Hx Musculoskeletal Trauma Psychiatric Medical History: Denies: Hx Dementia Traumatic Medical History: Denies: Hx Fractures Infectious Medical History: Denies: Hx HIV Past Surgical History: Reports: Hx Section, Hx Cholecystectomy, Hx Hysterectomy, Hx Orthopedic Surgery - RTK replacement. Denies: Hx Appendectomy , Hx Bowel Surgery, Hx Coronary Artery Bypass Graft, Hx Gastric Bypass Surgery, Hx Herniorrhaphy, Hx Mastectomy, Hx Pacemaker, Hx Tonsillectomy, Hx Tubal Ligation - Immunizations Immunizations up to date: No Hx Diphtheria, Pertussis, Tetanus Vaccination: No History of Influenza Vaccine for 06/2017 - 11/2017 Season: Refused Physical Exam - Vital signs Vitals: Temp Pulse Resp BP Pulse Ox 98.2 F 57 L 18 140/80 H 100 07/04/18 18:50 07/04/18 18:50 07/04/18 18:50 07/04/18 18:50 07/04/18 18:50 Course - Vital Signs Vital signs: Temp Pulse Resp BP Pulse Ox 98.2 F 57 L 18 140/80 H 100 07/04/18 18:50 07/04/18 18:50 07/04/18 18:50 07/04/18 18:50 07/04/18 18:50 Doctor's Discharge - Discharge Referrals: JONAH LITTLE MD [Primary Care Provider] - Follow up as needed
--- NOTE | 2018-07-04 19:54 | RADIOLOGY REPORT (SQ) ---
EXAM DESCRIPTION: CHEST SINGLE VIEW COMPLETED DATE/TIME: 07/04/2018 7:27 pm REASON FOR STUDY: chest pain COMPARISON: 04/29/2018 TECHNIQUE: Single frontal radiographic view of the chest acquired. NUMBER OF VIEWS: One view. LIMITATIONS: None. FINDINGS: LUNGS AND PLEURA: No pneumothorax. No consolidation or pleural effusion. MEDIASTINUM AND HILAR STRUCTURES: Stable. HEART AND VASCULAR STRUCTURES: Stable. BONES: No acute findings. HARDWARE: None in the chest. OTHER: No other significant finding. IMPRESSION: NO ACUTE FINDINGS. TECHNICAL DOCUMENTATION: JOB ID: [id number] [id number] 2010 [employer]- All Rights Reserved Reading location - IP/workstation name: [email or web address]
[2018-07-04 20:13] LABS: ABSOLUTE BASOPHILS # (AUTO) 0.1 10^3/uL (0.0-0.2); ABSOLUTE EOSINOPHILS # (AUTO) 0.2 10^3/uL (0.0-0.6); ABSOLUTE LYMPHOCYTES (AUTO) 3.1 10^3/uL (0.5-4.7); ABSOLUTE MONOCYTES (AUTO) 0.6 10^3/uL (0.1-1.4); ABSOLUTE NEUT (AUTO) 5.3 10^3/uL (1.7-8.2); BASOPHILS % (AUTO) 1.1 % (0-2); EOSINOPHILS % (AUTO) 2.4 % (0-6); HEMATOCRIT 33.1 % (36.0-47.0); HEMOGLOBIN 11.4 g/dL (12.0-15.5); MEAN CORPUSCULAR HEMOGLOBIN 28.5 pg (27.0-33.4); MEAN CORPUSCULAR HGB CONC 34.4 g/dL (32.0-36.0); MEAN CORPUSCULAR VOLUME 83 fl (80-97); MONOCYTES % (AUTO) 6.8 % (3-13); PLATELET COUNT 385 10^3/uL (150-450); RED BLOOD COUNT 3.99 10^6/uL (3.72-5.28); RED CELL DISTRIBUTION WIDTH 14.2 % (11.5-14.0); SEGMENTED NEUTROPHILS % (AUTO) 56.7 % (42-78); TOTAL CELLS COUNTED % (AUTO) 100 %; WHITE BLOOD COUNT 9.3 10^3/uL (4.0-10.5)
--- NOTE | 2018-07-04 20:43 | EKG REPORT ---
SEVERITY:- ABNORMAL ECG - SINUS RHYTHM LEFT VENTRICULAR HYPERTROPHY : Confirmed by: Ping Hester MD 04-Jul-2018 20:43:29
[2018-07-04 21:00] LABS: ALANINE AMINOTRANSFERASE 8 U/L (9-52); ALBUMIN 4.5 g/dL (3.5-5.0); ALKALINE PHOSPHATASE 70 U/L (38-126); ANION GAP 12 (5-19); ASPARTATE AMINO TRANSFERASE 27 U/L (14-36); BILIRUBIN,DIRECT 0.3 mg/dL (0.0-0.4); BILIRUBIN,TOTAL 0.6 mg/dL (0.2-1.3); BLOOD UREA NITROGEN 15 mg/dL (7-20); CALCIUM 9.6 mg/dL (8.4-10.2); CARBON DIOXIDE 30 mmol/L (22-30); CHLORIDE 102 mmol/L (98-107); GLUCOSE 89 mg/dL (75-110); POTASSIUM 3.4 mmol/L (3.6-5.0); SODIUM 143.5 mmol/L (137-145)
--- NOTE | 2018-07-04 22:04 | ER Document Report ---
ED General - General Chief Complaint: Abnormal Lab Results Stated Complaint: ABNORMAL LABS Time Seen by Provider: 07/04/18 19:04 Notes: Patient is a 47-year-old female with a history of recurrent hypokalemia who presents because she says that she is having symptoms that she usually has when her potassium level is low. She says she will get intermittent chest pain and get a tingling type sensation into her hands. Triage note says that she gets a headache but the patient says it is not really a headache is a "pressure" sensation that she gets on her forehead. She says she has been having that intermittently here recently. She was concerned because she start having a symptoms approximately week ago and was seen by her primary care doctor, Dr. Little, and had blood work drawn. She called today but it appears that her blood work may have gotten hemolyzed and therefore did not have results and therefore he told her to come to the ER to be checked. Patient currently says he is feeling some better. She has no further complaints at this time. She drinks liquid potassium at home. She has had previous stress test this year which were negative. She is currently not having chest pain and looks well. TRAVEL OUTSIDE OF THE [place] IN LAST 30 DAYS: No - Related Data Allergies/Adverse Reactions: prochlorperazine edisylate [From Compazine] Allergy (Severe, Verified 05/06/18 18:55) PANIC ATTACK doxycycline [Doxycycline] Allergy (Mild, Verified 05/06/18 18:55) RASH hydrocodone [From Vicodin] Allergy (Verified 05/06/18 18:55) Nausea, Vomiting oxycodone [From Percocet] Allergy (Verified 05/06/18 18:55) Nausea, Vomiting prochlorperazine [From Compazine] Allergy (Verified 05/06/18 18:55) Anxiety Past Medical History - Social History Smoking Status: Unknown if Ever Smoked Frequency of alcohol use: None Drug Abuse: None Family History: Reviewed & Not Pertinent, DM Patient has suicidal ideation: No Patient has homicidal ideation: No - Past Medical History Cardiac Medical History: Reports: Hx Hypercholesterolemia, Hx Hypertension Denies: Hx Atrial Fibrillation, Hx Congestive Heart Failure, Hx Coronary Artery Disease, Hx Heart Attack, Hx Peripheral Vascular Disease, Hx Pulmonary Embolism, Hx Heart Murmur Pulmonary Medical History: Reports: Hx Asthma Denies: Hx Bronchitis, Hx COPD, Hx Pneumonia, Hx Respiratory Failure, Hx Sleep Apnea, Hx Tuberculosis Neurological Medical History: Reports: Hx Migraine, Hx Seizures - x1. Denies: Hx Cerebrovascular Accident Endocrine Medical History: Denies: Hx Diabetes Mellitus Type 1, Hx Diabetes Mellitus Type 2 Renal/ Medical History: Denies: Hx Ovarian Cysts, Hx Peritoneal Dialysis, Hx Pelvic Inflammatory Disease Malignancy Medical History: Denies: Hx Breast Cancer, Hx Cervical Cancer, Hx Leukemia, Hx Lung Cancer, Hx Ovarian Cancer Musculoskeletal Medical History: Reports Hx Arthritis, Reports Hx Fibromyalgia, Denies Hx Multiple Sclerosis, Denies Hx Muscular Dystrophy, Reports Hx Musculoskeletal Trauma Psychiatric Medical History: Denies: Hx Dementia Traumatic Medical History: Denies: Hx Fractures Infectious Medical History: Denies: Hx HIV Past Surgical History: Reports: Hx Section, Hx Cholecystectomy, Hx Hysterectomy, Hx Orthopedic Surgery - RTK replacement. Denies: Hx Appendectomy , Hx Bowel Surgery, Hx Coronary Artery Bypass Graft, Hx Gastric Bypass Surgery, Hx Herniorrhaphy, Hx Mastectomy, Hx Pacemaker, Hx Tonsillectomy, Hx Tubal Ligation - Immunizations Immunizations up to date: No Hx Diphtheria, Pertussis, Tetanus Vaccination: No Hx Pneumococcal Vaccination: 09/03/00 Review of Systems - Review of Systems Notes: My Normal Review Basic REVIEW OF SYSTEMS: CONSTITUTIONAL : Denies fever, chills, or sweats. Denies recent illness. EENT: Denies eye, ear, throat, or mouth pain or symptoms. Denies nasal or sinus congestion. CARDIOVASCULAR: Chest pain RESPIRATORY: Denies cough, cold, or chest congestion. Denies shortness of breath, difficulty breathing, or wheezing. GASTROINTESTINAL: Denies abdominal pain. Denies nausea, vomiting, or diarrhea. MUSCULOSKELETAL: Denies neck or back pain or joint pain or swelling. SKIN: Denies rash or skin lesions. HEMATOLOGIC : Denies easy bruising or bleeding. LYMPHATIC: Denies swollen, enlarged glands. NEUROLOGICAL: Denies altered mental status or loss of consciousness. Minute sensation of pressure in forehead.. Denies weakness or paralysis or loss of use of either side. Denies problems with gait or speech. Denies sensory or motor loss. PSYCHIATRIC: Denies anxiety or stress or depression. ALL OTHER SYSTEMS REVIEWED AND NEGATIVE. Physical Exam - Vital signs Vitals: Temp Pulse Resp BP Pulse Ox 98.2 F 57 L 18 140/80 H 100 07/04/18 18:50 07/04/18 18:50 07/04/18 18:50 07/04/18 18:50 07/04/18 18:50 - Notes Notes: General Appearance: Well nourished, alert, cooperative, no acute distress, no obvious discomfort. Well appearing. Vitals: reviewed, See vital signs table. Head: no swelling or tenderness to the head Eyes: PERRL, EOMI, Conjuctiva clear Mouth: No decreasd moisture Lungs: No wheezing, No rales, No rhonci, No accessory muscle use, good air exchange bilaterally. Heart: Normal rate, Regular rythm, No murmur, no rub Abdomen: Normal BS, soft, No rigidity, No abdominal tenderness, No guarding, no rebound, no abdominal masses, no organomegaly Extremities: strength 5/5 in all extremities, good pulses in all extremities, no swelling or tenderness in the extremities, no edema. Skin: warm, dry, appropriate color, no rash Neuro: speech clear, oriented x 3, normal affect, responds appropriately to questions. Cranial nerves II through XII are intact. Patient moves all extremities without difficulty. Course - Re-evaluation Re-evalutation: 07/05/18 08:45 Patient currently is a symptomatic looks well. I did give her a little visible more testing to bring her level back up to normal range. I do not think she needs any further cardiac workup as she has had negative stress test this year and her initial troponin and EKG are negative. She is feel she is safe to be discharged home with close follow-up with Dr. Little on Sunday. Patient encouraged to return to ER if she has recurrent worsening of her symptoms or she feels unwell. Patient agrees with plan and will be discharged home. Dictation of this chart was performed using voice recognition software; therefore, there may be some unintended grammatical errors. - Vital Signs Vital signs: Temp Pulse Resp BP Pulse Ox 98.2 F 64 17 137/71 H 99 07/04/18 18:50 07/04/18 22:58 07/04/18 22:58 07/04/18 22:58 07/04/18 22:58 - Laboratory Result Diagrams: 07/04/18 19:48 07/04/18 19:48 Laboratory results interpreted by me: 07/04/18 07/04/18 19:48 19:48 Hgb 11.4 L Hct 33.1 L RDW 14.2 H Potassium 3.4 L Est GFR (Non-Af Amer) 53 L ALT 8 L Total Protein 9.0 H - EKG Interpretation by Me Additional EKG results interpreted by me: 07/04/18 22:03 EKG is reviewed and interpreted by me. EKG shows sinus rhythm rate [address] segment elevation or depression. No ischemic T wave inversions. IA interval , QRS duration, QTc intervals are within normal range. Old EKG for comparison is from May 06, 2018. Discharge - Discharge Clinical Impression: Hypokalemia Chest pain Qualifiers: Chest pain type: unspecified Qualified Code(s): R07.9 - Chest pain, unspecified Condition: Good Disposition: HOME, SELF-CARE Additional Instructions: Please take your potassium at home as prescribed. Please return to the ER if you have worsening of your symptoms or feel unwell. Please follow up with Dr. Parnell on Sunday. Referrals: JONAH LITTLE MD [Primary Care Provider] - 07/08/18
[2018-07-04] MEDS ORDERED: POTASSIUM CHLORIDE 10 MEQ CAPSULE.ER PO ONE (22:20)
[2018-07-04 22:59] VITALS: BP 137/71
== END 2018-07-04 22:58 | disposition home or self-care (01) ==
LOC: ER 18:29
DX: E87.6 Hypokalemia (principal); R07.9 Chest pain, unspecified; R20.2 Paresthesia of skin; E78.00 Pure hypercholesterolemia, unspecified; I10 Essential (primary) hypertension; Z88.6 Allergy status to analgesic agent; Z90.710 Acquired absence of both cervix and uterus; Z96.651 Presence of right artificial knee joint
CPT/HCPCS: 36415; 71045; 80053; 84484; 85025; 93005; 93010; 99284

== ENCOUNTER 2018-09-21 21:23 | Emergency (ER) | payer BC ==
[2018-09-21 21:41] VITALS: BP 145/80
[2018-09-21 23:10] LABS: ABSOLUTE BASOPHILS # (AUTO) 0.1 10^3/uL (0.0-0.2); ABSOLUTE EOSINOPHILS # (AUTO) 0.2 10^3/uL (0.0-0.6); ABSOLUTE LYMPHOCYTES (AUTO) 3.2 10^3/uL (0.5-4.7); ABSOLUTE MONOCYTES (AUTO) 0.7 10^3/uL (0.1-1.4); ABSOLUTE NEUT (AUTO) 4.4 10^3/uL (1.7-8.2); BASOPHILS % (AUTO) 0.8 % (0-2); EOSINOPHILS % (AUTO) 1.8 % (0-6); HEMATOCRIT 34.4 % (36.0-47.0); HEMOGLOBIN 11.9 g/dL (12.0-15.5); LYMPHOCYTES % (AUTO) 37.2 % (13-45); MEAN CORPUSCULAR HEMOGLOBIN 28.2 pg (27.0-33.4); MEAN CORPUSCULAR HGB CONC 34.5 g/dL (32.0-36.0); MEAN CORPUSCULAR VOLUME 82 fl (80-97); MONOCYTES % (AUTO) 8.4 % (3-13); PLATELET COUNT 362 10^3/uL (150-450); RED BLOOD COUNT 4.22 10^6/uL (3.72-5.28); SEGMENTED NEUTROPHILS % (AUTO) 51.8 % (42-78); TOTAL CELLS COUNTED % (AUTO) 100 %; WHITE BLOOD COUNT 8.5 10^3/uL (4.0-10.5)
[2018-09-21 23:14] LABS: APPEARANCE,URINE SLIGHTLY-CLOUDY; BILIRUBIN,URINE NEGATIVE (NEGATIVE); COLOR,URINE YELLOW; GLUCOSE, URINE NEGATIVE (NEGATIVE); KETONES,URINE NEGATIVE (NEGATIVE); LEUKOCYTE ESTERASE,URINE LARGE (NEGATIVE); NITRITE,URINE NEGATIVE (NEGATIVE); PROTEIN,URINE NEGATIVE (NEGATIVE); URINE SPECIFIC GRAVITY 1.024
[2018-09-21] MEDS ORDERED: NORMAL SALINE 1000 ML 1,000 ML IV ONE (23:23)
--- NOTE | 2018-09-21 23:26 | ER Document Report ---
ED Medical Screen (RME) - General Chief Complaint: Dizziness Stated Complaint: HEADACHE/DIZZINESS Time Seen by Provider: 09/21/18 23:20 Notes: 47-year-old female with IBS D who overall adheres to her FODMAP diet presents to the emergency department for 5 days of headache, dizziness, body aches and cramping aches in her legs. She says the headache is constant and believes it is associated with a superficial lump on her head that comes and goes. She denies fevers, nausea, vomiting. She complains of intermittent diarrhea associated with her condition and is concerned she might be hypokalemic. I have greeted and performed a rapid initial assessment of this patient. A comprehensive ED assessment and evaluation of the patient, analysis of test results and completion of medical decision making process will be conducted by an additional ED providers. TRAVEL OUTSIDE OF THE [place] IN LAST 30 DAYS: No - Related Data Allergies/Adverse Reactions: prochlorperazine edisylate [From Compazine] Allergy (Severe, Verified 05/06/18 18:55) PANIC ATTACK doxycycline [Doxycycline] Allergy (Mild, Verified 05/06/18 18:55) RASH hydrocodone [From Vicodin] Allergy (Verified 05/06/18 18:55) Nausea, Vomiting oxycodone [From Percocet] Allergy (Verified 05/06/18 18:55) Nausea, Vomiting prochlorperazine [From Compazine] Allergy (Verified 05/06/18 18:55) Anxiety Past Medical History - Past Medical History Cardiac Medical History: Reports: Hx Hypercholesterolemia, Hx Hypertension Denies: Hx Atrial Fibrillation, Hx Congestive Heart Failure, Hx Coronary Artery Disease, Hx Heart Attack, Hx Peripheral Vascular Disease, Hx Pulmonary Embolism, Hx Heart Murmur Pulmonary Medical History: Reports: Hx Asthma Denies: Hx Bronchitis, Hx COPD, Hx Pneumonia, Hx Respiratory Failure, Hx Sleep Apnea, Hx Tuberculosis Neurological Medical History: Reports: Hx Migraine, Hx Seizures - x1. Denies: Hx Cerebrovascular Accident Endocrine Medical History: Denies: Hx Diabetes Mellitus Type 1, Hx Diabetes Mellitus Type 2 Renal/ Medical History: Denies: Hx Ovarian Cysts, Hx Peritoneal Dialysis, Hx Pelvic Inflammatory Disease Malignancy Medical History: Denies: Hx Breast Cancer, Hx Cervical Cancer, Hx Leukemia, Hx Lung Cancer, Hx Ovarian Cancer Musculoskeltal Medical History: Reports Hx Arthritis, Reports Hx Fibromyalgia, Denies Hx Multiple Sclerosis, Denies Hx Muscular Dystrophy, Reports Hx Musculoskeletal Trauma Psychiatric Medical History: Denies: Hx Dementia Traumatic Medical History: Denies: Hx Fractures Infectious Medical History: Denies: Hx HIV Past Surgical History: Reports: Hx Section, Hx Cholecystectomy, Hx Hysterectomy, Hx Orthopedic Surgery - RTK replacement. Denies: Hx Appendectomy, Hx Bowel Surgery, Hx Coronary Artery Bypass Graft, Hx Gastric Bypass Surgery, Hx Herniorrhaphy, Hx Mastectomy, Hx Pacemaker, Hx Tonsillectomy, Hx Tubal Ligation - Immunizations Immunizations up to date: No Hx Diphtheria, Pertussis, Tetanus Vaccination: No History of Influenza Vaccine for 06/2017 - 11/2017 Season: Refused Physical Exam - Vital signs Vitals: Temp Pulse Resp BP Pulse Ox 98.8 F 76 18 145/80 H 96 09/21/18 21:40 09/21/18 21:40 09/21/18 21:40 09/21/18 21:40 09/21/18 21:40 - Abdominal Inspection: Normal Distension: No distension Bowel sounds: Normal Tenderness: Nontender Course - Vital Signs Vital signs: Temp Pulse Resp BP Pulse Ox 98.8 F 76 18 145/80 H 96 09/21/18 21:40 09/21/18 21:40 09/21/18 21:40 09/21/18 21:40 09/21/18 21:40 - Laboratory Result Diagrams: 09/21/18 22:45 09/21/18 22:45 Laboratory results interpreted by me: 09/21/18 22:45 Urine Urobilinogen 2.0 H Ur Leukocyte Esterase LARGE H Doctor's Discharge - Discharge Referrals: JONAH LITTLE MD [Primary Care Provider] - Follow up as needed
[2018-09-21 23:30] LABS: ALANINE AMINOTRANSFERASE 28 U/L (9-52); ALBUMIN 4.7 g/dL (3.5-5.0); ALKALINE PHOSPHATASE 75 U/L (38-126); ANION GAP 11 (5-19); ASPARTATE AMINO TRANSFERASE 22 U/L (14-36); BILIRUBIN,DIRECT 0.2 mg/dL (0.0-0.4); BILIRUBIN,TOTAL 0.4 mg/dL (0.2-1.3); BLOOD UREA NITROGEN 18 mg/dL (7-20); CALCIUM 9.6 mg/dL (8.4-10.2); CARBON DIOXIDE 30 mmol/L (22-30); CHLORIDE 100 mmol/L (98-107); GLUCOSE 98 mg/dL (75-110); POTASSIUM 3.2 mmol/L (3.6-5.0); SODIUM 140.6 mmol/L (137-145); TOTAL PROTEIN 8.4 g/dL (6.3-8.2)
[2018-09-22] MEDS ORDERED: KETOROLAC TROMETHAMINE 60 MG/2 ML SDV IM ONE (00:51)
[2018-09-22] MEDS ORDERED: METOCLOPRAMIDE HCL 10 MG TABLET PO ONE (00:52)
[2018-09-22] MEDS ORDERED: DIPHENHYDRAMINE HCL 50 MG CAPSULE PO ONE (00:52)
[2018-09-22] MEDS ORDERED: LOPERAMIDE HCL 2 MG CAPSULE PO ONE (00:52)
--- NOTE | 2018-09-22 00:56 | ER Document Report ---
ED General - General Chief Complaint: Dizziness Stated Complaint: HEADACHE/DIZZINESS Time Seen by Provider: 09/21/18 23:20 Mode of Arrival: Ambulatory Information source: Patient, Relative, [facility] Records Notes: 47-year-old female with IBS, chronic diarrhea, chronic hypokalemia, fibromyalgia, hypertension, hyperlipidemia migraines, presents with complaint of headache, dizziness and persistent diarrhea for approximately 5-7 days. Headache is generally located and described as a pressure. Patient states that she feels like there is a small lump on her head that comes and goes. Patient's dizziness is common with her migraine headaches. Patient states when she becomes hypokalemic she does get the cramping feeling that she is feeling in her legs. Patient reports 3-4 episodes of nonbloody diarrhea per day. She denies any associated fever, chills, nausea, vomiting. Patient's primary care physician is Dr. Little. TRAVEL OUTSIDE OF THE [place] IN LAST 30 DAYS: No - HPI Onset: Other Onset/Duration: Gradual, Persistent, Worse Quality of pain: Achy Associated symptoms: Diarrhea, Headache. denies: Chest pain, Nausea, Vomiting, Shortness of breath, Sore throat Exacerbated by: Denies Relieved by: Denies Similar symptoms previously: Yes Recently seen / treated by doctor: Yes - Related Data Allergies/Adverse Reactions: prochlorperazine edisylate [From Compazine] Allergy (Severe, Verified 09 18:55) PANIC ATTACK doxycycline [Doxycycline] Allergy (Mild, Verified 05/06/18 18:55) RASH hydrocodone [From Vicodin] Allergy (Verified 05/06/18 18:55) Nausea, Vomiting oxycodone [From Percocet] Allergy (Verified 05/06/18 18:55) Nausea, Vomiting prochlorperazine [From Compazine] Allergy (Verified 05/06/18 18:55) Anxiety Past Medical History - General Information source: Patient, Relative, [facility] Records - Social History Smoking Status: Never Smoker Frequency of alcohol use: None Drug Abuse: None Lives with: Family Family History: Reviewed & Not Pertinent, DM Patient has suicidal ideation: No Patient has homicidal ideation: No - Past Medical History Cardiac Medical History: Reports: Hx Hypercholesterolemia, Hx Hypertension Denies: Hx Atrial Fibrillation, Hx Congestive Heart Failure, Hx Coronary Artery Disease, Hx Heart Attack, Hx Peripheral Vascular Disease, Hx Pulmonary Embolism, Hx Heart Murmur Pulmonary Medical History: Reports: Hx Asthma Denies: Hx Bronchitis, Hx COPD, Hx Pneumonia, Hx Respiratory Failure, Hx Sleep Apnea, Hx Tuberculosis Neurological Medical History: Reports: Hx Migraine, Hx Seizures - x1. Denies: Hx Cerebrovascular Accident Endocrine Medical History: Denies: Hx Diabetes Mellitus Type 1, Hx Diabetes Mellitus Type 2 Renal/ Medical History: Denies: Hx Ovarian Cysts, Hx Peritoneal Dialysis, Hx Pelvic Inflammatory Disease Malignancy Medical History: Denies: Hx Breast Cancer, Hx Cervical Cancer, Hx Leukemia, Hx Lung Cancer, Hx Ovarian Cancer Musculoskeletal Medical History: Reports Hx Arthritis, Reports Hx Fibromyalgia, Denies Hx Multiple Sclerosis, Denies Hx Muscular Dystrophy, Reports Hx Musculoskeletal Trauma Psychiatric Medical History: Denies: Hx Dementia Traumatic Medical History: Denies: Hx Fractures Infectious Medical History: Denies: Hx HIV Past Surgical History: Reports: Hx Section, Hx Cholecystectomy, Hx Hysterectomy, Hx Orthopedic Surgery - RTK replacement. Denies: Hx Appendectomy, Hx Bowel Surgery, Hx Coronary Artery Bypass Graft, Hx Gastric Bypass Surgery, Hx Herniorrhaphy, Hx Mastectomy, Hx Pacemaker, Hx Tonsillectomy, Hx Tubal Ligation - Immunizations Immunizations up to date: No Hx Diphtheria, Pertussis, Tetanus Vaccination: No Hx Pneumococcal Vaccination: 09/03/00 Review of Systems - Review of Systems Notes: REVIEW OF SYSTEMS: CONSTITUTIONAL : Denies fever, chills, or sweats. Denies recent illness. Denies weight loss, recent hospitalizations. EENT: Denies visual changes, eye pain. Denies sore throat, oral lesions, difficulty swallowing. CARDIOVASCULAR: Denies chest pain. Denies palpitations. Denies lower extremity edema. RESPIRATORY: Denies cough. Denies shortness of breath, wheezing. GASTROINTESTINAL: Denies abdominal pain or distention. Denies nausea, vomiting, Denies blood in vomitus, stools, or per rectum. Denies black, tarry stools. Denies constipation. GENITOURINARY: Denies difficulty urinating, painful urination, frequency, blood in urine, or vaginal discharge. MUSCULOSKELETAL: Denies back or neck pain or stiffness. SKIN: Denies rash, lesions or sores. HEMATOLOGIC : Denies easy bruising or bleeding. LYMPHATIC: Denies swollen glands. NEUROLOGICAL: Denies confusion or altered mental status. Denies loss of consciousness. Denies lightheadedness. Denies weakness or paralysis. Denies problems difficulty with ambulation, slurred speech. Denies sensory lo ss, numbness, or tingling. Denies seizures. PSYCHIATRIC: Denies anxiety or stress. Denies depression, suicidal ideation, or homicidal ideation. Denies visual or auditory hallucinations. Physical Exam - Vital signs Vitals: Temp Pulse Resp BP Pulse Ox 98.8 F 76 18 145/80 H 96 09/21/18 21:40 09/21/18 21:40 09/21/18 21:40 09/21/18 21:40 09/21/18 21:40 - Notes Notes: PHYSICAL EXAMINATION: GENERAL: Well-appearing, well-nourished and in no acute distress. HEAD: Atraumatic, normocephalic. EYES: Pupils equal round and reactive to light, extraocular movements intact, conjunctiva are normal. ENT: Nares patent, oropharynx clear without exudates. Moist mucous membranes. NECK: Normal range of motion, supple without lymphadenopathy LUNGS: Breath sounds clear to auscultation bilaterally and equal. No wheezes rales or rhonchi. HEART: Regular rate and rhythm without murmurs ABDOMEN: Soft, nontender, nondistended abdomen. No guarding, no rebound. No masses appreciated. Female : deferred Musculoskeletal: Normal range of motion, no pitting or edema. No cyanosis. NEUROLOGICAL: Cranial nerves grossly intact. Normal speech, normal gait. Normal sensory, motor exams PSYCH: Normal mood, normal affect. SKIN: Warm, Dry, normal turgor, no rashes or lesions noted. Course - Re-evaluation Re-evalutation: Laboratory 09/21/18 09/21/18 09/21/18 22:45 22:45 22:45 WBC 8.5 RBC 4.22 Hgb 11.9 L Hct 34.4 L MCV 82 MCH 28.2 MCHC 34.5 RDW 14.0 Plt Count 362 Seg Neutrophils % 51.8 Lymphocytes % 37.2 Monocytes % 8.4 Eosinophils % 1.8 Basophils % 0.8 Absolute Neutrophils 4.4 Absolute Lymphocytes 3.2 Absolute Monocytes 0.7 Absolute Eosinophils 0.2 Absolute Basophils 0.1 Sodium 140.6 Potassium 3.2 L Chloride 100 Carbon Dioxide 30 Anion Gap 11 BUN 18 Creatinine 1.03 Est GFR ( Amer) > 60 Est GFR (Non-Af Amer) 57 L Glucose 98 Calcium 9.6 Total Bilirubin 0.4 Direct Bilirubin 0.2 Neonat Total Bilirubin Not Reportable Neonat Direct Bilirubin Not Reportable Neonat Indirect Bili Not Reportable AST 22 ALT 28 Alkaline Phosphatase 75 Total Protein 8.4 H Albumin 4.7 Urine Color YELLOW Urine Appearance SLIGHTLY-CLOUDY Urine pH 6.0 Ur Specific [place] 1.024 Urine Protein NEGATIVE Urine Glucose (UA) NEGATIVE Urine Ketones NEGATIVE Urine Blood NEGATIVE Urine Nitrite NEGATIVE Urine Bilirubin NEGATIVE Urine Urobilinogen 2.0 H Ur Leukocyte Esterase LARGE H Urine WBC (Auto) 2 Urine RBC (Auto) 0 Urine Bacteria (Auto) 1+ Squamous Epi Cells Auto 1 Urine Mucus (Auto) RARE Urine Ascorbic Acid NEGATIVE Urine HCG, Qual 09/21/18 22:45 WBC RBC Hgb Hct MCV MCH MCHC RDW Plt Count Seg Neutrophils % Lymphocytes % Monocytes % Eosinophils % Basophils % Absolute Neutrophils Absolute Lymphocytes Absolute Monocytes Absolute Eosinophils Absolute Basophils Sodium Potassium Chloride Carbon Dioxide Anion Gap BUN Creatinine Est GFR ( Amer) Est GFR (Non-Af Amer) Glucose Calcium Total Bilirubin Direct Bilirubin Neonat Total Bilirubin Neonat Direct Bilirubin Neonat Indirect Bili AST ALT Alkaline Phosphatase Total Protein Albumin Urine Color Urine Appearance Urine pH Ur Specific [place] Urine Protein Urine Glucose (UA) Urine Ketones Urine Blood Urine Nitrite Urine Bilirubin Urine Urobilinogen Ur Leukocyte Esterase Urine WBC (Auto) Urine RBC (Auto) Urine Bacteria (Auto) Squamous Epi Cells Auto Urine Mucus (Auto) Urine Ascorbic Acid Urine HCG, Qual NEGATIVE Temp Pulse Resp BP Pulse Ox 98.8 F 76 18 145/80 H 96 09/21/18 21:40 09/21/18 21:40 09/21/18 21:40 09/21/18 21:40 09/21/18 21:40 09/22/18 02:08 47-year-old female with IBS, chronic diarrhea, chronic hypokalemia, fibromyalgia, hypertension, hyperlipidemia migraines, presents with complaint of headache, dizziness and persistent diarrhea for approximately 5-7 days. Headache is generally located and described as a pressure. Patient states that she feels like there is a small lump on her head that comes and goes. Patient's dizziness is common with her migraine headaches. Patient states when she becomes hypokalemic she does get the cramping feeling that she is feeling in her legs. Patient reports 3-4 episodes of nonbloody diarrhea per day. She denies any associated fever, chills, nausea, vomiting. Vital signs reviewed and within normal limits upon arrival. Patient does not appear toxic or dehydrated. She is in no acute distress. Previous medical records and nursing notes reviewed. Patient has a normal neurologic and physical exam. CBC is without leukocytosis or anemia. CMP does show mild hypokalemia which patient reports is a chronic problem for her due to her IBS. Patient received Reglan, Benadryl, Toradol and Imodium during her ED course. On reevaluation she does report improvement of her headache and body aches. Patient will be discharged home with a prescrip tion for Toradol. Patient was evaluated and treated as appropriate for the patient's presenting symptoms and complaint, with consideration of any critical or life threatening conditions that may be associated with their obtained history and exam as noted above. All results were discussed with patient and her daughter who is at the bedside. Patient provided the opportunity to ask questions, and express concerns. Patient was educated on treatments based on their presumed diagnosis as noted above. At this time we will discharge the patient with return precautions and follow-up recommendations. Verbal discharge instructions given a the bedside. Medication warnings reviewed. Patient is in agreement with this plan and has verbalized understanding of return precautions. After careful consideration I feel that that patient can be safely discharged from the emergency department, they were advised to followup with a primary care physician in 2-3 days. Dictation on this chart was performed using voice recognition software and may result in unintended grammatical, spelling, syntax or errors. - Vital Signs Vital signs: Temp Pulse Resp BP Pulse Ox 98.8 F 76 18 145/80 H 96 09/21/18 21:40 09/21/18 21:40 09/21/18 21:40 09/21/18 21:40 09/21/18 21:40 - Laboratory Result Diagrams: 09/21/18 22:45 09/21/18 22:45 Laboratory results interpreted by me: 09/21/18 09/21/18 09/21/18 22:45 22:45 22:45 Hgb 11.9 L Hct 34.4 L Potassium 3.2 L Est GFR (Non-Af Amer) 57 L Total Protein 8.4 H Urine Urobilinogen 2.0 H Ur Leukocyte Esterase LARGE H Discharge - Discharge Clinical Impression: Essential (primary) hypertension, Irritable bowel syndrome with diarrhea, Hypokalemia, Fibromyalgia Headache Qualifiers: Headache type: unspecified Headache chronicity pattern: acute headache Intractability: intractable Qualified Code(s): R51 - Headache Condition: Good Disposition: HOME, SELF-CARE Instructions: Dizziness ([facility]), Headache ([facility]), Hypokalemia ([facility]), Diarrhea, Nonspecific ([facility]) Prescriptions: Ketorolac Tromethamine [Toradol 10 mg Tablet] 10 mg PO Q6HP PRN #20 tablet PRN Reason: Forms: Elevated Blood Pressure, Return to Work Referrals: JONAH LITTLE MD [Primary Care Provider] - Follow up in 3-5 days
[2018-09-22] MEDS ORDERED: POTASSIUM CHLORIDE 20 MEQ/15 ML UDCUP PO ONE (01:00)
== END 2018-09-22 02:26 | disposition home or self-care (01) ==
LOC: ER 21:23
DX: R51 Headache (principal); K58.0 Irritable bowel syndrome with diarrhea; E87.6 Hypokalemia; I10 Essential (primary) hypertension; M79.7 Fibromyalgia; R42 Dizziness and giddiness; J45.909 Unspecified asthma, uncomplicated; Z88.8 Allergy status to other drugs, medicaments and biological substances; Z88.1 Allergy status to other antibiotic agents; Z88.5 Allergy status to narcotic agent; Z86.69 Personal history of other diseases of the nervous system and sense organs
CPT/HCPCS: 99284; 96372; 36415; 87086; 85025; 81025; 80053; 81001; J1885

== ENCOUNTER 2018-09-29 19:48 | Emergency (ER) | payer BC ==
--- NOTE | 2018-09-29 20:36 | ER Document Report ---
ED Medical Screen (RME) - General Chief Complaint: Chest Pain Stated Complaint: CHEST PAINS Time Seen by Provider: 09/29/18 20:31 Primary Care Provider: JONAH LITTLE MD [Primary Care Provider] - Follow up as needed Notes: 47-year-old female patient comes emerged from complaining of chest pains and cramps for the last 2 3 days. She also has headaches. She was seen here on 09/21/2018 with potassium 3.2, she got supplemental potassium and reports that she was better for 1-2 days before the symptoms started returning. I have greeted and performed a rapid initial assessment of this patient. A comprehensive ED assessment and evaluation of the patient, analysis of test results and completion of the medical decision making process will be conducted by additional ED providers. TRAVEL OUTSIDE OF THE [place] IN LAST 30 DAYS: No - Related Data Allergies/Adverse Reactions: prochlorperazine edisylate [From Compazine] Allergy (Severe, Verified 05/06/18 18:55) PANIC ATTACK doxycycline [Doxycycline] Allergy (Mild, Verified 05/06/18 18:55) RASH hydrocodone [From Vicodin] Allergy (Verified 05/06/18 18:55) Nausea, Vomiting oxycodone [From Percocet] Allergy (Verified 05/06/18 18:55) Nausea, Vomiting prochlorperazine [From Compazine] Allergy (Verified 05/06/18 18:55) Anxiety Past Medical History - Social History Frequency of alcohol use: None Drug Abuse: None - Past Medical History Cardiac Medical History: Reports: Hx Hypercholesterolemia, Hx Hypertension Denies: Hx Atrial Fibrillation, Hx Congestive Heart Failure, Hx Coronary Artery Disease, Hx Heart Attack, Hx Peripheral Vascular Disease, Hx Pulmonary Embolism, Hx Heart Murmur Pulmonary Medical History: Reports: Hx Asthma Denies: Hx Bronchitis, Hx COPD, Hx Pneumonia, Hx Respiratory Failure, Hx Sleep Apnea, Hx Tuberculosis Neurological Medical History: Reports: Hx Migraine, Hx Seizures - x1. Denies: Hx Cerebrovascular Accident Endocrine Medical History: Denies: Hx Diabetes Mellitus Type 1, Hx Diabetes Mellitus Type 2 Renal/ Medical History: Denies: Hx Ovarian Cysts, Hx Peritoneal Dialysis, Hx Pelvic Inflammatory Disease Malignancy Medical History: Denies: Hx Breast Cancer, Hx Cervical Cancer, Hx Leukemia, Hx Lung Cancer, Hx Ovarian Cancer Musculoskeltal Medical History: Reports Hx Arthritis, Reports Hx Fibromyalgia, Denies Hx Multiple Sclerosis, Denies Hx Muscular Dystrophy, Reports Hx Musculoskeletal Trauma Psychiatric Medical History: Denies: Hx Dementia Traumatic Medical History: Denies: Hx Fractures Infectious Medical History: Denies: Hx HIV Past Surgical History: Reports: Hx Section, Hx Cholecystectomy, Hx Hysterectomy, Hx Orthopedic Surgery - RTK replacement. Denies: Hx Appendectomy, Hx Bowel Surgery, Hx Coronary Artery Bypass Graft, Hx Gastric Bypass Surgery, Hx Herniorrhaphy, Hx Mastectomy, Hx Pacemaker, Hx Tonsillectomy, Hx Tubal Ligation - Immunizations Immunizations up to date: No Hx Diphtheria, Pertussis, Tetanus Vaccination: No History of Influenza Vaccine for 06/2017 - 11/2017 Season: Refused Physical Exam - Vital signs Vitals: Temp Pulse Resp BP Pulse Ox 98.3 F 60 16 116/81 96 09/29/18 20:23 09/29/18 20:23 09/29/18 20:23 09/29/18 20:23 09/29/18 20:23 Course - Vital Signs Vital signs: Temp Pulse Resp BP Pulse Ox 98.3 F 60 16 116/81 96 09/29/18 20:23 09/29/18 20:23 09/29/18 20:23 09/29/18 20:23 09/29/18 20:23 Doctor's Discharge - Discharge Referrals: JONAH LITTLE MD [Primary Care Provider] - Follow up as needed
[2018-09-29 21:01] LABS: ABSOLUTE BASOPHILS # (AUTO) 0.1 10^3/uL (0.0-0.2); ABSOLUTE EOSINOPHILS # (AUTO) 0.1 10^3/uL (0.0-0.6); ABSOLUTE LYMPHOCYTES (AUTO) 3.1 10^3/uL (0.5-4.7); ABSOLUTE MONOCYTES (AUTO) 0.5 10^3/uL (0.1-1.4); ABSOLUTE NEUT (AUTO) 4.3 10^3/uL (1.7-8.2); BASOPHILS % (AUTO) 1.1 % (0-2); EOSINOPHILS % (AUTO) 0.9 % (0-6); HEMATOCRIT 36.3 % (36.0-47.0); HEMOGLOBIN 12.3 g/dL (12.0-15.5); LYMPHOCYTES % (AUTO) 38.1 % (13-45); MEAN CORPUSCULAR VOLUME 82 fl (80-97); MONOCYTES % (AUTO) 6.7 % (3-13); PLATELET COUNT 365 10^3/uL (150-450); RED BLOOD COUNT 4.41 10^6/uL (3.72-5.28); RED CELL DISTRIBUTION WIDTH 13.7 % (11.5-14.0); SEGMENTED NEUTROPHILS % (AUTO) 53.2 % (42-78); TOTAL CELLS COUNTED % (AUTO) 100 %; WHITE BLOOD COUNT 8.1 10^3/uL (4.0-10.5)
[2018-09-29 21:11] LABS: APPEARANCE,URINE SLIGHTLY-CLOUDY; BILIRUBIN,URINE NEGATIVE (NEGATIVE); COLOR,URINE YELLOW; GLUCOSE, URINE NEGATIVE (NEGATIVE); KETONES,URINE NEGATIVE (NEGATIVE); LEUKOCYTE ESTERASE,URINE NEGATIVE (NEGATIVE); NITRITE,URINE NEGATIVE (NEGATIVE); PROTEIN,URINE NEGATIVE (NEGATIVE); UROBILINOGEN,URINE NEGATIVE mg/dL (<2.0)
[2018-09-29 21:19] LABS: ALANINE AMINOTRANSFERASE 21 U/L (9-52); ALBUMIN 4.8 g/dL (3.5-5.0); ALKALINE PHOSPHATASE 70 U/L (38-126); ANION GAP 9 (5-19); ASPARTATE AMINO TRANSFERASE 24 U/L (14-36); BILIRUBIN,DIRECT 0.1 mg/dL (0.0-0.4); BILIRUBIN,TOTAL 0.7 mg/dL (0.2-1.3); BLOOD UREA NITROGEN 16 mg/dL (7-20); CARBON DIOXIDE 32 mmol/L (22-30); CHLORIDE 101 mmol/L (98-107); CREATINE KINASE 456 U/L (30-135); GLUCOSE 105 mg/dL (75-110); POTASSIUM 3.6 mmol/L (3.6-5.0); SODIUM 141.5 mmol/L (137-145); TOTAL PROTEIN 8.5 g/dL (6.3-8.2)
[2018-09-29 21:31] LABS: CREATINE KINASE MB 1.26 ng/mL (<4.55); TROPONIN I < 0.012 ng/mL
--- NOTE | 2018-09-29 23:49 | RADIOLOGY REPORT (SQ) ---
EXAM DESCRIPTION: XR CHEST 1 VIEW COMPLETED DATE/TME: 09/29/2018 23:12 CLINICAL HISTORY: 47 years, Female, cp COMPARISON: 07/04/2018 chest NUMBER OF VIEWS: 1 TECHNIQUE: Portable chest LIMITATIONS: None. FINDINGS: Heart size is normal. Lungs are clear. No pneumothorax IMPRESSION: Negative chest copyright 2010 [employer]- All Rights Reserved
[2018-09-30] MEDS ORDERED: MAGNESIUM OXIDE 400 MG TABLET PO ONE (00:25)
[2018-09-30] MEDS ORDERED: TIZANIDINE HCL 4 MG TABLET PO ONE (00:25)
--- NOTE | 2018-09-30 00:29 | ER Document Report ---
ED General - General Chief Complaint: Chest Pain Stated Complaint: CHEST PAINS Time Seen by Provider: 09/29/18 20:31 Primary Care Provider: JONAH LITTLE MD [Primary Care Provider] - Follow up as needed Notes: Patient is a 47-year-old female past medical history of IBS D, hypokalemia, hypertension, obesity, presents complaining of multiple issues. She states that she has body aches, muscle spasms, intermittent headache and some intermittent chest pains. Was seen yesterday for some similar concerns. States that her potassium was low at that time and repleted. She states she feels like her potassium may be low again today. Has not yet followed up with her primary care physician regarding today's concerns. Describes her chest pains as being intermittent, cramping pain across her central chest that last occurred roughly 8 hours prior to my assessment. No shortness of breath, nausea, vomiting, focal weakness or loss of sensation. TRAVEL OUTSIDE OF THE [place] IN LAST 30 DAYS: No - Related Data Allergies/Adverse Reactions: prochlorperazine edisylate [From Compazine] Allergy (Severe, Verified 09/29/18 23:45) PANIC ATTACK doxycycline [Doxycycline] Allergy (Mild, Verified 09/29/18 23:45) RASH hydrocodone [From Vicodin] Allergy (Verified 09/29/18 23:45) Nausea, Vomiting oxycodone [From Percocet] Allergy (Verified 09/29/18 23:45) Nausea, Vomiting prochlorperazine [From Compazine] Allergy (Verified 09/29/18 23:45) Anxiety Past Medical History - General Information source: Patient - Social History Smoking Status: Never Smoker Frequency of alcohol use: None Drug Abuse: None Lives with: Family Family History: Reviewed & Not Pertinent, DM Patient has suicidal ideation: No Patient has homicidal ideation: No - Past Medical History Cardiac Medical History: Reports: Hx Hypercholesterolemia, Hx Hypertension Denies: Hx Atrial Fibrillation, Hx Congestive Heart Failure, Hx Coronary Artery Disease, Hx Heart Attack, Hx Peripheral Vascular Disease, Hx Pulmonary Embolism, Hx Heart Murmur Pulmonary Medical History: Reports: Hx Asthma Denies: Hx Bronchitis, Hx COPD, Hx Pneumonia, Hx Respiratory Failure, Hx Sleep Apnea, Hx Tuberculosis Neurological Medical History: Reports: Hx Migraine, Hx Seizures - x1. Denies: Hx Cerebrovascular Accident Endocrine Medical History: Denies: Hx Diabetes Mellitus Type 1, Hx Diabetes Mellitus Type 2 Renal/ Medical History: Denies: Hx Ovarian Cysts, Hx Peritoneal Dialysis, Hx Pelvic Inflammatory Disease Malignancy Medical History: Denies: Hx Breast Cancer, Hx Cervical Cancer, Hx Leukemia, Hx Lung Cancer, Hx Ovarian Cancer Musculoskeletal Medical History: Reports Hx Arthritis, Reports Hx Fibromyalgia, Denies Hx Multiple Sclerosis, Denies Hx Muscular Dystrophy, Reports Hx Musculoskeletal Trauma Psychiatric Medical History: Denies: Hx Dementia Traumatic Medical History: Denies: Hx Fractures Infectious Medical History: Denies: Hx HIV Past Surgical History: Reports: Hx Section, Hx Cholecystectomy, Hx Hysterectomy, Hx Orthopedic Surgery - RTK replacement. Denies: Hx Appendectomy, Hx Bowel Surgery, Hx Coronary Artery Bypass Graft, Hx Gastric Bypass Surgery, Hx Herniorrhaphy, Hx Mastectomy, Hx Pacemaker, Hx Tonsillectomy, Hx Tubal Ligation - Immunizations Immunizations up to date: No Hx Diphtheria, Pertussis, Tetanus Vaccination: No Hx Pneumococcal Vaccination: 09/03/00 Review of Systems - Review of Systems Notes: Constitutional: Negative for fever. HENT: Negative for sore throat. Eyes: Negative for visual changes. Cardiovascular: Positive for intermittent chest pain Respiratory: Negative for shortness of breath. Gastrointestinal: Negative for abdominal pain, vomiting or diarrhea. Genitourinary: Negative for dysuria. Musculoskeletal: Positive for muscle cramping and spasms Skin: Negative for rash. Neurological: Positive for headache 10 point ROS negative except as marked above and in HPI. Physical Exam - Vital signs Vitals: Temp Pulse Resp BP Pulse Ox 98.3 F 60 16 116/81 96 09/29/18 20:23 09/29/18 20:23 09/29/18 20:23 09/29/18 20:23 09/29/18 20:23 Interpretation: Normal Notes: PHYSICAL EXAMINATION: GENERAL: Well-appearing, well-nourished and in no acute distress. HEAD: Atraumatic, normocephalic. EYES: Pupils equal round and reactive to light, extraocular movements intact, sclera anicteric, conjunctiva are normal. ENT: nares patent, oropharynx clear without exudates. Moist mucous membranes. NECK: Normal range of motion, supple without lymphadenopathy LUNGS: Breath sounds clear to auscultation bilaterally and equal. No wheezes rales or rhonchi. HEART: Regular rate and rhythm without murmurs ABDOMEN: Soft, nontender, normoactive bowel sounds. No guarding, no rebound. No masses appreciated. EXTREMITIES: Normal range of motion, no pitting or edema. No cyanosis. NEUROLOGICAL: Face symmetric. Tongue protrudes midline. Extraocular motions intact. Pupils are 2 mm and equally reactive. Normal speech, normal gait. 5 out of 5 strength in both the distal and proximal upper and lower extremities bilaterally. Sensation is grossly intact throughout. Finger to nose testing normal. Pronator drift normal. PSYCH: Normal mood, normal affect. SKIN: Warm, Dry, normal turgor, no rashes or lesions noted. Course - Re-evaluation Re-evalutation: 09/30/18 00:26 Patient presents with multiple vague complaints that did not appear to be concerning for any acute life-threatening pathology. Patient's main issue is r egarding muscle cramping that is long-standing in nature and not new or different today. Vitals are within normal limits at triage and at time of discharge. Physical examination is unremarkable. Patient has tolerated oral intake without difficulty. Patient was not noted to be in distress at any point during their ER visit. At this time, based on the reassuring evaluation, I do not suspect an acute ND, pulmonary embolus, aortic dissection, acute intra- abdominal pathology, stroke, or sepsis. Patient has been started on Flexeril as needed for muscle cramps as well as supplemental magnesium. Will discharge with return precautions and follow-up recommendations. Verbal discharge instructions given a the bedside and opportunity for questions given. Medication warnings reviewed. Patient is in agreement with this plan and has verbalized understanding of return precautions and the need for primary care follow-up in the next 24-72 hours. - Vital Signs Vital signs: Temp Pulse Resp BP Pulse Ox 98.3 F 75 16 117/64 97 09/29/18 20:23 09/30/18 00:39 09/29/18 20:23 09/30/18 00:39 09/30/18 00:39 - Laboratory Result Diagrams: 09/29/18 20:50 09/29/18 20:50 Laboratory results interpreted by me: 09/29/18 20:50 Carbon Dioxide 32 H Est GFR (Non-Af Amer) 57 L Creatine Kinase 456 H Total Protein 8.5 H - Diagnostic Test Radiology reviewed: Image reviewed, Reports reviewed Radiology results interpreted by me: 09/30/18 00:27 Chest x-ray: No acute infiltrate or pneumothorax - EKG Interpretation by Me Additional EKG results interpreted by me: 09/30/18 00:27 Sinus rhythm, rate 74. No ST elevations or depressions. QTC is 462. Discharge - Discharge Clinical Impression: Irritable bowel syndrome with diarrhea, Muscle ache, Chest discomfort Condition: Good Disposition: HOME, SELF-CARE Additional Instructions: Please return to the emergency room immediately if you experience any concerning symptoms including high fevers, severe headache, chest pain, difficulty breathing, abdominal pain, slurred speech, numbness or weakness in your arms or legs, or any other symptom that concerns you. Your potassium was 3.6 today. Take the prescribed muscle relaxants as needed for muscle aches. Take 400 mg of [id number] magnesium daily to help with your muscle spasms. Prescriptions: Cyclobenzaprine HCl [Flexeril 10 mg Tablet] 10 mg PO TIDP PRN #15 tab PRN Reason: Referrals: JONAH LITTLE MD [Primary Care Provider] - Follow up as needed
[2018-09-30 00:43] VITALS: BP 117/64
--- NOTE | 2018-09-30 07:25 | EKG REPORT ---
SEVERITY:- ABNORMAL ECG - SINUS RHYTHM PROBABLE LEFT VENTRICULAR HYPERTROPHY BORDERLINE T ABNORMALITIES, INFERIOR LEADS : Confirmed by: Ping Hester MD 30-Sep-2018 07:24:48
== END 2018-09-30 00:48 | disposition home or self-care (01) ==
LOC: ER 19:48
DX: K58.0 Irritable bowel syndrome with diarrhea (principal); M79.10 Myalgia, unspecified site; R51 Headache; R07.9 Chest pain, unspecified; Z88.6 Allergy status to analgesic agent
CPT/HCPCS: 93005; 99285; 36415; 82553; 82550; 83735; 85025; 80053; 81001; 84484; 71045; 93010; J3490

== ENCOUNTER 2018-10-04 17:42 | Emergency (ER) | payer BC ==
[2018-10-04] MEDS ORDERED: ASPIRIN 81 MG TABLET, CHEWABLE PO ONE (19:36)
--- NOTE | 2018-10-04 19:38 | ER Document Report ---
ED Medical Screen (RME) - General Chief Complaint: Mouth Problem Stated Complaint: BODY ACHE Time Seen by Provider: 10/04/18 19:15 Primary Care Provider: JONAH LITTLE MD [Primary Care Provider] - Follow up as needed Mode of Arrival: Ambulatory Notes: Patient presents complaining of body aches, headache and a flushed feeling for the past 2 weeks. Patient states she was seen in the ER 2 times previously for this complaint and did see her primary doctor yesterday. Patient states that she additionally has been having chest pain off and on since yesterday. Patient noticed white patches in the back of her throat as well. I have greeted and performed a rapid initial assessment of this patient. A comprehensive ED assessment and evaluation of the patient, analysis of test results and completion of the medical decision making process will be conducted by additional ED providers. TRAVEL OUTSIDE OF THE [place] IN LAST 30 DAYS: No - Related Data Allergies/Adverse Reactions: prochlorperazine edisylate [From Compazine] Allergy (Severe, Verified 09/29/18 23:45) PANIC ATTACK doxycycline [Doxycycline] Allergy (Mild, Verified 09/29/18 23:45) RASH hydrocodone [From Vicodin] Allergy (Verified 09/29/18 23:45) Nausea, Vomiting oxycodone [From Percocet] Allergy (Verified 09/29/18 23:45) Nausea, Vomiting prochlorperazine [From Compazine] Allergy (Verified 09/29/18 23:45) Anxiety Past Medical History - Social History Chew tobacco use (# tins/day): No Drug Abuse: None - Past Medical History Cardiac Medical History: Reports: Hx Hypercholesterolemia, Hx Hypertension Denies: Hx Atrial Fibrillation, Hx Congestive Heart Failure, Hx Coronary Artery Disease, Hx Heart Attack, Hx Peripheral Vascular Disease, Hx Pulmonary Embolism, Hx Heart Murmur Pulmonary Medical History: Reports: Hx Asthma Denies: Hx Bronchitis, Hx COPD, Hx Pneumonia, Hx Respiratory Failure, Hx Sleep Apnea, Hx Tuberculosis Neurological Medical History: Reports: Hx Migraine, Hx Seizures - x1. Denies: Hx Cerebrovascular Accident Endocrine Medical History: Denies: Hx Diabetes Mellitus Type 1, Hx Diabetes Mellitus Type 2 Renal/ Medical History: Denies: Hx Ovarian Cysts, Hx Peritoneal Dialysis, Hx Pelvic Inflammatory Disease Malignancy Medical History: Denies: Hx Breast Cancer, Hx Cervical Cancer, Hx Leukemia, Hx Lung Cancer, Hx Ovarian Cancer Musculoskeltal Medical History: Reports Hx Arthritis, Reports Hx Fibromyalgia, Denies Hx Multiple Sclerosis, Denies Hx Muscular Dystrophy, Reports Hx Musculoskeletal Trauma Psychiatric Medical History: Denies: Hx Dementia Traumatic Medical History: Denies: Hx Fractures Infectious Medical History: Denies: Hx HIV Past Surgical History: Reports: Hx Section, Hx Cholecystectomy, Hx Hysterectomy, Hx Orthopedic Surgery - RTK replacement. Denies: Hx Appendectomy, Hx Bowel Surgery, Hx Coronary Artery Bypass Graft, Hx Gastric Bypass Surgery, Hx Herniorrhaphy, Hx Mastectomy, Hx Pacemaker, Hx Tonsillectomy, Hx Tubal Ligation - Immunizations Immunizations up to date: No Hx Diphtheria, Pertussis, Tetanus Vaccination: No History of Influenza Vaccine for 06/2017 - 11/2017 Season: Refused Physical Exam - Vital signs Vitals: Temp Pulse Resp BP Pulse Ox 98.3 F 67 14 121/77 96 10/04/18 18:07 10/04/18 18:07 10/04/18 18:07 10/04/18 18:07 10/04/18 18:07 - HEENT Pharynx: Erythema, Exudate Course - Vital Signs Vital signs: Temp Pulse Resp BP Pulse Ox 98.3 F 67 14 121/77 96 10/04/18 18:07 10/04/18 18:07 10/04/18 18:07 10/04/18 18:07 10/04/18 18:07 Doctor's Discharge - Discharge Referrals: JONAH LITTLE MD [Primary Care Provider] - Follow up as needed
[2018-10-04 19:54] LABS: A TYPE INFLUENZA AG NEGATIVE (NEGATIVE); B INFLUENZA AG NEGATIVE (NEGATIVE)
--- NOTE | 2018-10-04 20:17 | RADIOLOGY REPORT (SQ) ---
EXAM DESCRIPTION: XR CHEST 2 VIEWS COMPLETED DATE/TME: 10/04/2018 19:36 CLINICAL HISTORY: 47 years, Female, cp, shortness of breath and cough COMPARISON: X-ray chest 09/29/2018 NUMBER OF VIEWS: TECHNIQUE: LIMITATIONS: None. FINDINGS: No evidence of pulmonary infiltrate or pleural effusion. The heart and mediastinum are unremarkable. Pulmonary vascularity appears normal. IMPRESSION: Normal chest x-ray. copyright 2010 [employer]- All Rights Reserved
[2018-10-04 20:53] LABS: ABSOLUTE EOSINOPHILS # (AUTO) 0.3 10^3/uL (0.0-0.6); ABSOLUTE LYMPHOCYTES (AUTO) 2.8 10^3/uL (0.5-4.7); ABSOLUTE MONOCYTES (AUTO) 0.6 10^3/uL (0.1-1.4); ABSOLUTE NEUT (AUTO) 5.3 10^3/uL (1.7-8.2); BASOPHILS % (AUTO) 0.2 % (0-2); EOSINOPHILS % (AUTO) 3.6 % (0-6); HEMATOCRIT 35.1 % (36.0-47.0); HEMOGLOBIN 11.9 g/dL (12.0-15.5); LYMPHOCYTES % (AUTO) 31.5 % (13-45); MEAN CORPUSCULAR HGB CONC 33.9 g/dL (32.0-36.0); MEAN CORPUSCULAR VOLUME 83 fl (80-97); MONOCYTES % (AUTO) 6.2 % (3-13); PLATELET COUNT 347 10^3/uL (150-450); RED BLOOD COUNT 4.25 10^6/uL (3.72-5.28); RED CELL DISTRIBUTION WIDTH 13.5 % (11.5-14.0); SEGMENTED NEUTROPHILS % (AUTO) 58.5 % (42-78); TOTAL CELLS COUNTED % (AUTO) 100 %
[2018-10-04 21:10] LABS: ALANINE AMINOTRANSFERASE 12 U/L (9-52); ALBUMIN 4.5 g/dL (3.5-5.0); ALKALINE PHOSPHATASE 68 U/L (38-126); ANION GAP 10 (5-19); ASPARTATE AMINO TRANSFERASE 22 U/L (14-36); BILIRUBIN,DIRECT 0.3 mg/dL (0.0-0.4); BILIRUBIN,TOTAL 0.6 mg/dL (0.2-1.3); BLOOD UREA NITROGEN 16 mg/dL (7-20); CALCIUM 9.6 mg/dL (8.4-10.2); CARBON DIOXIDE 29 mmol/L (22-30); CHLORIDE 103 mmol/L (98-107); CREATINE KINASE 259 U/L (30-135); GLUCOSE 101 mg/dL (75-110); POTASSIUM 3.9 mmol/L (3.6-5.0); TOTAL PROTEIN 8.2 g/dL (6.3-8.2)
[2018-10-04 21:25] LABS: TROPONIN I < 0.012 ng/mL
[2018-10-04] MEDS ORDERED: DEXAMETHASONE 4 MG TABLET PO ONE (22:14)
--- NOTE | 2018-10-04 22:33 | ER Document Report ---
ED General - General Chief Complaint: Chest Pain Stated Complaint: BODY ACHE Time Seen by Provider: 10/04/18 19:15 Primary Care Provider: JONAH LITTLE MD [Primary Care Provider] - Follow up as needed Mode of Arrival: Ambulatory Notes: Patient is a 47-year-old female with a past medical history of recurrent hypokalemia, recurrent body aches, presents complaining of whitish pustular di scharge along her bilateral tonsils and soft palate, body aches and headache. States that she is continued to have body aches over the last several weeks but that the tonsillar exudates and headache are new prompting her to come to the emergency department. Contacted her primary care doctor's office but was unable to get an appointment. Has not tried nothing to improve her symptoms. Nothing worsens her symptoms. No known sick contacts. Denies sore throat or cough. No focal weakness or numbness. Has not had fever. TRAVEL OUTSIDE OF THE [place] IN LAST 30 DAYS: No - Related Data Allergies/Adverse Reactions: prochlorperazine edisylate [From Compazine] Allergy (Severe, Verified 09/29/18 23:45) PANIC ATTACK doxycycline [Doxycycline] Allergy (Mild, Verified 09/29/18 23:45) RASH hydrocodone [From Vicodin] Allergy (Verified 09/29/18 23:45) Nausea, Vomiting oxycodone [From Percocet] Allergy (Verified 09/29/18 23:45) Nausea, Vomiting prochlorperazine [From Compazine] Allergy (Verified 09/29/18 23:45) Anxiety Past Medical History - General Information source: Patient - Social History Smoking Status: Never Smoker Chew tobacco use (# tins/day): No Frequency of alcohol use: None Drug Abuse: None Lives with: Family Family History: Reviewed & Not Pertinent, DM Patient has suicidal ideation: No Patient has homicidal ideation: No - Past Medical History Cardiac Medical History: Reports: Hx Hypercholesterolemia, Hx Hypertension Denies: Hx Atrial Fibrillation, Hx Congestive Heart Failure, Hx Coronary Artery Disease, Hx Heart Attack, Hx Peripheral Vascular Disease, Hx Pulmonary Embolism, Hx Heart Murmur Pulmonary Medical History: Reports: Hx Asthma Denies: Hx Bronchitis, Hx COPD, Hx Pneumonia, Hx Respiratory Failure, Hx Sleep Apnea, Hx Tuberculosis Neurological Medical History: Reports: Hx Migraine, Hx Seizures - x1. Denies: Hx Cerebrovascular Accident Endocrine Medical History: Denies: Hx Diabetes Mellitus Type 1, Hx Diabetes Mellitus Type 2 Renal/ Medical History: Denies: Hx Ovarian Cysts, Hx Peritoneal Dialysis, Hx Pelvic Inflammatory Disease Malignancy Medical History: Denies: Hx Breast Cancer, Hx Cervical Cancer, Hx Leukemia, Hx Lung Cancer, Hx Ovarian Cancer Musculoskeletal Medical History: Reports Hx Arthritis, Reports Hx Fibromyalgia, Denies Hx Multiple Sclerosis, Denies Hx Muscular Dystrophy, Reports Hx Musculoskeletal Trauma Psychiatric Medical History: Denies: Hx Dementia Traumatic Medical History: Denies: Hx Fractures Infectious Medical History: Denies: Hx HIV Past Surgical History: Reports: Hx Section, Hx Cholecystectomy, Hx Hysterectomy, Hx Orthopedic Surgery - RTK replacement. Denies: Hx Appendectomy, Hx Bowel Surgery, Hx Coronary Artery Bypass Graft, Hx Gastric Bypass Surgery, Hx Herniorrhaphy, Hx Mastectomy, Hx Pacemaker, Hx Tonsillectomy, Hx Tubal Ligation - Immunizations Immunizations up to date: No Hx Diphtheria, Pertussis, Tetanus Vaccination: No Hx Pneumococcal Vaccination: 09/03/00 Review of Systems - Review of Systems Notes: Constitutional: Negative for fever. HENT: Positive for tonsillar exudates Eyes: Negative for visual changes. Cardiovascular: Negative for chest pain. Respiratory: Negative for shortness of breath. Gastrointestinal: Negative for abdominal pain, vomiting or diarrhea. Genitourinary: Negative for dysuria. Musculoskeletal: Positive for diffuse musculoskeletal pain Skin: Negative for rash. Neurological: Positive headache 10 point ROS negative except as marked above and in HPI. Physical Exam - Vital signs Vitals: Temp Pulse Resp BP Pulse Ox 98.3 F 67 14 121/77 96 10/04/18 18:07 10/04/18 18:07 10/04/18 18:07 10/04/18 18:07 10/04/18 18:07 Interpretation: Normal Notes: PHYSICAL EXAMINATION: GENERAL: Well-appearing, well-nourished and in no acute distress. HEAD: Atraumatic, normocephalic. EYES: Pupils equal round and reactive to light, extraocular movements intact, sclera anicteric, conjunctiva are normal. ENT: nares patent, bilateral tonsillar exudates. Moist mucous membranes. NECK: Normal range of motion, supple without lymphadenopathy LUNGS: Breath sounds clear to auscultation bilaterally and equal. No wheezes rales or rhonchi. HEART: Regular rate and rhythm without murmurs ABDOMEN: Soft, nontender, normoactive bowel sounds. No guarding, no rebound. No masses appreciated. EXTREMITIES: Normal range of motion, no pitting or edema. No cyanosis. NEUROLOGICAL: No focal neurological deficits. Moves all extremities spontaneou sly and on command. PSYCH: Normal mood, normal affect. SKIN: Warm, Dry, normal turgor, no rashes or lesions noted. Course - Re-evaluation Re-evalutation: 10/04/18 22:13 Presentation of several days of sore throat in an otherwise well-appearing patient. Patient has multiple additional complaints that appear to be likely related to an underlying viral syndrome. Rapid strep is negative. History and exam are not consistent with a retropharyngeal abscess or peritonsillar abscess. Airway is patent. No difficulty handling oral secretions. Vitals within normal limits. Patient was treated with a dose of dexamethasone and advised on symptomatic care. Suspect likely viral pharyngitis. At this time will discharge with return precautions and follow-up recommendations. Verbal discharge instructions given a the bedside and opportunity for questions given. Medication warnings reviewed. Patient is in agreement with this plan and has verbalized understanding of return precautions and the need for primary care follow-up in the next 24-72 hours. - Vital Signs Vital signs: Temp Pulse Resp BP Pulse Ox 98.3 F 78 16 133/75 H 98 10/04/18 22:35 10/04/18 22:35 10/04/18 22:35 10/04/18 22:35 10/04/18 22:35 - Laboratory Result Diagrams: 10/04/18 20:40 10/04/18 20:40 Laboratory results interpreted by me: 10/04/18 10/04/18 20:40 20:40 Hgb 11.9 L Hct 35.1 L Creatine Kinase 259 H - Diagnostic Test Radiology reviewed: Image reviewed, Reports reviewed Radiology results interpreted by me: 10/05/18 03:20 Chest x-ray: No acute infiltrate or pneumothorax - EKG Interpretation by Me Additional EKG results interpreted by me: 10/05/18 03:20 Sinus rhythm, rate 81. No ST elevations or depressions. QTC is 446. Discharge - Discharge Clinical Impression: Viral pharyngitis, Muscle ache, Chest discomfort Condition: Good Disposition: HOME, SELF-CARE Additional Instructions: Your labs, chest x-ray, rapid strep and rapid flu tests are all normal. Your potassium is again normal today. Your symptoms may be related to an underlying viral infection. Please return to the emergency room immediately if you experience any concerning symptoms including high fevers, severe headache, worsening chest pain, difficulty breathing, abdominal pain, slurred speech, numbness or weakness in your arms or legs, or any other symptom that concerns you. Referrals: JONAH LITTLE MD [Primary Care Provider] - Follow up as needed
[2018-10-04 22:40] VITALS: BP 133/75
--- NOTE | 2018-10-05 08:43 | EKG REPORT ---
SEVERITY:- ABNORMAL ECG - SINUS RHYTHM LEFT VENTRICULAR HYPERTROPHY : Confirmed by: Diego Woods MD 05-Oct-2018 08:42:56
== END 2018-10-04 22:35 | disposition home or self-care (01) ==
LOC: ER 17:42
DX: J02.9 Acute pharyngitis, unspecified (principal); B97.89 Other viral agents as the cause of diseases classified elsewhere; M79.10 Myalgia, unspecified site; R07.9 Chest pain, unspecified; E87.6 Hypokalemia; R51 Headache; I10 Essential (primary) hypertension; J45.909 Unspecified asthma, uncomplicated
CPT/HCPCS: 36415; 71046; 80053; 82550; 82553; 83735; 84484; 85025; 87070; 87804; 87880; 93005; 93010; 99284

== ENCOUNTER 2019-01-17 05:33 | Emergency (ER) | payer BC ==
[2019-01-17] MEDS ORDERED: ASPIRIN 81 MG TABLET, CHEWABLE PO ONE (07:11)
--- NOTE | 2019-01-17 07:39 | EKG REPORT ---
SEVERITY:- ABNORMAL ECG - SINUS RHYTHM NONSPECIFIC INTRAVENTRICULAR CONDUCTION DELAY LEFT VENTRICULAR HYPERTROPHY NONSPECIFIC ST-T CHANGES ANTERIOR LEADS : Confirmed by: Diego Woods MD 17-Jan-2019 07:38:28
[2019-01-17 07:50] LABS: ABSOLUTE BASOPHILS # (AUTO) 0.1 10^3/uL (0.0-0.2); ABSOLUTE EOSINOPHILS # (AUTO) 0.1 10^3/uL (0.0-0.6); ABSOLUTE LYMPHOCYTES (AUTO) 2.6 10^3/uL (0.5-4.7); ABSOLUTE MONOCYTES (AUTO) 0.8 10^3/uL (0.1-1.4); ABSOLUTE NEUT (AUTO) 5.8 10^3/uL (1.7-8.2); BASOPHILS % (AUTO) 0.9 % (0-2); EOSINOPHILS % (AUTO) 1.6 % (0-6); HEMATOCRIT 33.6 % (36.0-47.0); HEMOGLOBIN 11.4 g/dL (12.0-15.5); LYMPHOCYTES % (AUTO) 27.3 % (13-45); MEAN CORPUSCULAR HEMOGLOBIN 27.4 pg (27.0-33.4); MEAN CORPUSCULAR HGB CONC 33.9 g/dL (32.0-36.0); MEAN CORPUSCULAR VOLUME 81 fl (80-97); MONOCYTES % (AUTO) 8.6 % (3-13); PLATELET COUNT 380 10^3/uL (150-450); RED BLOOD COUNT 4.15 10^6/uL (3.72-5.28); RED CELL DISTRIBUTION WIDTH 13.6 % (11.5-14.0); SEGMENTED NEUTROPHILS % (AUTO) 61.6 % (42-78); TOTAL CELLS COUNTED % (AUTO) 100 %; WHITE BLOOD COUNT 9.3 10^3/uL (4.0-10.5)
[2019-01-17 08:23] LABS: ALANINE AMINOTRANSFERASE 25 U/L (9-52); ALBUMIN 3.6 g/dL (3.5-5.0); ALKALINE PHOSPHATASE 73 U/L (38-126); ANION GAP 10 (5-19); ASPARTATE AMINO TRANSFERASE 17 U/L (14-36); BILIRUBIN,DIRECT 0.2 mg/dL (0.0-0.4); BILIRUBIN,TOTAL 0.7 mg/dL (0.2-1.3); BLOOD UREA NITROGEN 15 mg/dL (7-20); CALCIUM 9.3 mg/dL (8.4-10.2); CARBON DIOXIDE 34 mmol/L (22-30); CHLORIDE 96 mmol/L (98-107); CREATINE KINASE 186 U/L (30-135); GLUCOSE 118 mg/dL (75-110); POTASSIUM 3.1 mmol/L (3.6-5.0); SODIUM 140.1 mmol/L (137-145); TOTAL PROTEIN 7.3 g/dL (6.3-8.2)
--- NOTE | 2019-01-17 08:23 | RADIOLOGY REPORT (SQ) ---
EXAM DESCRIPTION: CHEST SINGLE VIEW COMPLETED DATE/TIME: 01/17/2019 8:09 am REASON FOR STUDY: chest pain COMPARISON: 10/04/2018 EXAM PARAMETERS: NUMBER OF VIEWS: One view. TECHNIQUE: Single frontal radiographic view of the chest acquired. RADIATION DOSE: NA LIMITATIONS: None. FINDINGS: LUNGS AND PLEURA: No opacities, masses or pneumothorax. No pleural effusion. MEDIASTINUM AND HILAR STRUCTURES: No masses. Contour normal. HEART AND VASCULAR STRUCTURES: Heart normal in size. Normal vasculature. BONES: No acute findings. HARDWARE: None in the chest. OTHER: No other significant finding. IMPRESSION: No acute abnormality of the lungs. TECHNICAL DOCUMENTATION: JOB ID: [id number] [employer]- All Rights Reserved Reading location - IP/workstation name: [email or web address]
[2019-01-17 08:35] LABS: CREATINE KINASE MB 0.33 ng/mL (<4.55)
[2019-01-17 08:36] LABS: TROPONIN I < 0.012 ng/mL
[2019-01-17] MEDS ORDERED: POTASSIUM CHLORIDE 10 MEQ CAPSULE.ER PO ONE (08:42)
--- NOTE | 2019-01-17 10:20 | ER Document Report ---
ED Cardiac - General Chief Complaint: Chest Pain Stated Complaint: CHEST PAIN Time Seen by Provider: 01/17/19 08:11 Primary Care Provider: JONAH LITTLE MD [Primary Care Provider] - Follow up as needed Mode of Arrival: Ambulatory Information source: Patient Notes: Patient is a 48-year-old female presenting with multiple complaints today. Patient reports that she has been having intermittent chest pain over the last 4 days. She describes this as a pain behind the left breast. She states that there are no associated symptoms to include nausea, vomiting, shortness of breath or diaphoresis. Patient also reports that she is having generalized muscle pains and headache. Patient reports history of IBS with diarrhea states she is having severe diarrhea over the last few days and she believes her potassium is low. Patient reports when she has diarrhea she does take 15 mEq of potassium daily as she has a history of having potassium dropped. TRAVEL OUTSIDE OF THE [place] IN LAST 30 DAYS: No - Related Data Allergies/Adverse Reactions: prochlorperazine edisylate [From Compazine] Allergy (Severe, Verified 09/29/18 23:45) PANIC ATTACK doxycycline [Doxycycline] Allergy (Mild, Verified 09/29/18 23:45) RASH hydrocodone [From Vicodin] Allergy (Verified 09/29/18 23:45) Nausea, Vomiting oxycodone [From Percocet] Allergy (Verified 09/29/18 23:45) Nausea, Vomiting prochlorperazine [From Compazine] Allergy (Verified 09/29/18 23:45) Anxiety Past Medical History - General Information source: Patient - Social History Smoking Status: Never Smoker Frequency of alcohol use: None Drug Abuse: None Family History: Reviewed & Not Pertinent, DM Patient has suicidal ideation: No Patient has homicidal ideation: No - Past Medical History Cardiac Medical History: Reports: Hx Hypercholesterolemia, Hx Hypertension Denies: Hx Atrial Fibrillation, Hx Congestive Heart Failure, Hx Coronary Artery Disease, Hx Heart Attack, Hx Peripheral Vascular Disease, Hx Pulmonary Embolism, Hx Heart Murmur Pulmonary Medical History: Reports: Hx Asthma Denies: Hx Bronchitis, Hx COPD, Hx Pneumonia, Hx Respiratory Failure, Hx Sleep Apnea, Hx Tuberculosis Neurological Medical History: Reports: Hx Migraine, Hx Seizures - x1. Denies: Hx Cerebrovascular Accident Endocrine Medical History: Denies: Hx Diabetes Mellitus Type 1, Hx Diabetes Mellitus Type 2 Renal/ Medical History: Denies: Hx Ovarian Cysts, Hx Peritoneal Dialysis, Hx Pelvic Inflammatory Disease Malignancy Medical History: Denies: Hx Breast Cancer, Hx Cervical Cancer, Hx Leukemia, Hx Lung Cancer, Hx Ovarian Cancer Musculoskeletal Medical History: Reports Hx Arthritis, Reports Hx Fibromyalgia, Denies Hx Multiple Sclerosis, Denies Hx Muscular Dystrophy, Reports Hx Musculoskeletal Trauma Psychiatric Medical History: Denies: Hx Dementia Traumatic Medical History: Denies: Hx Fractures Infectious Medical History: Denies: Hx HIV Past Surgical History: Reports: Hx Section, Hx Cholecystectomy, Hx Hysterectomy, Hx Orthopedic Surgery - RTK replacement. Denies: Hx Appendectomy, Hx Bowel Surgery, Hx Coronary Artery Bypass Graft, Hx Gastric Bypass Surgery, Hx Herniorrhaphy, Hx Mastectomy, Hx Pacemaker, Hx Tonsillectomy, Hx Tubal Ligation - Immunizations Immunizations up to date: No Hx Diphtheria, Pertussis, Tetanus Vaccination: No Hx Pneumococcal Vaccination: 09/03/00 Review of Systems - Review of Systems Constitutional: Other - Body aches. denies: Chills, Fever EENT: No symptoms reported Cardiovascular: Chest pain Respiratory: denies: Cough, Hurts to breathe, Short of breath Gastrointestinal: Diarrhea. denies: Abdominal pain, Nausea, Vomiting Genitourinary: No symptoms reported Female Genitourinary: No symptoms reported Musculoskeletal: No symptoms reported Skin: No symptoms reported Hematologic/Lymphatic: No symptoms reported Neurological/Psychological: No symptoms reported Physical Exam - Vital signs Vitals: Temp Pulse Resp BP Pulse Ox 98.4 F 66 14 116/75 98 01/17/19 05:49 01/17/19 05:49 01/17/19 05:49 01/17/19 05:49 01/17/19 05:49 - Notes Notes: PHYSICAL EXAMINATION: GENERAL: Well-appearing, well-nourished and in no acute distress. HEAD: Atraumatic, normocephalic. EYES: Pupils equal round and reactive to light, extraocular movements intact, conjunctiva are normal. ENT: Nares patent, oropharynx clear without exudates. Moist mucous membranes. NECK: Normal range of motion, supple without lymphadenopathy LUNGS: Breath sounds clear to auscultation bilaterally and equal. No wheezes rales or rhonchi. HEART: Regular rate and rhythm without murmurs ABDOMEN: Soft, nontender, nondistended abdomen. No guarding, no rebound. No masses appreciated. Female : No CVAT. Musculoskeletal: Normal range of motion, no pitting or edema. No cyanosis. NEUROLOGICAL: Cranial nerves grossly intact. Normal speech, normal gait. Normal sensory, motor exams PSYCH: Normal mood, normal affect. SKIN: Warm, Dry, normal turgor, no rashes or lesions noted. Course - Re-evaluation Re-evalutation: Patient appears well, nontoxic and all vital signs are within normal limits. Physical examination is unremarkable patient currently denies any chest pain. Chest x-ray is negative for any acute infiltrate, pneumothorax or cardiomegaly. EKG was reviewed by me and shows a sinus rhythm, rate of 64, QTc 463, normal axis, no ST segment elevations or depressions. CBC and CMP are unremarkable other than a hypokalemia of 3.1. Troponin is negative. Will treat patient with 60 mEq of oral potassium and redraw a troponin. 01/17/19 11:18 Repeat troponin is also negative. Patient will be discharged home at this time. To increase her potassium intake and follow-up with Dr. Little. Patient verbalizes understanding and agreement with plan. - Vital Signs Vital signs: Temp Pulse Resp BP Pulse Ox 98.4 F 55 L 21 H 127/83 H 93 01/17/19 05:49 01/17/19 09:37 01/17/19 09:01 01/17/19 09:01 01/17/19 09:01 - Laboratory Result Diagrams: 01/17/19 07:32 01/17/19 07:32 Laboratory results interpreted by me: 01/17/19 01/17/19 07:32 07:32 Hgb 11.4 L Hct 33.6 L Potassium 3.1 L Chloride 96 L Carbon Dioxide 34 H Glucose 118 H Creatine Kinase 186 H Discharge - Discharge Clinical Impression: Hypokalemia Chest pain Qualifiers: Chest pain type: unspecified Qualified Code(s): R07.9 - Chest pain, unspecified Condition: Stable Disposition: HOME, SELF-CARE Instructions: Chest Pain of Unclear Cause ([facility]) Additional Instructions: As discussed your potassium was low today. It was 3.1. We gave you 60 mEq of potassium. This is likely the cause of your body aches. All testing done today was negative for any acute cardiac findings. My recommendation why you are having your episodes of diarrhea is to increase your potassium intake to 30 mEq/day. Please have close follow-up with Dr. Little. Return to the emergency department for any new or worsening symptoms. Referrals: JONAH LITTLE MD [Primary Care Provider] - Follow up as needed
[2019-01-17 11:22] VITALS: BP 117/80
== END 2019-01-17 11:20 | disposition home or self-care (01) ==
LOC: ER 05:33
DX: E87.6 Hypokalemia (principal); R07.9 Chest pain, unspecified; R06.02 Shortness of breath; R11.2 Nausea with vomiting, unspecified; M79.10 Myalgia, unspecified site; Z88.6 Allergy status to analgesic agent
CPT/HCPCS: 36415; 71045; 80053; 82550; 82553; 84484; 85025; 93005; 93010; 99285

== ENCOUNTER 2019-06-23 17:05 | Emergency (ER) | payer BC ==
[2019-06-23] MEDS ORDERED: ASPIRIN 81 MG TABLET, CHEWABLE PO ONE (17:34)
--- NOTE | 2019-06-23 17:34 | ER Document Report ---
ED Medical Screen (RME) - General Chief Complaint: Chest Pain Stated Complaint: CHEST PAIN Time Seen by Provider: 06/23/19 17:30 Primary Care Provider: JONAH LITTLE MD [Primary Care Provider] - Follow up as needed Mode of Arrival: Ambulatory Information source: Patient Notes: 48-year-old female presented to ED for complaint of chest pain. She states she was in [place] last night when the chest pain started so they did not go to the hospital because they did not want to get stuck in [place]. She states that the chest pain has been intermittent since then. She did feel a lot of palpitations at the time that is not as bad now. She states she still have a pressure pain is a 3 out of 5. She states she does have a history of atrial fib. She states that last night the heart was going real fast and that it was slow down goes low. Then will go will fast but she did not get checked out. Patient denies any shortness of breath but states it does hurt to take a deep breath. She denies any cough congestion. She is on blood pressure and cholesterol medication denies smoking drinking or doing any drugs patient. States she has had 2 strokes in the past she states she is not on any blood thinners at this time. States the strokes were 5 or 6 years ago and she is no longer on blood thinners except for one baby aspirin. I have greeted and performed a rapid initial assessment of this patient. A comprehensive ED assessment and evaluation of the patient, analysis of test results and completion of medical decision making process will be conducted by an additional ED providers. TRAVEL OUTSIDE OF THE [place] IN LAST 30 DAYS: No - Related Data Allergies/Adverse Reactions: prochlorperazine edisylate [From Compazine] Allergy (Severe, Verified 09/29/18 23:45) PANIC ATTACK doxycycline [Doxycycline] Allergy (Mild, Verified 09/29/18 23:45) RASH hydrocodone [From Vicodin] Allergy (Verified 09/29/18 23:45) Nausea, Vomiting oxycodone [From Percocet] Allergy (Verified 09/29/18 23:45) Nausea, Vomiting prochlorperazine [From Compazine] Allergy (Verified 09/29/18 23:45) Anxiety Past Medical History - Past Medical History Cardiac Medical History: Reports: Hx Hypercholesterolemia, Hx Hypertension Denies: Hx Atrial Fibrillation, Hx Congestive Heart Failure, Hx Coronary Artery Disease, Hx Heart Attack, Hx Peripheral Vascular Disease, Hx Pulmonary Embolism, Hx Heart Murmur Pulmonary Medical History: Reports: Hx Asthma Denies: Hx Bronchitis, Hx COPD, Hx Pneumonia, Hx Respiratory Failure, Hx Sleep Apnea, Hx Tuberculosis Neurological Medical History: Reports: Hx Migraine, Hx Seizures - x1. Denies: Hx Cerebrovascular Accident, Hx Parkinson's Disease Endocrine Medical History: Denies: Hx Diabetes Mellitus Type 1, Hx Diabetes Mellitus Type 2 Renal/ Medical History: Denies: Hx Ovarian Cysts, Hx Peritoneal Dialysis, Hx Pelvic Inflammatory Disease Malignancy Medical History: Denies: Hx Breast Cancer, Hx Cervical Cancer, Hx Leukemia, Hx Lung Cancer, Hx Ovarian Cancer Musculoskeltal Medical History: Reports Hx Arthritis, Reports Hx Fibromyalgia, Denies Hx Multiple Sclerosis, Denies Hx Muscular Dystrophy, Reports Hx Musculoskeletal Trauma Psychiatric Medical History: Denies: Hx Dementia Traumatic Medical History: Denies: Hx Fractures Infectious Medical History: Denies: Hx HIV Past Surgical History: Reports: Hx Section, Hx Cholecystectomy, Hx Hysterectomy, Hx Orthopedic Surgery - RTK replacement. Denies: Hx Appendectomy, Hx Bowel Surgery, Hx Coronary Artery Bypass Graft, Hx Gastric Bypass Surgery, Hx Herniorrhaphy, Hx Mastectomy, Hx Pacemaker, Hx Tonsillectomy, Hx Tubal Ligation - Immunizations Immunizations up to date: No Hx Diphtheria, Pertussis, Tetanus Vaccination: No Physical Exam - Vital signs Vitals: Temp Pulse Resp BP Pulse Ox 98.2 F 58 L 16 147/79 H 97 06/23/19 17:18 06/23/19 17:18 06/23/19 17:18 06/23/19 17:18 06/23/19 17:18 Course - Vital Signs Vital signs: Temp Pulse Resp BP Pulse Ox 98.2 F 58 L 16 147/79 H 97 06/23/19 17:18 06/23/19 17:18 06/23/19 17:18 06/23/19 17:18 06/23/19 17:18 Doctor's Discharge - Discharge Referrals: JONAH LITTLE MD [Primary Care Provider] - Follow up as needed
--- NOTE | 2019-06-23 18:04 | RADIOLOGY REPORT (SQ) ---
EXAM DESCRIPTION: CHEST 2 VIEWS COMPLETED DATE/TIME: 06/23/2019 5:49 pm REASON FOR STUDY: chest pain hx afiband cva COMPARISON: Chest radiographs 01/17/2019 EXAM PARAMETERS: NUMBER OF VIEWS: two views TECHNIQUE: Digital Frontal and Lateral radiographic views of the chest acquired. RADIATION DOSE: NA LIMITATIONS: none FINDINGS: LUNGS AND PLEURA: Hypoventilated lungs. No focal airspace consolidation. No pneumothorax or pleural effusion. MEDIASTINUM AND HILAR STRUCTURES: No masses or contour abnormalities. HEART AND VASCULAR STRUCTURES: Heart normal size. No evidence for failure. BONES: No acute findings. HARDWARE: None in the chest. OTHER: No other significant finding. IMPRESSION: Hypoventilated lungs with otherwise no acute pulmonary findings. TECHNICAL DOCUMENTATION: JOB ID: [id number] [employer]- All Rights Reserved Reading location - IP/workstation name: [email or web address]
[2019-06-23] MEDS ORDERED: NITROGLYCERIN 2% OINTMENT 1 GM PACKET TP ONE (19:11)
--- NOTE | 2019-06-23 19:12 | ER Document Report ---
ED General - General Chief Complaint: Chest Pain Stated Complaint: CHEST PAIN Time Seen by Provider: 06/23/19 17:30 Primary Care Provider: JONAH LITTLE MD [Primary Care Provider] - Follow up tomorrow Mode of Arrival: Ambulatory TRAVEL OUTSIDE OF THE [place] IN LAST 30 DAYS: No - HPI Notes: 48-year-old female with stated history of prior stroke that was related to the of 1 of her children, prior TIA, presents with chest pain. Describes onse t last night relatively rapidly of left anterolateral chest pain, sharp, somewhat pleuritic at times. Coming back from [place] did not want to stay there so she drove overnight. Since it is waxing and waning but is been constantly there essentially. No fever, chills or sweats. No cough. No lower extremity pain or swelling. No history of prior [place], no history of prior stress testing. Moderate intensity. Cannot relate any particular provocative or palliative factor. No other modifying factors, no other associated symptoms, no other provocative or palliative factors. - Related Data Allergies/Adverse Reactions: prochlorperazine edisylate [From Compazine] Allergy (Severe, Verified 09/29/18 23:45) PANIC ATTACK doxycycline [Doxycycline] Allergy (Mild, Verified 09/29/18 23:45) RASH hydrocodone [From Vicodin] Allergy (Verified 09/29/18 23:45) Nausea, Vomiting oxycodone [From Percocet] Allergy (Verified 09/29/18 23:45) Nausea, Vomiting prochlorperazine [From Compazine] Allergy (Verified 09/29/18 23:45) Anxiety Past Medical History - General Information source: Patient - Social History Smoking Status: Never Smoker Frequency of alcohol use: None Drug Abuse: None Family History: Reviewed & Not Pertinent, DM Patient has suicidal ideation: No Patient has homicidal ideation: No - Past Medical History Cardiac Medical History: Reports: Hx Hypercholesterolemia, Hx Hypertension Denies: Hx Atrial Fibrillation, Hx Congestive Heart Failure, Hx Coronary Artery Disease, Hx Heart Attack, Hx Peripheral Vascular Disease, Hx Pulmonary Embolism, Hx Heart Murmur Pulmonary Medical History: Reports: Hx Asthma Denies: Hx Bronchitis, Hx COPD, Hx Pneumonia, Hx Respiratory Failure, Hx Sleep Apnea, Hx Tuberculosis Neurological Medical History: Reports: Hx Migraine, Hx Seizures - x1. Denies: Hx Cerebrovascular Accident, Hx Parkinson's Disease Endocrine Medical History: Denies: Hx Diabetes Mellitus Type 1, Hx Diabetes Mellitus Type 2 Renal/ Medical History: Denies: Hx Ovarian Cysts, Hx Peritoneal Dialysis, Hx Pelvic Inflammatory Disease Malignancy Medical History: Denies: Hx Breast Cancer, Hx Cervical Cancer, Hx Leukemia, Hx Lung Cancer, Hx Ovarian Cancer Musculoskeletal Medical History: Reports Hx Arthritis, Reports Hx Fibromyalgia, Denies Hx Multiple Sclerosis, Denies Hx Muscular Dystrophy, Reports Hx Musculoskeletal Trauma Psychiatric Medical History: Denies: Hx Dementia Traumatic Medical History: Denies: Hx Fractures Infectious Medical History: Denies: Hx HIV Past Surgical History: Reports: Hx Section, Hx Cholecystectomy, Hx Hysterectomy, Hx Orthopedic Surgery - RTK replacement. Denies: Hx Appendectomy, Hx Bowel Surgery, Hx Coronary Artery Bypass Graft, Hx Gastric Bypass Surgery, Hx Herniorrhaphy, Hx Mastectomy, Hx Pacemaker, Hx Tonsillectomy, Hx Tubal Ligation - Immunizations Immunizations up to date: No Hx Diphtheria, Pertussis, Tetanus Vaccination: No Hx Pneumococcal Vaccination: 09/03/00 Review of Systems - Review of Systems Notes: General: Well developed . HEENT: Normocephalic, atraumatic. Pupils equal round reactive to light. No JVD. Chest: No trauma. Respiratory: Good air exchange, normal excursion. Cardiac: Regular rhythm. No murmurs or gallops. Abdomen: Soft, benign. Nondistended. Nontender. Back: No asymmetry or gross abnormality. Motor: Grossly normal power and tone. Neurologic: Alert, nonfocal. Cranial nerves II-12 are intact. Sensation intact. Vascular: Well perfused. Normal peripheral pulses. Skin: No petechiae or purpura. Physical Exam - Vital signs Vitals: Temp Pulse Resp BP Pulse Ox 98.2 F 58 L 16 147/79 H 97 06/23/19 17:18 06/23/19 17:18 06/23/19 17:18 06/23/19 17:18 06/23/19 17:18 - Notes Notes: General: Well developed . HEENT: Normocephalic, atraumatic. Pupils equal round reactive to light. No JVD. Chest: No trauma. Respiratory: Good air exchange, normal excursion. Cardiac: Regular rhythm. No murmurs or gallops. Abdomen: Soft, benign. Nondistended. Nontender. Back: No asymmetry or gross abnormality. Motor: Grossly normal power and tone. Neurologic: Alert, nonfocal. Cranial nerves II-12 are intact. Sensation intact. Vascular: Well perfused. Normal peripheral pulses. Skin: No petechiae or purpura. Course - Re-evaluation Re-evalutation: 06/24/19 00:04 48-year-old female presents with somewhat atypical chest pain, certainly concerning for possible ACS, pulmonary embolism, pleurisy, pneumothorax or pneumonia. Patient seen by the provider in triage, currently pending labs and x-ray, will treat with analgesics, nitrates, already received aspirin, add on d- dimer, reevaluate. 06/24/19 00:04 Labs reviewed, CBC unremarkable, unremarkable, troponin normal. D-dimer minimally elevated, however, in light of her pleuritic pain, will proceed with CT imaging. CTA shows no acute pulmonary embolism no acute abnormality. Patient has had moderate improvement in pain. Delta troponin rule out is negative over prolonged period of time. I think this is unlikely to be ACS. She is discharged home to follow-up close with a primary care physician, return if worsening. - Vital Signs Vital signs: Temp Pulse Resp BP Pulse Ox 98.2 F 58 L 16 147/79 H 97 06/23/19 17:18 06/23/19 17:18 06/23/19 17:18 06/23/19 17:18 06/23/19 17:18 - Laboratory Result Diagrams: 06/23/19 19:21 06/23/19 20:10 Laboratory results interpreted by ks: 06/23/19 06/23/19 06/23/19 19:21 19:21 20:10 Hgb 11.9 L Hct 35.2 L RDW 14.2 H D-Dimer 0.51 H Potassium 3.5 L Glucose 114 H Creatine Kinase 609 H - EKG Interpretation by Wy EKG shows normal: Sinus rhythm, [place], Intervals, QRS Complexes - No specific ST- T changes, no change from baseline Discharge - Discharge Clinical Impression: Chest pain Qualifiers: Chest pain type: other chest pain Qualified Code(s): R07.89 - Other chest pain Condition: Stable Disposition: HOME, SELF-CARE Instructions: Chest Pain of Unclear Cause ([facility]) Referrals: JONAH LITTLE MD [Primary Care Provider] - Follow up tomorrow
[2019-06-23 19:35] LABS: ABSOLUTE BASOPHILS # (AUTO) 0.1 10^3/uL (0.0-0.2); ABSOLUTE EOSINOPHILS # (AUTO) 0.2 10^3/uL (0.0-0.6); ABSOLUTE LYMPHOCYTES (AUTO) 2.5 10^3/uL (0.5-4.7); ABSOLUTE MONOCYTES (AUTO) 0.5 10^3/uL (0.1-1.4); BASOPHILS % (AUTO) 0.8 % (0-2); EOSINOPHILS % (AUTO) 2.5 % (0-6); HEMATOCRIT 35.2 % (36.0-47.0); HEMOGLOBIN 11.9 g/dL (12.0-15.5); LYMPHOCYTES % (AUTO) 40.6 % (13-45); MEAN CORPUSCULAR HEMOGLOBIN 27.6 pg (27.0-33.4); MEAN CORPUSCULAR HGB CONC 33.7 g/dL (32.0-36.0); MEAN CORPUSCULAR VOLUME 82 fl (80-97); MONOCYTES % (AUTO) 7.3 % (3-13); PLATELET COUNT 331 10^3/uL (150-450); RED CELL DISTRIBUTION WIDTH 14.2 % (11.5-14.0); SEGMENTED NEUTROPHILS % (AUTO) 48.8 % (42-78); TOTAL CELLS COUNTED % (AUTO) 100 %; WHITE BLOOD COUNT 6.2 10^3/uL (4.0-10.5)
[2019-06-23 19:39] LABS: INTERNATIONAL RATION (INR) 1.01; PROTHROMBIN TIME 13.3 SEC (11.4-15.4)
[2019-06-23 19:40] LABS: PARTIAL THROMBOPLASTIN TIME 27.6 SEC (23.5-35.8)
[2019-06-23 19:44] LABS: D-DIMER 0.51 ug/mL (0.00-0.50)
[2019-06-23 20:56] LABS: ALBUMIN 3.9 g/dL (3.5-5.0); ALKALINE PHOSPHATASE 59 U/L (38-126); ANION GAP 9 (5-19); ASPARTATE AMINO TRANSFERASE 31 U/L (14-36); BILIRUBIN,DIRECT 0.1 mg/dL (0.0-0.4); BILIRUBIN,TOTAL 0.4 mg/dL (0.2-1.3); BLOOD UREA NITROGEN 14 mg/dL (7-20); CALCIUM 9.3 mg/dL (8.4-10.2); CARBON DIOXIDE 29 mmol/L (22-30); CHLORIDE 103 mmol/L (98-107); CREATINE KINASE 609 U/L (30-135); GLUCOSE 114 mg/dL (75-110); POTASSIUM 3.5 mmol/L (3.6-5.0); TOTAL PROTEIN 7.5 g/dL (6.3-8.2)
[2019-06-23 21:07] LABS: CREATINE KINASE MB 2.15 ng/mL (<4.55); NT PRO BNP 37 pg/mL (<125)
[2019-06-23 21:12] LABS: TROPONIN I < 0.012 ng/mL
--- NOTE | 2019-06-23 23:03 | RADIOLOGY REPORT (SQ) ---
EXAM DESCRIPTION: [facility]Lex: CT CHEST ANGIOGRAPHY WITHOUT THEN WITH IV CONTRAST CLINICAL HISTORY: 48 years Female; Elevated d-dimer(0.51), pleuritic chest pain; TECHNIQUE: CT angiogram of the chest using intravenous contrast.. MIP reconstructions were performed. All CT scans at this facility use dose modulation, iterative reconstruction, and/or weight based dosing when appropriate to reduce radiation dose to as low as reasonably achievable. COMPARISON: CT 07/11/2016 FINDINGS: Chest: No filling defects in the central pulmonary arteries. There is minimal dependent atelectasis in the posterior lower lobe. No acute infiltrates. No pneumothorax or pleural effusion. No mediastinal mass or adenopathy. No pericardial effusion. Hiatal hernia is noted. No aortic aneurysm or dissection. IMPRESSION: 1. No CT evidence for pulmonary embolism. 2. No acute pulmonary findings. 3. Hiatal hernia
[2019-06-24 02:00] VITALS: BP 129/76
--- NOTE | 2019-06-24 09:24 | EKG REPORT ---
SEVERITY:- BORDERLINE ECG - SINUS RHYTHM LVH BY VOLTAGE : Confirmed by: Ping Hester MD 24-Jun-2019 09:24:00
== END 2019-06-24 02:07 | disposition home or self-care (01) ==
LOC: ER 17:05
DX: R07.81 Pleurodynia (principal); R79.89 Other specified abnormal findings of blood chemistry; J45.909 Unspecified asthma, uncomplicated; I10 Essential (primary) hypertension; Z88.8 Allergy status to other drugs, medicaments and biological substances; Z88.1 Allergy status to other antibiotic agents; Z88.5 Allergy status to narcotic agent
CPT/HCPCS: 36415; 71046; 71275; 80053; 82550; 82553; 83735; 83880; 84443; 84484; 85025; 85379; 85610; 85730; 93005; 93010; 99285

== ENCOUNTER 2019-09-04 06:17 | Emergency (ER) | payer BC ==
[2019-09-04 07:32] LABS: APPEARANCE,URINE SLIGHTLY-CLOUDY; BILIRUBIN,URINE NEGATIVE (NEGATIVE); COLOR,URINE YELLOW; GLUCOSE, URINE NEGATIVE (NEGATIVE); KETONES,URINE TRACE mg/dL (NEGATIVE); LEUKOCYTE ESTERASE,URINE NEGATIVE (NEGATIVE); NITRITE,URINE NEGATIVE (NEGATIVE); PROTEIN,URINE 100 mg/dL (NEGATIVE); URINE SPECIFIC GRAVITY 1.027
--- NOTE | 2019-09-04 07:38 | EKG REPORT ---
SEVERITY:- BORDERLINE ECG - SINUS RHYTHM NONSPECIFIC IVCD : Confirmed by: Diego Woods MD 04-Sep-2019 07:37:37
--- NOTE | 2019-09-04 07:39 | RADIOLOGY REPORT (SQ) ---
Chest single view on 09/04/2019 at 7:10 AM CLINICAL INDICATION: Chest pain COMPARISON: 06/23/2019 FINDINGS: Borderline cardiomegaly is noted. Hilar and mediastinal contours are within normal limits. The lungs are clear. Pulmonary vascularity is within normal limits. No bony abnormality is noted. IMPRESSION: No acute disease.
[2019-09-04 08:31] LABS: ABSOLUTE BASOPHILS # (AUTO) 0.1 10^3/uL (0.0-0.2); ABSOLUTE LYMPHOCYTES (AUTO) 3.4 10^3/uL (0.5-4.7); ABSOLUTE MONOCYTES (AUTO) 1.3 10^3/uL (0.1-1.4); ABSOLUTE NEUT (AUTO) 10.6 10^3/uL (1.7-8.2); BASOPHILS % (AUTO) 0.9 % (0-2); EOSINOPHILS % (AUTO) 0.1 % (0-6); HEMATOCRIT 31.7 % (36.0-47.0); HEMOGLOBIN 10.7 g/dL (12.0-15.5); LYMPHOCYTES % (AUTO) 21.7 % (13-45); MEAN CORPUSCULAR HEMOGLOBIN 28.4 pg (27.0-33.4); MEAN CORPUSCULAR HGB CONC 33.9 g/dL (32.0-36.0); MEAN CORPUSCULAR VOLUME 84 fl (80-97); MONOCYTES % (AUTO) 8.7 % (3-13); PLATELET COUNT 325 10^3/uL (150-450); RED BLOOD COUNT 3.78 10^6/uL (3.72-5.28); RED CELL DISTRIBUTION WIDTH 14.4 % (11.5-14.0); SEGMENTED NEUTROPHILS % (AUTO) 68.6 % (42-78); TOTAL CELLS COUNTED % (AUTO) 100 %; WHITE BLOOD COUNT 15.5 10^3/uL (4.0-10.5)
[2019-09-04 08:57] LABS: ALBUMIN 3.9 g/dL (3.5-5.0); ALKALINE PHOSPHATASE 58 U/L (38-126); ANION GAP 11 (5-19); ASPARTATE AMINO TRANSFERASE 20 U/L (14-36); BILIRUBIN,DIRECT 0.2 mg/dL (0.0-0.4); BILIRUBIN,TOTAL 0.5 mg/dL (0.2-1.3); BLOOD UREA NITROGEN 14 mg/dL (7-20); CALCIUM 9.2 mg/dL (8.4-10.2); CARBON DIOXIDE 20 mmol/L (22-30); CHLORIDE 111 mmol/L (98-107); CREATINE KINASE 161 U/L (30-135); GLUCOSE 98 mg/dL (75-110); POTASSIUM 4.3 mmol/L (3.6-5.0); TOTAL PROTEIN 7.5 g/dL (6.3-8.2)
--- NOTE | 2019-09-04 09:02 | ER Document Report ---
Entered by XENIA CAMILO SCRIBE 09/04/19 0818 Acting as scribe for:CALOS GONCALVES MD ED General - General Chief Complaint: Shortness Of Breath Stated Complaint: SHORTNESS OF BREATH Time Seen by Provider: 09/04/19 08:10 Primary Care Provider: JONAH LITTLE MD [Primary Care Provider] - Follow up as needed Mode of Arrival: Ambulatory Information source: Patient Notes: This 48 year old female patient presents to the ED today with complaints of shortness of breath for the past x1 month. Patient states that she had a sore throat and cough x3 weeks ago was treated with steroids for a virus on 08/11/19. Patient states that x5 days ago, she was seen at a local clinic for chest heaviness, lack of energy, and a cough and was prescribed prednisone, tessalon perles, and omnicef with little to no relief. Patient notes that she "feels like elephants are sitting on my chest" and that she is "not getting a lot of air". Patient reports wheezing sometimes, but denies a fever. Patient stated that she did not receive a flu shot this year. TRAVEL OUTSIDE OF THE [place] IN LAST 30 DAYS: No - Related Data Allergies/Adverse Reactions: prochlorperazine edisylate [From Compazine] Allergy (Severe, Verified 09/04/19 07:50) PANIC ATTACK doxycycline [Doxycycline] Allergy (Mild, Verified 09/04/19 07:50) RASH hydrocodone [From Vicodin] Allergy (Verified 09/04/19 07:50) Nausea, Vomiting oxycodone [From Percocet] Allergy (Verified 09/04/19 07:50) Nausea, Vomiting prochlorperazine [From Compazine] Allergy (Verified 09/04/19 07:50) Anxiety Home Medications: spiriva, prednisone, cipro, Past Medical History - General Information source: Patient - Social History Smoking Status: Never Smoker Cigarette use (# per day): No Chew tobacco use (# tins/day): No Smoking Education Provided: No Frequency of alcohol use: None Drug Abuse: None Family History: Reviewed & Not Pertinent, DM Patient has suicidal ideation: No Patient has homicidal ideation: No - Past Medical History Cardiac Medical History: Reports: Hx Hypercholesterolemia, Hx Hypertension Pulmonary Medical History: Reports: Hx Asthma Neurological Medical History: Reports: Hx Migraine, Hx Seizures - x1 Musculoskeletal Medical History: Reports Hx Arthritis, Reports Hx Fibromyalgia, Reports Hx Musculoskeletal Trauma Past Surgical History: Reports: Hx Section, Hx Cholecystectomy, Hx Hysterectomy, Hx Orthopedic Surgery - RTK replacement - Immunizations Immunizations up to date: No Hx Diphtheria, Pertussis, Tetanus Vaccination: No Hx Pneumococcal Vaccination: 09/03/00 Review of Systems - Review of Systems Constitutional: See HPI. denies: Fever EENT: See HPI, Throat pain Cardiovascular: See HPI, Chest pain - reproducible Respiratory: See HPI, Cough, Short of breath, Wheezing Gastrointestinal: No symptoms reported Genitourinary: No symptoms reported Female Genitourinary: No symptoms reported Musculoskeletal: No symptoms reported Skin: No symptoms reported Hematologic/Lymphatic: No symptoms reported Neurological/Psychological: No symptoms reported -: Yes All other systems reviewed and negative Physical Exam - Vital signs Vitals: Temp Pulse BP Pulse Ox 97.6 F 75 153/91 H 98 09/04/19 06:21 09/04/19 06:21 09/04/19 06:21 09/04/19 06:21 - General General appearance: Alert In distress: None - HEENT Head: Normocephalic, Atraumatic Eyes: Normal Pupils: PERRL Pharynx: Normal - Respiratory Respiratory status: No respiratory distress Chest status: Tender - Anterior chest wall tenderness with palpation Breath sounds: Normal Chest palpation: Normal - Cardiovascular Rhythm: Regular Heart sounds: Normal auscultation Murmur: No - Abdominal Inspection: Morbidly Obese Distension: No distension Bowel sounds: Normal Tenderness: Nontender - Abdomen soft Organomegaly: No organomegaly - Back Back: Normal, Nontender - Extremities General upper extremity: Normal inspection General lower extremity: Normal inspection - Neurological Neuro grossly intact: Yes - Psychological Associated symptoms: Normal affect, Normal mood - Skin Skin Temperature: Warm Skin Moisture: Dry Skin Color: Normal Course - Re-evaluation Re-evalutation: 09/04/19 09:22 Patient CBC shows a slightly elevated WBC, but she has been on prednisone now for 4 days. Chem-12 is unremarkable with a normal potassium. She does appear to have the viral upper respiratory tract infection that has been prevalent in this community for the last few weeks. - Vital Signs Vital signs: Temp Pulse Resp BP Pulse Ox 97.6 F 75 15 126/83 H 100 09/04/19 06:21 09/04/19 06:21 09/04/19 09:01 09/04/19 09:01 09/04/19 09:01 - Laboratory Result Diagrams: 09/04/19 08:01 09/04/19 08:01 Laboratory results interpreted by me: 09/04/19 09/04/19 09/04/19 07:05 08:01 08:01 WBC 15.5 H Hgb 10.7 L Hct 31.7 L RDW 14.4 H Absolute Neuts (auto) 10.6 H Chloride 111 H Carbon Dioxide 20 L Creatine Kinase 161 H Urine Protein 100 H Urine Ketones TRACE H Urine Urobilinogen 4.0 H - Diagnostic Test Radiology reviewed: Image reviewed, Reports reviewed Discharge - Discharge Clinical Impression: Viral upper respiratory tract infection with cough Condition: Stable Disposition: HOME, SELF-CARE Additional Instructions: Upper Respiratory Illness You have a viral infection of the respiratory passages -- a "cold." This common infection causes nasal congestion, drainage, and often sore throat and cough. It is caused by a virus and is highly contagious. The disease usually lasts a week or more, though the worst symptoms are usually over in 3 or 4 days. There is no "cure" for the viral infection -- it must run its course. If there is a complication, such as bacterial infection in the nose, sinuses, middle ear, or bronchial tubes, antibiotics may be required, but antibiotics won't affect the virus. If you smoke, you should STOP!! Drink plenty of fluids. A humidifier may help. An expectorant medication or decongestant may make you more comfortable. Use acetaminophen or ibuprofen for fever or aches. See the doctor if fever persists over two or three days, if there is any significant worsening of your symptoms, or if you simply fail to improve as expected. 8 Continue the medication you are prescribed by your doctor 4 days ago. Drink plenty of fluids and get plenty of rest. Try adding something like Delsym DM to help control your cough. Follow-up with your primary care provider next week if you do not begin to improve some. RETURN TO THE EMERGENCY ROOM IF ANY NEW OR WORSENING SYMPTOMS. Referrals: JONAH LITTLE MD [Primary Care Provider] - Follow up as needed Scribe Attestation: 09/04/19 09:03 I personally performed the services described in the documentation, reviewed and edited the documentation which was dictated to the scribe in my presence, and it accurately records my words and actions. I personally performed the services described in the documentation, reviewed and edited the documentation which was dictated to the scribe in my presence, and it accurately records my words and actions.
[2019-09-04 10:04] VITALS: BP 147/94
== END 2019-09-04 10:07 | disposition home or self-care (01) ==
LOC: ER 06:17
DX: J06.9 Acute upper respiratory infection, unspecified (principal); B97.89 Other viral agents as the cause of diseases classified elsewhere; R05 Cough; J45.909 Unspecified asthma, uncomplicated; D72.829 Elevated white blood cell count, unspecified; R07.9 Chest pain, unspecified; R06.02 Shortness of breath; R07.0 Pain in throat; I10 Essential (primary) hypertension; Z79.899 Other long term (current) drug therapy; Z79.2 Long term (current) use of antibiotics; Z88.8 Allergy status to other drugs, medicaments and biological substances; Z88.1 Allergy status to other antibiotic agents; Z88.6 Allergy status to analgesic agent; Z88.5 Allergy status to narcotic agent
CPT/HCPCS: 36415; 71045; 80053; 81001; 82550; 84484; 85025; 93005; 93010; 99285

== ENCOUNTER 2019-09-12 16:55 | Emergency (ER) | payer BC ==
[2019-09-12] MEDS ORDERED: ONDANSETRON HCL INJ/PF 4 MG/2 ML SDV IV ONE (17:26)
[2019-09-12] MEDS ORDERED: NORMAL SALINE 1000 ML 1,000 ML IV ONE (17:26)
--- NOTE | 2019-09-12 17:27 | ER Document Report ---
ED Medical Screen (RME) - General Chief Complaint: Diarrhea Stated Complaint: DIARRHEA,WEAKNESS Time Seen by Provider: 09/12/19 17:24 Primary Care Provider: JONAH LITTLE MD [Primary Care Provider] - Follow up as needed TRAVEL OUTSIDE OF THE [place] IN LAST 30 DAYS: No - HPI Notes: 09/12/19 17:27 Patient is a 48-year-old female who presents complaining of nausea, vomiting, diarrhea over the past 4 days. She was being treated for possible pneumonia with antibiotics. No fever. The cough has since improved. I have treated and performed a rapid initial assessment of this patient. A comprehensive ED assessment and evaluation of the patient, analysis of test results and completion of medical decision making process will be conducted by additional ED providers. PHYSICAL EXAMINATION: GENERAL: Well-appearing, well-nourished and in no acute distress. A&Ox4. Answers questions appropriately. - Related Data Allergies/Adverse Reactions: prochlorperazine edisylate [From Compazine] Allergy (Severe, Verified 09/12/19 17:18) PANIC ATTACK doxycycline [Doxycycline] Allergy (Mild, Verified 09/12/19 17:18) RASH hydrocodone [From Vicodin] Allergy (Verified 09/12/19 17:18) Nausea, Vomiting oxycodone [From Percocet] Allergy (Verified 09/12/19 17:18) Nausea, Vomiting prochlorperazine [From Compazine] Allergy (Verified 09/12/19 17:18) Anxiety Past Medical History - Past Medical History Cardiac Medical History: Reports: Hx Atrial Fibrillation, Hx Hypercho lesterolemia, Hx Hypertension Denies: Hx Congestive Heart Failure, Hx Coronary Artery Disease, Hx Heart Attack, Hx Peripheral Vascular Disease, Hx Pulmonary Embolism, Hx Heart Murmur Pulmonary Medical History: Reports: Hx Asthma Denies: Hx Bronchitis, Hx COPD, Hx Pneumonia, Hx Respiratory Failure, Hx Sleep Apnea, Hx Tuberculosis Neurological Medical History: Reports: Hx Migraine, Hx Seizures - x1. Denies: Hx Cerebrovascular Accident, Hx Parkinson's Disease Endocrine Medical History: Denies: Hx Diabetes Mellitus Type 1, Hx Diabetes Mellitus Type 2 Renal/ Medical History: Denies: Hx Ovarian Cysts, Hx Peritoneal Dialysis, Hx Pelvic Inflammatory Disease Malignancy Medical History: Denies: Hx Breast Cancer, Hx Cervical Cancer, Hx Leukemia, Hx Lung Cancer, Hx Ovarian Cancer Musculoskeltal Medical History: Reports Hx Arthritis, Reports Hx Fibromyalgia, Denies Hx Multiple Sclerosis, Denies Hx Muscular Dystrophy, Reports Hx Musculoskeletal Trauma Psychiatric Medical History: Denies: Hx Dementia Traumatic Medical History: Denies: Hx Fractures Infectious Medical History: Denies: Hx HIV Past Surgical History: Reports: Hx Section, Hx Cholecystectomy, Hx Hysterectomy, Hx Orthopedic Surgery - RTK replacement. Denies: Hx Appendectomy, Hx Bowel Surgery, Hx Coronary Artery Bypass Graft, Hx Gastric Bypass Surgery, Hx Herniorrhaphy, Hx Mastectomy, Hx Pacemaker, Hx Tonsillectomy, Hx Tubal Ligation - Immunizations Immunizations up to date: No Hx Diphtheria, Pertussis, Tetanus Vaccination: No Physical Exam - Vital signs Vitals: Temp Pulse Resp BP Pulse Ox 98.9 F 64 15 159/79 H 100 09/12/19 17:08 09/12/19 17:08 09/12/19 17:08 09/12/19 17:08 09/12/19 17:08 Course - Vital Signs Vital signs: Temp Pulse Resp BP Pulse Ox 98.9 F 64 15 159/79 H 100 09/12/19 17:08 09/12/19 17:08 09/12/19 17:08 09/12/19 17:08 09/12/19 17:08 Doctor's Discharge - Discharge Referrals: JONAH LITTLE MD [Primary Care Provider] - Follow up as needed
[2019-09-12 17:49] LABS: APPEARANCE,URINE SLIGHTLY-CLOUDY; BILIRUBIN,URINE NEGATIVE (NEGATIVE); COLOR,URINE YELLOW; GLUCOSE, URINE NEGATIVE (NEGATIVE); KETONES,URINE NEGATIVE (NEGATIVE); PROTEIN,URINE 30 mg/dL (NEGATIVE)
[2019-09-12 17:51] LABS: ABSOLUTE BASOPHILS # (AUTO) 0.1 10^3/uL (0.0-0.2); ABSOLUTE EOSINOPHILS # (AUTO) 0.3 10^3/uL (0.0-0.6); ABSOLUTE LYMPHOCYTES (AUTO) 2.8 10^3/uL (0.5-4.7); ABSOLUTE MONOCYTES (AUTO) 0.7 10^3/uL (0.1-1.4); ABSOLUTE NEUT (AUTO) 4.8 10^3/uL (1.7-8.2); BASOPHILS % (AUTO) 0.7 % (0-2); EOSINOPHILS % (AUTO) 3.7 % (0-6); HEMATOCRIT 34.1 % (36.0-47.0); HEMOGLOBIN 11.5 g/dL (12.0-15.5); LYMPHOCYTES % (AUTO) 32.4 % (13-45); MEAN CORPUSCULAR HEMOGLOBIN 28.6 pg (27.0-33.4); MEAN CORPUSCULAR HGB CONC 33.9 g/dL (32.0-36.0); MEAN CORPUSCULAR VOLUME 84 fl (80-97); MONOCYTES % (AUTO) 7.7 % (3-13); PLATELET COUNT 331 10^3/uL (150-450); RED BLOOD COUNT 4.04 10^6/uL (3.72-5.28); RED CELL DISTRIBUTION WIDTH 15.1 % (11.5-14.0); SEGMENTED NEUTROPHILS % (AUTO) 55.5 % (42-78); TOTAL CELLS COUNTED % (AUTO) 100 %; WHITE BLOOD COUNT 8.7 10^3/uL (4.0-10.5)
[2019-09-12 18:10] LABS: ALBUMIN 3.8 g/dL (3.5-5.0); ALKALINE PHOSPHATASE 60 U/L (38-126); ANION GAP 8 (5-19); ASPARTATE AMINO TRANSFERASE 19 U/L (14-36); BILIRUBIN,DIRECT 0.1 mg/dL (0.0-0.4); BILIRUBIN,TOTAL 0.4 mg/dL (0.2-1.3); BLOOD UREA NITROGEN 12 mg/dL (7-20); CALCIUM 9.4 mg/dL (8.4-10.2); CARBON DIOXIDE 27 mmol/L (22-30); CHLORIDE 106 mmol/L (98-107); GLUCOSE 104 mg/dL (75-110); POTASSIUM 4.2 mmol/L (3.6-5.0); TOTAL PROTEIN 7.4 g/dL (6.3-8.2)
[2019-09-12] MEDS ORDERED: ONDANSETRON HCL INJ/PF 4 MG/2 ML SDV ONE (20:49)
--- NOTE | 2019-09-12 21:03 | ER Document Report ---
ED General - General Chief Complaint: Diarrhea Stated Complaint: DIARRHEA,WEAKNESS Time Seen by Provider: 09/12/19 17:24 Primary Care Provider: JONAH LITTLE MD [Primary Care Provider] - Follow up in 3-5 days TRAVEL OUTSIDE OF THE [place] IN LAST 30 DAYS: No - HPI Notes: 48-year-old female with history of IBS to the emergency department with complaints of 2 to 3 days of diarrhea. She states that every time she eats and drinks she immediately has diarrhea. She admits to cramping abdominal pain. She states that she has been on antibiotics in the past week. She was put on Septra for a chest infection. She states she just finished the Septra yesterday. She states that she has not seen any blood in her stool. She denies any fevers or chills or chills. She denies any recent, sick contacts. She does have a GI specialist that she sees but she has not called him since his symptoms have started. She has never had a history of C. difficile. Patient states that she has been trying to stay hydrated and been drinking Pedialyte and propel water. She states that despite that she continues to have diarrhea and does on occasion feel lightheaded. She states she has not passed out. - Related Data Allergies/Adverse Reactions: prochlorperazine edisylate [From Compazine] Allergy (Severe, Verified 09/12/19 17:18) PANIC ATTACK doxycycline [Doxycycline] Allergy (Mild, Verified 09/12/19 17:18) RASH hydrocodone [From Vicodin] Allergy (Verified 09/12/19 17:18) Nausea, Vomiting oxycodone [From Percocet] Allergy (Verified 09/12/19 17:18) Nausea, Vomiting prochlorperazine [From Compazine] Allergy (Verified 09/12/19 17:18) Anxiety Past Medical History - General Information source: Patient - Social History Smoking Status: Never Smoker Frequency of alcohol use: None Drug Abuse: None Lives with: Spouse/Significant other Family History: Reviewed & Not Pertinent, DM Patient has suicidal ideation: No Patient has homicidal ideation: No - Past Medical History Cardiac Medical History: Reports: Hx Atrial Fibrillation, Hx Hyper cholesterolemia, Hx Hypertension Denies: Hx Congestive Heart Failure, Hx Coronary Artery Disease, Hx Heart Attack, Hx Peripheral Vascular Disease, Hx Pulmonary Embolism, Hx Heart Murmur Pulmonary Medical History: Reports: Hx Asthma Denies: Hx Bronchitis, Hx COPD, Hx Pneumonia, Hx Respiratory Failure, Hx Sleep Apnea, Hx Tuberculosis Neurological Medical History: Reports: Hx Migraine, Hx Seizures - x1. Denies: Hx Cerebrovascular Accident, Hx Parkinson's Disease Endocrine Medical History: Denies: Hx Diabetes Mellitus Type 1, Hx Diabetes Mellitus Type 2 Renal/ Medical History: Denies: Hx Ovarian Cysts, Hx Peritoneal Dialysis, Hx Pelvic Inflammatory Disease Malignancy Medical History: Denies: Hx Breast Cancer, Hx Cervical Cancer, Hx Leukemia, Hx Lung Cancer, Hx Ovarian Cancer Musculoskeletal Medical History: Reports Hx Arthritis, Reports Hx Fibromyalgia, Denies Hx Multiple Sclerosis, Denies Hx Muscular Dystrophy, Reports Hx Musculoskeletal Trauma Psychiatric Medical History: Denies: Hx Dementia Traumatic Medical History: Denies: Hx Fractures Infectious Medical History: Denies: Hx HIV Past Surgical History: Reports: Hx Section, Hx Cholecystectomy, Hx Hysterectomy, Hx Orthopedic Surgery - RTK replacement. Denies: Hx Appendectomy, Hx Bowel Surgery, Hx Coronary Artery Bypass Graft, Hx Gastric Bypass Surgery, Hx Herniorrhaphy, Hx Mastectomy, Hx Pacemaker, Hx Tonsillectomy, Hx Tubal Ligation - Immunizations Immunizations up to date: No Hx Diphtheria, Pertussis, Tetanus Vaccination: No Hx Pneumococcal Vaccination: 09/03/00 Review of Systems - Review of Systems Constitutional: Weakness. denies: Chills, Fever EENT: No symptoms reported Cardiovascular: See HPI, Lightheaded. denies: Chest pain, Palpitations, Dysp johanne, Syncope, Dizziness Gastrointestinal: Abdominal pain, Diarrhea. denies: Nausea, Vomiting, Constipation, Blood streaked bowels, Black stools, Rectal bleeding Genitourinary: No symptoms reported Female Genitourinary: No symptoms reported Musculoskeletal: No symptoms reported Skin: No symptoms reported Hematologic/Lymphatic: No symptoms reported Neurological/Psychological: No symptoms reported -: Yes All other systems reviewed and negative Physical Exam - Vital signs Vitals: Temp Pulse Resp BP Pulse Ox 98.9 F 64 15 159/79 H 100 09/12/19 17:08 09/12/19 17:08 09/12/19 17:08 09/12/19 17:08 09/12/19 17:08 Interpretation: Hypertensive - General General appearance: Appears well, Alert In distress: None - HEENT Head: Normocephalic, Atraumatic Eyes: Normal Pupils: PERRL Ears: Normal External canal: Normal Tympanic membrane: Normal Sinus: Normal Nasal: Normal Mouth/Lips: Normal - The patient has chosen to leave the facility against medical advice. The relevant issues have been reviewed and discussed with the patient and family at the bedside. At the time of this assessment there is no indication for involuntary commitment. The patient is alert, oriented, and able to express clearly their reasoning for not wanting to remain in the emergency department for further treatment. The patient is not clinically psychotic, intoxicated, and denies and suicidal ideation. Differential or suspected diagnoses based on medical screening exam: . The patient is aware of the concerning diagnoses and acknowledges understanding of the reasons for the following recommendations: The following recommendations/services were offered and refused: The following risks were explained: , permanent disability, loss of function Clinical impression: Patient is competent to make decisions regarding the medical that is being offered. Mucous membranes: Normal Pharynx: Normal Neck: Normal, Supple. No: Lymphadenopathy, Meningismus - Respiratory Respiratory status: No respiratory distress Chest status: Nontender. No: Accessory muscle use Breath sounds: Normal. No: Rales, Rhonchi, Stridor, Wheezing Chest palpation: Normal - Cardiovascular Rhythm: Regular Heart sounds: Normal auscultation Murmur: No - Abdominal Inspection: Normal Distension: No distension Bowel sounds: Normal Tenderness: Nontender - Patient's abdomen is soft and nontender to palpation throughout. She states that it does not hurt when I palpate her abdomen but she more feels cramping and twisting in her stomach when she is about to have diarrhea. No: McBurney's point, Rodriguez's sign, Guarding, Rebound Organomegaly: No organomegaly - Back Back: Normal, Nontender. No: CVA tenderness - Extremities General upper extremity: Normal inspection, Nontender, Normal color, Normal ROM, Normal temperature General lower extremity: Normal inspection, Nontender, Normal color, Normal ROM, Normal temperature, Normal weight bearing. No: Maryanne's sign - Neurological Neuro grossly intact: Yes Cognition: Normal Orientation: AAOx4 Kingsley Coma Scale Eye Opening: Spontaneous Saxis Coma Scale Verbal: Oriented Saxis Coma Scale Motor: Obeys Commands Kingsley Coma Scale Total: 15 Speech: Normal Cranial nerves: Normal Cerebellar coordination: Normal Motor strength normal: LUE, RUE, LLE, RLE Additional motor exam normals: Equal speaker wirer. No: Pronator drift Sensory: Normal - Psychological Associated symptoms: Normal affect, Normal mood - Skin Skin Temperature: Warm Skin Moisture: Dry Skin Color: Normal Skin irregularity: negative: Rash Course - Re-evaluation Re-evalutation: Patient has done well in the emergency department tonight. She has not had any episodes of diarrhea since her arrival. We did attempt to give her IV fluids but 2 attempts at placing a line were unsuccessful and patient asked for no further attempts. I rounded on her at this time and she still has a nontender belly and she would really like to go home. She has stable vital signs. She has a nontender soft abdomen. I will give her specimen kit for stool collection. And will write her for lab order so that she can take it to the lab so we can test her for C. difficile as well as stool culture and ova and parasite. I have encouraged her to return if she gets any worse. I have encouraged her to push fluids. I will send her home with a little bit of Dion. She agrees - Vital Signs Vital signs: Temp Pulse Resp BP Pulse Ox 98.2 F 62 16 118/82 97 09/12/19 23:22 09/12/19 23:22 09/12/19 23:22 09/12/19 23:22 09/12/19 23:22 - Laboratory Result Diagrams: 09/12/19 17:35 09/12/19 17:35 Laboratory results interpreted by me: 09/12/19 09/12/19 17:35 17:35 Hgb 11.5 L Hct 34.1 L RDW 15.1 H Urine Protein 30 H Urine Urobilinogen 4.0 H Discharge - Discharge Clinical Impression: Abdominal cramping Diarrhea Qualifiers: Diarrhea type: unspecified type Qualified Code(s): R19.7 - Diarrhea, unspecified Condition: Stable Disposition: HOME, SELF-CARE Instructions: Diarrhea, Nonspecific ([facility]) Additional Instructions: Take medicine as prescribed. Return if worsening symptoms. Obtain stool sample. Push fluids. [place] diet. Follow up with your Gi specialist without fail. Prescriptions: Ondansetron [Zofran Odt 4 mg Tablet] 1 - 2 tab PO Q4H PRN #15 tab.rapdis PRN Reason: For Nausea/Vomiting Referrals: OJONAH SALCIDO MD [Primary Care Provider] - Follow up in 3-5 days
[2019-09-12] MEDS ORDERED: ONDANSETRON 4 MG TAB.RAPDIS PO ONE (21:53)
[2019-09-12 23:23] VITALS: BP 118/82
== END 2019-09-13 00:08 | disposition home or self-care (01) ==
LOC: ER 16:55
DX: R19.7 Diarrhea, unspecified (principal); R10.9 Unspecified abdominal pain; R42 Dizziness and giddiness; I10 Essential (primary) hypertension; J45.909 Unspecified asthma, uncomplicated; R53.1 Weakness; Z90.49 Acquired absence of other specified parts of digestive tract; Z90.710 Acquired absence of both cervix and uterus; Z88.8 Allergy status to other drugs, medicaments and biological substances; Z88.1 Allergy status to other antibiotic agents; Z88.6 Allergy status to analgesic agent; Z88.5 Allergy status to narcotic agent
CPT/HCPCS: 99284; 36415; 83690; 85025; 80053; 81001; S0119

== ENCOUNTER 2020-02-01 16:09 | Emergency (ER) | payer BC ==
[2020-02-01] MEDS ORDERED: LIDOCAINE 2% VISCOUS SOLN 15 ML UDCUP PO ONE (16:55)
--- NOTE | 2020-02-01 17:01 | ER Document Report ---
ED General - General Chief Complaint: Breathing Difficulty Stated Complaint: SHORTNESS OF BREATH, Time Seen by Provider: 02/01/20 16:27 Primary Care Provider: JONAH LITTLE MD [Primary Care Provider] - Follow up as needed Notes: 49-year-old female presents emergency department that while he gets in complaining that she feels like there may either be something in her throat or her throat is swollen. Patient admits to history of eosinophilic esophagitis but also states that she was eating popcorn last night and the sensation of something being stuck on the left side of her throat started last night after/w hile eating popcorn. Patient states that last evening she tried drinking carbonated beverages and tea, felt like something was may be moving slowly in her throat but it did not completely dislodge. States that this morning when she ate her grits and some brisket she felt like she was swallowing more slowly than usual. Stated that when she slept last night she felt like she was maybe having trouble breathing while talking because of the sensation of swelling. Denies feeling like any of the brisket is actually getting stuck. Denies any actual shortness of breath. TRAVEL OUTSIDE OF THE [place] IN LAST 30 DAYS: No - Related Data Allergies/Adverse Reactions: prochlorperazine edisylate [From Compazine] Allergy (Severe, Verified 02/01/20 16:47) PANIC ATTACK doxycycline [Doxycycline] Allergy (Mild, Verified 02/01/20 16:47) RASH hydrocodone [From Vicodin] Allergy (Verified 02/01/20 16:47) Nausea, Vomiting oxycodone [From Percocet] Allergy (Verified 02/01/20 16:47) Nausea, Vomiting prochlorperazine [From Compazine] Allergy (Verified 02/01/20 16:47) Anxiety Past Medical History - General Information source: Patient - Social History Smoking Status: Never Smoker Frequency of alcohol use: None Drug Abuse: None Family History: DM Patient has homicidal ideation: No - Past Medical History Cardiac Medical History: Reports: Hx Atrial Fibrillation, Hx Hypercholesterolemia, Hx Hypertension Denies: Hx Congestive Heart Failure, Hx Coronary Artery Disease, Hx Heart Attack, Hx Peripheral Vascular Disease, Hx Pulmonary Embolism, Hx Heart Murmur Pulmonary Medical History: Reports: Hx Asthma Denies: Hx Bronchitis, Hx COPD, Hx Pneumonia, Hx Respiratory Failure, Hx Sleep Apnea, Hx Tuberculosis Neurological Medical History: Reports: Hx Migraine, Hx Seizures - x1. Denies: Hx Cerebrovascular Accident, Hx Parkinson's Disease Endocrine Medical History: Denies: Hx Diabetes Mellitus Type 1, Hx Diabetes Me llitus Type 2 Renal/ Medical History: Denies: Hx Ovarian Cysts, Hx Peritoneal Dialysis, Hx Pelvic Inflammatory Disease Malignancy Medical History: Denies: Hx Breast Cancer, Hx Cervical Cancer, Hx Leukemia, Hx Lung Cancer, Hx Ovarian Cancer GI Medical History: Reports: Hx Hiatal Hernia Musculoskeletal Medical History: Reports Hx Arthritis, Reports Hx Fibromyalgia, Denies Hx Multiple Sclerosis, Denies Hx Muscular Dystrophy, Reports Hx Musculoskeletal Trauma Psychiatric Medical History: Denies: Hx Dementia Traumatic Medical History: Denies: Hx Fractures Infectious Medical History: Denies: Hx HIV Past Surgical History: Reports: Hx Section, Hx Cholecystectomy, Hx Hysterectomy, Hx Orthopedic Surgery - RTK replacement. Denies: Hx Appendectomy, Hx Bowel Surgery, Hx Coronary Artery Bypass Graft, Hx Gastric Bypass Surgery, Hx Herniorrhaphy, Hx Mastectomy, Hx Pacemaker, Hx Tonsillectomy, Hx Tubal Ligation - Immunizations Immunizations up to date: No Hx Diphtheria, Pertussis, Tetanus Vaccination: No Hx Pneumococcal Vaccination: 09/03/00 Review of Systems - Review of Systems Constitutional: No symptoms reported EENT: See HPI Gastrointestinal: See HPI -: Yes All other systems reviewed and negative Physical Exam - Vital signs Vitals: Temp Pulse Resp BP Pulse Ox 98.3 F 81 18 139/81 H 99 02/01/20 16:27 02/01/20 16:27 02/01/20 16:27 02/01/20 16:27 02/01/20 16:27 - Notes Notes: GENERAL: Alert, interacts well. No acute distress. HEAD: Normocephalic, atraumatic EYES: Pupils equal, round and reactive to light, extraocular movements intact. ENT: Oral mucosa moist, tongue midline. There are white patches on the roof of the mouth, cobblestoning in the posterior oropharynx, tympanic membranes intact, no bulging or fluid behind them, turbinates are edematous, clear rhinorrhea in the right nostril, left naris is normal. NECK: Full range of motion, supple, trachea midline. LUNGS: no respiratory distress, no stridor. EXTREMITIES: Moves all 4 extremities spontaneously, no edema. No cyanosis. NEUROLOGICAL: Alert and oriented x3, normal speech. PSYCH: Normal mood, normal affect. SKIN: Warm, Dry, normal turgor, no rashes or lesions noted. Course - Re-evaluation Re-evalutation: 02/01/20 20:39 CBC unremarkable, CMP does show a low potassium at 3.0, this will be repleted by mouth, strep test is negative, Monospot is negative. CT scan of the neck actually shows a peritonsillar abscess but is at the base of the tongue. I am unable to visualize this on my physical examination therefore I am unable to drain it. I did discuss the case with Dr. Ivy who graciously agreed to see the patient in his office tomorrow at 10 AM. Agrees with starting Decadron 10 mg here and amoxicillin by mouth. He will see the patient in the office. Patient is not having any airway compromise or pooling of secretions at this time. 02/01/20 20:[address] 02/01/20 18:13 IMPRESSION: 1. Small left peritonsillar abscess. - Vital Signs Vital signs: Temp Pulse Resp BP Pulse Ox 98.3 F 81 18 139/81 H 99 02/01/20 16:42 02/01/20 16:27 02/01/20 16:27 02/01/20 16:27 02/01/20 16:27 - Laboratory Result Diagrams: 02/01/20 17:06 02/01/20 17:06 Laboratory results interpreted by me: 02/01/20 02/01/20 17:06 17:06 Hct 35.6 L Sodium 134.9 L Potassium 3.0 L* Chloride 95 L Carbon Dioxide 31 H Est GFR (MDRD) Non-Af 56 L Discharge - Discharge Clinical Impression: Peritonsillar abscess Condition: Stable Disposition: HOME, SELF-CARE Additional Instructions: I have discussed her case with Dr. vIy, 1 of our local ear nose and throat surgeons. He has agreed to see you in his office at 10 AM tomorrow. Please do not eat or drink anything before you go to see him. Please take the amoxicillin 500 mg 3 times a day. We have also given you steroids here which should help to decrease the swelling. If at any point you cannot swallow or you feel like food has gotten stuck in your throat please return to the emergency department. Prescriptions: Amoxicillin 1 tab PO TID #21 tab Referrals: JONAH LITTLE MD [Primary Care Provider] - Follow up as needed
[2020-02-01 18:00] LABS: ABSOLUTE BASOPHILS # (AUTO) 0.1 10^3/uL (0.0-0.2); ABSOLUTE EOSINOPHILS # (AUTO) 0.1 10^3/uL (0.0-0.6); ABSOLUTE LYMPHOCYTES (AUTO) 2.8 10^3/uL (0.5-4.7); ABSOLUTE MONOCYTES (AUTO) 0.7 10^3/uL (0.1-1.4); ABSOLUTE NEUT (AUTO) 4.5 10^3/uL (1.7-8.2); BASOPHILS % (AUTO) 0.6 % (0-2); EOSINOPHILS % (AUTO) 1.2 % (0-6); HEMATOCRIT 35.6 % (36.0-47.0); HEMOGLOBIN 12.3 g/dL (12.0-15.5); LYMPHOCYTES % (AUTO) 34.8 % (13-45); MEAN CORPUSCULAR HEMOGLOBIN 29.2 pg (27.0-33.4); MEAN CORPUSCULAR HGB CONC 34.5 g/dL (32.0-36.0); MEAN CORPUSCULAR VOLUME 85 fl (80-97); MONOCYTES % (AUTO) 8.5 % (3-13); PLATELET COUNT 348 10^3/uL (150-450); RED BLOOD COUNT 4.21 10^6/uL (3.72-5.28); RED CELL DISTRIBUTION WIDTH 13.8 % (11.5-14.0); SEGMENTED NEUTROPHILS % (AUTO) 54.9 % (42-78); TOTAL CELLS COUNTED % (AUTO) 100 %; WHITE BLOOD COUNT 8.1 10^3/uL (4.0-10.5)
[2020-02-01 18:06] LABS: ANION GAP 9 (5-19); BLOOD UREA NITROGEN 13 mg/dL (7-20); CALCIUM 9.2 mg/dL (8.4-10.2); CARBON DIOXIDE 31 mmol/L (22-30); CHLORIDE 95 mmol/L (98-107); GLUCOSE 108 mg/dL (75-110)
--- NOTE | 2020-02-01 19:36 | RADIOLOGY REPORT (SQ) ---
EXAM DESCRIPTION: CT SOFT TISSUE NECK WITH IMAGES COMPLETED DATE/TIME: 02/01/2020 6:08 pm REASON FOR STUDY: sensation of left throat swelling. COMPARISON: None. TECHNIQUE: Post IV contrasted scanning from skull base through lung apices with review of bone, soft tissue and lung windows. Reconstructed coronal and sagittal MPR images reviewed. All images stored on PACS. All CT scanners at this facility use dose modulation, iterative reconstruction, and/or weight based d osing when appropriate to reduce radiation dose to as low as reasonably achievable (ALARA). [facility]: Dose Right [facility]: CareDose [facility]: Dose Right [facility]: Teradose 4D [facility]: iValidate.me CONTRAST TYPE AND DOSE: contrast/concentration: Isovue 350.00 mg/ml; Total Contrast Delivered: 75.0 ml; Total Saline Delivered: 55.0 ml RENAL FUNCTION: GFR > 60. RADIATION DOSE: CT Rad equipment meets quality standard of care and radiation dose reduction techniq ues were employed. CTDIvol: 19.2 mGy. DLP: 645 mGy-cm. . LIMITATIONS: None. FINDINGS: SKULL BASE: Intact. MAJOR SALIVARY GLANDS: No solid or cystic masses. No inflammatory changes. LYMPHADENOPATHY: No adenopathy. MUCOSAL MASSES OR ASYMMETRY: There is a 1 x 0.6 cm left peritonsillar abscess with asymmetric appeara nce at the tongue base. The epiglottis and larynx have a normal appearance. No encroachment on the airway. LARYNX/CORDS: No abnormal findings. VASCULAR STRUCTURES: The major vessels are patent. LUNG APICES: Clear. BONES: Intact. THYROID: Normal size. No masses. PARANASAL SINUSES: Clear. OTHER: No other significant finding. IMPRESSION: 1. Small left peritonsillar abscess. TECHNICAL DOCUMENTATION: JOB ID: [id number] Quality ID # [id number]: Final reports with documentation of one or more dose reduction techniques (e.g., Au tomated exposure control, adjustment of the mA and/or kV according to patient size, use of iterative reconstruction technique) 2010 [employer]- All Rights Reserved Reading location - IP/workstation name: [email or web address]
[2020-02-01] MEDS ORDERED: DEXAMETHASONE SOD PHOS INJ 10 MG/1 ML VIAL IV ONE (20:37)
[2020-02-01] MEDS ORDERED: AMOXICILLIN TRIHYDRATE 500 MG CAPSULE PO ONE (20:38)
[2020-02-01 21:04] VITALS: BP 134/88
== END 2020-02-01 21:04 | disposition home or self-care (01) ==
LOC: ER 16:09
DX: J36 Peritonsillar abscess (principal); R06.02 Shortness of breath; R22.1 Localized swelling, mass and lump, neck; Z88.8 Allergy status to other drugs, medicaments and biological substances; I48.91 Unspecified atrial fibrillation; I10 Essential (primary) hypertension; J45.909 Unspecified asthma, uncomplicated
CPT/HCPCS: 99283; 96374; 36415; 87070; 87880; 85025; 86308; 80048; 70491; J3490; J1100

== ENCOUNTER 2020-06-14 06:38 | Emergency (ER) | payer BC ==
[2020-06-14 07:38] LABS: APPEARANCE,URINE CLEAR; BILIRUBIN,URINE NEGATIVE (NEGATIVE); COLOR,URINE YELLOW; GLUCOSE, URINE NEGATIVE (NEGATIVE); KETONES,URINE NEGATIVE (NEGATIVE); LEUKOCYTE ESTERASE,URINE NEGATIVE (NEGATIVE); NITRITE,URINE NEGATIVE (NEGATIVE); PROTEIN,URINE NEGATIVE (NEGATIVE)
[2020-06-14] MEDS ORDERED: KETOROLAC TROMETHAMINE INJ/PF 30 MG/1 ML SDV IV ONE (08:08)
--- NOTE | 2020-06-14 08:11 | ER Document Report ---
ED GI/ - General Chief Complaint: Flank Pain Stated Complaint: FLANK PAIN Time Seen by Provider: 06/14/20 07:54 Primary Care Provider: JONAH LITTLE MD [Primary Care Provider] - Follow up as needed Notes: HPI: 49-year-old female who presents today with some left lower back pain worse with movement over the last 4 days. No trauma. She describes the pain as "burning". She denies any weakness or numbness of the legs. No incontinence. No radiation to the abdomen. She does have some relief with urination. No history of family history of a kidney stone. ROS: See HPI All other review of systems reviewed and otherwise negative Reviewed vital signs and nursing note as charted by RN. PHYSICAL EXAM: CONSTITUTIONAL: Alert and oriented and responds appropriately to questions. Well-appearing; well-nourished HEAD: Normocephalic; atraumatic NECK: Supple without meningismus; non-tender; no cervical lymphadenopathy, no masses CARD: Regular rate and rhythm; no murmurs; symmetric distal pulses RESP: Normal chest excursion without splinting or tachypnea; breath sounds clear and equal bilaterally ABD/GI: Normal bowel sounds; non-distended; soft, non-tender BACK: The back appears normal with no tenderness or swelling to the midline lumbar spine. Patient does have some left paraspinal muscular/CVA tenderness with no swelling erythema EXT: Normal ROM in all joints; non-tender to palpation; no edema SKIN: No acute lesions noted NEURO: CN 2-12 intact; 5/5 bilateral upper and lower extremity strength with sensation intact to light touch PSYCH: The patient's mood and manner are appropriate. Grooming and personal hygiene are appropriate. TRAVEL OUTSIDE OF THE [place] IN LAST 30 DAYS: No - Related Data Allergies/Adverse Reactions: prochlorperazine edisylate [From Compazine] Allergy (Severe, Verified 02/01/20 16:47) PANIC ATTACK doxycycline [Doxycycline] Allergy (Mild, Verified 02/01/20 16:47) RASH hydrocodone [From Vicodin] Allergy (Verified 02/01/20 16:47) Nausea, Vomiting oxycodone [From Percocet] Allergy (Verified 02/01/20 16:47) Nausea, Vomiting prochlorperazine [From Compazine] Allergy (Verified 02/01/20 16:47) Anxiety Past Medical History - Social History Smoking Status: Never Smoker Family History: DM - Past Medical History Cardiac Medical History: Reports: Hx Atrial Fibrillation, Hx Hypercholesterolemia, Hx Hypertension Denies: Hx Congestive Heart Failure, Hx Coronary Artery Disease, Hx Heart Attack, Hx Peripheral Vascular Disease, Hx Pulmonary Embolism, Hx Heart Murmur Pulmonary Medical History: Reports: Hx Asthma Denies: Hx Bronchitis, Hx COPD, Hx Pneumonia, Hx Respiratory Failure, Hx Sleep Apnea, Hx Tuberculosis Neurological Medical History: Reports: Hx Migraine, Hx Seizures - x1. Denies: Hx Cerebrovascular Accident, Hx Parkinson's Disease Endocrine Medical History: Denies: Hx Diabetes Mellitus Type 1, Hx Diabetes Mellitus Type 2 Renal/ Medical History: Denies: Hx Ovarian Cysts, Hx Peritoneal Dialysis, Hx Pelvic Inflammatory Disease Malignancy Medical History: Denies: Hx Breast Cancer, Hx Cervical Cancer, Hx Leukemia, Hx Lung Cancer, Hx Ovarian Cancer GI Medical History: Reports: Hx Hiatal Hernia Musculoskeletal Medical History: Reports Hx Arthritis, Reports Hx Fibromyalgia, Denies Hx Multiple Sclerosis, Denies Hx Muscular Dystrophy, Reports Hx Musculoskeletal Trauma Psychiatric Medical History: Denies: Hx Dementia Traumatic Medical History: Denies: Hx Fractures Infectious Medical History: Denies: Hx HIV Past Surgical History: Reports: Hx Section, Hx Cholecystectomy, Hx Hysterectomy, Hx Orthopedic Surgery - RTK replacement. Denies: Hx Appendectomy, Hx Bowel Surgery, Hx Coronary Artery Bypass Graft, Hx Gastric Bypass Surgery, Hx Herniorrhaphy, Hx Mastectomy, Hx Pacemaker, Hx Tonsillectomy, Hx Tubal Ligation - Immunizations Immunizations up to date: No Hx Diphtheria, Pertussis, Tetanus Vaccination: No Hx Pneumococcal Vaccination: 09/03/00 Physical Exam - Vital signs Vitals: Temp Pulse Resp BP Pulse Ox 98.5 F 63 18 155/92 H 97 06/14/20 06:44 06/14/20 06:44 06/14/20 06:44 06/14/20 06:44 06/14/20 06:44 Course - Re-evaluation Re-evalutation: 06/14/20 08:10 Given the history and physical examination, we will obtain basic labs, urine analysis, and white blood cell count. I would like to assess for the possibility of pyelonephritis. Kidney stone is in the differential. So was musculoskeletal pain given the patient's pain that is worse with movement. Patient has no midline back tenderness, swelling, or erythema. I do believe discitis, epidural abscess, osteomyelitis, or spinal cord compression to be unlikely. 06/14/20 09:48 Labs as recorded. Urine analysis as recorded. White blood cell count as recorded. CT scan as recorded showing no obvious kidney stone or other obvious pathology. No change in exam. Still no focal neurological deficits. Given that the patient is not a diabetic we will treat the patient with a course of steroids, anti-inflammatory meds, and a short course of narcotics with strict return precautions. - Vital Signs Vital signs: Temp Pulse Resp BP Pulse Ox 98.5 F 63 18 155/92 H 97 06/14/20 06:44 06/14/20 06:44 06/14/20 06:44 06/14/20 06:44 06/14/20 06:44 - Laboratory Result Diagrams: 06/14/20 07:56 06/14/20 07:56 Laboratory results interpreted by me: 06/14/20 06/14/20 06/14/20 06:58 07:56 07:56 Hct 35.7 L Carbon Dioxide 31 H Urine Urobilinogen 4.0 H Discharge - Discharge Clinical Impression: Lumbar strain Qualifiers: Encounter type: initial encounter Qualified Code(s): S39.012A - Strain of muscle, fascia and tendon of lower back, initial encounter Condition: Good Disposition: HOME, SELF-CARE Additional Instructions: Come back immediately for any increased pain, change in location or quality of pain, weakness or numbness, incontinence, fevers, or any other acute problems. Please make sure that you take 600 mg of ibuprofen every 6 hours for the next 5 days as well as a steroid that we have prescribed. Please follow-up with your primary care physician for reassessment. Prescriptions: Prednisone [Deltasone 20 mg Tablet] 3 tab PO DAILY 5 Days tablet Referrals: JONAH LITTLE MD [Primary Care Provider] - Follow up as needed
[2020-06-14 08:18] LABS: ABSOLUTE BASOPHILS # (AUTO) 0.1 10^3/uL (0.0-0.2); ABSOLUTE EOSINOPHILS # (AUTO) 0.1 10^3/uL (0.0-0.6); ABSOLUTE LYMPHOCYTES (AUTO) 2.7 10^3/uL (0.5-4.7); ABSOLUTE MONOCYTES (AUTO) 0.5 10^3/uL (0.1-1.4); ABSOLUTE NEUT (AUTO) 2.9 10^3/uL (1.7-8.2); BASOPHILS % (AUTO) 1.6 % (0-2); EOSINOPHILS % (AUTO) 2.1 % (0-6); HEMATOCRIT 35.7 % (36.0-47.0); HEMOGLOBIN 12.3 g/dL (12.0-15.5); LYMPHOCYTES % (AUTO) 42.9 % (13-45); MEAN CORPUSCULAR HEMOGLOBIN 29.1 pg (27.0-33.4); MEAN CORPUSCULAR HGB CONC 34.4 g/dL (32.0-36.0); MEAN CORPUSCULAR VOLUME 85 fl (80-97); MONOCYTES % (AUTO) 7.9 % (3-13); PLATELET COUNT 347 10^3/uL (150-450); RED BLOOD COUNT 4.21 10^6/uL (3.72-5.28); SEGMENTED NEUTROPHILS % (AUTO) 45.5 % (42-78); TOTAL CELLS COUNTED % (AUTO) 100 %; WHITE BLOOD COUNT 6.3 10^3/uL (4.0-10.5)
[2020-06-14 08:35] LABS: ALBUMIN 3.9 g/dL (3.5-5.0); ALKALINE PHOSPHATASE 63 U/L (38-126); ANION GAP 8 (5-19); ASPARTATE AMINO TRANSFERASE 30 U/L (14-36); BILIRUBIN,DIRECT 0.3 mg/dL (0.0-0.4); BILIRUBIN,TOTAL 0.8 mg/dL (0.2-1.3); BLOOD UREA NITROGEN 16 mg/dL (7-20); CALCIUM 9.1 mg/dL (8.4-10.2); CARBON DIOXIDE 31 mmol/L (22-30); CHLORIDE 99 mmol/L (98-107); GLUCOSE 105 mg/dL (75-110); POTASSIUM 3.7 mmol/L (3.6-5.0); TOTAL PROTEIN 7.6 g/dL (6.3-8.2)
--- NOTE | 2020-06-14 09:23 | RADIOLOGY REPORT (SQ) ---
EXAM DESCRIPTION: CT ABD/PELVIS NO ORAL OR IV IMAGES COMPLETED DATE/TIME: 06/14/2020 8:55 am REASON FOR STUDY: 21; left flank pain; eval for kidney stone COMPARISON: 12/12/2014 TECHNIQUE: CT scan of the abdomen and pelvis performed without intravenous or oral contrast. Images reviewed with lung, soft tissue, and bone windows. Reconstructed coronal and sagittal MPR images revi ewed. All images stored on PACS. All CT scanners at this facility use dose modulation, iterative reconstruction, and/or weight based d osing when appropriate to reduce radiation dose to as low as reasonably achievable (ALARA). [facility]: Dose Right [facility]: CareDose [facility]: Dose Right [facility]: Teradose 4D [facility]: Dydra RADIATION DOSE: CT Rad equipment meets quality standard of care and radiation dose reduction techniq ues were employed. CTDIvol: 18.4 mGy. DLP: 1094 mGy-cm.mGy. LIMITATIONS: None. FINDINGS: LOWER CHEST: No significant findings. No nodules or infiltrates. NON-CONTRASTED LIVER, SPLEEN, ADRENALS: Evaluation limited by lack of IV contrast. No identified sign ificant masses. PANCREAS: No masses. No peripancreatic inflammatory changes. GALLBLADDER: Surgically absent. RIGHT KIDNEY AND URETER: No suspicious masses. Assessment limited by lack of IV contrast. No signif icant calcifications. No hydronephrosis or hydroureter. LEFT KIDNEY AND URETER: No suspicious masses. Assessment limited by lack of IV contrast. No signifi cant calcifications. No hydronephrosis or hydroureter. AORTA AND RETROPERITONEUM: No aneurysm. No retroperitoneal masses or adenopathy. BOWEL AND PERITONEAL CAVITY: No obvious masses or inflammatory changes. No free fluid. APPENDIX: Not visualized. PELVIS, BLADDER, AND ABDOMINAL WALL:No abnormal masses. No free fluid. Bladder normal. BONES: No significant findings. OTHER: No other significant finding. IMPRESSION: NO SIGNIFICANT OR ACUTE PROCESS IN THE ABDOMEN OR PELVIS. COMMENT: Quality ID # [id number]: Final reports with documentation of one or more dose reduction techniques (e.g., Automated exposure control, adjustment of the mA and/or kV according to patient size, use of iterative reconstruction technique) TECHNICAL DOCUMENTATION: JOB ID: [id number] 2010 [employer]- All Rights Reserved Reading location - IP/workstation name: [email or web address]
[2020-06-14] MEDS ORDERED: PREDNISONE 20 MG TABLET PO ONE (09:51)
[2020-06-14 10:23] VITALS: BP 121/81
== END 2020-06-14 10:21 | disposition home or self-care (01) ==
LOC: ER 06:38
DX: S39.012A Strain of muscle, fascia and tendon of lower back, initial encounter (principal); R10.9 Unspecified abdominal pain; X58.XXXA Exposure to other specified factors, initial encounter; I48.91 Unspecified atrial fibrillation; E78.00 Pure hypercholesterolemia, unspecified; I10 Essential (primary) hypertension; Z88.6 Allergy status to analgesic agent; Z90.49 Acquired absence of other specified parts of digestive tract
CPT/HCPCS: 99285; 96374; 36415; 83690; 84703; 85025; 80053; 81001; 74176; J1885; J7512